=== PATIENT | male | born 1950 | race Caucasian/White ===

== ENCOUNTER 2018-01-20 09:00 | Inpatient (IN) | payer MEDICARE, MEDICAID ==
[2018-01-20 10:17] LABS: CHLORIDE,CL 98 mmol/L (98-107); SODIUM,NA 136 mmol/L (136-145)
--- NOTE | 2018-01-20 10:25 | PCM.HP ---
H&P History of Present Illness - General Date of Service: 01/20/18 Admit Problem/Dx: Admission Diagnosis/Problem Admission Diagnosis/Problem Sepsis Source of Information: Other ([facility] staff) History Limitations: Reports: Other (patient is non-verbal) - History of Present Illness Initial Comments - Free Text/Narative: Mr. Omalley is a 67 yo male with history most notable for cerebral palsy, dysphagia resulting in him being exclusively G-tube fed, and prior aspiration pneumonia who presented to clinic today for evaluation of cough x 2 days. He has been getting into coughing fits that are hard for him to get out of. He will then have shortness of breath after this. He has also been wheezing more than normal. Overnight, he developed a fever up to 101.8. He has been more subdued than his usual self. He has a history of aspiration pneumonia but this has been much better ever since his tube feedings were changed to continuous and he was started on reglan. His last hospitalization for pneumonia was >6 months ago. - Related Data Allergies/Adverse Reactions: Allergies Allergy/AdvReac Type Severity Reaction Status Date / Time NSAIDS (Non-Steroidal AdvReac Intermediate Other Verified 01/20/18 11:26 Anti-Inflamma Home Medications: Home Meds Polyethylene Glycol 3350 [MiraLAX] 17 gram PEGTUBE DAILY 02/06/14 [History] levETIRAcetam [Keppra] 500 mg PEGTUBE BID 02/06/14 [History] Baclofen 20 mg GTUBE QID 05/27/15 [History] Calcium Carbonate [Calcium Carbonate 250 MG/ML Susp] 625 mg GTUBE BID 05/27/15 [ History] Escitalopram [Lexapro] 20 mg GTUBE DAILY 05/27/15 [History] Gabapentin 900 mg GTUBE TID 05/27/15 [History] LORazepam 1 mg SL ASDIRECTED PRN 05/27/15 [History] Multivitamins with Iron/Min [Centrum] 15 ml GTUBE DAILY 06/30/15 [History] Sucralfate 1 gram TOP QID PRN 07/01/15 [History] ARIPiprazole [Abilify] 5 mg GTUBE DAILY 12/29/15 [History] Metoclopramide [Reglan] 10 mg GTUBE Q6H 12/29/15 [History] Albuterol/Ipratropium [DuoNeb 3.0-0.5 MG/3 ML] 3 ml NEB QIDRT neb 02/20/16 [Rx] Omeprazole Magnesium [Prilosec] 20 mg GTUBE BID #60 11/19/16 [Rx] Sodium Chloride 0.9% [Saline Flush] 75 ml GTUBE DAILY@0700,1200,1400 01/20/18 [ History] Sodium Chloride [Little Remedies] 1 dose [place] QID PRN 01/20/18 [History] Past Medical History HEENT History: Reports: Cataract, Other (See Below) Other HEENT History: otitis externa, hypermetropia Cardiovascular History: Reports: None Respiratory History: Reports: Pneumonia, Recurrent Gastrointestinal History: Reports: Bowel Obstruction, Chronic Constipation, Colon Polyp, Fecal Incontinence, GI Bleed, Other (See Below) Other Gastrointestinal History: inguinal hernia, gastroparesis Genitourinary History: Reports: Urinary Incontinence Musculoskeletal History: Reports: Osteoporosis Neurological History: Reports: Brain Injury, Cerebral Palsy, Seizure Psychiatric History: Reports: Depression Endocrine/Metabolic History: Reports: None Hematologic History: Reports: None Immunologic History: Reports: None Oncologic (Cancer) History: Reports: None Dermatologic History: Reports: Other (See Below) Other Dermatologic History: ulcer of right foot - Infectious Disease History Infectious Disease History: Reports: None - Past Surgical History GI Surgical History: Reports: Other (See Below) (gastrostomy) Musculoskeletal Surgical History: Reports: Other (See Below) (amputation of toe) Social & Family History - Family History Cardiac: Reports: CAD, [place] Oncologic: Reports: Pancreatic - Tobacco Use Smoking Status *Q: Never Smoker Second Hand Smoke Exposure: No - Caffeine Use Caffeine Use: Reports: None - Alcohol Use Alcohol Use History: No Days Per Week of Alcohol Use: 0 Alcohol Use in Last Twelve Months: No - Recreational Drug Use Recreational Drug Use: No - Living Situation & Occupation Living situation: Reports: Single, Extended Care Facility Occupation: Disabled H&P Review of Systems - Review of Systems: Review Of Systems: Unable To Obtain (patient is nonverbal - staff offer no other concerns apart from that noted in HPI) Exam - Exam Exam: See Below - Vital Signs Vital Signs: Last Vital Signs Temp 36.8 C 01/20/18 09:48 Pulse 97 01/20/18 09:48 Resp 18 01/20/18 09:48 BP 127/82 01/20/18 09:48 Pulse Ox 88 L 01/20/18 09:48 Weight: 63.049 kg - Exam General: Alert, Cooperative HEENT: Conjunctiva Clear, Mucosa Moist & [place], Posterior Pharynx Clear, Pupils Equal, Pupils Reactive, TMs Clear Neck: Supple, Trachea Midline. No: Lymphadenopathy, Thyromegaly Lungs: Normal Respiratory Effort, Crackles (RLL), Wheezing (diffuse and bilateral) Cardiovascular: Regular Rate, Regular Rhythm, Normal S1, Normal S2. No: Systolic Murmur, Diastolic Murmur GI/Abdominal Exam: Normal Bowel Sounds, Soft, Non-Tender, No Organomegaly, No Distention, No Mass Extremities: Normal Inspection, Non-Tender, No Pedal Edema, Normal Capillary Refill Peripheral Pulses: 2+: Radial (L), Radial (R) Skin: Warm, Dry, Intact - Patient Data Lab Results Last 24 hrs: Laboratory Results - last 24 hr 01/20/18 Range/Units 09:45 WBC 11.2 H (4.0-10.0) x10^3/uL RBC 4.60 (4.5-6.0) x10^6/uL Hgb 14.6 D (14.0-18.0) g/dL Hct 44.1 (40.0-52.0) % MCV 95.9 H D (78.0-93.0) fL MCH 31.7 (26.0-32.0) pg MCHC 33.1 (32.0-36.0) g/dL RDW Coeff of Devendra 13.9 (10.0-15.0) % Plt Count 149 (130-400) x10^3/uL Neut % (Auto) 80.7 H (50.0-80.0) % Lymph % (Auto) 9.9 L (25.0-50.0) % [place] % (Auto) 8.7 (2.0-11.0) % Eos % (Auto) 0.5 (0.0-4.0) % Baso % (Auto) 0.2 (0.2-1.2) % Result Diagrams: 01/20/18 09:45 01/20/18 09:45 Esequiel Results Last 24 hrs: Microbiology 01/20/18 09:49 Anaerobic Blood Culture - Final Blood - Venous - Lab Draw 01/20/18 09:45 Anaerobic Blood Culture - Final Blood - Venous *Q Meaningful Use (ADM) - VTE *Q VTE Anticoagulation Contraindications: Med/TX Not Indicated/Need - Problem List (1) Sepsis SNOMED Code(s): 39511906 ICD Code: A41.9 - SEPSIS, UNSPECIFIED ORGANISM Status: Acute Current Visit: Yes Problem Details: - Meets sepsis criteria with tachycardia and fever. WBC is elevated but not >12,000. - Secondary to aspiration pneumonia. CXR is read as negative but he seems to clearly have a RLL infiltrate on my read. No symptoms to suggest alternative etiology, especially given his history of the same. - Initial lactate high. Will give IV fluids and recheck in 6 hours. - Antibiotics as below. - Recheck other labs in the am. Qualifiers: Sepsis type: sepsis due to unspecified organism Qualified Code(s): A41.9 - Sepsis, unspecified organism (2) Aspiration pneumonia SNOMED Code(s): 908739707 ICD Code: J69.0 - PNEUMONITIS DUE TO INHALATION OF FOOD AND VOMIT Status: Acute Current Visit: Yes Problem Details: - Symptoms are consistent with pneumonia, likely aspiration based on RLL infiltrate on CXR and his history of the same. - Will treat with ceftriaxone + flagyl with plan to transition to augmentin for homegoing. - Meets criteria for admission due to hypoxia. Oxygen to keep saturations around 86%, which is normal for him. - DuoNebs every 4 hours for now, can space back to D as able. Qualifiers: Aspiration pneumonia type: unspecified Laterality: right Lung location: lower lobe of lung Qualified Code(s): J69.0 - Pneumonitis due to inhalation of food and vomit (3) Wheezing SNOMED Code(s): 92404844 ICD Code: R06.2 - WHEEZING Status: Chronic Current Visit: No Problem Details: - DuoNebs q4 hours today. - He has not required steroids in the past and does not carry a diagnosis of asthma; therefore, will see how he responds to the nebs first and then go from there. (4) Cerebral palsy SNOMED Code(s): 569233793 ICD Code: G80.9 - CEREBRAL PALSY, UNSPECIFIED Status: Chronic Current Visit: No Problem Details: - Will work to position him as best possible for his breathing. (5) Constipation SNOMED Code(s): 50603004 ICD Code: K59.00 - CONSTIPATION, UNSPECIFIED Status: Chronic Current Visit: No Problem Details: - Continue miralax. Qualifiers: Constipation type: unspecified constipation type Qualified Code(s): K59.00 - Constipation, unspecified (6) Depression SNOMED Code(s): 39739403 ICD Code: F32.9 - MAJOR DEPRESSIVE DISORDER, SINGLE EPISODE, UNSPECIFIED Status: Chronic Current Visit: No Problem Details: - Currently well controlled. - Continue lexapro. Qualifiers: Depression Type: major depressive disorder Major depression recurrence: recurrent Active/Remission status: in full remission Qualified Code(s): F33.42 - Major depressive disorder, recurrent, in full remission (7) G tube feedings SNOMED Code(s): 252725616, 008189463 ICD Code: Z93.1 - GASTROSTOMY STATUS Status: Chronic Current Visit: No Problem Details: - Hold feeds for now. - Will restart tomorrow depending on how he does overnight. - IV fluids for hydration for now. - Continue carafate PRN. (8) Gastroparesis SNOMED Code(s): 960271330 ICD Code: K31.84 - GASTROPARESIS Status: Chronic Current Visit: No Problem Details: - Continue reglan. (9) Seizure disorder SNOMED Code(s): 288670801 ICD Code: G40.909 - EPILEPSY, UNSP, NOT INTRACTABLE, WITHOUT STATUS EPILEPTICUS Status: Chronic Current Visit: No Problem Details: - Seizure free for 3 years. - Continue gabapentin, keppra, and PRN lorazepam. 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 - Will continue abilify. Problem List Initiated/Reviewed/Updated: Yes Orders Last 24hrs: Active Orders 24 hr Category Date Time Status Admission Status [Patient Status] [ADT] Routine ADT 01/20/18 09:02 Active Notify Provider Vital Signs [RC] ASDIRECTED Care 01/20/18 09:18 Active Oxygen Therapy [RC] PRN Care 01/20/18 09:18 Active Up With Assistance [RC] 08,20 Care 01/20/18 09:18 Active VTE/DVT Education [RC] PER UNIT ROUTINE Care 01/20/18 09:18 Active Vital Signs [RC] Q4H Care 01/20/18 09:18 Active Chest 1V Frontal [CR] Routine Exams 01/20/18 09:18 Ordered BASIC METABOLIC PANEL,BMP [CHEM] Stat Lab 01/20/18 09:45 Received C-REACTIVE PROTEIN [CHEM] Stat Lab 01/20/18 09:45 Received CULTURE BLOOD [BC] Stat Lab 01/20/18 09:45 Results CULTURE BLOOD [BC] Stat Lab 01/20/18 09:49 Results CULTURE MRSA SURVEY [RM] Routine Lab 01/20/18 10:00 Ordered LACTIC ACID [CHEM] Stat Lab 01/20/18 09:45 Received cefTRIAXone [Rocephin] Med 01/20/18 10:00 Active 1 gm IVPUSH Q24H metroNIDAZOLE [Flagyl] Med 01/20/18 10:15 Ordered 500 mg GTUBE Q8H Anticoagulation Contraindications VTE [AST] Per Unit Oth 01/20/18 09:18 Ordered Routine Blood Culture x2 Reflex Set [OM.PC] Stat Oth 01/20/18 09:18 Ordered Resuscitation Status Routine Resus Stat 01/20/18 09:18 Ordered Medication Orders Ceftriaxone Sodium (Rocephin) 1 gm IVPUSH Q24H IBAN Metronidazole (Flagyl) 500 mg GTUBE Q8H IBAN Assessment/Plan Comment:: 67 yo male admitted with sepsis secondary to aspiration pneumonia. Admitted to acute based on hypoxia and need for supplemental oxygen. correction not able to do oxygen at home. Goal saturations would be 86-88% as he has a tendency to run low. Will treat with ceftriaxone and flagyl as well as DuoNebs q4 hours. IV fluids today with repeat lactate this pm. Otherwise, see details under problems above. Anticipate he will be admitted through the weekend with possible discharge on Wednesday. Code status is DNR/DNI - this was reviewed with his guardian on admission. She was also in agreement with admission to the hospital. No indication for VTE prophylaxis as patient has a history of GI bleeds and is at his usual functional status.
[2018-01-20] MEDS: cefTRIAXone 1 GM Vial IVPUSH SCH (11:11)
[2018-01-20] MEDS: metroNIDAZOLE 500 MG Tab GTUBE SCH ×2 (11:11→17:40)
[2018-01-20] MEDS ORDERED: Lactated Ringers 1,000 ML IV SCH ×2 (11:15→21:30)
[2018-01-20] MEDS ORDERED: Sucralfate 1 GM Tab TOP PRN (11:40)
[2018-01-20] MEDS ORDERED: LORazepam 1 MG Tab GTUBE PRN (11:40)
[2018-01-20] MEDS ORDERED: Sodium Chloride 0.9% 10 ML Syringe FLUSH SCH (12:00)
[2018-01-20] MEDS: Sodium Chloride 0.65% Nasal Spray 45 ML Bottle NAS PRN (12:17)
[2018-01-20] MEDS: Albuterol/Ipratropium 3.0-0.5 MG/3 ML Neb Soln NEB SCH ×4 (12:18→22:43)
[2018-01-20] MEDS: Baclofen 10 MG Tab GTUBE SCH ×3 (12:18→20:56)
[2018-01-20] MEDS: Metoclopramide 5 MG Tab GTUBE SCH ×3 (12:18→22:44)
[2018-01-20] MEDS ORDERED: Sodium Chloride 0.9% 10 ML Syringe IV PRN (12:59)
[2018-01-20] MEDS: GABAPENTIN GTUBE SCH ×2 (13:08→20:30)
[2018-01-20] MEDS ORDERED: Lactated Ringers 1,000 ML IV ONE (18:33)
[2018-01-20] MEDS: OMEPRAZOLE MAGNESIUM GTUBE SCH (20:30)
[2018-01-20] MEDS: levETIRAcetam Soln 500 MG/5 ML Cup PEGTUBE SCH (20:56)
[2018-01-20] MEDS: Calcium Carbonate 1,250 MG/5 ML Susp 5 ML UD Cup GTUBE SCH (20:56)
[2018-01-20] MEDS: Acetaminophen 500 MG Tab GTUBE PRN (21:19)
[2018-01-21] MEDS: Albuterol/Ipratropium 3.0-0.5 MG/3 ML Neb Soln NEB SCH ×6 (02:37→22:41)
[2018-01-21] MEDS: metroNIDAZOLE 500 MG Tab GTUBE SCH ×4 (02:37→20:32)
[2018-01-21] MEDS: Metoclopramide 5 MG Tab GTUBE SCH ×4 (05:40→17:07)
[2018-01-21 07:33] LABS: CHLORIDE,CL 101 mmol/L (98-107); SODIUM,NA 138 mmol/L (136-145)
--- NOTE | 2018-01-21 08:45 | PCM.PN ---
- General Info Date of Service: 01/21/18 Subjective Update: Patient had a fever last night. Night was otherwise uneventful. Nursing staff offer no new concerns. Patient is nonverbal. - Review of Systems Systems Review Comment:: Unable to obtain due to patient's nonverbal status. - Patient Data Vitals - Most Recent: Last Vital Signs Temp 36.7 C 01/21/18 06:00 Pulse 79 01/21/18 06:00 Resp 18 01/21/18 06:00 BP 135/59 L 01/21/18 06:00 Pulse Ox 89 L 01/21/18 07:45 Weight - Most Recent: 63.049 kg I&O - Last 24 Hours: Intake & Output 01/20/18 01/21/18 01/21/18 22:59 06:59 14:59 Intake Total 978 382 Balance 978 382 Lab Results Last 24 Hours: Laboratory Results - last 24 hr 01/20/18 01/20/18 01/20/18 Range/Units 09:45 09:45 09:45 WBC 11.2 H (4.0-10.0) x10^3/uL RBC 4.60 (4.5-6.0) x10^6/uL Hgb 14.6 D (14.0-18.0) g/dL Hct 44.1 (40.0-52.0) % MCV 95.9 H D (78.0-93.0) fL MCH 31.7 (26.0-32.0) pg MCHC 33.1 (32.0-36.0) g/dL RDW Coeff of Devendra 13.9 (10.0-15.0) % Plt Count 149 (130-400) x10^3/uL Neut % (Auto) 80.7 H (50.0-80.0) % Lymph % (Auto) 9.9 L (25.0-50.0) % [place] % (Auto) 8.7 (2.0-11.0) % Eos % (Auto) 0.5 (0.0-4.0) % Baso % (Auto) 0.2 (0.2-1.2) % Sodium 136 (136-145) mmol/L Potassium 4.1 (3.5-5.1) mmol/L Chloride 98 (98-107) mmol/L Carbon Dioxide 33 H (21-32) mmol/L Anion Gap 9.1 BUN 18 (7-18) mg/dL Creatinine 0.8 (0.70-1.30) mg/dL Est Cr Clr Drug Dosing 67.19 mL/min Estimated GFR (MDRD) > 60 Glucose 145 H (74-106) mg/dL Lactic Acid 3.1 H* (0.4-2.0) mmol/L Calcium 8.5 (8.5-10.1) mg/dL C-Reactive Protein 10.7 H (<=0.9) mg/dL 01/20/18 01/21/18 01/21/18 Range/Units 15:44 07:05 07:05 WBC 7.3 (4.0-10.0) x10^3/uL RBC 4.41 L (4.5-6.0) x10^6/uL Hgb 13.6 L (14.0-18.0) g/dL Hct 42.6 (40.0-52.0) % MCV 96.6 H (78.0-93.0) fL MCH 30.8 (26.0-32.0) pg MCHC 31.9 L (32.0-36.0) g/dL RDW Coeff of Devendra 13.8 (10.0-15.0) % Plt Count 145 (130-400) x10^3/uL Neut % (Auto) 72.9 (50.0-80.0) % Lymph % (Auto) 13.9 L (25.0-50.0) % [place] % (Auto) 12.3 H (2.0-11.0) % Eos % (Auto) 0.5 (0.0-4.0) % Baso % (Auto) 0.4 (0.2-1.2) % Sodium 138 (136-145) mmol/L Potassium 4.3 (3.5-5.1) mmol/L Chloride 101 (98-107) mmol/L Carbon Dioxide 36 H (21-32) mmol/L Anion Gap 5.3 BUN 9 (7-18) mg/dL Creatinine 0.7 (0.70-1.30) mg/dL Est Cr Clr Drug Dosing 76.79 mL/min Estimated GFR (MDRD) > 60 Glucose 118 H (74-106) mg/dL Lactic Acid 1.7 (0.4-2.0) mmol/L Calcium 8.4 L (8.5-10.1) mg/dL C-Reactive Protein (<=0.9) mg/dL Esequiel Results Last 24 Hours: Microbiology 01/20/18 10:00 MRSA Surveillance Culture - Final Nares, Left NO MRSA ISOLATED 01/20/18 09:49 Anaerobic Blood Culture - Final Blood - Venous - Lab Draw 01/20/18 09:45 Anaerobic Blood Culture - Final Blood - Venous Med Orders - Current: Current Medications Acetaminophen (Tylenol Extra Strength) 500 mg GTUBE Q4H PRN PRN Reason: Fever Last Admin: 01/20/18 21:19 Dose: 500 mg Albuterol/Ipratropium (Duoneb 3.0-0.5 Mg/3 Ml) 3 ml NEB Q4HRRT [facility] Last Admin: 01/21/18 07:44 Dose: 3 ml Baclofen (Lioresal) 20 mg GTUBE QID [facility] Last Admin: 01/20/18 20:56 Dose: 20 mg Calcium Carbonate/Glycine (Calcium Carbonate 250 Mg/Ml Susp) 625 mg GTUBE BID [facility] Last Admin: 01/20/18 20:56 Dose: 625 mg Ceftriaxone Sodium (Rocephin) 1 gm IVPUSH Q24H [facility] Last Admin: 01/20/18 11:11 Dose: 1 gm Citalopram Hydrobromide (Celexa) 40 mg GTUBE DAILY [facility] Levetiracetam (Keppra) 500 mg PEGTUBE BID [facility] Last Admin: 01/20/18 20:56 Dose: 500 mg Lorazepam (Ativan) 1 mg GTUBE DAILY PRN PRN Reason: Seizures Metoclopramide HCl (Reglan) 10 mg GTUBE Q6H [facility] Last Admin: 01/21/18 05:40 Dose: 10 mg Metronidazole (Flagyl) 500 mg GTUBE Q8H [facility] Last Admin: 01/21/18 02:37 Dose: 500 mg Aripiprazole [ Abilify] 5 MgOwn Med 5 mg GTUBE DAILY [facility] Gabapentin [ Gabapentin] 900 Mg/18mlOwn Med 900 mg GTUBE TID [facility] Last Admin: 01/20/18 20:30 Dose: 900 mg Multivitamins With Iron/Min [Centrum] 15 MlOwn Med 15 ml GTUBE DAILY [facility] Omeprazole Magnesium [Zegerid] 20 Mg/10mlOwn Med 20 mg GTUBE BID [facility] Last Admin: 01/20/18 20:30 Dose: 20 mg Polyethylene Glycol (Miralax) 17 gm GTUBE DAILY [facility] Simethicone (Infants' Gas Relief) 134 mg GTUBE QID PRN PRN Reason: Gas Sodium Chloride ([place] Nasal [place]) 0 ml [place] QID PRN PRN Reason: Congestion Last Admin: 01/20/18 12:17 Dose: 1 spray Sodium Chloride (Saline Flush) 10 ml IV ASDIRECTED PRN PRN Reason: Keep Vein Open Sucralfate (Carafate) 1 gm TOP QID PRN PRN Reason: Other Discontinued Medications Lactated Ringer's (Ringers, Lactated) 1,000 mls @ 100 mls/hr IV ASDIRECTED [facility] Last Admin: 01/20/18 11:16 Dose: 125 mls/hr Lactated Ringer's (Ringers, Lactated) 1,000 mls @ 100 mls/hr IV ONETIME ONE Stop: 01/20/18 19:59 Last Admin: 01/20/18 18:36 Dose: Not Given Lactated Ringer's (Ringers, Lactated) 1,000 mls @ 50 mls/hr IV ASDIRECTED [facility] Last Admin: 01/20/18 21:41 Dose: 50 mls/hr - Exam General: Other (Resting comfortably in bed in no acute distress.) HEENT: Mucous Membr. Moist/[place] Neck: Supple, Trachea Midline, No Thyromegaly. No: Lymphadenopathy Lungs: Normal Respiratory Effort, Crackles, Wheezing Cardiovascular: Regular Rate, Regular Rhythm, No Murmurs GI/Abdominal Exam: Normal Bowel Sounds, Soft, Non-Tender, No Organomegaly, No Distention, No Mass Extremities: Non-Tender, No Pedal Edema, Normal Capillary Refill Peripheral Pulses: 2+: Radial (L), Radial (R) Skin: Warm, Dry, Intact - Problem List & Annotations (1) Sepsis SNOMED Code(s): 52150570 Code(s): A41.9 - SEPSIS, UNSPECIFIED ORGANISM Status: Acute Current Visit : Yes Qualifiers: Sepsis type: sepsis due to unspecified organism Qualified Code(s): A41.9 - Sepsis, unspecified organism Annotation/Comment:: - Met sepsis criteria on admission with tachycardia and fever. Febrile overnight but pulse now normal. - WBC elevated on admission but normal today. - Secondary to aspiration pneumonia. CXR is read as negative but he seems to clearly have a RLL infiltrate on my read. No symptoms to suggest alternative etiology, especially given his history of the same. - Initial lactate high; repeat after IV fluids was normal. - Antibiotics as below. - Recheck labs in the am. (2) Aspiration pneumonia SNOMED Code(s): 946171624 Code(s): J69.0 - PNEUMONITIS DUE TO INHALATION OF FOOD AND VOMIT Status: Acute Current Visit: Yes Qualifiers: Aspiration pneumonia type: unspecified Laterality: right Lung location: lower lobe of lung Qualified Code(s): J69.0 - Pneumonitis due to inhalation of food and vomit Annotation/Comment:: - Symptoms are consistent with pneumonia, likely aspiration based on RLL infiltrate on CXR and his history of the same. - He is improving based on labs. Oxygen requirements are stable. - Continue ceftriaxone + flagyl with plan to transition to augmentin for homegoing to complete a 7 day course. - Meets criteria for admission due to hypoxia. Oxygen to keep saturations around 86%, which is normal for him. - DuoNebs every 4 hours for now, can space back to QID as able. (3) Wheezing SNOMED Code(s): 31049965 Code(s): R06.2 - WHEEZING Status: Chronic Current Visit: No Annotation/ Comment:: - DuoNebs q4 hours today. - He has not required steroids in the past and does not carry a diagnosis of asthma; therefore, will see how he responds to the nebs first and then go from there. (4) Acute respiratory failure with hypoxia SNOMED Code(s): 78329040, 426183620 Code(s): J96.01 - ACUTE RESPIRATORY FAILURE WITH HYPOXIA Status: Acute Current Visit: Yes Annotation/Comment:: - Stable on 2 L. - Will wean as able. (5) Cerebral palsy SNOMED Code(s): 675858099 Code(s): G80.9 - CEREBRAL PALSY, UNSPECIFIED Status: Chronic Current Visit: No Annotation/Comment:: - Will work to position him as best possible for his breathing. (6) Constipation SNOMED Code(s): 64578276 Code(s): K59.00 - CONSTIPATION, UNSPECIFIED Status: Chronic Current Visit : No Qualifiers: Constipation type: unspecified constipation type Qualified Code(s): K59.00 - Constipation, unspecified Annotation/Comment:: - Continue miralax. (7) Depression SNOMED Code(s): 79070274 Code(s): F32.9 - MAJOR DEPRESSIVE DISORDER, SINGLE EPISODE, UNSPECIFIED Status: Chronic Current Visit: No Qualifiers: Depression Type: major depressive disorder Major depression recurrence: recurrent Active/Remission status: in full remission Qualified Code(s): F33.42 - Major depressive disorder, recurrent, in full remission Annotation/Comment:: - Currently well controlled. - Continue lexapro. (8) G tube feedings SNOMED Code(s): 592615597, 372123010 Code(s): Z93.1 - GASTROSTOMY STATUS Status: Chronic Current Visit: No Annotation/Comment:: - Has done well overnight. Will d/c IV fluids and restart tube feedings today per home schedule. - Continue carafate PRN. (9) Gastroparesis SNOMED Code(s): 361291205 Code(s): K31.84 - GASTROPARESIS Status: Chronic Current Visit: No Annotation/Comment:: - Continue reglan. (10) Seizure disorder SNOMED Code(s): 305867072 Code(s): G40.909 - EPILEPSY, UNSP, NOT INTRACTABLE, WITHOUT STATUS EPILEPTICUS Status: Chronic Current Visit: No Annotation/Comment:: - Seizure free for 3 years. - Continue gabapentin, keppra, and PRN lorazepam. (11) Moderate intellectual disabilities SNOMED Code(s): 147469387, 710057221 Code(s): F71 - MODERATE INTELLECTUAL DISABILITIES Status: Chronic Current Visit: No Annotation/Comment:: - [facility] staff will review behaviors with nursing to ensure we know how to work with the patient on this. - Will continue abilify. - Problem List Review Problem List Initiated/Reviewed/Updated: Yes - My Orders Last 24 Hours: My Active Orders 01/20/18 09:02 Admission Status [Patient Status] [ADT] Routine 01/20/18 09:18 Notify Provider Vital Signs [RC] 08,20 Oxygen Therapy [RC] 08,20 Up With Assistance [RC] 08,20 Vital Signs [RC] 06,10,14,18,22,02 Chest 1V Frontal [CR] Routine Anticoagulation Contraindications VTE [AST] Per Unit Routine Blood Culture x2 Reflex Set [OM.PC] Stat Resuscitation Status Routine 01/20/18 09:45 CULTURE BLOOD [BC] Stat 01/20/18 09:49 CULTURE BLOOD [BC] Stat 01/20/18 10:00 cefTRIAXone [Rocephin] 1 gm IVPUSH Q24H 01/20/18 10:30 metroNIDAZOLE [Flagyl] 500 mg GTUBE Q8H 01/20/18 11:40 LORazepam [Ativan] 1 mg GTUBE DAILY PRN Sodium Chloride 0.65% [[place] Nasal [place]] 0 ml [place] QID PRN Sucralfate [Carafate] 1 gm TOP QID PRN 01/20/18 11:45 Metoclopramide [Reglan] 10 mg GTUBE Q6H 01/20/18 12:00 Albuterol/Ipratropium [DuoNeb 3.0-0.5 MG/3 ML] 3 ml NEB Q4HRRT Baclofen [Lioresal] 20 mg GTUBE QID Gabapentin [Gabapentin] 900 mg GTUBE TID 01/20/18 12:55 Communication Order [RC] 07,12,14,16,20 01/20/18 12:59 Sodium Chloride 0.9% [Saline Flush] 10 ml IV ASDIRECTED PRN 01/20/18 14:49 Simethicone [Infants' Gas Relief] 134 mg GTUBE QID PRN 01/20/18 20:00 Calcium Carbonate [Calcium Carbonate 250 MG/ML Susp] 625 mg GTUBE BID Omeprazole Magnesium [Prilosec] 20 mg GTUBE BID levETIRAcetam [Keppra] 500 mg PEGTUBE BID 01/20/18 Lunch NPO [Nothing Per Oral Diet] [DIET] 01/21/18 08:00 ARIPiprazole [Abilify] 5 mg GTUBE DAILY Citalopram [Celexa] 40 mg GTUBE DAILY Multivitamins with Iron/Min [Centrum] 15 ml GTUBE DAILY Polyethylene Glycol 3350 [MiraLAX] 17 gm GTUBE DAILY 01/22/18 05:11 BASIC METABOLIC PANEL,BMP [CHEM] Routine C-REACTIVE PROTEIN [CHEM] Routine CBC WITH AUTO DIFF [HEME] Routine - Assessment Assessment:: 67 yo male hospital day #2 admitted with sepsis secondary to aspiration pneumonia. Labs and vital signs improved today. No longer meeting sepsis criteria. Oxygen requirements stable. - Plan Plan:: Admitted to acute due to needs for IV antibiotics, oxygen which cannot be done at his long-term, and anticipation it will take >48 hours before he is prepared for dismissal. Goal saturations would be 86-88% as he has a tendency to run low. Continue ceftriaxone and flagyl as well as DuoNebs q4 hours. D/C IV fluids and restart tube feedings today. Otherwise, see details under problems above. Anticipate he will be admitted through the weekend with possible discharge on Wednesday. Code status is DNR/DNI - this was reviewed with his guardian on admission. She was also in agreement with admission to the hospital. No indication for VTE prophylaxis as patient has a history of GI bleeds and is at his usual functional status.
[2018-01-21] MEDS: levETIRAcetam Soln 500 MG/5 ML Cup PEGTUBE SCH ×2 (09:02→20:31)
[2018-01-21] MEDS: Calcium Carbonate 1,250 MG/5 ML Susp 5 ML UD Cup GTUBE SCH ×2 (09:02→20:30)
[2018-01-21] MEDS: Citalopram 20 MG Tab GTUBE SCH (09:03)
[2018-01-21] MEDS: MULTIVITAMINS WITH IRON GTUBE SCH (09:04)
[2018-01-21] MEDS: Baclofen 10 MG Tab GTUBE SCH ×4 (09:04→20:32)
[2018-01-21] MEDS: [UNRECOGNIZED DRUG - OTHER] GTUBE SCH (09:04)
[2018-01-21] MEDS: Polyethylene Glycol 3350 Powder 17 GM Packet GTUBE SCH (09:05)
[2018-01-21] MEDS: ARIPIPRAZOLE 5 MG GTUBE SCH (09:05)
[2018-01-21] MEDS: OMEPRAZOLE MAGNESIUM GTUBE SCH ×2 (09:10→20:31)
[2018-01-21] MEDS: GABAPENTIN GTUBE SCH ×3 (09:11→20:31)
[2018-01-21] MEDS: cefTRIAXone 1 GM Vial IVPUSH SCH (09:22)
[2018-01-22] MEDS: Metoclopramide 5 MG Tab GTUBE SCH ×5 (00:25→17:26)
[2018-01-22] MEDS: Albuterol/Ipratropium 3.0-0.5 MG/3 ML Neb Soln NEB SCH ×6 (03:59→23:23)
[2018-01-22] MEDS: metroNIDAZOLE 500 MG Tab GTUBE SCH ×3 (03:59→20:33)
[2018-01-22] MEDS: GABAPENTIN GTUBE SCH ×3 (08:24→20:33)
[2018-01-22] MEDS: OMEPRAZOLE MAGNESIUM GTUBE SCH ×2 (08:25→20:31)
[2018-01-22] MEDS: Calcium Carbonate 1,250 MG/5 ML Susp 5 ML UD Cup GTUBE SCH ×2 (08:26→20:31)
[2018-01-22] MEDS: Citalopram 20 MG Tab GTUBE SCH (08:27)
[2018-01-22] MEDS: levETIRAcetam Soln 500 MG/5 ML Cup PEGTUBE SCH ×2 (08:27→20:31)
[2018-01-22] MEDS: Baclofen 10 MG Tab GTUBE SCH ×4 (08:28→20:33)
[2018-01-22] MEDS: MULTIVITAMINS WITH IRON GTUBE SCH (08:28)
[2018-01-22] MEDS: [UNRECOGNIZED DRUG - OTHER] GTUBE SCH (08:28)
[2018-01-22] MEDS: ARIPIPRAZOLE 5 MG GTUBE SCH (08:29)
[2018-01-22] MEDS: Polyethylene Glycol 3350 Powder 17 GM Packet GTUBE SCH (08:30)
[2018-01-22] MEDS: cefTRIAXone 1 GM Vial IVPUSH SCH ×2 (08:31→09:57)
[2018-01-22 09:16] LABS: CHLORIDE,CL 102 mmol/L (98-107); SODIUM,NA 140 mmol/L (136-145)
[2018-01-22] MEDS ORDERED: Bisacodyl 10 MG Supp RECTAL PRN (11:00)
--- NOTE | 2018-01-22 15:20 | PN ---
Progress Note for ARLETH NASCIMENTO Date: 01/22/2018 Room #: VM.203 SUBJECTIVE: The patient felt a little more alert. He was admitted for sepsis on 01/20/2018. He is a little bit more alert. OBJECTIVE: Vital Signs: His temperature is 36.6, blood pressure is 118/68, respiratory rate is 19, and saturations are 92% on 2 L. Lungs: The patient has a deep cough present. Heart: Regular rate and rhythm. Neurologic: The patient is hemiparetic on his left side. He does not talk. He is not able to indicate if he understands what I am saying. LABORATORY DATA: Shows his white blood cell count is 8.0, hemoglobin 12.7, and platelets are 150, with 75 segs, 12 lymphs. Sodium 140, potassium 4.2, creatinine 0.6, glucose is 144, CRP is up to 11.4. His last chest x-ray had been done on 01/20/2018, which showed left pneumonia with fair amount of bowel gas present. IMPRESSION: 1. Pneumonia. 2. Hypoxemia. 3. Depression. 4. Developmental delay 5. Epilepsy PLAN: We will repeat chest x-ray today on the patient. We will see if CPT can be added to help with pulmonary function. His IV rates are just TKO. The patient is on tube feedings. We will check lab work for tomorrow on the patient. GM01/22/2018 10:02:20 MODL: 01/22/2018 11:05:42 /[id number] MTDD
[2018-01-22] MEDS: Sodium Chloride 0.65% Nasal Spray 45 ML Bottle NAS PRN (15:30)
[2018-01-23] MEDS: Albuterol/Ipratropium 3.0-0.5 MG/3 ML Neb Soln NEB SCH ×6 (02:56→22:06)
[2018-01-23] MEDS: metroNIDAZOLE 500 MG Tab GTUBE SCH ×3 (03:03→20:04)
[2018-01-23] MEDS: Metoclopramide 5 MG Tab GTUBE SCH ×5 (06:01→17:04)
[2018-01-23] MEDS: Calcium Carbonate 1,250 MG/5 ML Susp 5 ML UD Cup GTUBE SCH ×2 (08:00→20:03)
[2018-01-23] MEDS: OMEPRAZOLE MAGNESIUM GTUBE SCH ×2 (08:00→20:03)
[2018-01-23] MEDS: GABAPENTIN GTUBE SCH ×3 (08:00→20:03)
[2018-01-23] MEDS: levETIRAcetam Soln 500 MG/5 ML Cup PEGTUBE SCH ×2 (08:01→20:05)
[2018-01-23] MEDS: Baclofen 10 MG Tab GTUBE SCH ×4 (08:01→20:04)
[2018-01-23] MEDS: Citalopram 20 MG Tab GTUBE SCH (08:01)
[2018-01-23] MEDS: MULTIVITAMINS WITH IRON GTUBE SCH (08:02)
[2018-01-23] MEDS: [UNRECOGNIZED DRUG - OTHER] GTUBE SCH (08:02)
[2018-01-23] MEDS: ARIPIPRAZOLE 5 MG GTUBE SCH (08:02)
[2018-01-23] MEDS: cefTRIAXone 1 GM Vial IVPUSH SCH ×2 (08:04→09:00)
[2018-01-23] MEDS: Polyethylene Glycol 3350 Powder 17 GM Packet GTUBE SCH (08:08)
[2018-01-23 08:50] LABS: CHLORIDE,CL 101 mmol/L (98-107); SODIUM,NA 138 mmol/L (136-145)
[2018-01-23] MEDS ORDERED: Albuterol 0.083% 2.5 MG/3 ML Neb Soln NEB PRN (11:14)
--- NOTE | 2018-01-23 12:01 | PN ---
Progress Note for ARLETH NASCIMENTO Date: 01/23/2018 Room #: VM.203 SUBJECTIVE: The patient in general does look a little bit more alert, little bit more stronger. However, he will have times where his sats seem to drop. He just had a difficult time coughing up material. His feeding tubes have been going well. He has not had any episodes of spitting up. OBJECTIVE: Vital Signs: His temperature is 37.2, max yesterday was 37.7, his blood pressure is 107/63, respiratory rate is 20, sats are 90% on 6 L. Skin: His skin is pale, warm, and dry. To note, his hands are contracted and so questionable well perfused ability and accuracy of sats. Heart: Regular rate. Lungs: Have some audible upper respiratory sounds noted. Abdomen: Bowel sounds are present. Soft, nontender. Neurologic: The patient is aphasic, unable to determine if he is able to understand what we are expressing to him. LABORATORY DATA: White blood cell count 6.6, hemoglobin 13.2, platelets 181 with 47 segs, 6 bands, 14 lymphocytes. Sodium is 138, potassium 4.4, creatinine is 0.6, GFR is greater than 60, glucose 122. His liver function tests are normal. Albumin is 2.7 which is slightly diminished. Chest x-ray was obtained which appears about the same from V4, its no worse. IMPRESSION: 1. Pneumonia. 2. Hypoxemia, related to pneumonia and difficulty clearing oral secretions. 3. Learning disabled. 4. Hypoxemia. 5. Depression. PLAN: We will place the patient on some scheduled Robitussin and see if this helps as a mucolytic to break up mucus. We will also offer p.r.n. albuterol nebs. If patient's status would worsen, would consider needing to get ABGs on patient, but for right now, the respiratory rate is normal so feel that would not be as helpful. GM01/23/2018 11:19:56 MODL: 01/23/2018 11:42:03 /[id number]
[2018-01-23] MEDS: guaiFENesin 100 MG/5 ML Soln 10 ML UD Cup GTUBE SCH ×3 (12:23→20:04)
[2018-01-24] MEDS: Metoclopramide 5 MG Tab GTUBE SCH ×2 (00:41→05:17)
[2018-01-24] MEDS: Albuterol/Ipratropium 3.0-0.5 MG/3 ML Neb Soln NEB SCH ×5 (02:43→18:02)
[2018-01-24] MEDS: metroNIDAZOLE 500 MG Tab GTUBE SCH (03:01)
[2018-01-24 07:28] LABS: CHLORIDE,CL 102 mmol/L (98-107); SODIUM,NA 138 mmol/L (136-145)
[2018-01-24] MEDS: ARIPIPRAZOLE 5 MG GTUBE SCH (07:48)
[2018-01-24] MEDS: Calcium Carbonate 1,250 MG/5 ML Susp 5 ML UD Cup GTUBE SCH ×2 (07:48→19:49)
[2018-01-24] MEDS: Citalopram 20 MG Tab GTUBE SCH (07:50)
[2018-01-24] MEDS: GABAPENTIN GTUBE SCH ×3 (07:51→20:48)
[2018-01-24] MEDS: levETIRAcetam Soln 500 MG/5 ML Cup PEGTUBE SCH ×2 (07:53→19:49)
[2018-01-24] MEDS: MULTIVITAMINS WITH IRON GTUBE SCH (07:54)
[2018-01-24] MEDS: Baclofen 10 MG Tab GTUBE SCH ×4 (07:54→19:49)
[2018-01-24] MEDS: [UNRECOGNIZED DRUG - OTHER] GTUBE SCH (07:54)
[2018-01-24] MEDS: OMEPRAZOLE MAGNESIUM GTUBE SCH ×2 (07:56→20:48)
[2018-01-24] MEDS: guaiFENesin 100 MG/5 ML Soln 10 ML UD Cup GTUBE SCH ×4 (07:57→19:49)
[2018-01-24] MEDS ORDERED: Amoxicillin/Clavulanate K 875-125 MG Tab GTUBE SCH (08:30)
[2018-01-24] MEDS: Polyethylene Glycol 3350 Powder 17 GM Packet GTUBE SCH (08:45)
[2018-01-24] MEDS: Amoxicillin/Clavulanate K 400-57 MG/5 ML Susp 100 ML Bottle GTUBE SCH ×2 (09:25→20:47)
--- NOTE | 2018-01-24 11:49 | PCM.PN ---
- General Info Date of Service: 01/24/18 Subjective Update: No overnight events. Patient is improving but is still requiring oxygen. - Review of Systems General: Reports: No Symptoms HEENT: Reports: No Symptoms Pulmonary: Reports: Cough Cardiovascular: Reports: No Symptoms Gastrointestinal: Reports: No Symptoms Genitourinary: Reports: No Symptoms Musculoskeletal: Reports: No Symptoms Skin: Reports: No Symptoms Neurological: Reports: No Symptoms - Patient Data Vitals - Most Recent: Last Vital Signs Temp 37.1 C 01/24/18 09:54 Pulse 82 01/24/18 09:54 Resp 20 01/24/18 09:54 BP 123/66 01/24/18 09:54 Pulse Ox 88 L 01/24/18 11:15 Weight - Most Recent: 63.049 kg I&O - Last 24 Hours: Intake & Output 01/23/18 01/24/18 01/24/18 22:59 06:59 14:59 Intake Total 1300 910 Balance 1300 910 Lab Results Last 24 Hours: Laboratory Results - last 24 hr 01/24/18 01/24/18 Range/Units 06:51 06:51 WBC 6.4 (4.0-10.0) x10^3/uL RBC 4.21 L (4.5-6.0) x10^6/uL Hgb 13.1 L (14.0-18.0) g/dL Hct 41.4 (40.0-52.0) % MCV 98.3 H (78.0-93.0) fL MCH 31.1 (26.0-32.0) pg MCHC 31.6 L (32.0-36.0) g/dL RDW Coeff of Devendra 13.5 (10.0-15.0) % Plt Count 174 (130-400) x10^3/uL Neut % (Auto) 55.7 (50.0-80.0) % Lymph % (Auto) 22.4 L (25.0-50.0) % [place] % (Auto) 12.3 H (2.0-11.0) % Eos % (Auto) 9.3 H (0.0-4.0) % Baso % (Auto) 0.3 (0.2-1.2) % Sodium 138 (136-145) mmol/L Potassium 4.6 (3.5-5.1) mmol/L Chloride 102 (98-107) mmol/L Carbon Dioxide 35 H (21-32) mmol/L Anion Gap 5.6 BUN 13 (7-18) mg/dL Creatinine 0.6 L (0.70-1.30) mg/dL Est Cr Clr Drug Dosing 89.59 mL/min Estimated GFR (MDRD) > 60 Glucose 116 H (74-106) mg/dL Calcium 8.2 L (8.5-10.1) mg/dL Esequiel Results Last 24 Hours: Microbiology 01/20/18 09:49 Aerobic Blood Culture - Preliminary Blood - Venous - Lab Draw NO GROWTH AFTER 4 DAYS Anaerobic Blood Culture - Final 01/20/18 09:45 Aerobic Blood Culture - Preliminary Blood - Venous NO GROWTH AFTER 4 DAYS Anaerobic Blood Culture - Final Med Orders - Current: Current Medications Acetaminophen (Tylenol Extra Strength) 500 mg GTUBE Q4H PRN PRN Reason: Fever Last Admin: 01/20/18 21:19 Dose: 500 mg Albuterol/Ipratropium (Duoneb 3.0-0.5 Mg/3 Ml) 3 ml NEB Q4HRRT [facility] Last Admin: 01/24/18 10:56 Dose: 3 ml Amoxicillin/Clavulanate Potassium (Augmentin 400 Mg/5 Ml Susp) 880 mg GTUBE BID [facility] Last Admin: 01/24/18 09:25 Dose: 11 ml Baclofen (Lioresal) 20 mg GTUBE QID [facility] Last Admin: 01/24/18 07:54 Dose: 20 mg Bisacodyl (Dulcolax) 10 mg RECTAL DAILY PRN PRN Reason: Constipation Calcium Carbonate/Glycine (Calcium Carbonate 250 Mg/Ml Susp) 625 mg GTUBE BID [facility] Last Admin: 01/24/18 07:48 Dose: 625 mg Citalopram Hydrobromide (Celexa) 40 mg GTUBE DAILY [facility] Last Admin: 01/24/18 07:50 Dose: 40 mg Guaifenesin (Robitussin) 200 mg GTUBE QID [facility] Last Admin: 01/24/18 07:57 Dose: 200 mg Levetiracetam (Keppra) 500 mg PEGTUBE BID [facility] Last Admin: 01/24/18 07:53 Dose: 500 mg Lorazepam (Ativan) 1 mg GTUBE DAILY PRN PRN Reason: Seizures Metoclopramide HCl (Reglan) 10 mg GTUBE Q6H [facility] Aripiprazole [ Abilify] 5 MgOwn Med 5 mg GTUBE DAILY [facility] Last Admin: 01/24/18 07:48 Dose: 5 mg Gabapentin [ Gabapentin] 900 Mg/18mlOwn Med 900 mg GTUBE TID [facility] Last Admin: 01/24/18 07:51 Dose: 900 mg Multivitamins With Iron/Min [Centrum] 15 MlOwn Med 15 ml GTUBE DAILY [facility] Last Admin: 01/24/18 07:54 Dose: 15 ml Omeprazole Magnesium [Zegerid] 20 Mg/10mlOwn Med 20 mg GTUBE BID [facility] Last Admin: 01/24/18 07:56 Dose: 20 mg Polyethylene Glycol (Miralax) 17 gm GTUBE DAILY [facility] Last Admin: 01/24/18 08:45 Dose: Not Given Simethicone (Infants' Gas Relief) 134 mg GTUBE QID PRN PRN Reason: Gas Sodium Chloride ([place] Nasal [place]) 0 ml [place] QID PRN PRN Reason: Congestion Last Admin: 01/22/18 15:30 Dose: 2 spray Sodium Chloride (Saline Flush) 10 ml IV ASDIRECTED PRN PRN Reason: Keep Vein Open Last Admin: 01/23/18 20:02 Dose: 10 ml Sucralfate (Carafate) 1 gm TOP QID PRN PRN Reason: Other Discontinued Medications Albuterol (Proventil Neb Soln) 2.5 mg NEB Q2H PRN PRN Reason: Dyspnea Ceftriaxone Sodium (Rocephin) 1 gm IVPUSH Q24H [facility] Last Admin: 01/23/18 09:00 Dose: Not Given Lactated Ringer's (Ringers, Lactated) 1,000 mls @ 100 mls/hr IV ASDIRECTED [facility] Last Admin: 01/20/18 11:16 Dose: 125 mls/hr Lactated Ringer's (Ringers, Lactated) 1,000 mls @ 100 mls/hr IV ONETIME ONE Stop: 01/20/18 19:59 Last Admin: 01/20/18 18:36 Dose: Not Given Lactated Ringer's (Ringers, Lactated) 1,000 mls @ 50 mls/hr IV ASDIRECTED [facility] Last Admin: 01/20/18 21:41 Dose: 50 mls/hr Metoclopramide HCl (Reglan) 10 mg GTUBE Q6H [facility] Last Admin: 01/21/18 05:40 Dose: 10 mg Metoclopramide HCl (Reglan) 10 mg GTUBE Q6H [facility] Last Admin: 01/24/18 05:17 Dose: 10 mg Metronidazole (Flagyl) 500 mg GTUBE Q8H [facility] Last Admin: 01/21/18 11:08 Dose: Not Given Metronidazole (Flagyl) 500 mg GTUBE Q8H [facility] Last Admin: 01/24/18 03:01 Dose: 500 mg - Exam General: Alert, Cooperative, No Acute Distress HEENT: Mucous Membr. Moist/[place] Neck: Supple, Trachea Midline, No Thyromegaly. No: Lymphadenopathy Lungs: Normal Respiratory Effort, Wheezing (throughout) Cardiovascular: Regular Rate, Regular Rhythm, No Murmurs GI/Abdominal Exam: Normal Bowel Sounds, Soft, Non-Tender, No Organomegaly, No Distention, No Mass Extremities: Normal Inspection, Non-Tender, No Pedal Edema, Normal Capillary Refill Peripheral Pulses: 2+: Radial (L), Radial (R) Skin: Warm, Dry, Intact - Problem List & Annotations (1) Sepsis SNOMED Code(s): 90835507 Code(s): A41.9 - SEPSIS, UNSPECIFIED ORGANISM Status: Resolved Current Visit: Yes Qualifiers: Sepsis type: sepsis due to unspecified organism Qualified Code(s): A41.9 - Sepsis, unspecified organism Annotation/Comment:: - Met sepsis criteria on admission with tachycardia and fever. Has now been afebrile for >72 hours with no tachycardia. - WBC also remains normal today. - Secondary to aspiration pneumonia. - Antibiotics as below. (2) Aspiration pneumonia SNOMED Code(s): 315597659 Code(s): J69.0 - PNEUMONITIS DUE TO INHALATION OF FOOD AND VOMIT Status: Acute Current Visit: Yes Qualifiers: Aspiration pneumonia type: unspecified Laterality: right Lung location: lower lobe of lung Qualified Code(s): J69.0 - Pneumonitis due to inhalation of food and vomit Annotation/Comment:: - Symptoms are consistent with pneumonia, likely aspiration based on RLL infiltrate on CXR and his history of the same. - He is improving but slowly. Oxygen rate had been increased over the weekend but then sats were in the upper 90's, which is higher than he needs. Goal saturations are 86-88%. - Will transition to Augmentin today as he has been afebrile and WBC normal. - Will try space his DuoNebs to QID today and see how he does. (3) Wheezing SNOMED Code(s): 73602269 Code(s): R06.2 - WHEEZING Status: Chronic Current Visit: No Annotation/ Comment:: - DuoNebs to QID as above. - He has not required steroids in the past and does not carry a diagnosis of asthma; therefore, will see how he responds to the nebs first and then go from there. (4) Acute respiratory failure with hypoxia SNOMED Code(s): 25365357, 774601823 Code(s): J96.01 - ACUTE RESPIRATORY FAILURE WITH HYPOXIA Status: Acute Current Visit: Yes Annotation/Comment:: - Will wean oxygen as able. - Patient will remain on acute as long as he is requiring oxygen. He does not require transfer to [place] as he is improving and does not require a higher level of care. (5) Cerebral palsy SNOMED Code(s): 598760572 Code(s): G80.9 - CEREBRAL PALSY, UNSPECIFIED Status: Chronic Current Visit: No Annotation/Comment:: - Will work to position him as best possible for his breathing. (6) Constipation SNOMED Code(s): 16088302 Code(s): K59.00 - CONSTIPATION, UNSPECIFIED Status: Chronic Current Visit : No Qualifiers: Constipation type: unspecified constipation type Qualified Code(s): K59.00 - Constipation, unspecified Annotation/Comment:: - Continue miralax. (7) Depression SNOMED Code(s): 81166541 Code(s): F32.9 - MAJOR DEPRESSIVE DISORDER, SINGLE EPISODE, UNSPECIFIED Status: Chronic Current Visit: No Qualifiers: Depression Type: major depressive disorder Major depression recurrence: recurrent Active/Remission status: in full remission Qualified Code(s): F33.42 - Major depressive disorder, recurrent, in full remission Annotation/Comment:: - Currently well controlled. - Continue lexapro. (8) G tube feedings SNOMED Code(s): 268922105, 765792331 Code(s): Z93.1 - GASTROSTOMY STATUS Status: Chronic Current Visit: No Annotation/Comment:: - Tolerating his tube feedings well. No changes today. - Continue carafate PRN. (9) Gastroparesis SNOMED Code(s): 453487291 Code(s): K31.84 - GASTROPARESIS Status: Chronic Current Visit: No Annotation/Comment:: - Continue reglan. (10) Seizure disorder SNOMED Code(s): 697919227 Code(s): G40.909 - EPILEPSY, UNSP, NOT INTRACTABLE, WITHOUT STATUS EPILEPTICUS Status: Chronic Current Visit: No Annotation/Comment:: - Seizure free for 3 years. - Continue gabapentin, keppra, and PRN lorazepam. 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 - Will continue abilify. - Problem List Review Problem List Initiated/Reviewed/Updated: Yes - My Orders Last 24 Hours: My Active Orders 01/24/18 08:45 Amoxicillin/Clavulanate K [Augmentin 400 MG/5 ML Susp] 880 mg GTUBE BID 01/24/18 12:00 Metoclopramide [Reglan] 10 mg GTUBE Q6H - Assessment Assessment:: 67 yo male hospital day #5 admitted with sepsis secondary to aspiration pneumonia. Sepsis resolved; pneumonia is also improving but he is still requiring supplemental oxygen. - Plan Plan:: See details under problems above. Will transition to augmentin today and also back off his neb frequency to QID. He will continue tube feeds as per his home schedule. He is still requiring acute cares given ongoing needs for oxygen. He cannot go to his longterm on oxygen and also cannot go to swing bed here without losing his longterm bed. He does not require transfer to [place] as he is otherwise improving and does not require a higher level of care. Therefore, he will remain on acute here at this time. Will reassess in 2 days if he is still requiring oxygen as we may need to consider transition to the care center instead of going back to his longterm. Code status is DNR/DNI - this was reviewed with his guardian on admission. No indication for VTE prophylaxis as patient has a history of GI bleeds and is at his usual functional status.
[2018-01-24] MEDS: Metoclopramide 10 MG Tab GTUBE SCH ×2 (11:52→18:02)
[2018-01-24] MEDS: Acetaminophen 500 MG Tab GTUBE PRN (15:32)
[2018-01-24] MEDS: Simethicone Drops 40 MG/0.6 ML 30 ML Bottle GTUBE PRN (15:34)
[2018-01-25] MEDS: Metoclopramide 10 MG Tab GTUBE SCH ×4 (00:01→17:22)
[2018-01-25] MEDS: Albuterol/Ipratropium 3.0-0.5 MG/3 ML Neb Soln NEB SCH ×7 (04:04→22:27)
[2018-01-25] MEDS: Baclofen 10 MG Tab GTUBE SCH ×4 (07:52→20:47)
[2018-01-25] MEDS: Citalopram 20 MG Tab GTUBE SCH (07:52)
[2018-01-25] MEDS: guaiFENesin 100 MG/5 ML Soln 10 ML UD Cup GTUBE SCH ×4 (07:52→20:48)
[2018-01-25] MEDS: Calcium Carbonate 1,250 MG/5 ML Susp 5 ML UD Cup GTUBE SCH ×2 (07:52→20:48)
[2018-01-25] MEDS: levETIRAcetam Soln 500 MG/5 ML Cup PEGTUBE SCH ×2 (07:53→22:27)
[2018-01-25] MEDS: OMEPRAZOLE MAGNESIUM GTUBE SCH ×2 (07:53→20:49)
[2018-01-25] MEDS: GABAPENTIN GTUBE SCH ×3 (07:54→20:49)
[2018-01-25] MEDS: Amoxicillin/Clavulanate K 400-57 MG/5 ML Susp 100 ML Bottle GTUBE SCH ×2 (07:54→20:49)
[2018-01-25] MEDS: ARIPIPRAZOLE 5 MG GTUBE SCH (07:55)
[2018-01-25] MEDS: Simethicone Drops 40 MG/0.6 ML 30 ML Bottle GTUBE PRN (07:56)
[2018-01-25] MEDS: MULTIVITAMINS WITH IRON GTUBE SCH (07:56)
[2018-01-25] MEDS: [UNRECOGNIZED DRUG - OTHER] GTUBE SCH (07:56)
[2018-01-25] MEDS: Polyethylene Glycol 3350 Powder 17 GM Packet GTUBE SCH (07:57)
--- NOTE | 2018-01-25 10:28 | PCM.PN ---
- General Info Date of Service: 01/25/18 Subjective Update: Patient's oxygen had to be increased to 4L overnight, felt to be at least in part related to significant nasal congestion which was suctioned by nursing. Doing better this am. No other change overnight. - Review of Systems Systems Review Comment:: Unable to assess as patient is non-verbal. - Patient Data Vitals - Most Recent: Last Vital Signs Temp 36.4 C 01/25/18 10:00 Pulse 68 01/25/18 10:00 Resp 16 01/25/18 10:00 BP 96/59 L 01/25/18 10:00 Pulse Ox 90 L 01/25/18 10:00 Weight - Most Recent: 63.049 kg I&O - Last 24 Hours: Intake & Output 01/24/18 01/25/18 01/25/18 22:59 06:59 14:59 Intake Total 600 800 0 Output Total 0 Balance 600 800 0 Esequiel Results Last 24 Hours: Microbiology 01/20/18 09:49 Aerobic Blood Culture - Final Blood - Venous - Lab Draw NO GROWTH AFTER 5 DAYS Anaerobic Blood Culture - Final 01/20/18 09:45 Aerobic Blood Culture - Final Blood - Venous NO GROWTH AFTER 5 DAYS Anaerobic Blood Culture - Final Med Orders - Current: Current Medications Acetaminophen (Tylenol Extra Strength) 500 mg GTUBE Q4H PRN PRN Reason: Fever Last Admin: 01/24/18 15:32 Dose: 500 mg Albuterol/Ipratropium (Duoneb 3.0-0.5 Mg/3 Ml) 3 ml NEB Q4HRRT [facility] Last Admin: 01/25/18 07:28 Dose: 3 ml Amoxicillin/Clavulanate Potassium (Augmentin 400 Mg/5 Ml Susp) 880 mg GTUBE BID [facility] Last Admin: 01/25/18 07:54 Dose: 880 mg Baclofen (Lioresal) 20 mg GTUBE QID [facility] Last Admin: 01/25/18 07:52 Dose: 20 mg Bisacodyl (Dulcolax) 10 mg RECTAL DAILY PRN PRN Reason: Constipation Calcium Carbonate/Glycine (Calcium Carbonate 250 Mg/Ml Susp) 625 mg GTUBE BID [facility] Last Admin: 01/25/18 07:52 Dose: 625 mg Citalopram Hydrobromide (Celexa) 40 mg GTUBE DAILY [facility] Last Admin: 01/25/18 07:52 Dose: 40 mg Guaifenesin (Robitussin) 200 mg GTUBE QID [facility] Last Admin: 01/25/18 07:52 Dose: 200 mg Levetiracetam (Keppra) 500 mg PEGTUBE BID [facility] Last Admin: 01/25/18 07:53 Dose: 500 mg Lorazepam (Ativan) 1 mg GTUBE DAILY PRN PRN Reason: Seizures Metoclopramide HCl (Reglan) 10 mg GTUBE Q6H [facility] Last Admin: 01/25/18 05:47 Dose: 10 mg Aripiprazole [ Abilify] 5 MgOwn Med 5 mg GTUBE DAILY [facility] Last Admin: 01/25/18 07:55 Dose: 5 mg Gabapentin [ Gabapentin] 900 Mg/18mlOwn Med 900 mg GTUBE TID [facility] Last Admin: 01/25/18 07:54 Dose: 900 mg Multivitamins With Iron/Min [Centrum] 15 MlOwn Med 15 ml GTUBE DAILY [facility] Last Admin: 01/25/18 07:56 Dose: 15 ml Omeprazole Magnesium [Zegerid] 20 Mg/10mlOwn Med 20 mg GTUBE BID [facility] Last Admin: 01/25/18 07:53 Dose: 20 mg Polyethylene Glycol (Miralax) 17 gm GTUBE DAILY [facility] Last Admin: 01/25/18 07:57 Dose: Not Given Simethicone (Infants' Gas Relief) 134 mg GTUBE QID PRN PRN Reason: Gas Last Admin: 01/25/18 07:56 Dose: 134 ml Sodium Chloride ([place] Nasal [place]) 0 ml [place] QID PRN PRN Reason: Congestion Last Admin: 01/22/18 15:30 Dose: 2 spray Sodium Chloride (Saline Flush) 10 ml IV ASDIRECTED PRN PRN Reason: Keep Vein Open Last Admin: 01/23/18 20:02 Dose: 10 ml Sucralfate (Carafate) 1 gm TOP QID PRN PRN Reason: Other Discontinued Medications Albuterol (Proventil Neb Soln) 2.5 mg NEB Q2H PRN PRN Reason: Dyspnea Ceftriaxone Sodium (Rocephin) 1 gm IVPUSH Q24H [facility] Last Admin: 01/23/18 09:00 Dose: Not Given Lactated Ringer's (Ringers, Lactated) 1,000 mls @ 100 mls/hr IV ASDIRECTED [facility] Last Admin: 01/20/18 11:16 Dose: 125 mls/hr Lactated Ringer's (Ringers, Lactated) 1,000 mls @ 100 mls/hr IV ONETIME ONE Stop: 01/20/18 19:59 Last Admin: 01/20/18 18:36 Dose: Not Given Lactated Ringer's (Ringers, Lactated) 1,000 mls @ 50 mls/hr IV ASDIRECTED [facility] Last Admin: 01/20/18 21:41 Dose: 50 mls/hr Metoclopramide HCl (Reglan) 10 mg GTUBE Q6H [facility] Last Admin: 01/21/18 05:40 Dose: 10 mg Metoclopramide HCl (Reglan) 10 mg GTUBE Q6H [facility] Last Admin: 01/24/18 05:17 Dose: 10 mg Metronidazole (Flagyl) 500 mg GTUBE Q8H [facility] Last Admin: 01/21/18 11:08 Dose: Not Given Metronidazole (Flagyl) 500 mg GTUBE Q8H [facility] Last Admin: 01/24/18 03:01 Dose: 500 mg - Exam General: Alert, Cooperative, No Acute Distress HEENT: Mucous Membr. Moist/[place] Neck: Supple, Trachea Midline, No Thyromegaly. No: Lymphadenopathy Lungs: Normal Respiratory Effort, Wheezing (scattered - less than yesterday) Cardiovascular: Regular Rate, Regular Rhythm, No Murmurs GI/Abdominal Exam: Normal Bowel Sounds, Soft, Non-Tender, No Organomegaly, No Distention, No Mass Extremities: Normal Inspection, Non-Tender, No Pedal Edema, Normal Capillary Refill Peripheral Pulses: 2+: Radial (L), Radial (R) Skin: Warm, Dry, Intact - Problem List & Annotations (1) Acute respiratory failure with hypoxia SNOMED Code(s): 97296445, 749416813 Code(s): J96.01 - ACUTE RESPIRATORY FAILURE WITH HYPOXIA Status: Acute Current Visit: Yes Annotation/Comment:: - Patient is still requiring oxygen and this is more and more likely to be a [place] scenario. He has the pneumonia but also has underlying neurologic impairments that put him at risk for difficulty with clearing secretions. - Will continue to wean oxygen as able. - He does not require transfer to [place] as he is otherwise improving and does not require a higher level of care. - If he remains on the oxygen tomorrow, will need to look at disposition again and consider whether he will need to transition to the [facility] given ongoing oxygen requirements. (2) Aspiration pneumonia SNOMED Code(s): 275335121 Code(s): J69.0 - PNEUMONITIS DUE TO INHALATION OF FOOD AND VOMIT Status: Acute Current Visit: Yes Qualifiers: Aspiration pneumonia type: unspecified Laterality: right Lung location: lower lobe of lung Qualified Code(s): J69.0 - Pneumonitis due to inhalation of food and vomit Annotation/Comment:: - He remains afebrile. Labs not checked today as WBC consistently downtrending. Will plan to check again tomorrow. - Continue to require oxygen as above. Goal saturations are 86-88%. - Continue Augmentin with plans to complete a 7 day course. - Continue DuoNebs QID today. (3) Sepsis SNOMED Code(s): 24616962 Code(s): A41.9 - SEPSIS, UNSPECIFIED ORGANISM Status: Resolved Current Visit: Yes Qualifiers: Sepsis type: sepsis due to unspecified organism Qualified Code(s): A41.9 - Sepsis, unspecified organism Annotation/Comment:: - Met sepsis criteria on admission, which has now been resolved for the past >48 hours. (4) Wheezing SNOMED Code(s): 81175683 Code(s): R06.2 - WHEEZING Status: Chronic Current Visit: No Annotation/ Comment:: - DuoNebs QID as above. - He has not required steroids in the past and does not carry a diagnosis of asthma; therefore, will see how he responds to the nebs first and then go from there. (5) Cerebral palsy SNOMED Code(s): 349167067 Code(s): G80.9 - CEREBRAL PALSY, UNSPECIFIED Status: Chronic Current Visit: No Annotation/Comment:: - Will work to position him as best possible for his breathing. (6) Constipation SNOMED Code(s): 37777143 Code(s): K59.00 - CONSTIPATION, UNSPECIFIED Status: Chronic Current Visit : No Qualifiers: Constipation type: unspecified constipation type Qualified Code(s): K59.00 - Constipation, unspecified Annotation/Comment:: - Continue miralax. (7) Depression SNOMED Code(s): 10424971 Code(s): F32.9 - MAJOR DEPRESSIVE DISORDER, SINGLE EPISODE, UNSPECIFIED Status: Chronic Current Visit: No Qualifiers: Depression Type: major depressive disorder Major depression recurrence: recurrent Active/Remission status: in full remission Qualified Code(s): F33.42 - Major depressive disorder, recurrent, in full remission Annotation/Comment:: - Currently well controlled. - Continue lexapro. (8) G tube feedings SNOMED Code(s): 719699908, 421786171 Code(s): Z93.1 - GASTROSTOMY STATUS Status: Chronic Current Visit: No Annotation/Comment:: - Tolerating his tube feedings well. No changes today. - Continue carafate PRN. (9) Gastroparesis SNOMED Code(s): 128780053 Code(s): K31.84 - GASTROPARESIS Status: Chronic Current Visit: No Annotation/Comment:: - Continue reglan. (10) Seizure disorder SNOMED Code(s): 169937285 Code(s): G40.909 - EPILEPSY, UNSP, NOT INTRACTABLE, WITHOUT STATUS EPILEPTICUS Status: Chronic Current Visit: No Annotation/Comment:: - Seizure free for 3 years. - Continue gabapentin, keppra, and PRN lorazepam. 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 - Will continue abilify. - Problem List Review Problem List Initiated/Reviewed/Updated: Yes - My Orders Last 24 Hours: My Active Orders 01/24/18 12:00 Metoclopramide [Reglan] 10 mg GTUBE Q6H - Assessment Assessment:: 67 yo male hospital day #6 admitted with sepsis secondary to aspiration pneumonia. Sepsis resolved; pneumonia is also improving but he is still requiring supplemental oxygen. - Plan Plan:: See details under problems above. Continue augmentin and QID DuoNebs. He will continue tube feeds as per his home schedule. He is still requiring acute cares given ongoing needs for oxygen. He cannot go to his [facility] on oxygen and also cannot go to swing bed here without losing his [facility] bed. He does not require transfer to [place] as he is otherwise improving and does not require a higher level of care. Therefore, he will remain on acute here at this time. Will reassess tomorrow if he is still requiring oxygen as we may need to consider transition to the care center instead of going back to his [facility]. Code status is DNR/DNI - this was reviewed with his guardian on admission. No indication for VTE prophylaxis as patient has a history of GI bleeds and is at his usual functional status.
[2018-01-26] MEDS: Metoclopramide 10 MG Tab GTUBE SCH ×3 (01:22→11:46)
[2018-01-26] MEDS: Albuterol/Ipratropium 3.0-0.5 MG/3 ML Neb Soln NEB SCH ×3 (03:01→11:19)
[2018-01-26 06:56] LABS: CHLORIDE,CL 102 mmol/L (98-107); SODIUM,NA 138 mmol/L (136-145)
--- NOTE | 2018-01-26 08:05 | PCM.DCSUM1 ---
Discharge Summary - Hospital Course Brief History: Mr. Omalley is a 67 yo male who was admitted with aspiration vs. community acquired pneumonia after presenting to clinic for evaluation of wheezing and fever. In clinic, he was found to have oxygen saturations in the 70 's so he was started on oxygen and then admitted to the hospital for further evaluation and management. - Discharge Data Discharge Date: 01/26/18 Discharge Disposition: Home, Self-Care 01 Condition: Good - Discharge Diagnosis/Problem(s) (1) Sepsis SNOMED Code(s): 90461767 ICD Code: A41.9 - SEPSIS, UNSPECIFIED ORGANISM Status: Resolved Current Visit: Yes Problem Details: He met sepsis criteria on admission with tachycardia and fever. He did have a leukocytosis but never greater than 12, 000. He was no longer meeting sepsis criteria as of hospital day #1 and has remained afebrile with stable vital signs and a normal WBC since then. Qualifiers: Sepsis type: sepsis due to unspecified organism Qualified Code(s): A41.9 - Sepsis, unspecified organism (2) Acute respiratory failure with hypoxia SNOMED Code(s): 47486974, 154826601 ICD Code: J96.01 - ACUTE RESPIRATORY FAILURE WITH HYPOXIA Status: Acute Current Visit: Yes Problem Details: Patient had still been requiring oxygen up until yesterday but they were able to wean him as of noon yesterday. He has been off oxygen since then with fluctuating oxygen saturations but has never consistently remained under 86%. (3) Aspiration pneumonia SNOMED Code(s): 352757909 ICD Code: J69.0 - PNEUMONITIS DUE TO INHALATION OF FOOD AND VOMIT Status: Acute Current Visit: Yes Problem Details: He was diagnosed with pneumonia clinically on admission. Follow-up chest x-ray over the weekend showed evidence of a LLL infiltrate but I also felt he had a RLL infiltrate on his initial x- ray. He was febrile within the first 24 hours after admission and then not since then. WBC remains normal today and CRP still downtrending. He was initially treated with ceftriaxone and flagyl and then transition to augmentin without any issues. Today is his 7th day of treatment so he will not require any further antibiotics upon homegoing. His nebs were continued, initially at q4h then at QID. Qualifiers: Aspiration pneumonia type: unspecified Laterality: right Lung location: lower lobe of lung Qualified Code(s): J69.0 - Pneumonitis due to inhalation of food and vomit (4) Wheezing SNOMED Code(s): 15278944 ICD Code: R06.2 - WHEEZING Status: Chronic Current Visit: No Problem Details: His neb frequency was increased to q4 hours on admission but weaned back to QID 2 days ago without any issue. He has not required steroids in the past and does not carry a diagnosis of asthma; therefore, he was not given any prednisone dosing. (5) Cerebral palsy SNOMED Code(s): 833740679 ICD Code: G80.9 - CEREBRAL PALSY, UNSPECIFIED Status: Chronic Current Visit: No Problem Details: He was positioned as best possible for his breathing. (6) Constipation SNOMED Code(s): 50729913 ICD Code: K59.00 - CONSTIPATION, UNSPECIFIED Status: Chronic Current Visit: No Problem Details: Home medications continued. Qualifiers: Constipation type: unspecified constipation type Qualified Code(s): K59.00 - Constipation, unspecified (7) Depression SNOMED Code(s): 76112469 ICD Code: F32.9 - MAJOR DEPRESSIVE DISORDER, SINGLE EPISODE, UNSPECIFIED Status: Chronic Current Visit: No Problem Details: Home medications continued. Qualifiers: Depression Type: major depressive disorder Major depression recurrence: recurrent Active/Remission status: in full remission Qualified Code(s): F33.42 - Major depressive disorder, recurrent, in full remission (8) G tube feedings SNOMED Code(s): 328294572, 372818501 ICD Code: Z93.1 - GASTROSTOMY STATUS Status: Chronic Current Visit: No Problem Details: His tube feeds were held overnight of his first hospital day. They were then restarted and he has tolerated this without any issues. Home medications continued. (9) Gastroparesis SNOMED Code(s): 580690672 ICD Code: K31.84 - GASTROPARESIS Status: Chronic Current Visit: No Problem Details: Home medications continued. (10) Seizure disorder SNOMED Code(s): 109987602 ICD Code: G40.909 - EPILEPSY, UNSP, NOT INTRACTABLE, WITHOUT STATUS EPILEPTICUS Status: Chronic Current Visit: No Problem Details: Seizure free for 3 years. Home medications continued. 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 Home medications continued. - Patient Summary/Data Operative Procedure(s) Performed: none Complications: none Consults: none Labs Pending at D/C: none Recommended Follow-up Testing/Procedures: none Planned Operative Procedure(s) after DC: none Hospital Course: See details under problems above. His labs and vital signs improved quite quickly. His symptoms were slower to improve but he has steadily improved every day this week. He also continued to require oxygen up until yesterday when he turned the corner and was able to be weaned. He is on his home neb regimen and has completed his antibiotic dosing. He will be dismissed back to his fpc today. - Patient Instructions Diet: Usual Diet as Tolerated Activity: As Tolerated - Discharge Plan Prescriptions/Med Rec: guaiFENesin [Robitussin] 200 mg GTUBE QID #30 cup Home Medications: Home Meds Polyethylene Glycol 3350 [MiraLAX] 17 gram PEGTUBE DAILY 02/06/14 [History] levETIRAcetam [Keppra] 500 mg PEGTUBE BID 02/06/14 [History] Baclofen 20 mg GTUBE QID 05/27/15 [History] Calcium Carbonate [Calcium Carbonate 250 MG/ML Susp] 625 mg GTUBE BID 05/27/15 [ History] Escitalopram [Lexapro] 20 mg GTUBE DAILY 05/27/15 [History] Gabapentin 900 mg GTUBE TID 05/27/15 [History] LORazepam 1 mg SL ASDIRECTED PRN 05/27/15 [History] Multivitamins with Iron/Min [Centrum] 15 ml GTUBE DAILY 06/30/15 [History] Sucralfate 1 gram TOP QID PRN 07/01/15 [History] ARIPiprazole [Abilify] 5 mg GTUBE DAILY 12/29/15 [History] Metoclopramide [Reglan] 10 mg GTUBE Q6H 12/29/15 [History] Albuterol/Ipratropium [DuoNeb 3.0-0.5 MG/3 ML] 3 ml NEB QIDRT neb 02/20/16 [Rx] Omeprazole Magnesium [Prilosec] 20 mg GTUBE BID #60 11/19/16 [Rx] Simethicone [Infants' Gas Relief] 2 ml GTUBE QID PRN 01/20/18 [History] Water 75 ml GTUBE ASDIRECTED 01/20/18 [History] guaiFENesin [Robitussin] 200 mg GTUBE QID #30 cup 01/26/18 [Rx] Referrals: Vita Sinclair MD [Physician] - 02/03/18 1:20 pm (You have a follow up appt. with Dr. Mich Sinclair on February 03, 2018 at 1:20----[facility]) - Discharge Summary/Plan Comment DC Time >30 min.: No - General Info Date of Service: 01/26/18 Subjective Update: Weaned off oxygen yesterday at noon and has done well since. Nursing staff feel he is much more comfortable over the past 24 hours as well. No fever. No other overnight events. - Review of Systems Systems Review Comment: Patient is nonverbal. Nursing staff offers no other concerns. - Patient Data Vitals - Most Recent: Last Vital Signs Temp 37.1 C 01/26/18 05:33 Pulse 62 01/26/18 05:33 Resp 18 01/26/18 05:33 BP 135/72 01/26/18 05:33 Pulse Ox 82 L 01/26/18 07:04 Weight - Most Recent: 63.049 kg I&O - Last 24 hours: Intake & Output 01/25/18 01/26/18 01/26/18 22:59 06:59 14:59 Intake Total 600 850 Balance 600 850 Lab Results - Last 24 hrs: Laboratory Results - last 24 hr 01/26/18 01/26/18 Range/Units 06:17 06:17 WBC 7.1 (4.0-10.0) x10^3/uL RBC 4.25 L (4.5-6.0) x10^6/uL Hgb 13.5 L (14.0-18.0) g/dL Hct 41.7 (40.0-52.0) % MCV 98.1 H (78.0-93.0) fL MCH 31.8 (26.0-32.0) pg MCHC 32.4 (32.0-36.0) g/dL RDW Coeff of Devendra 13.4 (10.0-15.0) % Plt Count 206 (130-400) x10^3/uL Neut % (Auto) 54.5 (50.0-80.0) % Lymph % (Auto) 23.8 L (25.0-50.0) % [place] % (Auto) 10.6 (2.0-11.0) % Eos % (Auto) 10.5 H (0.0-4.0) % Baso % (Auto) 0.6 (0.2-1.2) % Sodium 138 (136-145) mmol/L Potassium 4.9 (3.5-5.1) mmol/L Chloride 102 (98-107) mmol/L Carbon Dioxide 35 H (21-32) mmol/L Anion Gap 5.9 BUN 13 (7-18) mg/dL Creatinine 0.7 (0.70-1.30) mg/dL Est Cr Clr Drug Dosing 76.79 mL/min Estimated GFR (MDRD) > 60 Glucose 108 H (74-106) mg/dL Calcium 8.5 (8.5-10.1) mg/dL C-Reactive Protein 2.2 H (<=0.9) mg/dL POLO Results - Last 24 hrs: Microbiology 01/20/18 09:49 Aerobic Blood Culture - Final Blood - Venous - Lab Draw NO GROWTH AFTER 5 DAYS Anaerobic Blood Culture - Final 01/20/18 09:45 Aerobic Blood Culture - Final Blood - Venous NO GROWTH AFTER 5 DAYS Anaerobic Blood Culture - Final Med Orders - Current: Current Medications Acetaminophen (Tylenol Extra Strength) 500 mg GTUBE Q4H PRN PRN Reason: Fever Last Admin: 01/24/18 15:32 Dose: 500 mg Albuterol/Ipratropium (Duoneb 3.0-0.5 Mg/3 Ml) 3 ml NEB Q4HRRT [facility] Last Admin: 01/26/18 07:02 Dose: 3 ml Amoxicillin/Clavulanate Potassium (Augmentin 400 Mg/5 Ml Susp) 880 mg GTUBE BID [facility] Last Admin: 01/25/18 20:49 Dose: 880 mg Baclofen (Lioresal) 20 mg GTUBE QID [facility] Last Admin: 01/25/18 20:47 Dose: 20 mg Bisacodyl (Dulcolax) 10 mg RECTAL DAILY PRN PRN Reason: Constipation Calcium Carbonate/Glycine (Calcium Carbonate 250 Mg/Ml Susp) 625 mg GTUBE BID [facility] Last Admin: 01/25/18 20:48 Dose: 625 mg Citalopram Hydrobromide (Celexa) 40 mg GTUBE DAILY [facility] Last Admin: 01/25/18 07:52 Dose: 40 mg Guaifenesin (Robitussin) 200 mg GTUBE QID [facility] Last Admin: 01/25/18 20:48 Dose: 200 mg Levetiracetam (Keppra) 500 mg PEGTUBE BID [facility] Last Admin: 01/25/18 22:27 Dose: 500 mg Lorazepam (Ativan) 1 mg GTUBE DAILY PRN PRN Reason: Seizures Metoclopramide HCl (Reglan) 10 mg GTUBE Q6H [facility] Last Admin: 01/26/18 05:53 Dose: 10 mg Aripiprazole [ Abilify] 5 MgOwn Med 5 mg GTUBE DAILY [facility] Last Admin: 01/25/18 07:55 Dose: 5 mg Gabapentin [ Gabapentin] 900 Mg/18mlOwn Med 900 mg GTUBE TID [facility] Last Admin: 01/25/18 20:49 Dose: 900 mg Multivitamins With Iron/Min [Centrum] 15 MlOwn Med 15 ml GTUBE DAILY [facility] Last Admin: 01/25/18 07:56 Dose: 15 ml Omeprazole Magnesium [Zegerid] 20 Mg/10mlOwn Med 20 mg GTUBE BID [facility] Last Admin: 01/25/18 20:49 Dose: 20 mg Polyethylene Glycol (Miralax) 17 gm GTUBE DAILY [facility] Last Admin: 01/25/18 07:57 Dose: Not Given Simethicone (Infants' Gas Relief) 134 mg GTUBE QID PRN PRN Reason: Gas Last Admin: 01/25/18 07:56 Dose: 134 ml Sodium Chloride ([place] Nasal [place]) 0 ml [place] QID PRN PRN Reason: Congestion Last Admin: 01/22/18 15:30 Dose: 2 spray Sodium Chloride (Saline Flush) 10 ml IV ASDIRECTED PRN PRN Reason: Keep Vein Open Last Admin: 01/23/18 20:02 Dose: 10 ml Sucralfate (Carafate) 1 gm TOP QID PRN PRN Reason: Other Discontinued Medications Albuterol (Proventil Neb Soln) 2.5 mg NEB Q2H PRN PRN Reason: Dyspnea Ceftriaxone Sodium (Rocephin) 1 gm IVPUSH Q24H [facility] Last Admin: 01/23/18 09:00 Dose: Not Given Lactated Ringer's (Ringers, Lactated) 1,000 mls @ 100 mls/hr IV ASDIRECTED [facility] Last Admin: 01/20/18 11:16 Dose: 125 mls/hr Lactated Ringer's (Ringers, Lactated) 1,000 mls @ 100 mls/hr IV ONETIME ONE Stop: 01/20/18 19:59 Last Admin: 01/20/18 18:36 Dose: Not Given Lactated Ringer's (Ringers, Lactated) 1,000 mls @ 50 mls/hr IV ASDIRECTED [facility] Last Admin: 01/20/18 21:41 Dose: 50 mls/hr Metoclopramide HCl (Reglan) 10 mg GTUBE Q6H [facility] Last Admin: 01/21/18 05:40 Dose: 10 mg Metoclopramide HCl (Reglan) 10 mg GTUBE Q6H [facility] Last Admin: 01/24/18 05:17 Dose: 10 mg Metronidazole (Flagyl) 500 mg GTUBE Q8H [facility] Last Admin: 01/21/18 11:08 Dose: Not Given Metronidazole (Flagyl) 500 mg GTUBE Q8H [facility] Last Admin: 01/24/18 03:01 Dose: 500 mg - Exam General: Reports: Alert, Cooperative, No Acute Distress HEENT: Reports: Mucous Membr. Moist/[place] Neck: Reports: Supple, Trachea Midline, No Thyromegaly. Denies: Lymphadenopathy Lungs: Reports: Normal Respiratory Effort, Other (transmitted upper airway sounds; scattered wheezes bilaterally; rare rhonchi LLL) Cardiovascular: Reports: Regular Rate, Regular Rhythm, No Murmurs GI/Abdominal Exam: Normal Bowel Sounds, Soft, Non-Tender, No Organomegaly, No Distention, No Mass Extremities: Non-Tender, No Pedal Edema, Normal Capillary Refill Skin: Reports: Warm, Dry, Intact *Q Meaningful Use (DIS) - VTE *Q VTE Anticoagulation Contraindications: Med/TX Not Indicated/Need
[2018-01-26] MEDS: ARIPIPRAZOLE 5 MG GTUBE SCH (08:54)
[2018-01-26] MEDS: Amoxicillin/Clavulanate K 400-57 MG/5 ML Susp 100 ML Bottle GTUBE SCH (08:55)
[2018-01-26] MEDS: Calcium Carbonate 1,250 MG/5 ML Susp 5 ML UD Cup GTUBE SCH (08:57)
[2018-01-26] MEDS: Citalopram 20 MG Tab GTUBE SCH (08:58)
[2018-01-26] MEDS: GABAPENTIN GTUBE SCH ×2 (08:59→11:43)
[2018-01-26] MEDS: levETIRAcetam Soln 500 MG/5 ML Cup PEGTUBE SCH (09:02)
[2018-01-26] MEDS: Baclofen 10 MG Tab GTUBE SCH ×2 (09:03→11:46)
[2018-01-26] MEDS: Polyethylene Glycol 3350 Powder 17 GM Packet GTUBE SCH (09:03)
[2018-01-26] MEDS: MULTIVITAMINS WITH IRON GTUBE SCH (09:04)
[2018-01-26] MEDS: [UNRECOGNIZED DRUG - OTHER] GTUBE SCH (09:04)
[2018-01-26] MEDS: OMEPRAZOLE MAGNESIUM GTUBE SCH (09:05)
[2018-01-26] MEDS: guaiFENesin 100 MG/5 ML Soln 10 ML UD Cup GTUBE SCH ×2 (09:06→11:46)
[2018-01-26 09:33] VITALS: BP 108/56
== END 2018-01-26 14:45 | disposition home or self-care (01) | DRG 871 ==
LOC: VM.MS 09:02
PROVIDERS: ADMIT Family Medicine; ATTEND Family Medicine
DX: A41.9 Sepsis, unspecified organism (principal); J96.01 Acute respiratory failure with hypoxia; J69.0 Pneumonitis due to inhalation of food and vomit; R06.2 Wheezing; G80.9 Cerebral palsy, unspecified; K31.84 Gastroparesis; G40.909 Epilepsy, unspecified, not intractable, without status epilepticus; F71 Moderate intellectual disabilities; F32.9 Major depressive disorder, single episode, unspecified; H52.00 Hypermetropia, unspecified eye; K59.09 Other constipation; R15.9 Full incontinence of feces; M81.0 Age-related osteoporosis without current pathological fracture; R13.10 Dysphagia, unspecified; Z89.429 Acquired absence of other toe(s), unspecified side; Z87.01 Personal history of pneumonia (recurrent); Z93.1 Gastrostomy status; Z86.010 Personal history of colon polyps; Z79.899 Other long term (current) drug therapy; Z88.8 Allergy status to other drugs, medicaments and biological substances; Z66 Do not resuscitate
CPT/HCPCS: 36415; 71045; 80048; 80053; 83605; 85025; 86140; 87040; 94640; 94760; A9270-GY; J0696; J7050; J7120

== ENCOUNTER 2020-04-25 08:00 | Emergency (ER) | payer MEDICARE, MEDICAID ==
[2020-04-25] MEDS ORDERED: Sodium Chloride 0.9% 10 ML Syringe FLUSH PRN (08:13)
--- NOTE | 2020-04-25 08:21 | EDM.PDOC ---
ED HPI GENERAL MEDICAL PROBLEM - General Chief Complaint: Respiratory Problem Time Seen by Provider: 04/25/20 08:12 Source of Information: Reports: EMS, Other ([facility] Director) - History of Present Illness INITIAL COMMENTS - FREE TEXT/NARRATIVE: Anil is a 69 y/o male who is brought to the ER by EMS from the skilled nursing where he lives for shortness of breath. He was reportedly fine up until 3 pm yesterday when staff reported that he was more sleepy. He was not responding as well as normal, but this is not unusual for him to do from time to time. Through the night he developed a fever and shortness of breath. Fever at the skilled nursing with over 101F. Staff also reports that he has not voided in almost 24 hours. He was been known to aspirate in the past and very well could have done so again. EMS reported that the patient was 68% on room air and required 15 liter of oxygen to keep his sats at 92%. - Related Data Allergies Allergy/AdvReac Type Severity Reaction Status Date / Time NSAIDS (Non-Steroidal AdvReac Intermediate Other Verified 04/25/20 08:48 Anti-Inflamma Home Meds: Home Meds levETIRAcetam [Keppra] 500 mg PEGTUBE BID 02/06/14 [History] polyethylene glycoL 3350 [MiraLAX] 17 gram PEGTUBE DAILY 02/06/14 [History] Baclofen 20 mg GTUBE QID 05/27/15 [History] Calcium Carbonate [Calcium Carbonate 250 MG/ML Susp] 625 mg GTUBE BID 05/27/15 [History] Escitalopram [Lexapro] 20 mg GTUBE DAILY 05/27/15 [History] Gabapentin 900 mg GTUBE TID 05/27/15 [History] LORazepam 1 mg SL ASDIRECTED PRN 05/27/15 [History] Multivitamins with Iron/Min [Centrum] 15 ml GTUBE DAILY 06/30/15 [History] Sucralfate 1 gram TOP QID PRN 07/01/15 [History] ARIPiprazole [Abilify] 5 mg GTUBE DAILY 12/29/15 [History] Metoclopramide [Reglan] 10 mg GTUBE Q6H 12/29/15 [History] Albuterol/Ipratropium [DuoNeb 3.0-0.5 MG/3 ML] 3 ml NEB QIDRT neb 02/20/16 [Rx] Omeprazole Magnesium [Prilosec] 20 mg GTUBE BID #60 11/19/16 [Rx] Simethicone [Infants' Gas Relief] 2 ml GTUBE QID PRN 01/20/18 [History] Water 75 ml GTUBE ASDIRECTED 01/20/18 [History] guaiFENesin [Robitussin] 200 mg GTUBE QID #30 cup 01/26/18 [Rx] Past Medical History HEENT History: Reports: Cataract, Other (See Below) Other HEENT History: otitis externa, hypermetropia Cardiovascular History: Reports: None Respiratory History: Reports: Pneumonia, Recurrent (Aspiration), SOB Gastrointestinal History: Reports: Bowel Obstruction, Chronic Constipation, Colon Polyp, Fecal Incontinence, GI Bleed, Other (See Below) Other Gastrointestinal History: inguinal hernia, gastroparesis Genitourinary History: Reports: Urinary Incontinence Musculoskeletal History: Reports: Osteoporosis Neurological History: Reports: Brain Injury, Cerebral Palsy, Seizure Psychiatric History: Reports: Depression Endocrine/Metabolic History: Reports: None Hematologic History: Reports: None Immunologic History: Reports: None Oncologic (Cancer) History: Reports: None Dermatologic History: Reports: Other (See Below) Other Dermatologic History: ulcer of right foot - Infectious Disease History Infectious Disease History: Reports: None - Past Surgical History GI Surgical History: Reports: Other (See Below) Musculoskeletal Surgical History: Reports: Other (See Below) Social & Family History - Family History Family Medical History: Noncontributory Cardiac: Reports: CAD, [place] Oncologic: Reports: Pancreatic - Caffeine Use Caffeine Use: Reports: None - Living Situation & Occupation Living situation: Reports: Single, Extended Care Facility Occupation: Disabled Review of Systems - Review of Systems Review Of Systems: Unable To Obtain (due to patient status) Reason Not Obtained: ROS obtained from skilled nursing director Constitutional: Reports: Fever Respiratory: Reports: Shortness of Breath, Cough, Sputum (thick yellow) ED EXAM, GENERAL - Physical Exam Exam: See Below Exam Limited By: Respiratory Distress General Appearance: Other (Elderly male, obviosuly developmentally delayed and not responding to questions. Oxygen on per mask and patient is coughing.) Eye Exam: Bilateral Eye: PERRL Ears: Normal External Exam, Normal Canal, Normal TMs Ear Exam: Bilateral Ear: Auricle Normal Nose: Normal Inspection, Normal Mucosa Throat/Mouth: Normal Oropharynx Head: Atraumatic, Normocephalic Neck: Normal Inspection, Supple, Non-Tender Respiratory/Chest: Crackles, Rales, Rhonchi, Other (Coughing and gagging, note thick yellow sputum) Cardiovascular: Regular Rate, Rhythm GI/Abdominal: Normal Bowel Sounds, Soft, Non-Tender (Male) Exam: Normal Inspection Back Exam: Normal Inspection Extremities: Other (hands and feet contractured) Neurological: Inattentive, Slow to Respond, Other Psychiatric: Normal Affect Skin Exam: Normal Color, Increased Warmth (Slightly tacky) Lymphatic: No Adenopathy EKG INTERPRETATION EKG Date: 04/25/20 Time: 08:35 Rhythm: NSR Rate (Beats/Min): 91 [place]: Normal P-Wave: Present QRS: Normal ST-T: Normal QT: Normal EKG Interpretation Comments: SR with RBBB Course - Vital Signs Text/Narrative:: 811 The patient was seen by the C D STILL OPERATOR. Labs, EKG, & CXR ordered. He required 15 liters of oxygen per mask, but stats were at 92% and RR=20, suspect aspiration pneumonia. 0900 Sats dropping to 86-87%, Duoneb ordered. Little improvement and ABGs and Bipap ordered. Zosyn 3.375gm ordered. 904 Some labs returning. CXR appears with low lung volumes and possible infiltrates bilaterally (See final report). Bentley Rubio contacted. Dr Urbano accepted the patient for transport. Lasix 40mg IVP and SoluMedrol 60mg IVP ordered per hospitalist. Also added Vancomycin 1gm IVPB. 929 [facility] called for transport to [place]. Bipap started. Confirmed patient is Code 2 status and no CPR or intubation. 0945 Jorgensen now in and urine output noted. 0955 Awaiting ground crew. Bipap continues, 100% sats and Rate=24 now. Last Recorded V/S: Last Vital Signs Temp 37.1 C 04/25/20 08:10 Pulse 93 04/25/20 08:10 Resp 18 04/25/20 08:10 BP 99/71 04/25/20 08:10 Pulse Ox 97 04/25/20 08:10 - Orders/Labs/Meds Orders: Active Orders 24 hr Category Date Time Status BIPAP Adult [RT BiPAP/CPAP] [RC] ASDIRECTED Care 04/25/20 09:21 Ordered EKG Documentation Completion [] STAT Care 04/25/20 08:27 Active Insert Jorgensen Catheter [Insert Urinary Catheter] [OM.PC] Care 04/25/20 08:15 Ordered Q24H RT Aerosol Therapy [RC] ASDIRECTED Care 04/25/20 08:58 Ordered Urinary Catheter Assessment [] ASDIRECTED Care 04/25/20 08:15 Active CULTURE BLOOD [BC] Stat Lab 04/25/20 08:42 Received CULTURE BLOOD [BC] Stat Lab 04/25/20 08:54 Results UA W/POLO RFLX IF INDICATED [URIN] Stat Lab 04/25/20 08:13 Ordered Sodium Chloride 0.9% @ 100 MLS/HR(1000ml) Med 04/25/20 09:15 Ordered Sodium Chloride 0.9% [Normal Saline] 1,000 ml IV ASDIRECTED Sodium Chloride 0.9% [Saline Flush] Med 04/25/20 08:13 Active 10 ml FLUSH ASDIRECTED PRN Vancomycin 1 gm Med 04/25/20 09:21 Ordered Sodium Chloride 0.9% [Normal Saline (AdvBag)] 250 ml IV STAT Blood Culture x2 Reflex Set [OM.PC] Stat Oth 04/25/20 08:30 Ordered Saline Lock Insert [OM.PC] Stat Oth 04/25/20 08:13 Ordered Medication Orders Sodium Chloride (Normal Saline) 1,000 mls @ 100 mls/hr IV ASDIRECTED IBAN Vancomycin HCl 1 gm/ Sodium (Chloride) 250 mls @ 250 mls/hr IV STAT ONE Stop: 04/25/20 10:20 Sodium Chloride (Saline Flush) 10 ml FLUSH ASDIRECTED PRN PRN Reason: Keep Vein Open Labs: Laboratory Tests 04/25/20 04/25/20 04/25/20 Range/Units 08:10 08:42 08:42 WBC 19.7 H (4.0-10.0) x10^3/uL RBC 4.61 (4.5-6.0) x10^6/uL Hgb 14.4 (14.0-18.0) g/dL Hct 43.5 (40.0-52.0) % MCV 94.4 H D (78.0-93.0) fL MCH 31.2 (26.0-32.0) pg MCHC 33.1 (32.0-36.0) g/dL RDW Coeff of Devendra 13.7 (10.0-15.0) % Plt Count 176 (130-400) x10^3/uL Add Manual Diff Yes Neutrophils % (Manual) 51 (50-80) % Band Neutrophils % 24 H (0-6) % Lymphocytes % (Manual) 2 L (25-50) % Reactive Lymphs % 3 H (0) % Monocytes % (Manual) 10 (2-11) % Metamyelocytes % 10 H (0) % Vacuolated Monocytes 1+ slight H Toxic Granulation 2+ moderate H Platelet Estimate Adequate Macrocytosis 1+ slight H POC ABG pH (7.35-7.45) POC ABG pCO2 (35-45) mmHG POC ABG pO2 (80-105) mmHG POC ABG HCO3 (22-26) mmol/L POC ABG Total CO2 (23-27) mmol/L POC ABG O2 Sat (95-98) % POC ABG Base Excess (-2-3) mmol/L POC FiO2 Sodium 134 L (136-145) mmol/L Potassium 4.8 (3.5-5.1) mmol/L Chloride 96 L (98-107) mmol/L Carbon Dioxide 34 H (21-32) mmol/L Anion Gap 8.8 L (10-20) mmol/L BUN 40 H D (7-18) mg/dL Creatinine 1.9 H D (0.70-1.30) mg/dL Est Cr Clr Drug Dosing TNP Estimated GFR (MDRD) 35 Glucose 147 H (74-106) mg/dL Lactic Acid (0.4-2.0) mmol/L Calcium 9.0 (8.5-10.1) mg/dL Corrected Calcium 9.80 (8.5-10.1) mg/dL Total Bilirubin 0.7 (0.2-1.0) mg/dL AST 38 H (15-37) U/L ALT 55 (16-63) U/L Alkaline Phosphatase 82 (46-116) U/L Troponin I (<=0.056) ng/mL NT-Pro-B Natriuret Pep 2869 H (<=125) pg/mL Total Protein 7.1 (6.4-8.2) g/dL Albumin 3.0 L (3.4-5.0) g/dL Globulin 4.1 Albumin/Globulin Ratio 0.73 POC Result Comm COVID-19 (JUAN) Negative (NEGATIVE) 04/25/20 04/25/20 04/25/20 Range/Units 08:42 08:42 09:29 WBC (4.0-10.0) x10^3/uL RBC (4.5-6.0) x10^6/uL Hgb (14.0-18.0) g/dL Hct (40.0-52.0) % MCV (78.0-93.0) fL MCH (26.0-32.0) pg MCHC (32.0-36.0) g/dL RDW Coeff of Devendra (10.0-15.0) % Plt Count (130-400) x10^3/uL Add Manual Diff Neutrophils % (Manual) (50-80) % Band Neutrophils % (0-6) % Lymphocytes % (Manual) (25-50) % Reactive Lymphs % (0) % Monocytes % (Manual) (2-11) % Metamyelocytes % (0) % Vacuolated Monocytes Toxic Granulation Platelet Estimate Macrocytosis POC ABG pH 7.362 (7.35-7.45) POC ABG pCO2 61 H* (35-45) mmHG POC ABG pO2 56 L* (80-105) mmHG POC ABG HCO3 34 H (22-26) mmol/L POC ABG Total CO2 36 H (23-27) mmol/L POC ABG O2 Sat 86 L (95-98) % POC ABG Base Excess 9 H (-2-3) mmol/L POC FiO2 0.80 Sodium (136-145) mmol/L Potassium (3.5-5.1) mmol/L Chloride (98-107) mmol/L Carbon Dioxide (21-32) mmol/L Anion Gap (10-20) mmol/L BUN (7-18) mg/dL Creatinine (0.70-1.30) mg/dL Est Cr Clr Drug Dosing Estimated GFR (MDRD) Glucose (74-106) mg/dL Lactic Acid 2.6 H* (0.4-2.0) mmol/L Calcium (8.5-10.1) mg/dL Corrected Calcium (8.5-10.1) mg/dL Total Bilirubin (0.2-1.0) mg/dL AST (15-37) U/L ALT (16-63) U/L Alkaline Phosphatase (46-116) U/L Troponin I < 0.017 (<=0.056) ng/mL NT-Pro-B Natriuret Pep (<=125) pg/mL Total Protein (6.4-8.2) g/dL Albumin (3.4-5.0) g/dL Globulin Albumin/Globulin Ratio POC Result Comm Called critical res COVID-19 (JUAN) (NEGATIVE) Meds: Medications Generic Name Dose Route Start Last Admin Trade Name Freq PRN Reason Stop Dose Admin Sodium Chloride 1,000 mls @ 100 mls/hr 04/25/20 09:15 Normal Saline IV ASDIRECTED IBAN Vancomycin HCl 1 gm/ Sodium 250 mls @ 250 mls/hr 04/25/20 09:21 Chloride IV 04/25/20 10:20 STAT ONE Sodium Chloride 10 ml 04/25/20 08:13 Saline Flush FLUSH ASDIRECTED PRN Keep Vein Open Discontinued Medications Generic Name Dose Route Start Last Admin Trade Name Freq PRN Reason Stop Dose Admin Albuterol/Ipratropium 3 ml 04/25/20 08:58 Duoneb 3.0-0.5 Mg/3 Ml NEB 04/25/20 08:59 ONETIME ONE Furosemide 40 mg 04/25/20 09:21 Lasix IV 04/25/20 09:22 ONETIME ONE Piperacillin Sod/Tazobactam 100 mls @ 200 mls/hr 04/25/20 09:02 Sod 3.375 gm/ Sodium Chloride IV 04/25/20 09:31 STAT ONE Methylprednisolone Sodium Succinate 60 mg 04/25/20 09:28 Solu-Medrol IVPUSH 04/25/20 09:29 ONETIME ONE - Radiology Interpretation Free Text/Narrative:: XR Chest Portable= low lung volume noted, radiologist recommends CT WO for further evaluation Departure - Departure Time of Disposition: 09:10 Disposition: DC/Tfer to Acute Hospital 02 Condition: Poor Clinical Impression: Respiratory distress Aspiration pneumonia Qualifiers: Aspiration pneumonia type: unspecified Laterality: right Lung location: lower lobe of lung Qualified Code(s): J69.0 - Pneumonitis due to inhalation of food and vomit - Discharge Information *PRESCRIPTION DRUG MONITORING PROGRAM REVIEWED*: Not Applicable *COPY OF PRESCRIPTION DRUG MONITORING REPORT IN PATIENT SANDY: Not Applicable Referrals: Vita Sinclair MD [Primary Care Provider] - Forms: ED Department Discharge, Interfacility Transfer ANGELLA Additional Instructions: -Transfer to [facility] to Dr Urbano via [facility] Sepsis Event Note (ED) - Focused Exam Vital Signs: Vital Signs Temp Pulse Resp BP Pulse Ox 04/25/20 08:10 37.1 C 93 18 99/71 97 - My Orders Last 24 Hours: My Active Orders 04/25/20 08:13 UA W/POLO RFLX IF INDICATED [URIN] Stat Sodium Chloride 0.9% [Saline Flush] 10 ml FLUSH ASDIRECTED PRN Saline Lock Insert [OM.PC] Stat 04/25/20 08:15 Insert Jorgensen Catheter [Insert Urinary Catheter] [OM.PC] Q24H Urinary Catheter Assessment [RC] ASDIRECTED 04/25/20 08:27 EKG Documentation Completion [RC] STAT 04/25/20 08:30 Blood Culture x2 Reflex Set [OM.PC] Stat 04/25/20 08:42 CULTURE BLOOD [BC] Stat 04/25/20 08:54 CULTURE BLOOD [BC] Stat 04/25/20 08:58 RT Aerosol Therapy [RC] ASDIRECTED 04/25/20 09:15 Sodium Chloride 0.9% @ 100 MLS/HR(1000ml) Sodium Chloride 0.9% [Normal Saline] 1,000 ml IV ASDIRECTED 04/25/20 09:21 BIPAP Adult [RT BiPAP/CPAP] [RC] ASDIRECTED Vancomycin 1 gm Sodium Chloride 0.9% [Normal Saline (AdvBag)] 250 ml IV STAT - Assessment/Plan Last 24 Hours: My Active Orders 04/25/20 08:13 UA W/POLO RFLX IF INDICATED [URIN] Stat Sodium Chloride 0.9% [Saline Flush] 10 ml FLUSH ASDIRECTED PRN Saline Lock Insert [OM.PC] Stat 04/25/20 08:15 Insert Jorgensen Catheter [Insert Urinary Catheter] [OM.PC] Q24H Urinary Catheter Assessment [RC] ASDIRECTED 04/25/20 08:27 EKG Documentation Completion [RC] STAT 04/25/20 08:30 Blood Culture x2 Reflex Set [OM.PC] Stat 04/25/20 08:42 CULTURE BLOOD [BC] Stat 04/25/20 08:54 CULTURE BLOOD [BC] Stat 04/25/20 08:58 RT Aerosol Therapy [RC] ASDIRECTED 04/25/20 09:15 Sodium Chloride 0.9% @ 100 MLS/HR(1000ml) Sodium Chloride 0.9% [Normal Saline] 1,000 ml IV ASDIRECTED 04/25/20 09:21 BIPAP Adult [RT BiPAP/CPAP] [RC] ASDIRECTED Vancomycin 1 gm Sodium Chloride 0.9% [Normal Saline (AdvBag)] 250 ml IV STAT
[2020-04-25] MEDS ORDERED: Albuterol/Ipratropium 3.0-0.5 MG/3 ML Neb Soln NEB ONE (08:58)
[2020-04-25] MEDS ORDERED: Piperacillin/Tazobactam 3.375 GM in Sodium Chloride 0.9% 100 ML IV ONE (09:02)
[2020-04-25] MEDS ORDERED: Sodium Chloride 0.9% 1,000 ML IV SCH (09:15)
--- NOTE | 2020-04-25 09:20 | CR ---
[id number] RAD/RAD Chest PA or AP 1V EXAM: RAD Chest PA or AP 1V INDICATION: SHORT OF BREATH,FEVER. COMPARISON: January 2018. DISCUSSION: Low lung volumes are again seen, similar to the prior examination. This is due at least in part to an asymmetric elevated left hemidiaphragm. Underlying diaphragmatic hernia is possible. Findings result in bibasilar vascular crowding/atelectasis left greater than right. These findings are similar to examination in 2018. If there is concern for underlying pneumonia, noncontrast chest CT is recommended. IMPRESSION: As above. Emanuel Quintero MD 04/25/20 0919 Thank you for allowing us to participate in the care of your patient.
[2020-04-25] MEDS ORDERED: Furosemide 40 MG/4 ML VIAL IV ONE (09:21)
[2020-04-25 09:25] LABS: CHLORIDE,CL 96 mmol/L (98-107); SODIUM,NA 134 mmol/L (136-145)
[2020-04-25 09:28] LABS: ANION GAP 8.8 mmol/L (10-20)
[2020-04-25] MEDS ORDERED: methylPREDNISolone Sodium Succinate 40 MG/1 ML SDV IVPUSH ONE (09:28)
[2020-04-25] MEDS ORDERED: Vancomycin 1 GM SDV ONE (11:04)
[2020-04-25 11:26] VITALS: BP 103/76; PULSE 92
== END 2020-04-25 10:16 | disposition short-term general hospital (02) ==
LOC: VM.ED 08:00
DX: J69.0 Pneumonitis due to inhalation of food and vomit (principal); G80.9 Cerebral palsy, unspecified; F32.9 Major depressive disorder, single episode, unspecified; Z20.828 Contact with and (suspected) exposure to other viral communicable diseases; Z88.8 Allergy status to other drugs, medicaments and biological substances; Z79.899 Other long term (current) drug therapy
CPT/HCPCS: 36415; 36600; 51702; 71045; 80053; 81001; 82803; 83605; 83880; 84484; 85025; 87040; 93005; 94660; 96361; 96365; 96368; 96375; 99285-25; 99291; J1940; J2543; J2920; J3370; J7030; J7050; J7620-GY; U0002

== ENCOUNTER 2020-05-07 10:52 | Inpatient (IN) | payer MEDICARE, MEDICAID, OTHER ==
--- NOTE | 2020-05-07 13:18 | PCM.HP.2 ---
H&P History of Present Illness - General Date of Service: 05/07/20 Source of Information: Old Records History Limitations: Reports: Other (patient is nonverbal at baseline - information obtained from chart review) - History of Present Illness Initial Comments - Free Text/Narative: Mr. Omalley is a 69 yo male with PMH of recurrent aspiration pneumonia, moderate intellectual disability, depression, spastic quadriparesis, seizure disorder, constipation, osteoporosis, and reliance on G-tube feedings who is admitted for swing bed while awaiting final disposition decisions. The patient is nonverbal; therefore, all history is obtained from chart review. He was hospitalized at [facility] 04/25-05/06 for acute hypoxic and hypercapnic respiratory failure as well as sepsis secondary to aspiration pneumonia. This was further complicated by development of ARDS. He was treated with broad spectrum IV antibiotics and IV steroids; he was also started on BiPap. ID was consulted. He improved nicely and his antibiotics were narrowed based on sputum culture results and susceptibilities. He was weaned from BiPap during the day to supplemental oxygen but he continued to require BiPap overnight. He completed his antibiotic course during his hospitalization. Because of his ongoing oxygen requirements, he is not able to return to his senior living. Therefore, discussions were had about discontinuing the oxygen to discharge him back to his senior living on comfort cares vs transitioning to the local SNF. Plan is for the latter but there will not be a bed available until later this week or even next week. Therefore, he is admitted to swing bed for ongoing strengthening prior to transition to the care center. His hospitalization in [place] was otherwise uncomplicated. - Related Data Allergies/Adverse Reactions: Allergies Allergy/AdvReac Type Severity Reaction Status Date / Time NSAIDS (Non-Steroidal AdvReac Intermediate Other Verified 04/25/20 08:48 Anti-Inflamma Home Medications: Home Meds levETIRAcetam [Keppra] 5 ml GTUBE BID 02/06/14 [History] polyethylene glycoL 3350 [MiraLAX] 17 gram GTUBE DAILY 02/06/14 [History] Baclofen 20 mg GTUBE QID 05/27/15 [History] Calcium Carbonate [Calcium Carbonate 250 MG/ML Susp] 2.5 ml GTUBE BID 05/27/15 [History] Escitalopram [Lexapro] 20 mg GTUBE DAILY 05/27/15 [History] Multivitamins with Iron/Min [Centrum] 15 ml GTUBE DAILY 06/30/15 [History] Sucralfate 1 gram TOP QID PRN 07/01/15 [History] ARIPiprazole [Abilify] 5 mg GTUBE DAILY 12/29/15 [History] Metoclopramide [Reglan] 5 mg GTUBE Q6H 12/29/15 [History] Albuterol/Ipratropium [DuoNeb 3.0-0.5 MG/3 ML] 3 ml NEB QIDRT neb 02/20/16 [Rx] Simethicone [Infants' Gas Relief] 2 ml GTUBE QID PRN 01/20/18 [History] Water 75 ml GTUBE ASDIRECTED 01/20/18 [History] Gabapentin [Neurontin] 300 mg GTUBE TID 05/07/20 [History] Omeprazole/Sodium Bicarbonate [Zegerid OTC 20-1,100 MG] 1 cap GTUBE BID 05/07/20 [History] Past Medical History HEENT History: Reports: Cataract, Other (See Below) Other HEENT History: otitis externa, hypermetropia Cardiovascular History: Reports: None Respiratory History: Reports: Pneumonia, Recurrent (Aspiration), SOB Gastrointestinal History: Reports: Bowel Obstruction, Chronic Constipation, Colon Polyp, Fecal Incontinence, GI Bleed, Other (See Below) Other Gastrointestinal History: inguinal hernia, gastroparesis Genitourinary History: Reports: Urinary Incontinence Musculoskeletal History: Reports: Osteoporosis Neurological History: Reports: Cerebral Palsy, Seizure Psychiatric History: Reports: Depression Endocrine/Metabolic History: Reports: Osteoporosis Hematologic History: Reports: None Immunologic History: Reports: None Oncologic (Cancer) History: Reports: None Dermatologic History: Reports: Other (See Below) Other Dermatologic History: ulcer of right foot - Infectious Disease History Infectious Disease History: Reports: None - Past Surgical History GI Surgical History: Reports: Other (See Below) (gastrostomy tube placement) Musculoskeletal Surgical History: Reports: Other (See Below) (right 5th toe amputation) Social & Family History - Family History Cardiac: Reports: CAD, [place] Oncologic: Reports: Pancreatic - Tobacco Use Smoking Status *Q: Never Smoker - Caffeine Use Caffeine Use: Reports: None - Alcohol Use Alcohol Use History: No Alcohol Use in Last Twelve Months: No - Recreational Drug Use Recreational Drug Use: No - Living Situation & Occupation Living situation: Reports: Single, Extended Care Facility Occupation: Disabled H&P Review of Systems - Review of Systems: Review Of Systems: Unable To Obtain Reason Not Obtained: due to underlying cognitive impairment and nonverbal status Exam - Exam Exam: See Below - Exam General: Alert HEENT: Conjunctiva Clear, Mucosa Moist & [place], Pupils Equal, Pupils Reactive Neck: Supple, Trachea Midline. No: Lymphadenopathy, Thyromegaly Lungs: Normal Respiratory Effort, Wheezing Cardiovascular: Regular Rate, Regular Rhythm, Normal S1, Normal S2 GI/Abdominal Exam: Normal Bowel Sounds, Soft, Non-Tender, No Organomegaly, No Distention, No Mass Extremities: Non-Tender, No Pedal Edema, Normal Capillary Refill Peripheral Pulses: 2+: Radial (L), Radial (R) Skin: Warm, Dry, Intact Sepsis Event Note - Focused Exam Date Exam was Performed: 05/07/20 Time Exam was Performed: 16:38 - Problem List (1) Generalized weakness SNOMED Code(s): 30653597 ICD Code: R53.1 - WEAKNESS Status: Acute Current Visit: No (2) Dependence on supplemental oxygen SNOMED Code(s): 480400814604 ICD Code: Z99.81 - DEPENDENCE ON SUPPLEMENTAL OXYGEN Status: Acute Current Visit: No (3) Cerebral palsy SNOMED Code(s): 299099066 ICD Code: G80.9 - CEREBRAL PALSY, UNSPECIFIED Status: Chronic Current Visit: No (4) Moderate intellectual disabilities SNOMED Code(s): 76621341 ICD Code: F71 - MODERATE INTELLECTUAL DISABILITIES Status: Chronic Current Visit: No (5) Nonverbal SNOMED Code(s): 222805674 ICD Code: R47.01 - APHASIA Status: Chronic Current Visit: No Problem Details: - At baseline. (6) Recurrent aspiration pneumonia SNOMED Code(s): 778857379 ICD Code: J69.0 - PNEUMONITIS DUE TO INHALATION OF FOOD AND VOMIT Status: Chronic Current Visit: No (7) G tube feedings SNOMED Code(s): 235555501, 945903645, 166920301 ICD Code: Z93.1 - GASTROSTOMY STATUS Status: Chronic Current Visit: No (8) Constipation SNOMED Code(s): 34209618 ICD Code: K59.00 - CONSTIPATION, UNSPECIFIED Status: Chronic Current Visit: No Qualifiers: Constipation type: unspecified constipation type Qualified Code(s): K59.00 - Constipation, unspecified (9) Depression SNOMED Code(s): 30946130 ICD Code: F32.9 - MAJOR DEPRESSIVE DISORDER, SINGLE EPISODE, UNSPECIFIED Status: Chronic Current Visit: No Qualifiers: Depression Type: major depressive disorder Major depression recurrence: recurrent Active/Remission status: in full remission Qualified Code(s): F33.42 - Major depressive disorder, recurrent, in full remission (10) Seizure disorder SNOMED Code(s): 435728836 ICD Code: G40.909 - EPILEPSY, UNSP, NOT INTRACTABLE, WITHOUT STATUS EPILEPTICUS Status: Chronic Current Visit: No Problem List Initiated/Reviewed/Updated: Yes Assessment/Plan Comment:: 69 yo male admitted to swing bed for further strengthening/cares while awaiting availability of a care center bed. #1 Generalized Weakness #2 Dependence on Supplemental Oxygen #3 Cerebral Palsy #4 Moderate intellectual disability #5 Nonverbal - Patient requires assistance with all ADL's and is no longer able to return to his senior living due to need for supplemental oxygen. - Plan is for transition to the care center later this week or next week. - In the meantime, will continue with PT and OT while on swing bed. #6 Recurrent aspiration pneumonia - He completed his most recent antibiotic course while hospitalized in [place]. - Will monitor closely for any recurrence of symptoms. - Otherwise, continue supplemental daytime oxygen and BiPap at night. Will wean daytime oxygen as able. - Plan is for pulmonology and sleep medicine follow-up as an outpatient. - Continue scheduled DuoNebs. #7 G-tube feedings - Orders from [place] had been for bolus feedings; however, patient has traditionally done much better with continuous feeds than with bolus feeds. Therefore, will resume tube feedings per home schedule. #8 Constipation #9 Depression #10 Seizure disorder - Continue home medications. Patient is admitted to swing bed - anticipate dismissal later this week or early next week. No indication for VTE prophylaxis as he is at his usual functional baseline. Code status is DNR/DNI - confirmed with guardian on admission.
[2020-05-07] MEDS ORDERED: Simethicone Drops 40 MG/0.6 ML 30 ML Bottle GTUBE PRN (16:28)
[2020-05-07] MEDS ORDERED: WATER GTUBE SCH (16:30)
[2020-05-07] MEDS ORDERED: [UNRECOGNIZED DRUG - OTHER] GTUBE SCH (16:30)
[2020-05-07] MEDS: Metoclopramide 5 MG Tab GTUBE SCH ×2 (17:29→22:57)
[2020-05-07] MEDS ORDERED: levETIRAcetam Soln 500 MG/5 ML Cup GTUBE SCH (20:00)
[2020-05-07] MEDS ORDERED: Sucralfate 1 GM Tab TOP PRN (20:00)
[2020-05-07] MEDS: Baclofen 10 MG Tab GTUBE SCH (20:54)
[2020-05-07] MEDS: Albuterol/Ipratropium 3.0-0.5 MG/3 ML Neb Soln NEB SCH (20:54)
[2020-05-07] MEDS: Gabapentin 300 MG Cap GTUBE SCH (20:55)
[2020-05-07] MEDS: Calcium Carbonate 1,250 MG/5 ML Susp 5 ML UD Cup GTUBE SCH (20:56)
[2020-05-07] MEDS: OMEPRAZOLE GTUBE SCH (21:00)
[2020-05-07] MEDS: SODIUM BICARBONATE GTUBE SCH (21:00)
[2020-05-08] MEDS ORDERED: levETIRAcetam Soln 500 MG/5 ML Cup GTUBE ONE (01:00)
[2020-05-08] MEDS: Metoclopramide 5 MG Tab GTUBE SCH ×2 (05:00→11:02)
[2020-05-08] MEDS: Albuterol/Ipratropium 3.0-0.5 MG/3 ML Neb Soln NEB SCH ×3 (07:11→14:44)
[2020-05-08] MEDS ORDERED: ARIPiprazole 5 MG Tab GTUBE SCH (08:00)
[2020-05-08] MEDS ORDERED: Multivit-Minerals/Ferrous Gluc 9 MG/15 ML 15 ml Cup GTUBE SCH (08:00)
[2020-05-08] MEDS ORDERED: levETIRAcetam Soln 500 MG/5 ML Cup GTUBE SCH (08:00)
[2020-05-08] MEDS: Gabapentin 300 MG Cap GTUBE SCH ×2 (08:06→11:02)
[2020-05-08] MEDS: Baclofen 10 MG Tab GTUBE SCH (08:07)
[2020-05-08] MEDS: Polyethylene Glycol 3350 Powder 17 GM Packet GTUBE SCH (08:07)
[2020-05-08] MEDS: Calcium Carbonate 1,250 MG/5 ML Susp 5 ML UD Cup GTUBE SCH ×2 (08:07→19:57)
[2020-05-08] MEDS: ESCITALOPRAM 20 MG GTUBE SCH (08:08)
[2020-05-08] MEDS: SODIUM BICARBONATE GTUBE SCH ×2 (08:20→20:00)
[2020-05-08] MEDS: OMEPRAZOLE GTUBE SCH ×2 (08:20→20:00)
[2020-05-08] MEDS: BACLOFEN 20 MG GTUBE SCH ×3 (11:24→20:02)
[2020-05-08] MEDS: METOCLOPRAMIDE 10 MG GTUBE SCH ×2 (13:41→19:58)
[2020-05-08] MEDS: Albuterol/Ipratropium 3.0-0.5 MG/3 ML Neb Soln (OWN SUPPLY) NEB SCH (19:58)
[2020-05-08] MEDS: LEVETIRACETAM 500 MG/5 ML GTUBE SCH (19:59)
[2020-05-08] MEDS: GABAPENTIN 300 MG GTUBE SCH (20:04)
[2020-05-09] MEDS: METOCLOPRAMIDE 10 MG GTUBE SCH ×4 (02:01→19:41)
[2020-05-09] MEDS: Albuterol/Ipratropium 3.0-0.5 MG/3 ML Neb Soln (OWN SUPPLY) NEB SCH ×4 (06:12→19:37)
[2020-05-09] MEDS: GABAPENTIN 300 MG GTUBE SCH ×3 (07:40→19:38)
[2020-05-09] MEDS: ARIPIPRAZOLE 5 MG GTUBE SCH (07:41)
[2020-05-09] MEDS: Calcium Carbonate 1,250 MG/5 ML Susp 5 ML UD Cup GTUBE SCH ×2 (07:41→19:41)
[2020-05-09] MEDS: ESCITALOPRAM 20 MG GTUBE SCH (07:41)
[2020-05-09] MEDS: BACLOFEN 20 MG GTUBE SCH ×4 (07:41→19:40)
[2020-05-09] MEDS: Multivit-Minerals/Ferrous Gluc 9 MG/15 ML 15 ml Cup GTUBE SCH (07:41)
[2020-05-09] MEDS: LEVETIRACETAM 500 MG/5 ML GTUBE SCH ×2 (07:41→19:39)
[2020-05-09] MEDS: OMEPRAZOLE GTUBE SCH ×2 (07:43→19:41)
[2020-05-09] MEDS: SODIUM BICARBONATE GTUBE SCH ×2 (07:43→19:41)
[2020-05-09] MEDS: Polyethylene Glycol 3350 Powder 17 GM Packet GTUBE SCH (07:44)
[2020-05-10] MEDS: METOCLOPRAMIDE 10 MG GTUBE SCH ×4 (02:30→19:49)
[2020-05-10] MEDS: Albuterol/Ipratropium 3.0-0.5 MG/3 ML Neb Soln (OWN SUPPLY) NEB SCH ×4 (06:08→19:44)
[2020-05-10] MEDS: ESCITALOPRAM 20 MG GTUBE SCH (07:41)
[2020-05-10] MEDS: ARIPIPRAZOLE 5 MG GTUBE SCH (07:41)
[2020-05-10] MEDS: LEVETIRACETAM 500 MG/5 ML GTUBE SCH ×2 (07:41→19:42)
[2020-05-10] MEDS: BACLOFEN 20 MG GTUBE SCH ×4 (07:41→19:46)
[2020-05-10] MEDS: Polyethylene Glycol 3350 Powder 17 GM Packet GTUBE SCH (07:42)
[2020-05-10] MEDS: GABAPENTIN 300 MG GTUBE SCH ×3 (07:42→19:44)
[2020-05-10] MEDS: Calcium Carbonate 1,250 MG/5 ML Susp 5 ML UD Cup GTUBE SCH ×2 (07:42→19:42)
[2020-05-10] MEDS: Multivit-Minerals/Ferrous Gluc 9 MG/15 ML 15 ml Cup GTUBE SCH (07:53)
[2020-05-10] MEDS: SODIUM BICARBONATE GTUBE SCH ×3 (07:58→19:47)
[2020-05-10] MEDS: OMEPRAZOLE GTUBE SCH ×3 (07:58→19:47)
[2020-05-11] MEDS: METOCLOPRAMIDE 10 MG GTUBE SCH ×4 (03:01→21:08)
[2020-05-11] MEDS: Albuterol/Ipratropium 3.0-0.5 MG/3 ML Neb Soln (OWN SUPPLY) NEB SCH ×4 (07:26→21:10)
[2020-05-11] MEDS: Calcium Carbonate 1,250 MG/5 ML Susp 5 ML UD Cup GTUBE SCH ×2 (07:36→21:34)
[2020-05-11] MEDS: Polyethylene Glycol 3350 Powder 17 GM Packet GTUBE SCH (07:37)
[2020-05-11] MEDS: LEVETIRACETAM 500 MG/5 ML GTUBE SCH ×2 (07:37→21:13)
[2020-05-11] MEDS: GABAPENTIN 300 MG GTUBE SCH ×3 (07:37→21:06)
[2020-05-11] MEDS: Multivit-Minerals/Ferrous Gluc 9 MG/15 ML 15 ml Cup GTUBE SCH (07:37)
[2020-05-11] MEDS: BACLOFEN 20 MG GTUBE SCH ×4 (07:37→21:14)
[2020-05-11] MEDS: ARIPIPRAZOLE 5 MG GTUBE SCH (07:38)
[2020-05-11] MEDS: ESCITALOPRAM 20 MG GTUBE SCH (07:38)
[2020-05-11] MEDS: OMEPRAZOLE GTUBE SCH ×2 (07:39→21:34)
[2020-05-11] MEDS: SODIUM BICARBONATE GTUBE SCH ×2 (07:39→21:34)
[2020-05-12] MEDS: METOCLOPRAMIDE 10 MG GTUBE SCH ×4 (02:01→19:50)
[2020-05-12] MEDS: Albuterol/Ipratropium 3.0-0.5 MG/3 ML Neb Soln (OWN SUPPLY) NEB SCH ×4 (07:09→19:51)
[2020-05-12] MEDS: ARIPIPRAZOLE 5 MG GTUBE SCH (09:14)
[2020-05-12] MEDS: ESCITALOPRAM 20 MG GTUBE SCH (09:14)
[2020-05-12] MEDS: BACLOFEN 20 MG GTUBE SCH ×4 (09:14→19:50)
[2020-05-12] MEDS: OMEPRAZOLE GTUBE SCH ×2 (09:15→19:48)
[2020-05-12] MEDS: Polyethylene Glycol 3350 Powder 17 GM Packet GTUBE SCH (09:15)
[2020-05-12] MEDS: SODIUM BICARBONATE GTUBE SCH ×2 (09:15→19:48)
[2020-05-12] MEDS: LEVETIRACETAM 500 MG/5 ML GTUBE SCH ×2 (09:15→19:48)
[2020-05-12] MEDS: GABAPENTIN 300 MG GTUBE SCH ×3 (09:15→19:51)
[2020-05-12] MEDS: Calcium Carbonate 1,250 MG/5 ML Susp 5 ML UD Cup GTUBE SCH ×2 (09:16→19:52)
[2020-05-12] MEDS: Multivit-Minerals/Ferrous Gluc 9 MG/15 ML 15 ml Cup GTUBE SCH (09:16)
[2020-05-13] MEDS: METOCLOPRAMIDE 10 MG GTUBE SCH ×4 (01:41→20:41)
[2020-05-13] MEDS: Albuterol/Ipratropium 3.0-0.5 MG/3 ML Neb Soln (OWN SUPPLY) NEB SCH ×4 (06:39→20:41)
[2020-05-13] MEDS: Calcium Carbonate 1,250 MG/5 ML Susp 5 ML UD Cup GTUBE SCH ×2 (09:05→20:42)
[2020-05-13] MEDS: Multivit-Minerals/Ferrous Gluc 9 MG/15 ML 15 ml Cup GTUBE SCH (09:06)
[2020-05-13] MEDS: OMEPRAZOLE GTUBE SCH ×2 (09:06→20:40)
[2020-05-13] MEDS: SODIUM BICARBONATE GTUBE SCH ×2 (09:06→20:40)
[2020-05-13] MEDS: Polyethylene Glycol 3350 Powder 17 GM Packet GTUBE SCH (09:06)
[2020-05-13] MEDS: LEVETIRACETAM 500 MG/5 ML GTUBE SCH ×2 (09:06→20:42)
[2020-05-13] MEDS: GABAPENTIN 300 MG GTUBE SCH ×3 (09:07→20:40)
[2020-05-13] MEDS: BACLOFEN 20 MG GTUBE SCH ×4 (09:08→20:40)
[2020-05-13] MEDS: ESCITALOPRAM 20 MG GTUBE SCH (09:08)
[2020-05-13] MEDS: ARIPIPRAZOLE 5 MG GTUBE SCH (09:08)
[2020-05-13] MEDS ORDERED: Sodium Chloride 0.9% 10 ML Syringe FLUSH PRN (09:14)
[2020-05-13] MEDS ORDERED: cefTRIAXone 1 GM Vial IVPUSH ONE (09:14)
[2020-05-13] MEDS ORDERED: Acetaminophen Susp 160 MG/5 ML 120 ML Bottle GTUBE ONE (09:54)
[2020-05-13] MEDS ORDERED: Acetaminophen Susp 160 MG/5 ML 120 ML Bottle JTUBE ONE (09:54)
[2020-05-13 10:01] LABS: ANION GAP 10.1 mmol/L (10-20); CHLORIDE,CL 99 mmol/L (98-107); SODIUM,NA 137 mmol/L (136-145)
--- NOTE | 2020-05-13 10:34 | CR ---
[id number] RAD/RAD Chest PA or AP 1V EXAM: RAD Chest PA or AP 1V INDICATION: HYPOXIA. COMPARISON: April 25, 2020. DISCUSSION: Low lung volumes. Elevation of the left hemidiaphragm. Near complete opacification of the left hemithorax, increased. Vascular crowding. IMPRESSION: Increasing opacification of the left hemithorax. If continued concern, CT of the chest with contrast is recommended. Storm Reyes DO 05/13/20 1033 Thank you for allowing us to participate in the care of your patient.
--- NOTE | 2020-05-13 16:22 | PN ---
Progress Note for ARLETH NASCIMENTO Date: 05/13/2020 Room #: VM.201 SUBJECTIVE: This is a 69-year-old on swing bed recovering after a prolonged hospital stay, 04/25 through 05/07, for pneumonia and respiratory failure with ARDS and sepsis secondary to a strep pneumo. He completed all antibiotics while in [place], but due to requiring oxygen and BiPAP at night, was unable to go back to [facility]. The patient never was intubated, but was on BiPAP and AIRVO. The patient had not been having fevers, but this morning spiked a 101.7 temperature and was less responsive than usual. This happened right around 8 a.m. He had previously finished his tube feeds at 6 am and then was due to start another tube feed soon. They had not noticed any aspiration or vomit. The patient has a history of recurrent aspiration pneumonias. He was given a dose of IV Rocephin and lab work was immediately requested. White count was 12.9. Otherwise, his kidney function was normal and his lactic was normal and his chest x-ray showed a near whiteout of the left lung. OBJECTIVE: Vital Signs: His temperature 101.7, pulse 93, blood pressure 109/66, respiratory rate 18, and O2 of 94 on 5.5 L through the BiPAP. General: Around the time when I saw the patient, he was quite comfortable on the BiPAP. He was communicating with me only through just eye movements, but he could acknowledge that I was there, but could not answer any questions. He has underlying cerebral palsy, so his arms are in contractures. Heart: Regular rate and rhythm. S1, S2 without murmur. Lungs: Sounds do show more crackles and rhonchi over the right, but still lungs sounds were appreciated on the left with some rhonchi as well in the lower lung. Extremities: Cool, especially over the left leg, but no mottling, no edema. Mental Status: He is disoriented. Abdomen: Positive bowel sounds. Soft, nondistended, nontender. ASSESSMENT: 1. Acute on chronic hypoxic respiratory failure, likely due to recurrent aspiration pneumonia. 2. Sepsis secondary to an aspiration pneumonia with left lung infiltrate. 3. Underlying cerebral palsy and history of seizures. PLAN: The patient received the IV Rocephin and then I updated Sharonda Bedolla, , about the patient's case, informed her that more aggressive treatments would require CT scans and IV vancomycin and Zosyn. She preferred to discuss with the [facility] staff at this time, which I did hear from nursing that the [facility] was not wanting him to be transferred back to [place]. Options would include staying here for comfort measures and this can be further discussed with his primary care provider, Dr. Sinclair, who will be available later today. Sharonda will call us back. At this point, we did not pursue any other aggressive treatments for the patient. I also do not think we need to do any venting of his G-tube as it did not appear that he was having any vomiting, and we will have the nursing check for G-tube for residuals. MKA: 05/13/2020 15:44:45 MODL: 05/13/2020 16:16:36 /[id number] MTDD
--- NOTE | 2020-05-13 16:43 | PCM.SN.2 ---
- Free Text/Narrative Note: Spoke with patient's guardian again this afternoon. Planning for conference call in the am to decide final plans as far as comfort cares vs more aggressive cares. Would like IV fluids overnight. Already got ceftriaxone this morning, which should cover for organisms from previous respiratory culture and only needs to be dosed once/day. Will reassess in the am.
[2020-05-13] MEDS ORDERED: Sodium Chloride 0.9% 1,000 ML IV SCH (16:45)
[2020-05-14] MEDS: METOCLOPRAMIDE 10 MG GTUBE SCH ×4 (01:30→19:41)
[2020-05-14 07:26] LABS: CHLORIDE,CL 99 mmol/L (98-107); SODIUM,NA 136 mmol/L (136-145)
[2020-05-14] MEDS: Albuterol/Ipratropium 3.0-0.5 MG/3 ML Neb Soln (OWN SUPPLY) NEB SCH ×4 (07:42→19:43)
--- NOTE | 2020-05-14 08:32 | PCM.PN ---
- General Info Date of Service: 05/14/20 Subjective Update: Patient with no acute events overnight. Still has not voided; bladder scan of 300 this am. Seems more interactive per nursing. Patient is not able to provide any history due to underlying non-verbal status. - Review of Systems Systems Review Comment:: Unable to obtain as patient is nonverbal - Patient Data Vitals - Most Recent: Last Vital Signs Temp 37.7 C 05/14/20 06:00 Pulse 89 05/14/20 06:00 Resp 20 05/14/20 06:00 BP 107/59 L 05/14/20 06:00 Pulse Ox 96 05/14/20 07:43 Weight - Most Recent: 55.792 kg I&O - Last 24 Hours: Intake & Output 05/13/20 05/14/20 05/14/20 22:59 06:59 14:59 Intake Total 400 1050 Balance 400 1050 Lab Results Last 24 Hours: Laboratory Results - last 24 hr 05/13/20 05/13/20 05/13/20 Range/Units 09:35 09:35 09:35 WBC 12.9 H (4.0-10.0) x10^3/uL RBC 4.85 (4.5-6.0) x10^6/uL Hgb 14.9 (14.0-18.0) g/dL Hct 45.3 (40.0-52.0) % MCV 93.4 H (78.0-93.0) fL MCH 30.7 (26.0-32.0) pg MCHC 32.9 (32.0-36.0) g/dL RDW Coeff of Devendra 13.3 (10.0-15.0) % Plt Count 407 H D (130-400) x10^3/uL Neut % (Auto) 83.9 H (50.0-80.0) % Lymph % (Auto) 8.5 L (25.0-50.0) % [place] % (Auto) 7.2 (2.0-11.0) % Eos % (Auto) 0.2 (0.0-4.0) % Baso % (Auto) 0.2 (0.2-1.2) % Sodium 137 (136-145) mmol/L Potassium 4.1 (3.5-5.1) mmol/L Chloride 99 (98-107) mmol/L Carbon Dioxide 32 (21-32) mmol/L Anion Gap 10.1 (10-20) mmol/L BUN 20 H (7-18) mg/dL Creatinine 0.6 L D (0.70-1.30) mg/dL Est Cr Clr Drug Dosing 92.99 mL/min Estimated GFR (MDRD) > 60 Glucose 162 H (74-106) mg/dL Lactic Acid 1.8 (0.4-2.0) mmol/L Calcium 8.2 L (8.5-10.1) mg/dL 05/14/20 05/14/20 Range/Units 06:57 06:57 WBC 10.4 H (4.0-10.0) x10^3/uL RBC 3.89 L (4.5-6.0) x10^6/uL Hgb 11.9 L D (14.0-18.0) g/dL Hct 36.8 L (40.0-52.0) % MCV 94.6 H (78.0-93.0) fL MCH 30.6 (26.0-32.0) pg MCHC 32.3 (32.0-36.0) g/dL RDW Coeff of Devendra 13.1 (10.0-15.0) % Plt Count 346 (130-400) x10^3/uL Neut % (Auto) 77.4 (50.0-80.0) % Lymph % (Auto) 11.2 L (25.0-50.0) % [place] % (Auto) 10.7 (2.0-11.0) % Eos % (Auto) 0.5 (0.0-4.0) % Baso % (Auto) 0.2 (0.2-1.2) % Sodium 136 (136-145) mmol/L Potassium 4.0 (3.5-5.1) mmol/L Chloride 99 (98-107) mmol/L Carbon Dioxide 37 H (21-32) mmol/L Anion Gap 4.0 L (10-20) mmol/L BUN 22 H (7-18) mg/dL Creatinine 0.5 L (0.70-1.30) mg/dL Est Cr Clr Drug Dosing 111.58 mL/min Estimated GFR (MDRD) > 60 Glucose 131 H (74-106) mg/dL Lactic Acid (0.4-2.0) mmol/L Calcium 7.6 L (8.5-10.1) mg/dL Med Orders - Current: Current Medications Albuterol/Ipratropium (Duoneb 3.0-0.5 Mg/3 Ml) 3 ml NEB QIDRT [facility] Last Admin: 05/14/20 07:42 Dose: 3 ml Documented by: Aripiprazole (Abilify) 5 mg GTUBE DAILY [facility] Last Admin: 05/13/20 09:08 Dose: 5 mg Documented by: Calcium Carbonate/Glycine (Calcium Carbonate 250 Mg/Ml Susp) 1,250 mg GTUBE BID [facility] Last Admin: 05/13/20 20:42 Dose: 1,250 mg Documented by: Gabapentin (Neurontin) 0 mg GTUBE TID [facility] Last Admin: 05/13/20 20:40 Dose: 300 mg Documented by: Levetiracetam (Keppra) 500 mg GTUBE BID [facility] Last Admin: 05/13/20 20:42 Dose: 500 mg Documented by: Metoclopramide HCl (Reglan) 10 mg GTUBE Q6H [facility] Last Admin: 05/14/20 01:30 Dose: 10 mg Documented by: Miscellaneous Medication (Centrum Multivit-Mineral Liq) 9 mg GTUBE DAILY [facility] Last Admin: 05/13/20 09:06 Dose: 9 mg Documented by: Own Med ( Escitalopram [ Lexapro] 20 Mg) 20 mg GTUBE DAILY [facility] Last Admin: 05/13/20 09:08 Dose: 20 mg Documented by: Own Med (Omeprazole/Sodium Bicarbonate [ Zegerid Otc 20-1,100 Mg] Susp 0 cap GTUBE BID [facility] Last Admin: 05/13/20 20:40 Dose: 1 cap Documented by: Non-Formulary Medication (Water [Water]) 75 ml GTUBE ASDIRECTED [facility] Baclofen 20 Mg Tab ( (Own Supply)) 0 each GTUBE QID [facility] Last Admin: 05/13/20 20:40 Dose: 1 each Documented by: Polyethylene Glycol (Miralax) 17 gm GTUBE DAILY [facility] Last Admin: 05/13/20 09:06 Dose: 17 gm Documented by: Simethicone (Infants' Gas Relief) 133.5 mg GTUBE QID PRN PRN Reason: Gas Sodium Chloride (Saline Flush) 10 ml FLUSH ASDIRECTED PRN PRN Reason: Keep Vein Open Sucralfate (Carafate) 1 gm TOP QID PRN PRN Reason: Other Last Admin: 05/08/20 05:48 Dose: 1 gm Documented by: Discontinued Medications Acetaminophen (Tylenol Solution 160 Mg/5 Ml) 500 mg JTUBE ONETIME ONE Stop: 05/13/20 09:55 Last Admin: 05/13/20 10:16 Dose: Not Given Documented by: Acetaminophen (Tylenol Solution 160 Mg/5 Ml) 500 mg GTUBE ONETIME ONE Stop: 05/13/20 09:55 Last Admin: 05/13/20 10:25 Dose: 15.6 ml Documented by: Albuterol/Ipratropium (Duoneb 3.0-0.5 Mg/3 Ml) 3 ml NEB QIDRT [facility] Last Admin: 05/08/20 14:44 Dose: 3 ml Documented by: Aripiprazole (Abilify) 5 mg GTUBE DAILY [facility] Last Admin: 05/08/20 08:06 Dose: 5 mg Documented by: Baclofen (Lioresal) 20 mg GTUBE QID [facility] Last Admin: 05/08/20 08:07 Dose: 20 mg Documented by: Ceftriaxone Sodium (Rocephin) 1 gm IVPUSH STAT ONE Stop: 05/13/20 09:15 Last Admin: 05/13/20 09:44 Dose: 1 gm Documented by: Gabapentin (Neurontin) 300 mg GTUBE TID [facility] Last Admin: 05/08/20 11:02 Dose: 300 mg Documented by: Sodium Chloride (Normal Saline) 1,000 mls @ 50 mls/hr IV ASDIRECTED [facility] Last Admin: 05/13/20 17:31 Dose: 50 mls/hr Documented by: Levetiracetam (Keppra) 5 mg GTUBE BID [facility] Last Admin: 05/07/20 20:55 Dose: 5 mg Documented by: Levetiracetam (Keppra) 500 mg GTUBE BID [facility] Last Admin: 05/08/20 08:07 Dose: 500 mg Documented by: Levetiracetam (Keppra) 495 mg GTUBE ONETIME ONE Stop: 05/08/20 01:01 Last Admin: 05/08/20 01:18 Dose: 495 mg Documented by: Metoclopramide HCl (Reglan) 5 mg GTUBE Q6H [facility] Last Admin: 05/08/20 11:02 Dose: 5 mg Documented by: Miscellaneous Medication (Centrum Multivit-Mineral Liq) 15 mg GTUBE DAILY [facility] Last Admin: 05/08/20 08:06 Dose: 9 mg Documented by: - Exam General: Alert, No Acute Distress HEENT: Mucous Membr. Moist/[place] Neck Lungs: Normal Respiratory Effort, Wheezing Cardiovascular: Regular Rate, Regular Rhythm, No Murmurs GI/Abdominal Exam: Normal Bowel Sounds, Soft, Non-Tender, No Organomegaly, No Distention, No Mass (Male) Exam: Hernia (large hernia extending into the scrotum) Extremities: Non-Tender, No Pedal Edema Peripheral Pulses: 2+: Radial (L), Radial (R) Skin: Warm, Dry, Intact Sepsis Event Note - Evaluation Sepsis Screening Result: Sepsis Risk - Focused Exam Vital Signs: Vital Signs Temp Temp Pulse Resp BP Pulse Ox Pulse Ox 05/14/20 07:43 96 05/14/20 06:00 37.7 C 89 20 107/59 L 93 L 05/14/20 02:00 37.7 C 78 18 91/54 L 94 L 05/13/20 21:37 36.3 C 80 18 92/51 L 95 Date Exam was Performed: 05/14/20 Time Exam was Performed: 08:26 - Problem List & Annotations (1) Recurrent aspiration pneumonia SNOMED Code(s): 414562092 Code(s): J69.0 - PNEUMONITIS DUE TO INHALATION OF FOOD AND VOMIT Status: Acute Current Visit: No (2) Generalized weakness SNOMED Code(s): 41036261 Code(s): R53.1 - WEAKNESS Status: Acute Current Visit: No (3) Dependence on supplemental oxygen SNOMED Code(s): 942999994170 Code(s): Z99.81 - DEPENDENCE ON SUPPLEMENTAL OXYGEN Status: Acute Current Visit: No (4) Cerebral palsy SNOMED Code(s): 113076041 Code(s): G80.9 - CEREBRAL PALSY, UNSPECIFIED Status: Chronic Current Visit: No (5) Moderate intellectual disabilities SNOMED Code(s): 02894797 Code(s): F71 - MODERATE INTELLECTUAL DISABILITIES Status: Chronic Current Visit: No (6) Nonverbal SNOMED Code(s): 304863561 Code(s): R47.01 - APHASIA Status: Chronic Current Visit: No Annotation/Comment:: - At baseline. (7) G tube feedings SNOMED Code(s): 095962948, 571339505, 924927445 Code(s): Z93.1 - GASTROSTOMY STATUS Status: Chronic Current Visit: No (8) Constipation SNOMED Code(s): 73508998 Code(s): K59.00 - CONSTIPATION, UNSPECIFIED Status: Chronic Current Visit: No Qualifiers: Constipation type: unspecified constipation type Qualified Code(s): K59.00 - Constipation, unspecified (9) Depression SNOMED Code(s): 27700917 Code(s): F32.9 - MAJOR DEPRESSIVE DISORDER, SINGLE EPISODE, UNSPECIFIED Status: Chronic Current Visit: No Qualifiers: Depression Type: major depressive disorder Major depression recurrence: recurrent Active/Remission status: in full remission Qualified Code(s): F33.42 - Major depressive disorder, recurrent, in full remission (10) Seizure disorder SNOMED Code(s): 648195859 Code(s): G40.909 - EPILEPSY, UNSP, NOT INTRACTABLE, WITHOUT STATUS EPILEPTICUS Status: Chronic Current Visit: No - Problem List Review Problem List Initiated/Reviewed/Updated: Yes - My Orders Last 24 Hours: My Active Orders 05/13/20 15:55 Bladder Scan [RC] .PRN 05/13/20 15:56 Urinary Catheter Assessment [RC] ASDIRECTED 05/13/20 17:01 Communication Order [RC] 05/14/20 08:30 cefTRIAXone [Rocephin] 1 gm IVPUSH DAILY - Assessment Assessment:: Patient with improvement in respiratory status and labs as of this morning. - Plan Plan:: 69 yo male admitted to swing bed for further strengthening/cares while awaiting availability of a care center bed. #1 Recurrent aspiration pneumonia #2 Dependence on Supplemental oxygen - Patient has improved in comparison from yesterday with only 1 dose of IV antibiotics. - Therefore, will continue ceftriaxone daily x 3 days. - Continue supplemental daytime oxygen and BiPap at night. Will wean daytime oxygen as able but it is increasingly unlikely this will be successful. - Plan is for pulmonology and sleep medicine follow-up as an outpatient. - Continue scheduled DuoNebs. - He will finish the current bag of normal saline and then will not receive further IV fluids. #3 Generalized Weakness #4 Cerebral Palsy #5 Moderate intellectual disability #6 Nonverbal - Patient requires assistance with all ADL's and is no longer able to return to his [place] [facility] due to need for supplemental oxygen. - Guardian will be discussing with OD staff this am regarding decision to d/c back to [facility] on comfort cares or to finish another course of antibiotics and then discharge to the care center. #7 G-tube feedings - Continue tube feedings per his normal schedule. #8 Constipation #9 Depression #10 Seizure disorder - Continue home medications. Patient is admitted to swing bed - guardian planning conference call with [facility] staff this morning to determine disposition. Discussed with her this morning that although he is improved today, this is likely to be a recurrent issue based on his CXR appearance so it is still appropriate to have discussions regarding comfort cares vs usual cares. No indication for VTE prophylaxis as he is at his usual functional baseline. Code status is DNR/DNI - confirmed with guardian on admission.
[2020-05-14] MEDS: ARIPIPRAZOLE 5 MG GTUBE SCH (10:48)
[2020-05-14] MEDS: ESCITALOPRAM 20 MG GTUBE SCH (10:48)
[2020-05-14] MEDS: Multivit-Minerals/Ferrous Gluc 9 MG/15 ML 15 ml Cup GTUBE SCH (10:48)
[2020-05-14] MEDS: Calcium Carbonate 1,250 MG/5 ML Susp 5 ML UD Cup GTUBE SCH ×2 (10:48→19:41)
[2020-05-14] MEDS: Polyethylene Glycol 3350 Powder 17 GM Packet GTUBE SCH (10:48)
[2020-05-14] MEDS: GABAPENTIN 300 MG GTUBE SCH ×3 (10:49→19:43)
[2020-05-14] MEDS: BACLOFEN 20 MG GTUBE SCH ×4 (10:49→19:42)
[2020-05-14] MEDS: SODIUM BICARBONATE GTUBE SCH ×2 (10:49→19:44)
[2020-05-14] MEDS: LEVETIRACETAM 500 MG/5 ML GTUBE SCH ×2 (10:49→19:41)
[2020-05-14] MEDS: OMEPRAZOLE GTUBE SCH ×2 (10:49→19:44)
[2020-05-14] MEDS: cefTRIAXone 1 GM Vial IVPUSH SCH (10:50)
--- NOTE | 2020-05-14 14:51 | PCM.SN.2 ---
- Free Text/Narrative Note: Spoke with guardian again late morning. He is not able to return to the halfway even if he goes on comfort cares with no oxygen. She prefers for him to stay at [facility] until he passes away. Various options discussed with his guardian after which the following is how she would like to proceed. Plan is to do 1 more dose of ceftriaxone tomorrow and then hold on further antibiotics. If he gets any more fevers or changes in respiratory status, then we will not pursue further antibiotics and will instead take a comfort care approach with discontinuing all cares aside from those for comfort. This would include discontinuing his tube feedings and oxygen as well. She will be updated as indicated.
[2020-05-15] MEDS: METOCLOPRAMIDE 10 MG GTUBE SCH ×4 (01:56→20:04)
[2020-05-15] MEDS: Albuterol/Ipratropium 3.0-0.5 MG/3 ML Neb Soln (OWN SUPPLY) NEB SCH ×4 (07:22→20:04)
[2020-05-15] MEDS: Polyethylene Glycol 3350 Powder 17 GM Packet GTUBE SCH (07:46)
[2020-05-15] MEDS: SODIUM BICARBONATE GTUBE SCH ×2 (07:46→20:06)
[2020-05-15] MEDS: OMEPRAZOLE GTUBE SCH ×2 (07:46→20:06)
[2020-05-15] MEDS: LEVETIRACETAM 500 MG/5 ML GTUBE SCH ×2 (07:48→20:05)
[2020-05-15] MEDS: ESCITALOPRAM 20 MG GTUBE SCH (07:49)
[2020-05-15] MEDS: ARIPIPRAZOLE 5 MG GTUBE SCH (07:50)
[2020-05-15] MEDS: GABAPENTIN 300 MG GTUBE SCH ×3 (07:51→20:04)
[2020-05-15] MEDS: BACLOFEN 20 MG GTUBE SCH ×4 (07:51→20:05)
[2020-05-15] MEDS: cefTRIAXone 1 GM Vial IVPUSH SCH (07:52)
[2020-05-15] MEDS: Calcium Carbonate 1,250 MG/5 ML Susp 5 ML UD Cup GTUBE SCH ×2 (09:39→20:04)
[2020-05-15] MEDS: Multivit-Minerals/Ferrous Gluc 9 MG/15 ML 15 ml Cup GTUBE SCH (09:39)
[2020-05-16] MEDS: METOCLOPRAMIDE 10 MG GTUBE SCH ×4 (01:29→21:26)
[2020-05-16] MEDS: Albuterol/Ipratropium 3.0-0.5 MG/3 ML Neb Soln (OWN SUPPLY) NEB SCH ×4 (06:20→21:23)
[2020-05-16] MEDS: Multivit-Minerals/Ferrous Gluc 9 MG/15 ML 15 ml Cup GTUBE SCH (11:10)
[2020-05-16] MEDS: LEVETIRACETAM 500 MG/5 ML GTUBE SCH ×2 (11:11→21:22)
[2020-05-16] MEDS: Calcium Carbonate 1,250 MG/5 ML Susp 5 ML UD Cup GTUBE SCH ×2 (11:11→21:23)
[2020-05-16] MEDS: BACLOFEN 20 MG GTUBE SCH ×4 (11:15→21:26)
[2020-05-16] MEDS: ESCITALOPRAM 20 MG GTUBE SCH (11:15)
[2020-05-16] MEDS: GABAPENTIN 300 MG GTUBE SCH ×3 (11:16→21:25)
[2020-05-16] MEDS: Polyethylene Glycol 3350 Powder 17 GM Packet GTUBE SCH (11:17)
[2020-05-16] MEDS: OMEPRAZOLE GTUBE SCH ×3 (11:20→21:21)
[2020-05-16] MEDS: SODIUM BICARBONATE GTUBE SCH ×3 (11:20→21:21)
[2020-05-16] MEDS: ARIPIPRAZOLE 5 MG GTUBE SCH (14:08)
[2020-05-17] MEDS: METOCLOPRAMIDE 10 MG GTUBE SCH ×5 (02:41→19:22)
[2020-05-17] MEDS: Albuterol/Ipratropium 3.0-0.5 MG/3 ML Neb Soln (OWN SUPPLY) NEB SCH ×4 (06:38→20:51)
[2020-05-17] MEDS: GABAPENTIN 300 MG GTUBE SCH ×3 (08:29→19:23)
[2020-05-17] MEDS: SODIUM BICARBONATE GTUBE SCH ×2 (08:30→20:50)
[2020-05-17] MEDS: OMEPRAZOLE GTUBE SCH ×2 (08:30→20:50)
[2020-05-17] MEDS: Multivit-Minerals/Ferrous Gluc 9 MG/15 ML 15 ml Cup GTUBE SCH (08:30)
[2020-05-17] MEDS: LEVETIRACETAM 500 MG/5 ML GTUBE SCH ×2 (08:31→19:21)
[2020-05-17] MEDS: Polyethylene Glycol 3350 Powder 17 GM Packet GTUBE SCH (08:32)
[2020-05-17] MEDS: Calcium Carbonate 1,250 MG/5 ML Susp 5 ML UD Cup GTUBE SCH ×2 (08:33→20:53)
[2020-05-17] MEDS: ESCITALOPRAM 20 MG GTUBE SCH (08:34)
[2020-05-17] MEDS: ARIPIPRAZOLE 5 MG GTUBE SCH (08:34)
[2020-05-17] MEDS: BACLOFEN 20 MG GTUBE SCH ×4 (08:35→19:22)
[2020-05-18] MEDS: METOCLOPRAMIDE 10 MG GTUBE SCH ×4 (02:37→20:10)
[2020-05-18] MEDS: Albuterol/Ipratropium 3.0-0.5 MG/3 ML Neb Soln (OWN SUPPLY) NEB SCH ×4 (06:39→20:11)
[2020-05-18] MEDS: GABAPENTIN 300 MG GTUBE SCH ×3 (07:48→20:08)
[2020-05-18] MEDS: SODIUM BICARBONATE GTUBE SCH ×2 (07:49→20:08)
[2020-05-18] MEDS: OMEPRAZOLE GTUBE SCH ×2 (07:49→20:08)
[2020-05-18] MEDS: LEVETIRACETAM 500 MG/5 ML GTUBE SCH ×2 (07:49→20:08)
[2020-05-18] MEDS: Calcium Carbonate 1,250 MG/5 ML Susp 5 ML UD Cup GTUBE SCH ×2 (07:52→20:07)
[2020-05-18] MEDS: Polyethylene Glycol 3350 Powder 17 GM Packet GTUBE SCH (07:53)
[2020-05-18] MEDS: BACLOFEN 20 MG GTUBE SCH ×4 (07:54→20:10)
[2020-05-18] MEDS: FERROUS GLUC GTUBE SCH (07:56)
[2020-05-18] MEDS: MULTIVIT MINERALS GTUBE SCH (07:56)
[2020-05-18] MEDS: ARIPIPRAZOLE 5 MG GTUBE SCH (07:56)
[2020-05-18] MEDS: ESCITALOPRAM 20 MG GTUBE SCH (07:57)
[2020-05-18] MEDS ORDERED: Albuterol/Ipratropium 3.0-0.5 MG/3 ML Neb Soln NEB PRN (11:18)
[2020-05-18] MEDS ORDERED: Ondansetron 4 MG Tab.DIS PO PRN (11:19)
[2020-05-19] MEDS: METOCLOPRAMIDE 10 MG GTUBE SCH ×4 (01:01→20:21)
[2020-05-19] MEDS: Albuterol/Ipratropium 3.0-0.5 MG/3 ML Neb Soln (OWN SUPPLY) NEB SCH ×4 (06:17→20:23)
[2020-05-19] MEDS: OMEPRAZOLE GTUBE SCH ×2 (08:23→20:19)
[2020-05-19] MEDS: SODIUM BICARBONATE GTUBE SCH ×2 (08:23→20:19)
[2020-05-19] MEDS: LEVETIRACETAM 500 MG/5 ML GTUBE SCH ×2 (08:24→20:20)
[2020-05-19] MEDS: BACLOFEN 20 MG GTUBE SCH ×4 (08:25→20:21)
[2020-05-19] MEDS: GABAPENTIN 300 MG GTUBE SCH ×3 (08:26→20:22)
[2020-05-19] MEDS: ESCITALOPRAM 20 MG GTUBE SCH (08:27)
[2020-05-19] MEDS: ARIPIPRAZOLE 5 MG GTUBE SCH (08:27)
[2020-05-19] MEDS: Polyethylene Glycol 3350 Powder 17 GM Packet GTUBE SCH (08:28)
[2020-05-19] MEDS: FERROUS GLUC GTUBE SCH (08:28)
[2020-05-19] MEDS: MULTIVIT MINERALS GTUBE SCH (08:28)
[2020-05-19] MEDS: Calcium Carbonate 1,250 MG/5 ML Susp 5 ML UD Cup GTUBE SCH ×2 (08:29→20:20)
[2020-05-20] MEDS: METOCLOPRAMIDE 10 MG GTUBE SCH ×4 (01:21→19:38)
[2020-05-20] MEDS: Albuterol/Ipratropium 3.0-0.5 MG/3 ML Neb Soln (OWN SUPPLY) NEB SCH ×4 (06:19→19:41)
[2020-05-20] MEDS: Calcium Carbonate 1,250 MG/5 ML Susp 5 ML UD Cup GTUBE SCH ×2 (08:48→19:40)
[2020-05-20] MEDS: FERROUS GLUC GTUBE SCH (08:48)
[2020-05-20] MEDS: MULTIVIT MINERALS GTUBE SCH (08:48)
[2020-05-20] MEDS: Polyethylene Glycol 3350 Powder 17 GM Packet GTUBE SCH (08:48)
[2020-05-20] MEDS: LEVETIRACETAM 500 MG/5 ML GTUBE SCH ×2 (08:52→19:40)
[2020-05-20] MEDS: BACLOFEN 20 MG GTUBE SCH ×4 (08:53→19:39)
[2020-05-20] MEDS: GABAPENTIN 300 MG GTUBE SCH ×3 (08:53→19:39)
[2020-05-20] MEDS: ESCITALOPRAM 20 MG GTUBE SCH (09:01)
[2020-05-20] MEDS: ARIPIPRAZOLE 5 MG GTUBE SCH (09:02)
[2020-05-20] MEDS: SODIUM BICARBONATE GTUBE SCH ×2 (09:03→19:37)
[2020-05-20] MEDS: OMEPRAZOLE GTUBE SCH ×2 (09:03→19:37)
[2020-05-21] MEDS: METOCLOPRAMIDE 10 MG GTUBE SCH ×4 (02:04→20:08)
[2020-05-21] MEDS: Albuterol/Ipratropium 3.0-0.5 MG/3 ML Neb Soln (OWN SUPPLY) NEB SCH ×4 (06:03→20:07)
[2020-05-21] MEDS: Calcium Carbonate 1,250 MG/5 ML Susp 5 ML UD Cup GTUBE SCH ×2 (08:55→20:08)
[2020-05-21] MEDS: Polyethylene Glycol 3350 Powder 17 GM Packet GTUBE SCH (08:57)
[2020-05-21] MEDS: GABAPENTIN 300 MG GTUBE SCH ×3 (08:57→20:06)
[2020-05-21] MEDS: BACLOFEN 20 MG GTUBE SCH ×4 (08:57→20:07)
[2020-05-21] MEDS: ARIPIPRAZOLE 5 MG GTUBE SCH (08:58)
[2020-05-21] MEDS: ESCITALOPRAM 20 MG GTUBE SCH (08:58)
[2020-05-21] MEDS: FERROUS GLUC GTUBE SCH (08:59)
[2020-05-21] MEDS: MULTIVIT MINERALS GTUBE SCH (08:59)
[2020-05-21] MEDS: LEVETIRACETAM 500 MG/5 ML GTUBE SCH ×2 (08:59→20:06)
[2020-05-21] MEDS: SODIUM BICARBONATE GTUBE SCH ×2 (09:04→20:06)
[2020-05-21] MEDS: OMEPRAZOLE GTUBE SCH ×2 (09:04→20:06)
[2020-05-22] MEDS: METOCLOPRAMIDE 10 MG GTUBE SCH ×4 (01:50→20:06)
[2020-05-22] MEDS: Albuterol/Ipratropium 3.0-0.5 MG/3 ML Neb Soln (OWN SUPPLY) NEB SCH ×4 (06:11→20:05)
[2020-05-22] MEDS: OMEPRAZOLE GTUBE SCH ×2 (08:27→20:04)
[2020-05-22] MEDS: SODIUM BICARBONATE GTUBE SCH ×2 (08:27→20:04)
[2020-05-22] MEDS: GABAPENTIN 300 MG GTUBE SCH ×3 (08:28→20:07)
[2020-05-22] MEDS: MULTIVIT MINERALS GTUBE SCH (08:28)
[2020-05-22] MEDS: FERROUS GLUC GTUBE SCH (08:28)
[2020-05-22] MEDS: LEVETIRACETAM 500 MG/5 ML GTUBE SCH ×2 (08:28→20:04)
[2020-05-22] MEDS: Calcium Carbonate 1,250 MG/5 ML Susp 5 ML UD Cup GTUBE SCH ×2 (08:29→20:04)
[2020-05-22] MEDS: BACLOFEN 20 MG GTUBE SCH ×4 (08:29→20:06)
[2020-05-22] MEDS: ESCITALOPRAM 20 MG GTUBE SCH (08:30)
[2020-05-22] MEDS: ARIPIPRAZOLE 5 MG GTUBE SCH (08:30)
[2020-05-22] MEDS: Polyethylene Glycol 3350 Powder 17 GM Packet GTUBE SCH (08:30)
--- NOTE | 2020-05-22 17:04 | PCM.PN ---
- General Info Date of Service: 05/22/20 Subjective Update: 69 yo male seen today for swing bed follow-up. Patient is non-verbal and does not answer questions. Nursing staff pleased with the fact that he is acting more like his usual self. He is more alert and wanting to play with his toys. He is more interactive with staff as well. - Review of Systems Systems Review Comment:: Unable to assess as patient is nonverbal - Patient Data Vitals - Most Recent: Last Vital Signs Temp 36.4 C 05/22/20 05:39 Pulse 85 05/22/20 05:39 Resp 17 05/22/20 05:39 BP 111/73 05/22/20 05:39 Pulse Ox 93 L 05/22/20 05:39 Weight - Most Recent: 55.792 kg I&O - Last 24 Hours: Intake & Output 05/22/20 05/22/20 05/22/20 06:59 14:59 22:59 Intake Total 600 Output Total 550 200 Balance -550 400 Med Orders - Current: Current Medications Albuterol/Ipratropium (Duoneb 3.0-0.5 Mg/3 Ml) 3 ml NEB QIDRT [facility] Last Admin: 05/22/20 15:01 Dose: 3 ml Documented by: Albuterol/Ipratropium (Duoneb 3.0-0.5 Mg/3 Ml) 3 ml NEB Q4HRRT PRN PRN Reason: Cough Aripiprazole (Abilify) 5 mg GTUBE DAILY [facility] Last Admin: 05/22/20 08:30 Dose: 5 mg Documented by: Calcium Carbonate/Glycine (Calcium Carbonate 250 Mg/Ml Susp) 1,250 mg GTUBE BID [facility] Last Admin: 05/22/20 08:29 Dose: 1,250 mg Documented by: Gabapentin (Neurontin) 0 mg GTUBE TID [facility] Last Admin: 05/22/20 11:58 Dose: 300 mg Documented by: Glycopyrrolate (Robinul) 1 mg PO DAILY PRN PRN Reason: Other Levetiracetam (Keppra) 500 mg GTUBE BID [facility] Last Admin: 05/22/20 08:28 Dose: 500 mg Documented by: Metoclopramide HCl (Reglan) 10 mg GTUBE Q6H [facility] Last Admin: 05/22/20 15:02 Dose: 10 mg Documented by: Miscellaneous Medication (Centrum Multivit-Mineral Liq) 9 mg GTUBE DAILY [facility] Last Admin: 05/22/20 08:28 Dose: 9 mg Documented by: Omeprazole/Sodium Bicarbonate [Zegerid Otc 20-1,100 Mg] Susp (Own Med) 0 cap GTUBE BID [facility] Last Admin: 05/22/20 08:27 Dose: 1 cap Documented by: Non-Formulary Medication (Water [Water]) 75 ml GTUBE ASDIRECTED [facility] Escitalopram [ Lexapro] 20 Mg (Own Supply) 0 mg GTUBE DAILY [facility] Last Admin: 05/22/20 08:30 Dose: 20 mg Documented by: Baclofen 20 Mg Tab ( (Own Supply)) 0 each GTUBE QID [facility] Last Admin: 05/22/20 11:57 Dose: 1 each Documented by: Ondansetron HCl (Zofran Odt) 4 mg PO Q4H PRN PRN Reason: Nausea/Vomiting Polyethylene Glycol (Miralax) 17 gm GTUBE DAILY [facility] Last Admin: 05/22/20 08:30 Dose: 17 gm Documented by: Simethicone (Infants' Gas Relief) 133.5 mg GTUBE QID PRN PRN Reason: Gas Sodium Chloride (Saline Flush) 10 ml FLUSH ASDIRECTED PRN PRN Reason: Keep Vein Open Last Admin: 05/15/20 08:10 Dose: 10 ml Documented by: Sucralfate (Carafate) 1 gm TOP QID PRN PRN Reason: Other Last Admin: 05/08/20 05:48 Dose: 1 gm Documented by: Discontinued Medications Acetaminophen (Tylenol Solution 160 Mg/5 Ml) 500 mg JTUBE ONETIME ONE Stop: 05/13/20 09:55 Last Admin: 05/13/20 10:16 Dose: Not Given Documented by: Acetaminophen (Tylenol Solution 160 Mg/5 Ml) 500 mg GTUBE ONETIME ONE Stop: 05/13/20 09:55 Last Admin: 05/13/20 10:25 Dose: 15.6 ml Documented by: Albuterol/Ipratropium (Duoneb 3.0-0.5 Mg/3 Ml) 3 ml NEB QIDRT [facility] Last Admin: 05/08/20 14:44 Dose: 3 ml Documented by: Aripiprazole (Abilify) 5 mg GTUBE DAILY [facility] Last Admin: 05/08/20 08:06 Dose: 5 mg Documented by: Baclofen (Lioresal) 20 mg GTUBE QID [facility] Last Admin: 05/08/20 08:07 Dose: 20 mg Documented by: Ceftriaxone Sodium (Rocephin) 1 gm IVPUSH STAT ONE Stop: 05/13/20 09:15 Last Admin: 05/13/20 09:44 Dose: 1 gm Documented by: Ceftriaxone Sodium (Rocephin) 1 gm IVPUSH DAILY [facility] Last Admin: 05/15/20 07:52 Dose: 1 gm Documented by: Gabapentin (Neurontin) 300 mg GTUBE TID [facility] Last Admin: 05/08/20 11:02 Dose: 300 mg Documented by: Sodium Chloride (Normal Saline) 1,000 mls @ 50 mls/hr IV ASDIRECTED [facility] Last Admin: 05/13/20 17:31 Dose: 50 mls/hr Documented by: Levetiracetam (Keppra) 5 mg GTUBE BID [facility] Last Admin: 05/07/20 20:55 Dose: 5 mg Documented by: Levetiracetam (Keppra) 500 mg GTUBE BID [facility] Last Admin: 05/08/20 08:07 Dose: 500 mg Documented by: Levetiracetam (Keppra) 495 mg GTUBE ONETIME ONE Stop: 05/08/20 01:01 Last Admin: 05/08/20 01:18 Dose: 495 mg Documented by: Metoclopramide HCl (Reglan) 5 mg GTUBE Q6H [facility] Last Admin: 05/08/20 11:02 Dose: 5 mg Documented by: Metoclopramide HCl (Reglan) 10 mg GTUBE Q6H [facility] Last Admin: 05/17/20 13:36 Dose: 10 mg Documented by: Miscellaneous Medication (Centrum Multivit-Mineral Liq) 15 mg GTUBE DAILY [facility] Last Admin: 05/08/20 08:06 Dose: 9 mg Documented by: Miscellaneous Medication (Centrum Multivit-Mineral Liq) 9 mg GTUBE DAILY [facility] Last Admin: 05/17/20 08:30 Dose: 9 mg Documented by: Own Med ( Escitalopram [ Lexapro] 20 Mg) 20 mg GTUBE DAILY [facility] Last Admin: 05/16/20 11:15 Dose: 20 mg Documented by: Baclofen 20 Mg Tab ( (Own Supply)) 0 each GTUBE QID [facility] Last Admin: 05/17/20 13:35 Dose: 1 each Documented by: - Exam General: Alert, Cooperative, No Acute Distress HEENT: Mucous Membr. Moist/[place] Neck: Supple, Trachea Midline, No Thyromegaly. No: Lymphadenopathy Lungs: Clear to Auscultation, Normal Respiratory Effort Cardiovascular: Regular Rate, Regular Rhythm, No Murmurs GI/Abdominal Exam: Normal Bowel Sounds, Soft, Non-Tender, No Organomegaly, No Distention, No Mass Extremities: Normal Inspection, Non-Tender, No Pedal Edema Peripheral Pulses: 2+: Radial (L), Radial (R) Skin: Warm, Dry, Intact Sepsis Event Note - Evaluation Sepsis Screening Result: No Definite Risk - Focused Exam Vital Signs: Vital Signs Temp Pulse Resp BP Pulse Ox 05/22/20 05:39 36.4 C 85 17 111/73 93 L Date Exam was Performed: 05/22/20 Time Exam was Performed: 16:58 - Problem List & Annotations (1) Recurrent aspiration pneumonia SNOMED Code(s): 305605704 Code(s): J69.0 - PNEUMONITIS DUE TO INHALATION OF FOOD AND VOMIT Status: Acute Current Visit: No (2) Generalized weakness SNOMED Code(s): 25955070 Code(s): R53.1 - WEAKNESS Status: Acute Current Visit: No (3) Dependence on supplemental oxygen SNOMED Code(s): 679710752404 Code(s): Z99.81 - DEPENDENCE ON SUPPLEMENTAL OXYGEN Status: Acute Current Visit: No (4) Cerebral palsy SNOMED Code(s): 888681565 Code(s): G80.9 - CEREBRAL PALSY, UNSPECIFIED Status: Chronic Current Visit: No (5) Moderate intellectual disabilities SNOMED Code(s): 45317433 Code(s): F71 - MODERATE INTELLECTUAL DISABILITIES Status: Chronic Current Visit: No (6) Nonverbal SNOMED Code(s): 331265992 Code(s): R47.01 - APHASIA Status: Chronic Current Visit: No Annotation/Comment:: - At baseline. (7) G tube feedings SNOMED Code(s): 406148516, 198257298, 319366826 Code(s): Z93.1 - GASTROSTOMY STATUS Status: Chronic Current Visit: No (8) Constipation SNOMED Code(s): 75519879 Code(s): K59.00 - CONSTIPATION, UNSPECIFIED Status: Chronic Current Visit: No Qualifiers: Constipation type: unspecified constipation type Qualified Code(s): K59.00 - Constipation, unspecified (9) Depression SNOMED Code(s): 67077029 Code(s): F32.9 - MAJOR DEPRESSIVE DISORDER, SINGLE EPISODE, UNSPECIFIED Status: Chronic Current Visit: No Qualifiers: Depression Type: major depressive disorder Major depression recurrence: recurrent Active/Remission status: in full remission Qualified Code(s): F33.42 - Major depressive disorder, recurrent, in full remission (10) Seizure disorder SNOMED Code(s): 970536748 Code(s): G40.909 - EPILEPSY, UNSP, NOT INTRACTABLE, WITHOUT STATUS EPILEPTICUS Status: Chronic Current Visit: No - Problem List Review Problem List Initiated/Reviewed/Updated: Yes - Assessment Assessment:: 69 yo male on swing bed following hospitalization in [place] and inability to return to halfway due to being on oxygen. Doing much better than last week and back to his usual self. - Plan Plan:: 69 yo male admitted to swing bed for further strengthening/cares while awaiting availability of a care center bed. #1 Recurrent aspiration pneumonia #2 Dependence on Supplemental oxygen - Patient is doing well this week. - No indication for any further antibiotics at this time. - Plan is not to do further interventions if his respiratory status changes or if he gets a fever but this would need to be confirmed with his guardian should this occur. - Continue supplemental daytime oxygen and BiPap at night. Will wean daytime oxygen as able but it is increasingly unlikely this will be successful. - Sleep medicine follow-up is scheduled. - Continue scheduled DuoNebs. - Catheter remains in place from last week despite orders to d/c this. Will remove today and monitor for any urinary retention. #3 Generalized Weakness #4 Cerebral Palsy #5 Moderate intellectual disability #6 Nonverbal - Patient requires assistance with all ADL's and is no longer able to return to his halfway due to need for supplemental oxygen. - Guardian prefers he remain at [facility] until he passes away if at all possible. #7 G-tube feedings - Continue tube feedings per his normal schedule. #8 Constipation #9 Depression #10 Seizure disorder - Continue home medications. Patient is admitted to swing bed - anticipate this will be retirement. No indication for VTE prophylaxis as he is at his usual functional baseline. Code status is DNR/DNI - confirmed with guardian on admission.
[2020-05-23] MEDS: METOCLOPRAMIDE 10 MG GTUBE SCH ×4 (02:08→20:21)
[2020-05-23] MEDS: Albuterol/Ipratropium 3.0-0.5 MG/3 ML Neb Soln (OWN SUPPLY) NEB SCH ×4 (06:03→20:15)
[2020-05-23] MEDS: SODIUM BICARBONATE GTUBE SCH ×2 (08:40→20:21)
[2020-05-23] MEDS: Polyethylene Glycol 3350 Powder 17 GM Packet GTUBE SCH (08:40)
[2020-05-23] MEDS: OMEPRAZOLE GTUBE SCH ×2 (08:40→20:21)
[2020-05-23] MEDS: Calcium Carbonate 1,250 MG/5 ML Susp 5 ML UD Cup GTUBE SCH ×2 (08:40→20:16)
[2020-05-23] MEDS: BACLOFEN 20 MG GTUBE SCH ×4 (08:41→20:19)
[2020-05-23] MEDS: ARIPIPRAZOLE 5 MG GTUBE SCH (08:41)
[2020-05-23] MEDS: ESCITALOPRAM 20 MG GTUBE SCH (08:41)
[2020-05-23] MEDS: LEVETIRACETAM 500 MG/5 ML GTUBE SCH ×2 (08:42→20:16)
[2020-05-23] MEDS: GABAPENTIN 300 MG GTUBE SCH ×3 (08:42→20:17)
[2020-05-23] MEDS: MULTIVIT MINERALS GTUBE SCH (08:42)
[2020-05-23] MEDS: FERROUS GLUC GTUBE SCH (08:42)
[2020-05-24] MEDS: METOCLOPRAMIDE 10 MG GTUBE SCH ×4 (02:44→20:38)
[2020-05-24] MEDS: Albuterol/Ipratropium 3.0-0.5 MG/3 ML Neb Soln (OWN SUPPLY) NEB SCH ×4 (06:05→20:37)
[2020-05-24] MEDS: GABAPENTIN 300 MG GTUBE SCH ×3 (08:24→20:39)
[2020-05-24] MEDS: BACLOFEN 20 MG GTUBE SCH ×4 (08:24→20:35)
[2020-05-24] MEDS: ARIPIPRAZOLE 5 MG GTUBE SCH (08:25)
[2020-05-24] MEDS: ESCITALOPRAM 20 MG GTUBE SCH (08:26)
[2020-05-24] MEDS: SODIUM BICARBONATE GTUBE SCH ×2 (08:27→20:33)
[2020-05-24] MEDS: OMEPRAZOLE GTUBE SCH ×2 (08:27→20:33)
[2020-05-24] MEDS: Calcium Carbonate 1,250 MG/5 ML Susp 5 ML UD Cup GTUBE SCH ×2 (08:28→20:32)
[2020-05-24] MEDS: FERROUS GLUC GTUBE SCH (08:29)
[2020-05-24] MEDS: MULTIVIT MINERALS GTUBE SCH (08:29)
[2020-05-24] MEDS: LEVETIRACETAM 500 MG/5 ML GTUBE SCH ×2 (08:31→20:36)
[2020-05-24] MEDS: Polyethylene Glycol 3350 Powder 17 GM Packet GTUBE SCH (08:32)
[2020-05-25] MEDS: METOCLOPRAMIDE 10 MG GTUBE SCH ×4 (02:39→20:53)
[2020-05-25] MEDS: Albuterol/Ipratropium 3.0-0.5 MG/3 ML Neb Soln (OWN SUPPLY) NEB SCH ×4 (06:06→20:50)
[2020-05-25] MEDS: OMEPRAZOLE GTUBE SCH ×2 (08:56→20:50)
[2020-05-25] MEDS: SODIUM BICARBONATE GTUBE SCH ×2 (08:56→20:50)
[2020-05-25] MEDS: Polyethylene Glycol 3350 Powder 17 GM Packet GTUBE SCH (08:56)
[2020-05-25] MEDS: FERROUS GLUC GTUBE SCH (08:57)
[2020-05-25] MEDS: LEVETIRACETAM 500 MG/5 ML GTUBE SCH ×2 (08:57→20:55)
[2020-05-25] MEDS: MULTIVIT MINERALS GTUBE SCH (08:57)
[2020-05-25] MEDS: Calcium Carbonate 1,250 MG/5 ML Susp 5 ML UD Cup GTUBE SCH ×2 (08:58→20:50)
[2020-05-25] MEDS: GABAPENTIN 300 MG GTUBE SCH ×3 (08:58→20:53)
[2020-05-25] MEDS: BACLOFEN 20 MG GTUBE SCH ×4 (08:59→20:52)
[2020-05-25] MEDS: ESCITALOPRAM 20 MG GTUBE SCH (08:59)
[2020-05-25] MEDS: ARIPIPRAZOLE 5 MG GTUBE SCH (09:00)
[2020-05-26] MEDS: METOCLOPRAMIDE 10 MG GTUBE SCH ×4 (02:42→20:26)
[2020-05-26] MEDS: Albuterol/Ipratropium 3.0-0.5 MG/3 ML Neb Soln (OWN SUPPLY) NEB SCH ×4 (06:14→20:26)
[2020-05-26] MEDS: BACLOFEN 20 MG GTUBE SCH ×4 (09:00→20:26)
[2020-05-26] MEDS: GABAPENTIN 300 MG GTUBE SCH ×3 (09:00→20:27)
[2020-05-26] MEDS: ESCITALOPRAM 20 MG GTUBE SCH (09:01)
[2020-05-26] MEDS: ARIPIPRAZOLE 5 MG GTUBE SCH (09:01)
[2020-05-26] MEDS: Calcium Carbonate 1,250 MG/5 ML Susp 5 ML UD Cup GTUBE SCH ×2 (09:01→20:26)
[2020-05-26] MEDS: OMEPRAZOLE GTUBE SCH ×2 (09:02→20:31)
[2020-05-26] MEDS: SODIUM BICARBONATE GTUBE SCH ×2 (09:02→20:31)
[2020-05-26] MEDS: LEVETIRACETAM 500 MG/5 ML GTUBE SCH ×2 (09:04→20:28)
[2020-05-26] MEDS: MULTIVIT MINERALS GTUBE SCH (09:06)
[2020-05-26] MEDS: FERROUS GLUC GTUBE SCH (09:06)
[2020-05-26] MEDS: Polyethylene Glycol 3350 Powder 17 GM Packet GTUBE SCH (09:07)
[2020-05-27] MEDS: METOCLOPRAMIDE 10 MG GTUBE SCH ×4 (02:30→20:53)
[2020-05-27] MEDS: Albuterol/Ipratropium 3.0-0.5 MG/3 ML Neb Soln (OWN SUPPLY) NEB SCH ×4 (06:48→20:53)
[2020-05-27] MEDS: BACLOFEN 20 MG GTUBE SCH ×4 (08:13→20:54)
[2020-05-27] MEDS: Calcium Carbonate 1,250 MG/5 ML Susp 5 ML UD Cup GTUBE SCH ×2 (08:14→20:51)
[2020-05-27] MEDS: MULTIVIT MINERALS GTUBE SCH (08:14)
[2020-05-27] MEDS: LEVETIRACETAM 500 MG/5 ML GTUBE SCH ×2 (08:14→20:51)
[2020-05-27] MEDS: FERROUS GLUC GTUBE SCH (08:14)
[2020-05-27] MEDS: ARIPIPRAZOLE 5 MG GTUBE SCH (08:15)
[2020-05-27] MEDS: ESCITALOPRAM 20 MG GTUBE SCH (08:15)
[2020-05-27] MEDS: Polyethylene Glycol 3350 Powder 17 GM Packet GTUBE SCH (08:16)
[2020-05-27] MEDS: GABAPENTIN 300 MG GTUBE SCH ×3 (08:16→20:52)
[2020-05-27] MEDS: OMEPRAZOLE GTUBE SCH ×2 (08:16→20:51)
[2020-05-27] MEDS: SODIUM BICARBONATE GTUBE SCH ×2 (08:16→20:51)
[2020-05-28] MEDS: METOCLOPRAMIDE 10 MG GTUBE SCH ×4 (01:13→20:02)
[2020-05-28] MEDS: Albuterol/Ipratropium 3.0-0.5 MG/3 ML Neb Soln (OWN SUPPLY) NEB SCH ×4 (07:23→20:01)
[2020-05-28] MEDS: GABAPENTIN 300 MG GTUBE SCH ×3 (07:40→19:59)
[2020-05-28] MEDS: ESCITALOPRAM 20 MG GTUBE SCH (07:40)
[2020-05-28] MEDS: ARIPIPRAZOLE 5 MG GTUBE SCH (07:40)
[2020-05-28] MEDS: BACLOFEN 20 MG GTUBE SCH ×4 (07:40→20:01)
[2020-05-28] MEDS: Calcium Carbonate 1,250 MG/5 ML Susp 5 ML UD Cup GTUBE SCH ×2 (07:41→19:59)
[2020-05-28] MEDS: Polyethylene Glycol 3350 Powder 17 GM Packet GTUBE SCH (07:41)
[2020-05-28] MEDS: FERROUS GLUC GTUBE SCH (07:41)
[2020-05-28] MEDS: MULTIVIT MINERALS GTUBE SCH (07:41)
[2020-05-28] MEDS: LEVETIRACETAM 500 MG/5 ML GTUBE SCH ×2 (07:41→19:59)
[2020-05-28] MEDS: OMEPRAZOLE GTUBE SCH ×2 (07:47→19:58)
[2020-05-28] MEDS: SODIUM BICARBONATE GTUBE SCH ×2 (07:47→19:58)
[2020-05-29] MEDS: METOCLOPRAMIDE 10 MG GTUBE SCH ×4 (02:58→20:50)
[2020-05-29] MEDS: Albuterol/Ipratropium 3.0-0.5 MG/3 ML Neb Soln (OWN SUPPLY) NEB SCH ×4 (07:01→20:51)
[2020-05-29] MEDS: Calcium Carbonate 1,250 MG/5 ML Susp 5 ML UD Cup GTUBE SCH ×2 (08:07→20:51)
[2020-05-29] MEDS: ARIPIPRAZOLE 5 MG GTUBE SCH (08:07)
[2020-05-29] MEDS: SODIUM BICARBONATE GTUBE SCH ×2 (08:07→20:50)
[2020-05-29] MEDS: OMEPRAZOLE GTUBE SCH ×2 (08:07→20:50)
[2020-05-29] MEDS: GABAPENTIN 300 MG GTUBE SCH ×3 (08:07→20:49)
[2020-05-29] MEDS: FERROUS GLUC GTUBE SCH (08:08)
[2020-05-29] MEDS: ESCITALOPRAM 20 MG GTUBE SCH (08:08)
[2020-05-29] MEDS: Glycopyrrolate 1 MG Tab PO PRN (08:08)
[2020-05-29] MEDS: LEVETIRACETAM 500 MG/5 ML GTUBE SCH ×2 (08:08→20:54)
[2020-05-29] MEDS: MULTIVIT MINERALS GTUBE SCH (08:08)
[2020-05-29] MEDS: BACLOFEN 20 MG GTUBE SCH ×4 (08:08→20:50)
[2020-05-29] MEDS: Polyethylene Glycol 3350 Powder 17 GM Packet GTUBE SCH (08:09)
[2020-05-30] MEDS: METOCLOPRAMIDE 10 MG GTUBE SCH ×4 (02:05→19:31)
[2020-05-30] MEDS: Albuterol/Ipratropium 3.0-0.5 MG/3 ML Neb Soln (OWN SUPPLY) NEB SCH ×4 (07:06→19:33)
[2020-05-30] MEDS: ARIPIPRAZOLE 5 MG GTUBE SCH (09:08)
[2020-05-30] MEDS: ESCITALOPRAM 20 MG GTUBE SCH (09:08)
[2020-05-30] MEDS: Polyethylene Glycol 3350 Powder 17 GM Packet GTUBE SCH (09:09)
[2020-05-30] MEDS: Calcium Carbonate 1,250 MG/5 ML Susp 5 ML UD Cup GTUBE SCH ×2 (09:09→19:33)
[2020-05-30] MEDS: GABAPENTIN 300 MG GTUBE SCH ×3 (09:09→19:30)
[2020-05-30] MEDS: BACLOFEN 20 MG GTUBE SCH ×4 (09:09→19:32)
[2020-05-30] MEDS: MULTIVIT MINERALS GTUBE SCH (09:10)
[2020-05-30] MEDS: LEVETIRACETAM 500 MG/5 ML GTUBE SCH ×2 (09:10→19:32)
[2020-05-30] MEDS: FERROUS GLUC GTUBE SCH (09:10)
[2020-05-30] MEDS: OMEPRAZOLE GTUBE SCH ×2 (09:12→19:30)
[2020-05-30] MEDS: SODIUM BICARBONATE GTUBE SCH ×2 (09:12→19:30)
[2020-05-31] MEDS: METOCLOPRAMIDE 10 MG GTUBE SCH ×4 (02:10→20:20)
[2020-05-31] MEDS: Albuterol/Ipratropium 3.0-0.5 MG/3 ML Neb Soln (OWN SUPPLY) NEB SCH ×4 (06:27→20:22)
[2020-05-31] MEDS: GABAPENTIN 300 MG GTUBE SCH ×3 (08:45→20:19)
[2020-05-31] MEDS: BACLOFEN 20 MG GTUBE SCH ×4 (08:46→20:21)
[2020-05-31] MEDS: ARIPIPRAZOLE 5 MG GTUBE SCH (08:46)
[2020-05-31] MEDS: ESCITALOPRAM 20 MG GTUBE SCH (08:47)
[2020-05-31] MEDS: MULTIVIT MINERALS GTUBE SCH (08:48)
[2020-05-31] MEDS: LEVETIRACETAM 500 MG/5 ML GTUBE SCH ×2 (08:48→20:22)
[2020-05-31] MEDS: FERROUS GLUC GTUBE SCH (08:48)
[2020-05-31] MEDS: SODIUM BICARBONATE GTUBE SCH ×2 (08:52→20:21)
[2020-05-31] MEDS: Polyethylene Glycol 3350 Powder 17 GM Packet GTUBE SCH (08:52)
[2020-05-31] MEDS: Calcium Carbonate 1,250 MG/5 ML Susp 5 ML UD Cup GTUBE SCH ×2 (08:52→20:20)
[2020-05-31] MEDS: OMEPRAZOLE GTUBE SCH ×2 (08:52→20:21)
[2020-06-01] MEDS: METOCLOPRAMIDE 10 MG GTUBE SCH ×4 (02:30→20:12)
[2020-06-01] MEDS: Albuterol/Ipratropium 3.0-0.5 MG/3 ML Neb Soln (OWN SUPPLY) NEB SCH ×4 (06:07→20:13)
[2020-06-01] MEDS: ESCITALOPRAM 20 MG GTUBE SCH (08:37)
[2020-06-01] MEDS: GABAPENTIN 300 MG GTUBE SCH ×3 (08:37→20:13)
[2020-06-01] MEDS: BACLOFEN 20 MG GTUBE SCH ×4 (08:37→20:12)
[2020-06-01] MEDS: ARIPIPRAZOLE 5 MG GTUBE SCH (08:38)
[2020-06-01] MEDS: FERROUS GLUC GTUBE SCH (08:39)
[2020-06-01] MEDS: MULTIVIT MINERALS GTUBE SCH (08:39)
[2020-06-01] MEDS: LEVETIRACETAM 500 MG/5 ML GTUBE SCH ×2 (08:39→20:11)
[2020-06-01] MEDS: Polyethylene Glycol 3350 Powder 17 GM Packet GTUBE SCH (08:44)
[2020-06-01] MEDS: Calcium Carbonate 1,250 MG/5 ML Susp 5 ML UD Cup GTUBE SCH ×2 (08:44→20:11)
[2020-06-01] MEDS: OMEPRAZOLE GTUBE SCH ×2 (08:45→20:11)
[2020-06-01] MEDS: SODIUM BICARBONATE GTUBE SCH ×2 (08:45→20:11)
[2020-06-02] MEDS: METOCLOPRAMIDE 10 MG GTUBE SCH ×4 (02:06→19:42)
[2020-06-02] MEDS: Albuterol/Ipratropium 3.0-0.5 MG/3 ML Neb Soln (OWN SUPPLY) NEB SCH ×4 (06:06→19:38)
[2020-06-02] MEDS: Polyethylene Glycol 3350 Powder 17 GM Packet GTUBE SCH (08:31)
[2020-06-02] MEDS: OMEPRAZOLE GTUBE SCH ×2 (08:31→19:40)
[2020-06-02] MEDS: SODIUM BICARBONATE GTUBE SCH ×2 (08:31→19:40)
[2020-06-02] MEDS: Calcium Carbonate 1,250 MG/5 ML Susp 5 ML UD Cup GTUBE SCH ×2 (08:31→19:42)
[2020-06-02] MEDS: FERROUS GLUC GTUBE SCH (08:38)
[2020-06-02] MEDS: GABAPENTIN 300 MG GTUBE SCH ×3 (08:38→19:39)
[2020-06-02] MEDS: MULTIVIT MINERALS GTUBE SCH (08:38)
[2020-06-02] MEDS: BACLOFEN 20 MG GTUBE SCH ×4 (08:38→19:42)
[2020-06-02] MEDS: LEVETIRACETAM 500 MG/5 ML GTUBE SCH ×2 (08:38→19:40)
[2020-06-02] MEDS: ESCITALOPRAM 20 MG GTUBE SCH (08:39)
[2020-06-02] MEDS: ARIPIPRAZOLE 5 MG GTUBE SCH (08:39)
[2020-06-03] MEDS: METOCLOPRAMIDE 10 MG GTUBE SCH ×4 (01:30→20:11)
[2020-06-03] MEDS: Albuterol/Ipratropium 3.0-0.5 MG/3 ML Neb Soln (OWN SUPPLY) NEB SCH ×4 (07:07→20:11)
[2020-06-03] MEDS: SODIUM BICARBONATE GTUBE SCH ×2 (08:54→20:10)
[2020-06-03] MEDS: OMEPRAZOLE GTUBE SCH ×2 (08:54→20:10)
[2020-06-03] MEDS: Polyethylene Glycol 3350 Powder 17 GM Packet GTUBE SCH (08:54)
[2020-06-03] MEDS: Calcium Carbonate 1,250 MG/5 ML Susp 5 ML UD Cup GTUBE SCH ×2 (08:54→20:10)
[2020-06-03] MEDS: ESCITALOPRAM 20 MG GTUBE SCH (08:55)
[2020-06-03] MEDS: ARIPIPRAZOLE 5 MG GTUBE SCH (08:55)
[2020-06-03] MEDS: GABAPENTIN 300 MG GTUBE SCH ×3 (08:56→20:11)
[2020-06-03] MEDS: MULTIVIT MINERALS GTUBE SCH (08:56)
[2020-06-03] MEDS: BACLOFEN 20 MG GTUBE SCH ×4 (08:56→20:10)
[2020-06-03] MEDS: FERROUS GLUC GTUBE SCH (08:56)
[2020-06-03] MEDS: LEVETIRACETAM 500 MG/5 ML GTUBE SCH ×2 (08:57→20:12)
[2020-06-04] MEDS: METOCLOPRAMIDE 10 MG GTUBE SCH ×4 (02:26→20:49)
[2020-06-04] MEDS: Albuterol/Ipratropium 3.0-0.5 MG/3 ML Neb Soln (OWN SUPPLY) NEB SCH ×4 (07:12→20:46)
[2020-06-04] MEDS: Polyethylene Glycol 3350 Powder 17 GM Packet GTUBE SCH (08:51)
[2020-06-04] MEDS: OMEPRAZOLE GTUBE SCH ×2 (08:51→20:48)
[2020-06-04] MEDS: GABAPENTIN 300 MG GTUBE SCH ×3 (08:51→20:46)
[2020-06-04] MEDS: LEVETIRACETAM 500 MG/5 ML GTUBE SCH ×2 (08:51→20:48)
[2020-06-04] MEDS: FERROUS GLUC GTUBE SCH (08:51)
[2020-06-04] MEDS: SODIUM BICARBONATE GTUBE SCH ×2 (08:51→20:48)
[2020-06-04] MEDS: Calcium Carbonate 1,250 MG/5 ML Susp 5 ML UD Cup GTUBE SCH ×2 (08:51→20:49)
[2020-06-04] MEDS: MULTIVIT MINERALS GTUBE SCH (08:51)
[2020-06-04] MEDS: BACLOFEN 20 MG GTUBE SCH ×4 (08:52→20:49)
[2020-06-04] MEDS: ESCITALOPRAM 20 MG GTUBE SCH (08:52)
[2020-06-04] MEDS: ARIPIPRAZOLE 5 MG GTUBE SCH (08:52)
[2020-06-05] MEDS: METOCLOPRAMIDE 10 MG GTUBE SCH ×4 (01:21→20:50)
[2020-06-05] MEDS: Albuterol/Ipratropium 3.0-0.5 MG/3 ML Neb Soln (OWN SUPPLY) NEB SCH ×4 (06:30→20:55)
[2020-06-05] MEDS: Calcium Carbonate 1,250 MG/5 ML Susp 5 ML UD Cup GTUBE SCH ×2 (09:05→20:52)
[2020-06-05] MEDS: OMEPRAZOLE GTUBE SCH ×2 (09:05→20:53)
[2020-06-05] MEDS: SODIUM BICARBONATE GTUBE SCH ×2 (09:05→20:53)
[2020-06-05] MEDS: Polyethylene Glycol 3350 Powder 17 GM Packet GTUBE SCH (09:06)
[2020-06-05] MEDS: ESCITALOPRAM 20 MG GTUBE SCH (09:07)
[2020-06-05] MEDS: FERROUS GLUC GTUBE SCH (09:07)
[2020-06-05] MEDS: LEVETIRACETAM 500 MG/5 ML GTUBE SCH ×2 (09:07→20:54)
[2020-06-05] MEDS: GABAPENTIN 300 MG GTUBE SCH ×3 (09:07→21:02)
[2020-06-05] MEDS: MULTIVIT MINERALS GTUBE SCH (09:07)
[2020-06-05] MEDS: ARIPIPRAZOLE 5 MG GTUBE SCH (09:07)
[2020-06-05] MEDS: BACLOFEN 20 MG GTUBE SCH ×4 (09:08→20:49)
[2020-06-06] MEDS: METOCLOPRAMIDE 10 MG GTUBE SCH ×4 (02:26→21:33)
[2020-06-06] MEDS: Albuterol/Ipratropium 3.0-0.5 MG/3 ML Neb Soln (OWN SUPPLY) NEB SCH ×4 (06:31→21:39)
[2020-06-06] MEDS: OMEPRAZOLE GTUBE SCH ×2 (11:02→21:41)
[2020-06-06] MEDS: SODIUM BICARBONATE GTUBE SCH ×2 (11:02→21:41)
[2020-06-06] MEDS: ARIPIPRAZOLE 5 MG GTUBE SCH (11:04)
[2020-06-06] MEDS: ESCITALOPRAM 20 MG GTUBE SCH (11:04)
[2020-06-06] MEDS: FERROUS GLUC GTUBE SCH (11:05)
[2020-06-06] MEDS: MULTIVIT MINERALS GTUBE SCH (11:05)
[2020-06-06] MEDS: Calcium Carbonate 1,250 MG/5 ML Susp 5 ML UD Cup GTUBE SCH ×2 (11:05→21:42)
[2020-06-06] MEDS: BACLOFEN 20 MG GTUBE SCH ×4 (11:05→21:34)
[2020-06-06] MEDS: LEVETIRACETAM 500 MG/5 ML GTUBE SCH ×2 (11:05→21:35)
[2020-06-06] MEDS: Polyethylene Glycol 3350 Powder 17 GM Packet GTUBE SCH (11:07)
[2020-06-06] MEDS: GABAPENTIN 300 MG GTUBE SCH ×3 (11:07→21:32)
[2020-06-07] MEDS: METOCLOPRAMIDE 10 MG GTUBE SCH ×4 (01:48→20:35)
[2020-06-07] MEDS: Albuterol/Ipratropium 3.0-0.5 MG/3 ML Neb Soln (OWN SUPPLY) NEB SCH ×4 (07:09→20:36)
[2020-06-07] MEDS: GABAPENTIN 300 MG GTUBE SCH ×3 (08:22→20:36)
[2020-06-07] MEDS: Polyethylene Glycol 3350 Powder 17 GM Packet GTUBE SCH (08:22)
[2020-06-07] MEDS: BACLOFEN 20 MG GTUBE SCH ×4 (08:23→20:35)
[2020-06-07] MEDS: FERROUS GLUC GTUBE SCH (08:23)
[2020-06-07] MEDS: MULTIVIT MINERALS GTUBE SCH (08:23)
[2020-06-07] MEDS: LEVETIRACETAM 500 MG/5 ML GTUBE SCH ×2 (08:23→20:34)
[2020-06-07] MEDS: ESCITALOPRAM 20 MG GTUBE SCH (08:23)
[2020-06-07] MEDS: ARIPIPRAZOLE 5 MG GTUBE SCH (08:23)
[2020-06-07] MEDS: OMEPRAZOLE GTUBE SCH ×2 (08:25→20:35)
[2020-06-07] MEDS: SODIUM BICARBONATE GTUBE SCH ×2 (08:25→20:35)
[2020-06-07] MEDS: Calcium Carbonate 1,250 MG/5 ML Susp 5 ML UD Cup GTUBE SCH ×3 (09:55→20:34)
[2020-06-08] MEDS: METOCLOPRAMIDE 10 MG GTUBE SCH ×4 (02:13→20:29)
[2020-06-08] MEDS: Albuterol/Ipratropium 3.0-0.5 MG/3 ML Neb Soln (OWN SUPPLY) NEB SCH ×4 (07:06→20:27)
[2020-06-08] MEDS: BACLOFEN 20 MG GTUBE SCH ×4 (07:51→20:29)
[2020-06-08] MEDS: ESCITALOPRAM 20 MG GTUBE SCH (07:51)
[2020-06-08] MEDS: GABAPENTIN 300 MG GTUBE SCH ×3 (07:51→20:29)
[2020-06-08] MEDS: FERROUS GLUC GTUBE SCH (07:51)
[2020-06-08] MEDS: Calcium Carbonate 1,250 MG/5 ML Susp 5 ML UD Cup GTUBE SCH ×2 (07:51→20:29)
[2020-06-08] MEDS: OMEPRAZOLE GTUBE SCH ×2 (07:51→20:29)
[2020-06-08] MEDS: Polyethylene Glycol 3350 Powder 17 GM Packet GTUBE SCH (07:51)
[2020-06-08] MEDS: MULTIVIT MINERALS GTUBE SCH (07:51)
[2020-06-08] MEDS: ARIPIPRAZOLE 5 MG GTUBE SCH (07:51)
[2020-06-08] MEDS: SODIUM BICARBONATE GTUBE SCH ×2 (07:51→20:29)
[2020-06-08] MEDS: LEVETIRACETAM 500 MG/5 ML GTUBE SCH ×2 (07:51→20:30)
[2020-06-08] MEDS: Glycopyrrolate 1 MG Tab PO PRN (15:48)
[2020-06-09] MEDS: METOCLOPRAMIDE 10 MG GTUBE SCH ×4 (02:08→19:47)
[2020-06-09] MEDS: Albuterol/Ipratropium 3.0-0.5 MG/3 ML Neb Soln (OWN SUPPLY) NEB SCH ×4 (07:09→19:48)
[2020-06-09] MEDS: LEVETIRACETAM 500 MG/5 ML GTUBE SCH ×2 (07:52→19:48)
[2020-06-09] MEDS: GABAPENTIN 300 MG GTUBE SCH ×3 (07:52→19:47)
[2020-06-09] MEDS: BACLOFEN 20 MG GTUBE SCH ×4 (07:52→19:47)
[2020-06-09] MEDS: ESCITALOPRAM 20 MG GTUBE SCH (07:52)
[2020-06-09] MEDS: ARIPIPRAZOLE 5 MG GTUBE SCH (07:52)
[2020-06-09] MEDS: Calcium Carbonate 1,250 MG/5 ML Susp 5 ML UD Cup GTUBE SCH ×2 (07:53→19:47)
[2020-06-09] MEDS: MULTIVIT MINERALS GTUBE SCH (07:53)
[2020-06-09] MEDS: SODIUM BICARBONATE GTUBE SCH ×2 (07:53→19:48)
[2020-06-09] MEDS: OMEPRAZOLE GTUBE SCH ×2 (07:53→19:48)
[2020-06-09] MEDS: FERROUS GLUC GTUBE SCH (07:53)
[2020-06-09] MEDS: Glycopyrrolate 1 MG Tab PO PRN (07:58)
[2020-06-09] MEDS: Polyethylene Glycol 3350 Powder 17 GM Packet GTUBE SCH (09:30)
[2020-06-10] MEDS: METOCLOPRAMIDE 10 MG GTUBE SCH ×2 (02:18→07:33)
[2020-06-10 05:04] VITALS: BP 103/46; PULSE 66
[2020-06-10] MEDS: Albuterol/Ipratropium 3.0-0.5 MG/3 ML Neb Soln (OWN SUPPLY) NEB SCH (06:03)
[2020-06-10] MEDS: LEVETIRACETAM 500 MG/5 ML GTUBE SCH (07:33)
[2020-06-10] MEDS: Calcium Carbonate 1,250 MG/5 ML Susp 5 ML UD Cup GTUBE SCH (07:33)
[2020-06-10] MEDS: BACLOFEN 20 MG GTUBE SCH (07:33)
[2020-06-10] MEDS: OMEPRAZOLE GTUBE SCH (07:33)
[2020-06-10] MEDS: GABAPENTIN 300 MG GTUBE SCH (07:33)
[2020-06-10] MEDS: ARIPIPRAZOLE 5 MG GTUBE SCH (07:33)
[2020-06-10] MEDS: ESCITALOPRAM 20 MG GTUBE SCH (07:33)
[2020-06-10] MEDS: SODIUM BICARBONATE GTUBE SCH (07:33)
[2020-06-10] MEDS: Polyethylene Glycol 3350 Powder 17 GM Packet GTUBE SCH (07:34)
[2020-06-10] MEDS ORDERED: Multivit-Minerals/Ferrous Gluc 9 MG/15 ML 15 ml Cup GTUBE SCH (08:00)
--- NOTE | 2020-06-10 08:31 | PCM.DCSUM1 ---
Discharge Summary - Hospital Course Brief History: Mr. 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. - Discharge Data Discharge Date: 06/10/20 Discharge Disposition: DC/Tfer to SNF 03 Condition: Good - Referral to Home Health Primary Care Physician: Vita Sinclair MD - Discharge Diagnosis/Problem(s) (1) Recurrent aspiration pneumonia SNOMED Code(s): 549476456 ICD Code: J69.0 - PNEUMONITIS DUE TO INHALATION OF FOOD AND VOMIT Status: Acute Current Visit: No (2) Generalized weakness SNOMED Code(s): 85700986 ICD Code: R53.1 - WEAKNESS Status: Acute Current Visit: No (3) Dependence on supplemental oxygen SNOMED Code(s): 591946409097 ICD Code: Z99.81 - DEPENDENCE ON SUPPLEMENTAL OXYGEN Status: Acute Current Visit: No (4) Cerebral palsy SNOMED Code(s): 004931596 ICD Code: G80.9 - CEREBRAL PALSY, UNSPECIFIED Status: Chronic Current Visit: No (5) Moderate intellectual disabilities SNOMED Code(s): 42290613 ICD Code: F71 - MODERATE INTELLECTUAL DISABILITIES Status: Chronic Current Visit: No (6) Nonverbal SNOMED Code(s): 332111630 ICD Code: R47.01 - APHASIA Status: Chronic Current Visit: No Problem Details: - At baseline. (7) G tube feedings SNOMED Code(s): 840034654, 974904538, 351915841 ICD Code: Z93.1 - GASTROSTOMY STATUS Status: Chronic Current Visit: No (8) Constipation SNOMED Code(s): 80577859 ICD Code: K59.00 - CONSTIPATION, UNSPECIFIED Status: Chronic Current Visit: No Qualifiers: Constipation type: unspecified constipation type Qualified Code(s): K59.00 - Constipation, unspecified (9) Depression SNOMED Code(s): 54668255 ICD Code: F32.9 - MAJOR DEPRESSIVE DISORDER, SINGLE EPISODE, UNSPECIFIED [facility]: Chronic Current Visit: No Qualifiers: Depression Type: major depressive disorder Major depression recurrence: recurrent Active/Remission status: in full remission Qualified Code(s): F33.42 - Major depressive disorder, recurrent, in full remission (10) Seizure disorder SNOMED Code(s): 649837579 ICD Code: G40.909 - EPILEPSY, UNSP, NOT INTRACTABLE, WITHOUT STATUS EPILEPTIC US Status: Chronic Current Visit: No - Patient Summary/Data Operative Procedure(s) Performed: none Complications: none Consults: none Labs Pending at D/C: none Recommended Follow-up Testing/Procedures: none Planned Operative Procedure(s) after DC: none Hospital Course: The patient had been started on oxygen via nasal cannula during the day and B iPap at night; as a result, he was unable to return to his assisted after hospital discharge. He was admitted to swing bed for determination of whether he would wean off the oxygen and be able to return to the assisted. He did have 1 episode of a recurrence of pneumonia that was treated with ceftriaxone x3 days. Along with this, he did have a change in his behavior. Since then, he has returned to his usual functional status/behavior. He has had no further episodes of fever or other evidence of pneumonia. He has remained stable for the past 3 weeks but has continued on oxygen to maintain saturations. As a result, conversations were had this week about his lobsterman disposition. Guardian was on board with transfer [facility], which is where he will be discharged today. His G-tube did fall out early in the week and had to be replaced without incident. His swing bed stay has otherwise been uncomplicated. - Patient Instructions Diet: NPO Diet, Other: tube feedings Activity: As Tolerated Showering/Bathing: May Shower - Discharge Plan *PRESCRIPTION DRUG MONITORING PROGRAM REVIEWED*: Not Applicable *COPY OF PRESCRIPTION DRUG MONITORING REPORT IN PATIENT SANDY: Not Applicable Home Medications: Home Meds levETIRAcetam [Keppra] 5 ml GTUBE BID 02/06/14 [History] polyethylene glycoL 3350 [MiraLAX] 17 gram GTUBE DAILY 02/06/14 [History] Baclofen 20 mg GTUBE QID 05/27/15 [History] Calcium Carbonate [Calcium Carbonate 250 MG/ML Susp] 2.5 ml GTUBE BID 05/27/15 [History] Escitalopram [Lexapro] 20 mg GTUBE DAILY 05/27/15 [History] Multivitamins with Iron/Min [Centrum] 15 ml GTUBE DAILY 06/30/15 [History] Sucralfate 1 gram TOP QID PRN 07/01/15 [History] ARIPiprazole [Abilify] 5 mg GTUBE DAILY 12/29/15 [History] Metoclopramide [Reglan] 5 mg GTUBE Q6H 12/29/15 [History] Albuterol/Ipratropium [DuoNeb 3.0-0.5 MG/3 ML] 3 ml NEB QIDRT neb 02/20/16 [Rx] Simethicone [Infants' Gas Relief] 2 ml GTUBE QID PRN 01/20/18 [History] Water 75 ml GTUBE ASDIRECTED 01/20/18 [History] Gabapentin [Neurontin] 300 mg GTUBE TID 05/07/20 [History] Omeprazole/Sodium Bicarbonate [Zegerid OTC 20-1,100 MG] 1 cap GTUBE BID 05/07/20 [History] Glycopyrrolate [Robinul] 1 mg PO DAILY PRN tablet 06/10/20 [Rx] Oxygen Flow Rate (L/min): 3 - Discharge Summary/Plan Comment DC Time >30 min.: No - General Info Date of Service: 06/10/20 Subjective Update: Patient seen today for swing bed d/c to [facility]. Doing well. No nursing concerns. - Review of Systems Systems Review Comment: unable to assess due to patient being non-verbal secondary to underlying cognitive impairment - Patient Data Vitals - Most Recent: Last Vital Signs Temp 35.8 C L 06/10/20 05:03 Pulse 66 06/10/20 05:03 Resp 16 06/10/20 05:03 BP 103/46 L 06/10/20 05:03 Pulse Ox 97 06/10/20 05:03 Weight - Most Recent: 55.52 kg Lab Results - Last 24 hrs: Laboratory Results - last 24 hr 06/10/20 Range/Units 06:50 COVID-19 (JUAN) Negative (NEGATIVE) Med Orders - Current: Current Medications Albuterol/Ipratropium (Duoneb 3.0-0.5 Mg/3 Ml) 3 ml NEB QIDRT [facility] Last Admin: 06/10/20 06:03 Dose: 3 ml Documented by: Albuterol/Ipratropium (Duoneb 3.0-0.5 Mg/3 Ml) 3 ml NEB Q4HRRT PRN PRN Reason: Cough Aripiprazole (Abilify) 5 mg GTUBE DAILY [facility] Last Admin: 06/10/20 07:33 Dose: 5 mg Documented by: Calcium Carbonate/Glycine (Calcium Carbonate 250 Mg/Ml Susp) 1,250 mg GTUBE BID [facility] Last Admin: 06/10/20 07:33 Dose: 1,250 mg Documented by: Gabapentin (Neurontin) 0 mg GTUBE TID [facility] Last Admin: 06/10/20 07:33 Dose: 300 mg Documented by: Glycopyrrolate (Robinul) 1 mg PO DAILY PRN PRN Reason: Other Last Admin: 06/09/20 07:58 Dose: 1 mg Documented by: Levetiracetam (Keppra) 500 mg GTUBE BID [facility] Last Admin: 06/10/20 07:33 Dose: 500 mg Documented by: Metoclopramide HCl (Reglan) 10 mg GTUBE Q6H [facility] Last Admin: 06/10/20 07:33 Dose: 10 mg Documented by: Miscellaneous Medication (Centrum Multivit-Mineral Liq) 9 mg GTUBE DAILY [facility] Last Admin: 06/10/20 07:33 Dose: 9 mg Documented by: Omeprazole/Sodium Bicarbonate [Zegerid Otc 20-1,100 Mg] Susp (Own Med) 0 cap GTUBE BID [facility] Last Admin: 06/10/20 07:33 Dose: 14 cap Documented by: Non-Formulary Medication (Water [Water]) 75 ml GTUBE ASDIRECTED [facility] Escitalopram [ Lexapro] 20 Mg (Own Supply) 0 mg GTUBE DAILY [facility] Last Admin: 06/10/20 07:33 Dose: 20 mg Documented by: Baclofen 20 Mg Tab ( (Own Supply)) 0 each GTUBE QID [facility] Last Admin: 06/10/20 07:33 Dose: 1 each Documented by: Ondansetron HCl (Zofran Odt) 4 mg PO Q4H PRN PRN Reason: Nausea/Vomiting Polyethylene Glycol (Miralax) 17 gm GTUBE DAILY [facility] Last Admin: 06/10/20 07:34 Dose: Not Given Documented by: Simethicone (Infants' Gas Relief) 133.5 mg GTUBE QID PRN PRN Reason: Gas Sodium Chloride (Saline Flush) 10 ml FLUSH ASDIRECTED PRN PRN Reason: Keep Vein Open Last Admin: 05/15/20 08:10 Dose: 10 ml Documented by: Sucralfate (Carafate) 1 gm TOP QID PRN PRN Reason: Other Last Admin: 05/08/20 05:48 Dose: 1 gm Documented by: Discontinued Medications Acetaminophen (Tylenol Solution 160 Mg/5 Ml) 500 mg JTUBE ONETIME ONE Stop: 05/13/20 09:55 Last Admin: 05/13/20 10:16 Dose: Not Given Documented by: Acetaminophen (Tylenol Solution 160 Mg/5 Ml) 500 mg GTUBE ONETIME ONE Stop: 05/13/20 09:55 Last Admin: 05/13/20 10:25 Dose: 15.6 ml Documented by: Albuterol/Ipratropium (Duoneb 3.0-0.5 Mg/3 Ml) 3 ml NEB QIDRT [facility] Last Admin: 05/08/20 14:44 Dose: 3 ml Documented by: Aripiprazole (Abilify) 5 mg GTUBE DAILY [facility] Last Admin: 05/08/20 08:06 Dose: 5 mg Documented by: Baclofen (Lioresal) 20 mg GTUBE QID [facility] Last Admin: 05/08/20 08:07 Dose: 20 mg Documented by: Ceftriaxone Sodium (Rocephin) 1 gm IVPUSH STAT ONE Stop: 05/13/20 09:15 Last Admin: 05/13/20 09:44 Dose: 1 gm Documented by: Ceftriaxone Sodium (Rocephin) 1 gm IVPUSH DAILY [facility] Last Admin: 05/15/20 07:52 Dose: 1 gm Documented by: Gabapentin (Neurontin) 300 mg GTUBE TID [facility] Last Admin: 05/08/20 11:02 Dose: 300 mg Documented by: Sodium Chloride (Normal Saline) 1,000 mls @ 50 mls/hr IV ASDIRECTED [facility] Last Admin: 05/13/20 17:31 Dose: 50 mls/hr Documented by: Levetiracetam (Keppra) 5 mg GTUBE BID [facility] Last Admin: 05/07/20 20:55 Dose: 5 mg Documented by: Levetiracetam (Keppra) 500 mg GTUBE BID [facility] Last Admin: 05/08/20 08:07 Dose: 500 mg Documented by: Levetiracetam (Keppra) 495 mg GTUBE ONETIME ONE Stop: 05/08/20 01:01 Last Admin: 05/08/20 01:18 Dose: 495 mg Documented by: Metoclopramide HCl (Reglan) 5 mg GTUBE Q6H [facility] Last Admin: 05/08/20 11:02 Dose: 5 mg Documented by: Metoclopramide HCl (Reglan) 10 mg GTUBE Q6H [facility] Last Admin: 05/17/20 13:36 Dose: 10 mg Documented by: Miscellaneous Medication (Centrum Multivit-Mineral Liq) 15 mg GTUBE DAILY [facility] Last Admin: 05/08/20 08:06 Dose: 9 mg Documented by: Miscellaneous Medication (Centrum Multivit-Mineral Liq) 9 mg GTUBE DAILY [facility] Last Admin: 05/17/20 08:30 Dose: 9 mg Documented by: Miscellaneous Medication (Centrum Multivit-Mineral Liq) 9 mg GTUBE DAILY [facility] Last Admin: 06/09/20 07:53 Dose: 9 mg Documented by: Own Med ( Escitalopram [ Lexapro] 20 Mg) 20 mg GTUBE DAILY [facility] Last Admin: 05/16/20 11:15 Dose: 20 mg Documented by: Baclofen 20 Mg Tab ( (Own Supply)) 0 each GTUBE QID [facility] Last Admin: 05/17/20 13:35 Dose: 1 each Documented by: - Exam General: Reports: Alert, Cooperative, No Acute Distress HEENT: Reports: Mucous Membr. Moist/[place] Neck: Reports: Supple, Trachea Midline. Denies: Lymphadenopathy, Thyromegaly Lungs: Reports: Clear to Auscultation, Normal Respiratory Effort Cardiovascular: Reports: Regular Rate, Regular Rhythm, No Murmurs GI/Abdominal Exam: Normal Bowel Sounds, Soft, Non-Tender, No Organomegaly, No Distention, No Mass Extremities: Non-Tender, No Pedal Edema, Normal Capillary Refill Skin: Reports: Warm, Dry, Intact *Q Meaningful Use (DIS) - VTE *Q VTE Anticoagulation Contraindications: Med/TX Not Indicated/Need
== END 2020-06-10 09:30 | DRG 177 ==
LOC: UNDOADMIN 13:45 → VM.MS 13:45
PROVIDERS: ADMIT Family Medicine; ATTEND Family Medicine
DX: J69.0 Pneumonitis due to inhalation of food and vomit (principal); J96.21 Acute and chronic respiratory failure with hypoxia; R47.01 Aphasia; R53.1 Weakness; G80.9 Cerebral palsy, unspecified; F71 Moderate intellectual disabilities; K59.00 Constipation, unspecified; Z66 Do not resuscitate; Z20.828 Contact with and (suspected) exposure to other viral communicable diseases; F33.42 Major depressive disorder, recurrent, in full remission; G40.909 Epilepsy, unspecified, not intractable, without status epilepticus; J18.9 Pneumonia, unspecified organism; M81.0 Age-related osteoporosis without current pathological fracture; F32.9 Major depressive disorder, single episode, unspecified; Z99.81 Dependence on supplemental oxygen; Z93.1 Gastrostomy status; Z79.890 Hormone replacement therapy; Z79.899 Other long term (current) drug therapy
CPT/HCPCS: 36415; 51701; 51702; 71045; 80048; 83605; 85025; 94640; 94660; 94760; A9270-GY; J0696; J7030; J7620-GY; U0002

== ENCOUNTER 2020-07-26 07:24 | Inpatient (IN) | payer MEDICARE, MEDICAID ==
[2020-07-26] MEDS ORDERED: Albuterol/Ipratropium 3.0-0.5 MG/3 ML Neb Soln NEB ONE (07:33)
[2020-07-26] MEDS ORDERED: Lactated Ringers 1,000 ML IV ONE (07:35)
[2020-07-26] MEDS ORDERED: Piperacillin/Tazobactam 3.375 GM in Sodium Chloride 0.9% 100 ML IV ONE (08:17)
--- NOTE | 2020-07-26 08:51 | CR ---
[id number] RAD/RAD Chest PA or AP 1V EXAM: RAD Chest PA or AP 1V INDICATION: HYPOXIA, COUGH, POSSIBLE ASPIRATION. COMPARISON: May 13, 2020. DISCUSSION: Asymmetrically elevated left hemidiaphragm, similar to the prior examination. Cardiomegaly and central vascular congestion. Linear subpleural parenchymal opacities on the left, nonspecific. Differential diagnosis includes interstitial pneumonitis (including aspiration), fluid retention, or possibly pneumonia. Noncontrast chest CT is recommended for further evaluation. IMPRESSION: As above. Emanuel Quintero MD 07/26/20 0851 Thank you for allowing us to participate in the care of your patient.
[2020-07-26 08:53] LABS: ANION GAP 10.2 mmol/L (10-20); CHLORIDE,CL 98 mmol/L (98-107); SODIUM,NA 138 mmol/L (136-145)
[2020-07-26] MEDS ORDERED: Albuterol 0.083% 2.5 MG/3 ML Neb Soln NEB ONE (08:55)
[2020-07-26] MEDS ORDERED: methylPREDNISolone Sodium Succinate 125 MG/2 ML SDV IVPUSH ONE (09:19)
--- NOTE | 2020-07-26 09:50 | EDM.PDOC ---
ED HPI GENERAL MEDICAL PROBLEM - General Chief Complaint: General Stated Complaint: SOB Time Seen by Provider: 07/26/20 07:30 Source of Information: Reports: EMS, RN, RN Notes Reviewed History Limitations: Reports: Altered Mental Status - History of Present Illness INITIAL COMMENTS - FREE TEXT/NARRATIVE: This patient is a 69-year-old male who [facility] for concerns of hypoxia and possible aspiration. This patient has a history of aspiration pneumonia recurrent multiple times with ARDS. He also has a history of intellectual disability depression spastic quadriparesis seizure disorder. He is on BiPAP at night. He is a under the [facility] out . He does have a G-tube in place that he is dependent upon. He has had recurrent multiple aspiration pneumonias. Today they noticed that he had increased work of breathing his oxygen saturation on 2 L was 77%. He was 87% on 4 L. He has not been exposed to anyone with COVID that the penitentiary is aware of. He has not had any fevers. No vomiting no diarrhea. His mental status is at baseline according to the penitentiary. - Related Data Allergies Allergy/AdvReac Type Severity Reaction Status Date / Time NSAIDS (Non-Steroidal AdvReac Intermediate Other Verified 07/26/20 07:16 Anti-Inflamma Home Meds: Home Meds levETIRAcetam [Keppra] 5 ml GTUBE BID 02/06/14 [History] polyethylene glycoL 3350 [MiraLAX] 17 gram GTUBE DAILY 02/06/14 [History] Baclofen 20 mg GTUBE QID 05/27/15 [History] Calcium Carbonate [Calcium Carbonate 250 MG/ML Susp] 2.5 ml GTUBE BID 05/27/15 [History] Escitalopram [Lexapro] 20 mg GTUBE DAILY 05/27/15 [History] Multivitamins with Iron/Min [Centrum] 15 ml GTUBE DAILY 06/30/15 [History] Sucralfate 1 gram TOP QID PRN 07/01/15 [History] ARIPiprazole [Abilify] 5 mg GTUBE DAILY 12/29/15 [History] Metoclopramide [Reglan] 5 mg GTUBE Q6H 12/29/15 [History] Albuterol/Ipratropium [DuoNeb 3.0-0.5 MG/3 ML] 3 ml NEB QIDRT neb 02/20/16 [Rx] Simethicone [Infants' Gas Relief] 2 ml GTUBE QID PRN 01/20/18 [History] Water 75 ml GTUBE ASDIRECTED 01/20/18 [History] Gabapentin [Neurontin] 300 mg GTUBE TID 05/07/20 [History] Omeprazole/Sodium Bicarbonate [Zegerid OTC 20-1,100 MG] 1 cap GTUBE BID 05/07/20 [History] Bisacodyl [Gentle Laxative] 10 mg RC DAILY PRN 07/26/20 [History] Glycopyrrolate [Robinul] 1 mg PO DAILY PRN 07/26/20 [History] Past Medical History HEENT History: Reports: Cataract, Other (See Below) Other HEENT History: otitis externa, hypermetropia Cardiovascular History: Reports: None Respiratory History: Reports: Pneumonia, Recurrent (Aspiration), SOB Gastrointestinal History: Reports: Bowel Obstruction, Chronic Constipation, Colon Polyp, Fecal Incontinence, GI Bleed, Other (See Below) Other Gastrointestinal History: inguinal hernia, gastroparesis Genitourinary History: Reports: Urinary Incontinence Musculoskeletal History: Reports: Osteoporosis Other Musculoskeletal History: Cerebral Palsy deformation Neurological History: Reports: Cerebral Palsy, Seizure Psychiatric History: Reports: Depression Endocrine/Metabolic History: Reports: Osteoporosis Hematologic History: Reports: None Immunologic History: Reports: None Oncologic (Cancer) History: Reports: None Dermatologic History: Reports: Other (See Below) Other Dermatologic History: ulcer of right foot - Infectious Disease History Infectious Disease History: Reports: None - Past Surgical History GI Surgical History: Reports: Other (See Below) (gastrostomy tube placement) Musculoskeletal Surgical History: Reports: Other (See Below) (right 5th toe am putation) Social & Family History - Family History Family Medical History: Noncontributory Cardiac: Reports: CAD, MA Oncologic: Reports: Pancreatic - Caffeine Use Caffeine Use: Reports: None - Living Situation & Occupation Living situation: Reports: Single, Extended Care Facility Occupation: Disabled ED ROS GENERAL - Review of Systems Review Of Systems: Unable To Obtain Reason Not Obtained: intellectual disability. ED EXAM, GENERAL - Physical Exam Exam: See Below Exam Limited By: Altered Mental Status General Appearance: Alert, Moderate Distress Eye Exam: Bilateral Eye: EOMI Nose: Normal Inspection, Normal Mucosa Throat/Mouth: Normal Inspection, Normal Lips Head: Atraumatic, Normocephalic Neck: Normal Inspection Respiratory/Chest: Respiratory Distress (mild), Decreased Breath Sounds, Rhonchi (bilaterally more left than right. ), Wheezing (bilaterally more left than right. Inspiratory and expiratory. ), Accessory Muscle Use (congested thick productive yellow sputum. ) Cardiovascular: Normal Peripheral Pulses, Regular Rate, Rhythm GI/Abdominal: Normal Bowel Sounds, Soft, No Distention (Male) Exam: Deferred Rectal (Males) Exam: Deferred Back Exam: Normal Inspection Extremities: Normal Inspection (other than his chronic contractions of all extremities. ), No Pedal Edema Neurological: Alert Psychiatric: Flat Affect Skin Exam: Warm, Dry, Intact, Normal Color Course - Vital Signs Last Recorded V/S: Last Vital Signs Temp 97.7 F 07/26/20 07:25 Pulse 107 H 07/26/20 07:25 Resp 44 H 07/26/20 07:25 BP 93/57 L 07/26/20 07:25 Pulse Ox 98 07/26/20 07:25 - Orders/Labs/Meds Orders: Active Orders 24 hr Category Date Time Status Admission Status [Patient Status] [ADT] Routine ADT 07/26/20 11:36 Active BIPAP [RT BiPAP/CPAP] [RC] Care 07/26/20 09:19 Active CULTURE BLOOD [BC] Stat Lab 07/26/20 08:12 Results CULTURE BLOOD [BC] Stat Lab 07/26/20 08:20 Results Sodium Chloride 0.9% [Saline Flush] Med 07/26/20 07:33 Active 10 ml FLUSH ASDIRECTED PRN Blood Culture x2 Reflex Set [OM.PC] Stat Oth 07/26/20 07:34 Ordered Peripheral IV Insertion Adult [OM.PC] Stat Oth 07/26/20 07:34 Ordered Medication Orders Albuterol/Ipratropium (Duoneb 3.0-0.5 Mg/3 Ml) 3 ml NEB Q4H IBAN Last Admin: 07/26/20 13:27 Dose: 3 ml Documented by: LAURE Aripiprazole (Abilify) 5 mg GTUBE DAILY IBAN Baclofen (Lioresal) 20 mg GTUBE QID IBAN Last Admin: 07/26/20 13:35 Dose: 20 mg Documented by: CHARLENE Calcium Carbonate/Glycine (Calcium Carbonate 250 Mg/Ml Susp) 625 mg GTUBE BID IBAN Citalopram Hydrobromide (Celexa) 40 mg GTUBE DAILY IBAN Gabapentin (Neurontin) 300 mg GTUBE TID [facility] Last Admin: 07/26/20 13:35 Dose: 300 mg Documented by: CHARLENE Glycopyrrolate (Robinul) 1 mg GTUBE DAILY PRN PRN Reason: Nausea/Vomiting R/T GERD Potassium Chloride/Dextrose/Sod Cl (D5 1/2 Ns W/ 20 Meq/L Kcl) 1,000 mls @ 100 mls/hr IV ASDIRECTED [facility] Last Admin: 07/26/20 13:46 Dose: 100 mls/hr Documented by: CHARLENE Piperacillin Sod/Tazobactam (Sod 3.375 gm/ Sodium Chloride) 100 mls @ 25 mls/hr IV Q8H IBAN Levetiracetam (Keppra) 500 mg GTUBE BID IBAN Metoclopramide HCl (Reglan) 5 mg GTUBE Q6H [facility] Last Admin: 07/26/20 13:35 Dose: 5 mg Documented by: CHARLENE Miscellaneous Medication (Centrum Multivit-Mineral Liq) 9 mg GTUBE DAILY [facility] Omeprazole (Omeprazole) 20 mg GTUBE BID@0700,1700 [facility] Polyethylene Glycol (Miralax) 17 gm GTUBE DAILY [facility] Simethicone (Infants' Gas Relief) 134 mg GTUBE QID PRN PRN Reason: Gas Sodium Chloride (Saline Flush) 10 ml FLUSH ASDIRECTED PRN PRN Reason: Keep Vein Open Sucralfate (Carafate) 1 gm TOP QID PRN PRN Reason: STOMA IRRITATION Labs: Laboratory Tests 07/26/20 07/26/20 07/26/20 Range/Units 07:38 08:04 08:12 WBC 8.5 (4.0-10.0) x10^3/uL RBC 4.43 L (4.5-6.0) x10^6/uL Hgb 12.8 L (14.0-18.0) g/dL Hct 40.6 (40.0-52.0) % MCV 91.6 D (78.0-93.0) fL MCH 28.9 (26.0-32.0) pg MCHC 31.5 L (32.0-36.0) g/dL RDW Coeff of Devendra 15.6 H (10.0-15.0) % Plt Count 228 D (130-400) x10^3/uL Neut % (Auto) 84.5 H (50.0-80.0) % Lymph % (Auto) 8.8 L (25.0-50.0) % [place] % (Auto) 4.5 (2.0-11.0) % Eos % (Auto) 2.0 (0.0-4.0) % Baso % (Auto) 0.2 (0.2-1.2) % POC VBG pH (7.32-7.43) pH POC VBG pCO2 (41-51) mmHg POC VBG pO2 mmHg POC VBG HCO3 (22-29) mmol/L POC Venous O2 Sat % VBG Base Excess (-(2)-3) mmol/L POC FiO2 Sodium (136-145) mmol/L Potassium (3.5-5.1) mmol/L Chloride (98-107) mmol/L Carbon Dioxide (21-32) mmol/L POC Venous Total CO2 (23-30) mmol/L Anion Gap (10-20) mmol/L BUN (7-18) mg/dL Creatinine (0.70-1.30) mg/dL Est Cr Clr Drug Dosing Estimated GFR (MDRD) Glucose (74-106) mg/dL Lactic Acid (0.4-2.0) mmol/L Calcium (8.5-10.1) mg/dL Corrected Calcium (8.5-10.1) mg/dL Total Bilirubin (0.2-1.0) mg/dL AST (15-37) U/L ALT (16-63) U/L Alkaline Phosphatase (46-116) U/L Troponin I (<=0.056) ng/mL C-Reactive Protein (<=0.9) mg/dL Total Protein (6.4-8.2) g/dL Albumin (3.4-5.0) g/dL Globulin Albumin/Globulin Ratio Urine Color Yellow (YELLOW) Urine Appearance Clear (CLEAR) Urine pH 7.0 (5.0-8.0) Ur Specific [place] 1.015 Urine Protein Negative (NEGATIVE) mg/dL Urine Glucose (UA) Negative (NEGATIVE) mg/dL Urine Ketones Negative (NEGATIVE) mg/dL Urine Occult Blood Negative (NEGATIVE) Urine Nitrite Negative (NEGATIVE) Urine Bilirubin Negative (NEGATIVE) Urine Urobilinogen 1.0 (0.2) EU/dL Ur Leukocyte Esterase Negative (NEGATIVE) SARS CoV-2 RNA Rapid JUAN Negative (NEGATIVE) 07/26/20 07/26/20 07/26/20 Range/Units 08:12 08:12 08:12 WBC (4.0-10.0) x10^3/uL RBC (4.5-6.0) x10^6/uL Hgb (14.0-18.0) g/dL Hct (40.0-52.0) % MCV (78.0-93.0) fL MCH (26.0-32.0) pg MCHC (32.0-36.0) g/dL RDW Coeff of Devendra (10.0-15.0) % Plt Count (130-400) x10^3/uL Neut % (Auto) (50.0-80.0) % Lymph % (Auto) (25.0-50.0) % [place] % (Auto) (2.0-11.0) % Eos % (Auto) (0.0-4.0) % Baso % (Auto) (0.2-1.2) % POC VBG pH 7.33 (7.32-7.43) pH POC VBG pCO2 66 H* (41-51) mmHg POC VBG pO2 38 mmHg POC VBG HCO3 35 H (22-29) mmol/L POC Venous O2 Sat 66 % VBG Base Excess 9 H (-(2)-3) mmol/L POC FiO2 90 Sodium 138 (136-145) mmol/L Potassium 4.2 (3.5-5.1) mmol/L Chloride 98 (98-107) mmol/L Carbon Dioxide 34 H (21-32) mmol/L POC Venous Total CO2 34 H (23-30) mmol/L Anion Gap 10.2 (10-20) mmol/L BUN 18 (7-18) mg/dL Creatinine 0.5 L (0.70-1.30) mg/dL Est Cr Clr Drug Dosing TNP Estimated GFR (MDRD) > 60 Glucose 118 H (74-106) mg/dL Lactic Acid 1.7 (0.4-2.0) mmol/L Calcium 9.1 D (8.5-10.1) mg/dL Corrected Calcium 9.74 (8.5-10.1) mg/dL Total Bilirubin 0.4 (0.2-1.0) mg/dL AST 28 (15-37) U/L ALT 34 (16-63) U/L Alkaline Phosphatase 112 (46-116) U/L Troponin I < 0.017 (<=0.056) ng/mL C-Reactive Protein 1.3 H (<=0.9) mg/dL Total Protein 8.0 (6.4-8.2) g/dL Albumin 3.2 L (3.4-5.0) g/dL Globulin 4.8 Albumin/Globulin Ratio 0.67 Urine Color (YELLOW) Urine Appearance (CLEAR) Urine pH (5.0-8.0) Ur Specific [place] Urine Protein (NEGATIVE) mg/dL Urine Glucose (UA) (NEGATIVE) mg/dL Urine Ketones (NEGATIVE) mg/dL Urine Occult Blood (NEGATIVE) Urine Nitrite (NEGATIVE) Urine Bilirubin (NEGATIVE) Urine Urobilinogen (0.2) EU/dL Ur Leukocyte Esterase (NEGATIVE) SARS CoV-2 RNA Rapid JUAN (NEGATIVE) Meds: Medications Generic Name Dose Route Start Last Admin Trade Name Freq PRN Reason Stop Dose Admin Albuterol/Ipratropium 3 ml 07/26/20 13:00 07/26/20 13:27 Duoneb 3.0-0.5 Mg/3 Ml NEB 3 ml Q4H IBAN Administration Aripiprazole 5 mg 07/27/20 08:00 Abilify GTUBE DAILY IBAN Baclofen 20 mg 07/26/20 12:00 07/26/20 13:35 Lioresal GTUBE 20 mg QID IBAN Administration Calcium Carbonate/Glycine 625 mg 07/26/20 20:00 Calcium Carbonate 250 Mg/Ml Susp GTUBE BID IBAN Citalopram Hydrobromide 40 mg 07/27/20 08:00 Celexa GTUBE DAILY IBAN Gabapentin 300 mg 07/26/20 12:00 07/26/20 13:35 Neurontin GTUBE 300 mg TID IBAN Administration Glycopyrrolate 1 mg 07/26/20 11:52 Robinul GTUBE DAILY PRN Nausea/Vomiting R/T GERD Potassium Chloride/Dextrose/Sod Cl 1,000 mls @ 100 mls/hr 07/26/20 12:00 07/26/20 13:46 D5 1/2 Ns W/ 20 Meq/L Kcl IV 100 mls/hr ASDIRECTED IBAN Administration Piperacillin Sod/Tazobactam 100 mls @ 25 mls/hr 07/26/20 16:00 Sod 3.375 gm/ Sodium Chloride IV Q8H IBAN Levetiracetam 500 mg 07/26/20 20:00 Keppra GTUBE BID IBAN Metoclopramide HCl 5 mg 07/26/20 12:00 07/26/20 13:35 Reglan GTUBE 5 mg Q6H IBAN Administration Miscellaneous Medication 9 mg 07/27/20 08:00 Centrum Multivit-Mineral Liq GTUBE DAILY IBAN Omeprazole 20 mg 07/26/20 17:00 Omeprazole GTUBE BID@0700,1700 [facility] Polyethylene Glycol 17 gm 07/27/20 08:00 Miralax GTUBE DAILY [facility] Simethicone 134 mg 07/26/20 11:52 Infants' Gas Relief GTUBE QID PRN Gas Sodium Chloride 10 ml 07/26/20 07:33 Saline Flush FLUSH ASDIRECTED PRN Keep Vein Open Sucralfate 1 gm 07/26/20 11:52 Carafate TOP QID PRN STOMA IRRITATION Discontinued Medications Generic Name Dose Route Start Last Admin Trade Name Freq PRN Reason Stop Dose Admin Albuterol 2.5 mg 07/26/20 08:55 07/26/20 08:55 Proventil Neb Soln NEB 07/26/20 08:56 2.5 mg ONETIME ONE Administration Albuterol/Ipratropium 3 ml 07/26/20 07:33 07/26/20 07:38 Duoneb 3.0-0.5 Mg/3 Ml NEB 07/26/20 07:34 3 ml ONETIME ONE Administration Enoxaparin Sodium 40 mg 07/27/20 08:00 Lovenox SUBCUT DAILY [facility] Heparin Sodium (Porcine) 5,000 units 07/26/20 20:00 Heparin Sodium SUBCUT BID [facility] Lactated Ringer's 1,000 mls @ 999 mls/hr 07/26/20 07:35 07/26/20 07:44 Ringers, Lactated IV 07/26/20 08:35 999 mls/hr ONETIME ONE Administration Piperacillin Sod/Tazobactam 100 mls @ 200 mls/hr 07/26/20 08:17 07/26/20 08:17 Sod 3.375 gm/ Sodium Chloride IV 07/26/20 08:46 200 mls/hr STAT ONE Administration Lactated Ringer's 1,000 mls @ 125 mls/hr 07/26/20 10:00 07/26/20 09:49 Ringers, Lactated IV 125 mls/hr ASDIRECTED IBAN Administration Methylprednisolone Sodium Succinate 125 mg 07/26/20 09:19 07/26/20 10:05 Solu-Medrol IVPUSH 07/26/20 09:20 125 mg ONETIME ONE Administration - Radiology Interpretation Free Text/Narrative:: Chest x-ray per radiology shows asymmetrically elevated left hemidiaphragm similar to the prior examination. Cardiomegaly and central vascular congestion. Linear subpleural parenchymal opacities on the left nonspecific differential diagnosis include interstitial pneumonitis including aspiration fluid retention or possibly pneumonia. Noncontrast CT is recommended for further evaluation. - Re-Assessments/Exams Free Text/Narrative Re-Assessment/Exam: 07/26/20 Patient initially had some mild to moderate respiratory distress with some tachypnea in the 40s. He was requiring about 10 to 12 L of oxygen via breather. Venous blood gases do show some chronic respiratory liter with a normal pH. He was given multiple nebulizers with some improvement of his cough and congestion but he still was quite tachypneic. I placed the patient on BiPAP Pap of 14 and EPAP of 6 we are able to titrate his FiO2 down to 40% and he tolerated the BiPAP very well and his distress and tachypnea resolved. Blood cultures x2 pending. Very concerning for aspiration pneumonia and some other chronic findings. Zosyn 3.375 g IV piggyback. I spoke with the patient's guardian at the [facility] guardianship in [facility]. Previously I was informed by the patient's primary care provider Dr. Sinclair that there were concerns of possibly comfort care for recurrence of his multiple aspirations. I spoke with the guardianship and relayed the patient's current condition with her and she feels that he is doing quite well that at this time we will continue with antibiotic therapy and oxygen in the inpatient setting continue the patient had a DNR/DNI. With Dr. Sinclair once again and she actually came and saw the patient in the emergency department who is doing quite well on the BiPAP. We were able to remove the BiPAP after about 2 hours and he was on nasal cannula about 5 L without any respiratory distress tachypnea and his sats were about 91%. I discussed the findings with Dr. Sinclair as well as the patient. We will admit him here under inpatient status Departure - Departure Time of Disposition: 11:25 Disposition: Admitted As Inpatient 67 Clinical Impression: Recurrent aspiration pneumonia - Discharge Information Sepsis Event Note (ED) - Focused Exam Vital Signs: Vital Signs Temp Pulse Resp BP Pulse Ox 07/26/20 07:25 97.7 F 107 H 44 H 93/57 L 98 - My Orders Last 24 Hours: My Active Orders 07/26/20 07:33 Sodium Chloride 0.9% [Saline Flush] 10 ml FLUSH ASDIRECTED PRN 07/26/20 07:34 Blood Culture x2 Reflex Set [OM.PC] Stat Peripheral IV Insertion Adult [OM.PC] Stat 07/26/20 08:12 CULTURE BLOOD [BC] Stat 07/26/20 08:20 CULTURE BLOOD [BC] Stat 07/26/20 09:19 BIPAP [RT BiPAP/CPAP] [RC] 07/26/20 11:36 Admission Status [Patient Status] [ADT] Routine - Assessment/Plan Last 24 Hours: My Active Orders 07/26/20 07:33 Sodium Chloride 0.9% [Saline Flush] 10 ml FLUSH ASDIRECTED PRN 07/26/20 07:34 Blood Culture x2 Reflex Set [OM.PC] Stat Peripheral IV Insertion Adult [OM.PC] Stat 07/26/20 08:12 CULTURE BLOOD [BC] Stat 07/26/20 08:20 CULTURE BLOOD [BC] Stat 07/26/20 09:19 BIPAP [RT BiPAP/CPAP] [RC] 07/26/20 11:36 Admission Status [Patient Status] [ADT] Routine
[2020-07-26] MEDS ORDERED: Lactated Ringers 1,000 ML IV SCH (10:00)
[2020-07-26] MEDS ORDERED: Glycopyrrolate 1 MG Tab GTUBE PRN (11:52)
[2020-07-26] MEDS ORDERED: Sucralfate 1 GM Tab TOP PRN (11:52)
[2020-07-26] MEDS ORDERED: Simethicone Drops 40 MG/0.6 ML 30 ML Bottle GTUBE PRN (11:52)
[2020-07-26] MEDS ORDERED: D5 1/2 NS w/ 20 mEq/L KCl 1,000 ML IV SCH (12:00)
--- NOTE | 2020-07-26 12:06 | PCM.HP.2 ---
H&P History of Present Illness - General Date of Service: 07/26/20 Admit Problem/Dx: Admission Diagnosis/Problem Admission Diagnosis/Problem Aspiration pneumonia Source of Information: Patient History Limitations: Reports: Other (patient is nonverbal) - History of Present Illness Initial Comments - Free Text/Narative: Mr. Omalley is a 69 yo male on chronic tube feedings with PMH of recurrent aspiration pneumonia, gastroparesis, spastic quadriparesis, moderate intellectual disability, depression, seizure disorder, constipation, and osteoporosis who presented to the ER after being found to be hypoxic at the [facility] this morning. His oxygen saturations were in the 70% range despite him being on his usual oxygen supplementation. The patient is nonverbal and is not able to answer questions. Therefore, history is obtained from the ER provider and [facility] notes. Patient was noted to be short of breath, tachypneic, and less responsive during am med pass. O2 saturations were then noted to be in the 70% range. He was given a DuoNeb and his respiratory status d id improve; however, his guardian did want him evaluated in the ER. Therefore, he was transferred to [facility] ER for evaluation. Upon arrival, he was started on 12L via nasal cannula to maintain saturations. He was then started on BiPap for increased work of breathing. This improved his respiratory status significantly. He has since been weaned from the BiPap without any issues. However, given the status this morning as well as patient's history of severe aspiration pneumonia, patient will be admitted for IV antibiotics. - Related Data Allergies/Adverse Reactions: Allergies Allergy/AdvReac Type Severity Reaction Status Date / Time NSAIDS (Non-Steroidal AdvReac Intermediate Other Verified 07/26/20 07:16 Anti-Inflamma Home Medications: Home Meds levETIRAcetam [Keppra] 5 ml GTUBE BID 02/06/14 [History] polyethylene glycoL 3350 [MiraLAX] 17 gram GTUBE DAILY 02/06/14 [History] Baclofen 20 mg GTUBE QID 05/27/15 [History] Calcium Carbonate [Calcium Carbonate 250 MG/ML Susp] 2.5 ml GTUBE BID 05/27/15 [History] Escitalopram [Lexapro] 20 mg GTUBE DAILY 05/27/15 [History] Multivitamins with Iron/Min [Centrum] 15 ml GTUBE DAILY 06/30/15 [History] Sucralfate 1 gram TOP QID PRN 07/01/15 [History] ARIPiprazole [Abilify] 5 mg GTUBE DAILY 12/29/15 [History] Metoclopramide [Reglan] 5 mg GTUBE Q6H 12/29/15 [History] Albuterol/Ipratropium [DuoNeb 3.0-0.5 MG/3 ML] 3 ml NEB QIDRT neb 02/20/16 [Rx] Simethicone [Infants' Gas Relief] 2 ml GTUBE QID PRN 01/20/18 [History] Water 75 ml GTUBE ASDIRECTED 01/20/18 [History] Gabapentin [Neurontin] 300 mg GTUBE TID 05/07/20 [History] Omeprazole/Sodium Bicarbonate [Zegerid OTC 20-1,100 MG] 1 cap GTUBE BID 05/07/20 [History] Bisacodyl [Gentle Laxative] 10 mg RC DAILY PRN 07/26/20 [History] Glycopyrrolate [Robinul] 1 mg PO DAILY PRN 07/26/20 [History] Past Medical History HEENT History: Reports: Cataract, Other (See Below) Other HEENT History: otitis externa, hypermetropia Cardiovascular History: Reports: None Respiratory History: Reports: Pneumonia, Recurrent (Aspiration), SOB Gastrointestinal History: Reports: Bowel Obstruction, Chronic Constipation, Colon Polyp, Fecal Incontinence, GI Bleed, Other (See Below) Other Gastrointestinal History: inguinal hernia, gastroparesis Genitourinary History: Reports: Urinary Incontinence Musculoskeletal History: Reports: Osteoporosis Other Musculoskeletal History: Cerebral Palsy deformation Neurological History: Reports: Cerebral Palsy, Seizure Psychiatric History: Reports: Depression Endocrine/Metabolic History: Reports: Osteoporosis Hematologic History: Reports: None Immunologic History: Reports: None Oncologic (Cancer) History: Reports: None Dermatologic History: Reports: Other (See Below) Other Dermatologic History: ulcer of right foot - Infectious Disease History Infectious Disease History: Reports: None - Past Surgical History GI Surgical History: Reports: Other (See Below) (gastrostomy tube placement) Musculoskeletal Surgical History: Reports: Other (See Below) (right 5th toe amputation) Social & Family History - Family History Cardiac: Reports: CAD, [place] Oncologic: Reports: Pancreatic - Tobacco Use Smoking Status *Q: Never Smoker - Caffeine Use Caffeine Use: Reports: None - Alcohol Use Alcohol Use History: No Alcohol Use in Last Twelve Months: No - Recreational Drug Use Recreational Drug Use: No Drug Use in Last 12 Months: No - Living Situation & Occupation Living situation: Reports: Single, Extended Care Facility Occupation: Disabled H&P Review of Systems - Review of Systems: Review Of Systems: Unable To Obtain Reason Not Obtained: patient is nonverbal and unable to answer questions Exam - Exam Exam: See Below - Vital Signs Vital Signs: Last Vital Signs Temp 36.5 C 07/26/20 07:25 Pulse 107 H 07/26/20 07:25 Resp 44 H 07/26/20 07:25 BP 93/57 L 07/26/20 07:25 Pulse Ox 98 07/26/20 07:25 Weight: 63.503 kg - Exam General: Alert, Cooperative, Mild Distress HEENT: Conjunctiva Clear, Hearing Intact, Mucosa Moist & [place], Pupils Equal, Pupils Reactive Neck: Supple, Trachea Midline. No: Lymphadenopathy, Thyromegaly Lungs: Normal Respiratory Effort, Crackles (throughout both lung leigh), Wheezing (throughout both lung leigh) Cardiovascular: Regular Rate, Regular Rhythm, Normal S1, Normal S2 GI/Abdominal Exam: Normal Bowel Sounds, Soft, Non-Tender, No Organomegaly, No Distention, No Mass Extremities: Normal Inspection, Non-Tender, No Pedal Edema Peripheral Pulses: 2+: Radial (L), Radial (R) Skin: Warm, Dry, Intact Neuro Extensive - Mental Status: Alert, Normal Mood/Affect - Patient Data Lab Results Last 24 hrs: Laboratory Results - last 24 hr 07/26/20 07/26/20 07/26/20 Range/Units 07:38 08:04 08:12 WBC 8.5 (4.0-10.0) x10^3/uL RBC 4.43 L (4.5-6.0) x10^6/uL Hgb 12.8 L (14.0-18.0) g/dL Hct 40.6 (40.0-52.0) % MCV 91.6 D (78.0-93.0) fL MCH 28.9 (26.0-32.0) pg MCHC 31.5 L (32.0-36.0) g/dL RDW Coeff of Devendra 15.6 H (10.0-15.0) % Plt Count 228 D (130-400) x10^3/uL Neut % (Auto) 84.5 H (50.0-80.0) % Lymph % (Auto) 8.8 L (25.0-50.0) % Amador % (Auto) 4.5 (2.0-11.0) % Eos % (Auto) 2.0 (0.0-4.0) % Baso % (Auto) 0.2 (0.2-1.2) % POC VBG pH (7.32-7.43) pH POC VBG pCO2 (41-51) mmHg POC VBG pO2 mmHg POC VBG HCO3 (22-29) mmol/L POC Venous O2 Sat % VBG Base Excess (-(2)-3) mmol/L POC FiO2 Sodium (136-145) mmol/L Potassium (3.5-5.1) mmol/L Chloride (98-107) mmol/L Carbon Dioxide (21-32) mmol/L POC Venous Total CO2 (23-30) mmol/L Anion Gap (10-20) mmol/L BUN (7-18) mg/dL Creatinine (0.70-1.30) mg/dL Est Cr Clr Drug Dosing Estimated GFR (MDRD) Glucose (74-106) mg/dL Lactic Acid (0.4-2.0) mmol/L Calcium (8.5-10.1) mg/dL Corrected Calcium (8.5-10.1) mg/dL Total Bilirubin (0.2-1.0) mg/dL AST (15-37) U/L ALT (16-63) U/L Alkaline Phosphatase (46-116) U/L Troponin I (<=0.056) ng/mL C-Reactive Protein (<=0.9) mg/dL Total Protein (6.4-8.2) g/dL Albumin (3.4-5.0) g/dL Globulin Albumin/Globulin Ratio Urine Color Yellow (YELLOW) Urine Appearance Clear (CLEAR) Urine pH 7.0 (5.0-8.0) Ur Specific Tow 1.015 Urine Protein Negative (NEGATIVE) mg/dL Urine Glucose (UA) Negative (NEGATIVE) mg/dL Urine Ketones Negative (NEGATIVE) mg/dL Urine Occult Blood Negative (NEGATIVE) Urine Nitrite Negative (NEGATIVE) Urine Bilirubin Negative (NEGATIVE) Urine Urobilinogen 1.0 (0.2) EU/dL Ur Leukocyte Esterase Negative (NEGATIVE) SARS CoV-2 RNA Rapid JUAN Negative (NEGATIVE) 07/26/20 07/26/20 07/26/20 Range/Units 08:12 08:12 08:12 WBC (4.0-10.0) x10^3/uL RBC (4.5-6.0) x10^6/uL Hgb (14.0-18.0) g/dL Hct (40.0-52.0) % MCV (78.0-93.0) fL MCH (26.0-32.0) pg MCHC (32.0-36.0) g/dL RDW Coeff of Devendra (10.0-15.0) % Plt Count (130-400) x10^3/uL Neut % (Auto) (50.0-80.0) % Lymph % (Auto) (25.0-50.0) % Amador % (Auto) (2.0-11.0) % Eos % (Auto) (0.0-4.0) % Baso % (Auto) (0.2-1.2) % POC VBG pH 7.33 (7.32-7.43) pH POC VBG pCO2 66 H* (41-51) mmHg POC VBG pO2 38 mmHg POC VBG HCO3 35 H (22-29) mmol/L POC Venous O2 Sat 66 % VBG Base Excess 9 H (-(2)-3) mmol/L POC FiO2 90 Sodium 138 (136-145) mmol/L Potassium 4.2 (3.5-5.1) mmol/L Chloride 98 (98-107) mmol/L Carbon Dioxide 34 H (21-32) mmol/L POC Venous Total CO2 34 H (23-30) mmol/L Anion Gap 10.2 (10-20) mmol/L BUN 18 (7-18) mg/dL Creatinine 0.5 L (0.70-1.30) mg/dL Est Cr Clr Drug Dosing TNP Estimated GFR (MDRD) > 60 Glucose 118 H (74-106) mg/dL Lactic Acid 1.7 (0.4-2.0) mmol/L Calcium 9.1 D (8.5-10.1) mg/dL Corrected Calcium 9.74 (8.5-10.1) mg/dL Total Bilirubin 0.4 (0.2-1.0) mg/dL AST 28 (15-37) U/L ALT 34 (16-63) U/L Alkaline Phosphatase 112 (46-116) U/L Troponin I < 0.017 (<=0.056) ng/mL C-Reactive Protein 1.3 H (<=0.9) mg/dL Total Protein 8.0 (6.4-8.2) g/dL Albumin 3.2 L (3.4-5.0) g/dL Globulin 4.8 Albumin/Globulin Ratio 0.67 Urine Color (YELLOW) Urine Appearance (CLEAR) Urine pH (5.0-8.0) Ur Specific Tow Urine Protein (NEGATIVE) mg/dL Urine Glucose (UA) (NEGATIVE) mg/dL Urine Ketones (NEGATIVE) mg/dL Urine Occult Blood (NEGATIVE) Urine Nitrite (NEGATIVE) Urine Bilirubin (NEGATIVE) Urine Urobilinogen (0.2) EU/dL Ur Leukocyte Esterase (NEGATIVE) SARS CoV-2 RNA Rapid JUAN (NEGATIVE) Result Diagrams: 07/26/20 08:12 07/26/20 08:12 Esequiel Results Last 24 hrs: Microbiology 07/26/20 08:12 Anaerobic Blood Culture - Final Blood - Venous 07/26/20 08:20 Anaerobic Blood Culture - Final Blood - Venous - Lab Draw Sepsis Event Note - Evaluation Sepsis Screening Result: Possible Sepsis Risk - Focused Exam Vital Signs: Vital Signs Temp Pulse Resp BP Pulse Ox 07/26/20 07:25 36.5 C 107 H 44 H 93/57 L 98 - Problem List (1) Aspiration pneumonia SNOMED Code(s): 012860536 ICD Code: J69.0 - PNEUMONITIS DUE TO INHALATION OF FOOD AND VOMIT Status: Acute Current Visit: No Qualifiers: Aspiration pneumonia type: unspecified Laterality: right Lung location: lower lobe of lung Qualified Code(s): J69.0 - Pneumonitis due to inhalation of food and vomit (2) Wheezing SNOMED Code(s): 69156033 ICD Code: R06.2 - WHEEZING Status: Chronic Current Visit: No (3) Acute respiratory failure with hypoxia SNOMED Code(s): 31560985, 949375011 ICD Code: J96.01 - ACUTE RESPIRATORY FAILURE WITH HYPOXIA Status: Acute Current Visit: No (4) Dependence on supplemental oxygen SNOMED Code(s): 859656209209 ICD Code: Z99.81 - DEPENDENCE ON SUPPLEMENTAL OXYGEN Status: Chronic Current Visit: No (5) Moderate intellectual disabilities SNOMED Code(s): 75559350 ICD Code: F71 - MODERATE INTELLECTUAL DISABILITIES Status: Chronic Current Visit: No (6) Nonverbal SNOMED Code(s): 731314070 ICD Code: R47.01 - APHASIA Status: Chronic Current Visit: No (7) G tube feedings SNOMED Code(s): 761498809, 343182988, 224349514 ICD Code: Z93.1 - GASTROSTOMY STATUS Status: Chronic Current Visit: No (8) Gastroparesis SNOMED Code(s): 911899238 ICD Code: K31.84 - GASTROPARESIS Status: Chronic Current Visit: No Problem Details: Home medications continued. (9) Constipation SNOMED Code(s): 35411638 ICD Code: K59.00 - CONSTIPATION, UNSPECIFIED Status: Chronic Current Visit: No Qualifiers: Constipation type: unspecified constipation type Qualified Code(s): K59.00 - Constipation, unspecified (10) Seizure disorder SNOMED Code(s): 913678821 ICD Code: G40.909 - EPILEPSY, UNSP, NOT INTRACTABLE, WITHOUT STATUS EPILEPTICUS Status: Chronic Current Visit: No (11) Depression SNOMED Code(s): 09281885 ICD Code: F32.9 - MAJOR DEPRESSIVE DISORDER, SINGLE EPISODE, UNSPECIFIED Status: Chronic Current Visit: No Qualifiers: Depression Type: major depressive disorder Major depression recurrence: recurrent Active/Remission status: in full remission Qualified Code(s): F33.42 - Major depressive disorder, recurrent, in full remission Problem List Initiated/Reviewed/Updated: Yes Orders Last 24hrs: Active Orders 24 hr Category Date Time Status Admission Status [Patient Status] [ADT] Routine ADT 07/26/20 11:36 Active BIPAP [RT BiPAP/CPAP] [RC] ASDIRECTED Care 07/26/20 09:19 Active EKG Documentation Completion [RC] STAT Care 07/26/20 07:34 Active Notify Provider Vital Signs [RC] ASDIRECTED Care 07/26/20 11:45 Ordered Oxygen Therapy [RC] PRN Care 07/26/20 11:44 Ordered RT Aerosol Therapy [RC] ASDIRECTED Care 07/26/20 07:33 Active RT Aerosol Therapy [RC] ASDIRECTED Care 07/26/20 10:57 Active RT Aerosol Therapy [RC] ASDIRECTED Care 07/26/20 11:57 Ordered Up With Assistance [RC] ASDIRECTED Care 07/26/20 11:43 Ordered VTE/DVT Education [RC] PER UNIT ROUTINE Care 07/26/20 11:44 Ordered Vital Signs [RC] Q4H Care 07/26/20 11:44 Ordered Nothing per Oral Now Diet [DIET] Diet 07/26/20 Dinner Ordered CULTURE BLOOD [BC] Stat Lab 07/26/20 08:12 Results CULTURE BLOOD [BC] Stat Lab 07/26/20 08:20 Results ARIPiprazole [Abilify] Med 07/27/20 08:00 Ordered 5 mg GTUBE DAILY Albuterol/Ipratropium [DuoNeb 3.0-0.5 MG/3 ML] Med 07/26/20 12:00 Ordered 3 ml NEB Q4H Baclofen [Baclofen] Med 07/26/20 12:00 Ordered 20 mg GTUBE QID Calcium Carbonate [Calcium Carbonate 250 MG/ML Susp] Med 07/26/20 20:00 Ordered 2.5 ml GTUBE BID D5 1/2 NS w/ 20 mEq/L KCl 1,000 ml Med 07/26/20 12:00 Ordered IV ASDIRECTED Escitalopram [Lexapro] Med 07/27/20 08:00 Ordered 20 mg GTUBE DAILY Gabapentin [Neurontin] Med 07/26/20 12:00 Ordered 300 mg GTUBE TID Glycopyrrolate [Robinul] Med 07/26/20 11:52 Ordered 1 mg PO DAILY PRN Heparin Sodium Med 07/26/20 20:00 Ordered 5,000 units SUBCUT BID Metoclopramide Med 07/26/20 12:00 Ordered 5 mg GTUBE Q6H Multivitamins with Iron/Min [Centrum] Med 07/27/20 08:00 Ordered 15 ml GTUBE DAILY Omeprazole/Sodium Bicarbonate [Zegerid OTC 20-1,100 MG] Med 07/26/20 20:00 Ordered 1 cap GTUBE BID Simethicone [Infants' Gas Relief] Med 07/26/20 11:52 Ordered 133.32 mg GTUBE QID PRN Sodium Chloride 0.9% [Saline Flush] Med 07/26/20 07:33 Active 10 ml FLUSH ASDIRECTED PRN Sucralfate [Carafate] Med 07/26/20 11:52 Ordered 1 gm TOP QID PRN levETIRAcetam [Keppra] Med 07/26/20 20:00 Ordered 5 ml GTUBE BID polyethylene glycoL 3350 [MiraLAX] Med 07/27/20 08:00 Ordered 17 gram GTUBE DAILY Blood Culture x2 Reflex Set [OM.PC] Stat Oth 07/26/20 07:34 Ordered Peripheral IV Insertion Adult [OM.PC] Stat Oth 07/26/20 07:34 Ordered Resuscitation Status Routine Resus Stat 07/26/20 11:43 Ordered Medication Orders Albuterol/Ipratropium (Duoneb 3.0-0.5 Mg/3 Ml) 3 ml NEB Q4H IBAN Aripiprazole (Abilify) 5 mg GTUBE DAILY IBAN Calcium Carbonate/Glycine (Calcium Carbonate 250 Mg/Ml Susp) mg GTUBE BID IBAN Gabapentin (Neurontin) 300 mg GTUBE TID IBAN Glycopyrrolate (Robinul) 1 mg PO DAILY PRN PRN Reason: Nausea/Vomiting Heparin Sodium (Porcine) (Heparin Sodium) 5,000 units SUBCUT BID IBAN Potassium Chloride/Dextrose/Sod Cl (D5 1/2 Ns W/ 20 Meq/L Kcl) 1,000 mls @ 100 mls/hr IV ASDIRECTED IBAN Non-Formulary Medication (Omeprazole/Sodium Bicarbonate [Zegerid Otc 20-1,100 Mg]) 1 cap GTUBE BID IBAN Non-Formulary Medication (Metoclopramide) 5 mg GTUBE Q6H IBAN Non-Formulary Medication (Multivitamins With Iron/Min [Centrum]) 15 ml GTUBE DAILY IBAN Non-Formulary Medication (Polyethylene Glycol 3350 [Miralax]) 17 gram GTUBE DAILY IBAN Non-Formulary Medication (Levetiracetam [Keppra]) 5 ml GTUBE BID IBAN Non-Formulary Medication (Escitalopram [Lexapro]) 20 mg GTUBE DAILY IBAN Non-Formulary Medication (Baclofen [Baclofen]) 20 mg GTUBE QID IBAN Simethicone (Infants' Gas Relief) 133.32 mg GTUBE QID PRN PRN Reason: Gas Sodium Chloride (Saline Flush) 10 ml FLUSH ASDIRECTED PRN PRN Reason: Keep Vein Open Sucralfate (Carafate) 1 gm TOP QID PRN PRN Reason: Other Assessment/Plan Comment:: 69 yo male admitted with presumed aspiration pneumonia after presenting to the ER for evaluation of shortness of breath and hypoxia. #1 Aspiration Pneumonia #2 Wheezing #3 Acute on chronic hypoxic respiratory failure #4 Dependence on supplemental oxygen - History and exam most consistent with aspiration pneumonia vs pneumonitis. Given history of severe infections in the past, would be proactive with antibiotics rather than treating as chemical pneumonitis. - Differentials considered include COVID (negative test in ER), influenza (unlikely based on absence of fever and the fact that he is without any mental status changes), lobar pneumonia (not seen on CXR), and heart-related issues (no history of the same and not consistent with presentation). - Patient does not meet sepsis criteria. Will recheck lab in the am. - Will continue zosyn as started in the ER. - Will also continue DuoNebs every 4 hours scheduled. Will wean as able. - Oxygen per high flow nasal cannula during the day (patient is doing well on this still upon follow-up exam at 3:30 this afternoon). Will wean as able. - BiPap at night as per usual settings. #5 Moderate Intellectual Disabilities #6 Nonverbal #7 G-tube feedings - Patient is actually more alert than he usually is when he presents for aspiration pneumonia. - Will hold his tube feedings today/tonight with tentative plans to start tomorrow. - Will instead do maintenance IV fluids. #8 Gastroparesis #9 Constipation #10 Seizure Disorder #11 Depression - Continue current home medications. Patient is admitted to acute due to need for IV antibiotics and increased O2 requirements from baseline in the setting of an aspiration pneumonia - antic ipate he will need at least 48 hours spanning at least 2 midnights prior to being stable for d/c back to the care center. Really he will likely remain admitted through the weekend as they are not able to take him back to the SNF over the weekend. Code status is DNR/DNI - confirmed with guardian by ER provider today and same as prior admissions; therefore, I did not also contact her directly. No indication for pharmacologic VTE prophylaxis given patient is at his usual functional baseline.
[2020-07-26] MEDS ORDERED: Albuterol/Ipratropium 3.0-0.5 MG/3 ML Neb Soln NEB SCH (13:00)
[2020-07-26] MEDS: Metoclopramide 5 MG Tab GTUBE SCH ×3 (13:35→23:17)
[2020-07-26] MEDS: Gabapentin 300 MG Cap GTUBE SCH ×2 (13:35→19:08)
[2020-07-26] MEDS: Baclofen 10 MG Tab GTUBE SCH ×3 (13:35→19:08)
[2020-07-26] MEDS ORDERED: WATER GTUBE SCH (16:15)
[2020-07-26] MEDS: Piperacillin/Tazobactam 3.375 GM in Sodium Chloride 0.9% 100 ML IV SCH ×2 (16:25→23:18)
[2020-07-26] MEDS: OMEPRAZOLE 20 MG/10 ML GTUBE SCH (17:18)
[2020-07-26] MEDS: Albuterol/Ipratropium 3.0-0.5 MG/3 ML Neb Soln NEB SCH ×2 (18:56→23:16)
[2020-07-26] MEDS: levETIRAcetam Soln 500 MG/5 ML Cup GTUBE SCH (19:08)
[2020-07-26] MEDS: Calcium Carbonate 1,250 MG/5 ML Susp 5 ML UD Cup GTUBE SCH (19:08)
[2020-07-26] MEDS ORDERED: Heparin Sodium 5,000 Units/ML Vial SUBCUT SCH (20:00)
[2020-07-27] MEDS: Albuterol/Ipratropium 3.0-0.5 MG/3 ML Neb Soln NEB SCH ×6 (03:00→23:29)
[2020-07-27] MEDS: OMEPRAZOLE 20 MG/10 ML GTUBE SCH ×2 (06:08→17:59)
[2020-07-27] MEDS: Metoclopramide 5 MG Tab GTUBE SCH ×4 (06:08→23:29)
[2020-07-27] MEDS ORDERED: Enoxaparin 40 MG/0.4 ML Syringe SUBCUT SCH (08:00)
[2020-07-27 08:29] LABS: CHLORIDE,CL 102 mmol/L (98-107); SODIUM,NA 140 mmol/L (136-145)
[2020-07-27 08:34] LABS: ANION GAP 8.8 mmol/L (10-20)
[2020-07-27] MEDS: Polyethylene Glycol 3350 Powder 17 GM Packet GTUBE SCH (09:00)
[2020-07-27] MEDS: Citalopram 20 MG Tab GTUBE SCH (09:00)
[2020-07-27] MEDS: levETIRAcetam Soln 500 MG/5 ML Cup GTUBE SCH ×2 (09:00→19:36)
[2020-07-27] MEDS: Baclofen 10 MG Tab GTUBE SCH ×4 (09:00→19:37)
[2020-07-27] MEDS: ARIPiprazole 5 MG Tab GTUBE SCH (09:00)
[2020-07-27] MEDS: Gabapentin 300 MG Cap GTUBE SCH ×3 (09:00→19:37)
[2020-07-27] MEDS: Calcium Carbonate 1,250 MG/5 ML Susp 5 ML UD Cup GTUBE SCH ×2 (09:01→19:36)
[2020-07-27] MEDS: Piperacillin/Tazobactam 3.375 GM in Sodium Chloride 0.9% 100 ML IV SCH ×3 (09:02→23:29)
[2020-07-27] MEDS: Multivit-Minerals/Ferrous Gluc 9 MG/15 ML 15 ml Cup GTUBE SCH (09:10)
--- NOTE | 2020-07-27 09:56 | PCM.PN ---
- General Info Date of Service: 07/27/20 Subjective Update: 69 yo male hospital day #2 admitted for aspiration pneumonia. Patient without acute events overnight. Has not had any breathing issues and has been able to remain on hi flow nasal cannula during the day and his usual BiPap at night. He has been behaving as per usual. - Review of Systems Systems Review Comment:: unable to obtain as patient is nonverbal - Patient Data Vitals - Most Recent: Last Vital Signs Temp 36.6 C 07/27/20 05:27 Pulse 62 07/27/20 05:27 Resp 16 07/27/20 05:27 BP 115/63 07/27/20 05:27 Pulse Ox 96 07/27/20 07:09 Weight - Most Recent: 53.524 kg I&O - Last 24 Hours: Intake & Output 07/26/20 07/27/20 07/27/20 22:59 06:59 14:59 Intake Total 100 500 Balance 100 500 Lab Results Last 24 Hours: Laboratory Results - last 24 hr 07/27/20 07/27/20 Range/Units 07:52 07:52 WBC 7.6 (4.0-10.0) x10^3/uL RBC 3.75 L (4.5-6.0) x10^6/uL Hgb 10.7 L D (14.0-18.0) g/dL Hct 34.3 L (40.0-52.0) % MCV 91.5 (78.0-93.0) fL MCH 28.5 (26.0-32.0) pg MCHC 31.2 L (32.0-36.0) g/dL RDW Coeff of Devendra 15.1 H (10.0-15.0) % Plt Count 163 (130-400) x10^3/uL Neut % (Auto) 75.8 (50.0-80.0) % Lymph % (Auto) 17.9 L (25.0-50.0) % [place] % (Auto) 6.1 (2.0-11.0) % Eos % (Auto) 0.1 (0.0-4.0) % Baso % (Auto) 0.1 L (0.2-1.2) % Sodium 140 (136-145) mmol/L Potassium 3.8 (3.5-5.1) mmol/L Chloride 102 (98-107) mmol/L Carbon Dioxide 33 H (21-32) mmol/L Anion Gap 8.8 L (10-20) mmol/L BUN 13 (7-18) mg/dL Creatinine 0.6 L (0.70-1.30) mg/dL Est Cr Clr Drug Dosing TNP Estimated GFR (MDRD) > 60 Glucose 144 H (74-106) mg/dL Calcium 8.8 (8.5-10.1) mg/dL C-Reactive Protein 10.5 H (<=0.9) mg/dL Esequiel Results Last 24 Hours: Microbiology 07/26/20 13:25 MRSA Surveillance Culture - Final Nares, Left NO MRSA ISOLATED 07/26/20 08:20 Aerobic Blood Culture - Preliminary Blood - Venous - Lab Draw NO GROWTH AFTER 1 DAY Anaerobic Blood Culture - Final 07/26/20 08:12 Aerobic Blood Culture - Preliminary Blood - Venous NO GROWTH AFTER 1 DAY Anaerobic Blood Culture - Final Med Orders - Current: Current Medications Albuterol/Ipratropium (Duoneb 3.0-0.5 Mg/3 Ml) 3 ml NEB Q4H [facility] Last Admin: 07/27/20 07:08 Dose: 3 ml Documented by: Aripiprazole (Abilify) 5 mg GTUBE DAILY [facility] Last Admin: 07/27/20 09:00 Dose: 5 mg Documented by: Baclofen (Lioresal) 20 mg GTUBE QID [facility] Last Admin: 07/27/20 09:00 Dose: 20 mg Documented by: Calcium Carbonate/Glycine (Calcium Carbonate 250 Mg/Ml Susp) 625 mg GTUBE BID [facility] Last Admin: 07/27/20 09:01 Dose: 625 mg Documented by: Citalopram Hydrobromide (Celexa) 40 mg GTUBE DAILY [facility] Last Admin: 07/27/20 09:00 Dose: 40 mg Documented by: Gabapentin (Neurontin) 300 mg GTUBE TID [facility] Last Admin: 07/27/20 09:00 Dose: 300 mg Documented by: Glycopyrrolate (Robinul) 1 mg GTUBE DAILY PRN PRN Reason: Nausea/Vomiting R/T GERD Piperacillin Sod/Tazobactam (Sod 3.375 gm/ Sodium Chloride) 100 mls @ 25 mls/hr IV Q8H [facility] Last Admin: 07/27/20 09:02 Dose: 25 mls/hr Documented by: Levetiracetam (Keppra) 500 mg GTUBE BID [facility] Last Admin: 07/27/20 09:00 Dose: 500 mg Documented by: Metoclopramide HCl (Reglan) 5 mg GTUBE Q6H [facility] Last Admin: 07/27/20 06:08 Dose: 5 mg Documented by: Miscellaneous Medication (Centrum Multivit-Mineral Liq) 9 mg GTUBE DAILY [facility] Last Admin: 07/27/20 09:10 Dose: 9 mg Documented by: Water 75 ml GTUBE ASDIRECTED [facility] Omeprazole (Omeprazole) 20 mg GTUBE BID@0700,1700 [facility] Last Admin: 07/27/20 06:08 Dose: 20 mg Documented by: Polyethylene Glycol (Miralax) 17 gm GTUBE DAILY [facility] Last Admin: 07/27/20 09:00 Dose: 17 gm Documented by: Simethicone (Infants' Gas Relief) 134 mg GTUBE QID PRN PRN Reason: Gas Sodium Chloride (Saline Flush) 10 ml FLUSH ASDIRECTED PRN PRN Reason: Keep Vein Open Sucralfate (Carafate) 1 gm TOP QID PRN PRN Reason: STOMA IRRITATION Discontinued Medications Albuterol (Proventil Neb Soln) 2.5 mg NEB ONETIME ONE Stop: 07/26/20 08:56 Last Admin: 07/26/20 08:55 Dose: 2.5 mg Documented by: Albuterol/Ipratropium (Duoneb 3.0-0.5 Mg/3 Ml) 3 ml NEB ONETIME ONE Stop: 07/26/20 07:34 Last Admin: 07/26/20 07:38 Dose: 3 ml Documented by: Albuterol/Ipratropium (Duoneb 3.0-0.5 Mg/3 Ml) 3 ml NEB Q4H [facility] Last Admin: 07/26/20 13:27 Dose: 3 ml Documented by: Enoxaparin Sodium (Lovenox) 40 mg SUBCUT DAILY [facility] Heparin Sodium (Porcine) (Heparin Sodium) 5,000 units SUBCUT BID [facility] Lactated Ringer's (Ringers, Lactated) 1,000 mls @ 999 mls/hr IV ONETIME ONE Stop: 07/26/20 08:35 Last Admin: 07/26/20 07:44 Dose: 999 mls/hr Documented by: Piperacillin Sod/Tazobactam (Sod 3.375 gm/ Sodium Chloride) 100 mls @ 200 mls/hr IV STAT ONE Stop: 07/26/20 08:46 Last Admin: 07/26/20 08:17 Dose: 200 mls/hr Documented by: Lactated Ringer's (Ringers, Lactated) 1,000 mls @ 125 mls/hr IV ASDIRECTED [facility] Last Admin: 07/26/20 09:49 Dose: 125 mls/hr Documented by: Potassium Chloride/Dextrose/Sod Cl (D5 1/2 Ns W/ 20 Meq/L Kcl) 1,000 mls @ 100 mls/hr IV ASDIRECTED [facility] Last Admin: 07/26/20 13:46 Dose: 100 mls/hr Documented by: Methylprednisolone Sodium Succinate (Solu-Medrol) 125 mg IVPUSH ONETIME ONE Stop: 07/26/20 09:20 Last Admin: 07/26/20 10:05 Dose: 125 mg Documented by: - Exam General: Alert, No Acute Distress HEENT: Mucous Membr. Moist/[place] Neck: Supple, Trachea Midline, No Thyromegaly. No: Lymphadenopathy Lungs: Clear to Auscultation, Normal Respiratory Effort Cardiovascular: Regular Rate, Regular Rhythm, No Murmurs GI/Abdominal Exam: Normal Bowel Sounds, Soft, Non-Tender, No Organomegaly, No Distention, No Mass Extremities: Normal Inspection, Non-Tender, Normal Capillary Refill Peripheral Pulses: 2+: Radial (L), Radial (R) Skin: Warm, Dry, Intact Neurological: No New Focal Deficit Sepsis Event Note - Evaluation Sepsis Screening Result: No Definite Risk - Focused Exam Vital Signs: Vital Signs Temp Pulse Resp BP Pulse Ox Pulse Ox Pulse Ox 07/27/20 07:09 96 07/27/20 05:27 36.6 C 62 16 115/63 95 07/27/20 05:26 95 07/27/20 02:39 36.9 C 52 L 16 98/60 94 L 07/27/20 00:48 99 07/26/20 22:04 36.9 C 60 16 106/58 L 97 - Problem List & Annotations (1) Aspiration pneumonia SNOMED Code(s): 657556045 Code(s): J69.0 - PNEUMONITIS DUE TO INHALATION OF FOOD AND VOMIT Status: Acute Current Visit: No Qualifiers: Aspiration pneumonia type: unspecified Laterality: right Lung location: lower lobe of lung Qualified Code(s): J69.0 - Pneumonitis due to inhalation of food and vomit (2) Wheezing SNOMED Code(s): 06190676 Code(s): R06.2 - WHEEZING Status: Chronic Current Visit: No (3) Acute respiratory failure with hypoxia SNOMED Code(s): 90997157, 182670656 Code(s): J96.01 - ACUTE RESPIRATORY FAILURE WITH HYPOXIA Status: Acute Current Visit: No (4) Dependence on supplemental oxygen SNOMED Code(s): 840995045368 Code(s): Z99.81 - DEPENDENCE ON SUPPLEMENTAL OXYGEN Status: Chronic Current Visit: No (5) Moderate intellectual disabilities SNOMED Code(s): 31559326 Code(s): F71 - MODERATE INTELLECTUAL DISABILITIES Status: Chronic Current Visit: No (6) Nonverbal SNOMED Code(s): 490925440 Code(s): R47.01 - APHASIA Status: Chronic Current Visit: No (7) G tube feedings SNOMED Code(s): 431106992, 001551552, 716489571 Code(s): Z93.1 - GASTROSTOMY STATUS Status: Chronic Current Visit: No (8) Gastroparesis SNOMED Code(s): 275411229 Code(s): K31.84 - GASTROPARESIS Status: Chronic Current Visit: No Annotation/Comment:: Home medications continued. (9) Constipation SNOMED Code(s): 94692883 Code(s): K59.00 - CONSTIPATION, UNSPECIFIED Status: Chronic Current Visit: No Qualifiers: Constipation type: unspecified constipation type Qualified Code(s): K59.00 - Constipation, unspecified (10) Seizure disorder SNOMED Code(s): 975879238 Code(s): G40.909 - EPILEPSY, UNSP, NOT INTRACTABLE, WITHOUT STATUS EPILEPTICUS Status: Chronic Current Visit: No (11) Depression SNOMED Code(s): 42030720 Code(s): F32.9 - MAJOR DEPRESSIVE DISORDER, SINGLE EPISODE, UNSPECIFIED Status: Chronic Current Visit: No Qualifiers: Depression Type: major depressive disorder Major depression recurrence: recurrent Active/Remission status: in full remission Qualified Code(s): F33.42 - Major depressive disorder, recurrent, in full remission - Problem List Review Problem List Initiated/Reviewed/Updated: Yes - My Orders Last 24 Hours: My Active Orders 07/26/20 11:43 Up With Assistance [RC] Resuscitation Status Routine 07/26/20 11:44 Oxygen Therapy [RC] VTE/DVT Education [RC] .PRN Vital Signs [RC] 02,06,,,,07/26/20 11:45 Notify Provider Vital Signs [RC] 02,06,10,,,07/26/20 11:52 Glycopyrrolate [Robinul] 1 mg GTUBE DAILY PRN Simethicone [Infants' Gas Relief] 134 mg GTUBE QID PRN Sucralfate [Carafate] 1 gm TOP QID PRN 07/26/20 11:57 RT Aerosol Therapy [RC] ,,,,,07/26/20 12:00 Baclofen [Lioresal] 20 mg GTUBE QID Gabapentin [Neurontin] 300 mg GTUBE TID Metoclopramide [Reglan] 5 mg GTUBE Q6H 07/26/20 16:00 Piperacillin/Tazobactam [Zosyn] 3.375 gm Sodium Chloride 0.9% [Normal Saline] 100 ml IV Q8H 07/26/20 16:07 VTE Pharmacological Contraindications [AST] Click To Edit 07/26/20 16:15 Water [Water] 75 ml GTUBE ASDIRECTED 07/26/20 17:00 Omeprazole 20 mg GTUBE BID@0700,1700 07/26/20 Dinner Nothing per Oral Now Diet [DIET] 07/26/20 19:00 Albuterol/Ipratropium [DuoNeb 3.0-0.5 MG/3 ML] 3 ml NEB Q4H 07/26/20 20:00 Calcium Carbonate [Calcium Carbonate 250 MG/ML Susp] 625 mg GTUBE BID levETIRAcetam [Keppra] 500 mg GTUBE BID 07/27/20 07:41 Aspiration Precautions [RC] ASDIRECTED Tube Feeding [Enteral Feedings] [RC] Click to Edit 07/27/20 08:00 ARIPiprazole [Abilify] 5 mg GTUBE DAILY Citalopram [Celexa] 40 mg GTUBE DAILY Multivit-Minerals/Ferrous Gluc [Centrum Multivit-Mineral Liq] 9 mg GTUBE DAILY polyethylene glycoL 3350 [MiraLAX] 17 gm GTUBE DAILY 07/27/20 09:10 Communication Order [RC] DAILY - Assessment Assessment:: 69 yo male admitted for aspiration pneumonia. Doing well today. - Plan Plan:: #1 Aspiration Pneumonia #2 Wheezing #3 Acute on chronic hypoxic respiratory failure #4 Dependence on supplemental oxygen - Patient is doing much better today. Breathing is back to baseline. - WBC still normal. CRP up today, which is not unexpected. - Patient does not meet sepsis criteria. - Continue zosyn today. Will plan to transition to augmentin tomorrow. - Will also continue DuoNebs every 4 hours scheduled. Will plan to wean to QID tomorrow. - Oxygen per high flow nasal cannula during the day (patient is doing well on this still upon follow-up exam at 3:30 this afternoon). Will wean as able. - BiPap at night as per usual settings. #5 Moderate Intellectual Disabilities #6 Nonverbal #7 G-tube feedings - Patient is actually more alert than he usually is when he presents for aspiration pneumonia. - Will resume tube feedings today. - D/C maintenance IV fluids. #8 Gastroparesis #9 Constipation #10 Seizure Disorder #11 Depression - Continue current home medications. Patient will remain on acute today - anticipate he will remain admitted until Wednesday as he will not be able to return to the care center prior to that. Code status is DNR/DNI. No indication for pharmacologic VTE prophylaxis given patient is at his usual functional baseline.
[2020-07-28] MEDS: Albuterol/Ipratropium 3.0-0.5 MG/3 ML Neb Soln NEB SCH ×5 (03:26→19:38)
[2020-07-28] MEDS: Metoclopramide 5 MG Tab GTUBE SCH ×3 (06:07→17:37)
[2020-07-28] MEDS: OMEPRAZOLE 20 MG/10 ML GTUBE SCH ×2 (06:07→17:37)
[2020-07-28] MEDS: ARIPiprazole 5 MG Tab GTUBE SCH (08:43)
[2020-07-28] MEDS: Citalopram 20 MG Tab GTUBE SCH (08:43)
[2020-07-28] MEDS: Gabapentin 300 MG Cap GTUBE SCH ×3 (08:43→19:38)
[2020-07-28] MEDS: Multivit-Minerals/Ferrous Gluc 9 MG/15 ML 15 ml Cup GTUBE SCH (08:44)
[2020-07-28] MEDS: Calcium Carbonate 1,250 MG/5 ML Susp 5 ML UD Cup GTUBE SCH ×2 (08:44→19:39)
[2020-07-28] MEDS: Baclofen 10 MG Tab GTUBE SCH ×4 (08:44→19:38)
[2020-07-28] MEDS: levETIRAcetam Soln 500 MG/5 ML Cup GTUBE SCH ×2 (08:45→19:39)
[2020-07-28] MEDS: Piperacillin/Tazobactam 3.375 GM in Sodium Chloride 0.9% 100 ML IV SCH (08:45)
[2020-07-28] MEDS: Polyethylene Glycol 3350 Powder 17 GM Packet GTUBE SCH (08:45)
--- NOTE | 2020-07-28 09:06 | PCM.PN ---
- General Info Date of Service: 07/28/20 Subjective Update: 69 yo male hospital day #3 admitted for aspiration pneumonia. Patient without acute events overnight. Has not had any breathing issues and has been able to remain on hi flow nasal cannula during the day and his usual BiPap at night. He has been behaving as per usual. Patient tolerated resuming tube feeds yesterday without any issues. - Review of Systems Systems Review Comment:: unable to assess as patient is nonverbal - Patient Data Vitals - Most Recent: Last Vital Signs Temp 36.3 C 07/28/20 06:00 Pulse 57 L 07/28/20 06:00 Resp 19 07/28/20 06:00 BP 111/61 07/28/20 06:00 Pulse Ox 93 L 07/28/20 08:00 Weight - Most Recent: 53.524 kg I&O - Last 24 Hours: Intake & Output 07/27/20 07/28/20 07/28/20 22:59 06:59 14:59 Intake Total 1820 150 Balance 1820 150 Esequiel Results Last 24 Hours: Microbiology 07/26/20 08:20 Aerobic Blood Culture - Preliminary Blood - Venous - Lab Draw NO GROWTH AFTER 2 DAYS Anaerobic Blood Culture - Final 07/26/20 08:12 Aerobic Blood Culture - Preliminary Blood - Venous NO GROWTH AFTER 2 DAYS Anaerobic Blood Culture - Final 07/26/20 13:25 MRSA Surveillance Culture - Final Nares, Left NO MRSA ISOLATED Med Orders - Current: Current Medications Albuterol/Ipratropium (Duoneb 3.0-0.5 Mg/3 Ml) 3 ml NEB Q4H [facility] Last Admin: 07/28/20 07:56 Dose: 3 ml Documented by: Aripiprazole (Abilify) 5 mg GTUBE DAILY [facility] Last Admin: 07/28/20 08:43 Dose: 5 mg Documented by: Baclofen (Lioresal) 20 mg GTUBE QID [facility] Last Admin: 07/28/20 08:44 Dose: 20 mg Documented by: Calcium Carbonate/Glycine (Calcium Carbonate 250 Mg/Ml Susp) 625 mg GTUBE BID [facility] Last Admin: 07/28/20 08:44 Dose: 625 mg Documented by: Citalopram Hydrobromide (Celexa) 40 mg GTUBE DAILY [facility] Last Admin: 07/28/20 08:43 Dose: 40 mg Documented by: Gabapentin (Neurontin) 300 mg GTUBE TID [facility] Last Admin: 07/28/20 08:43 Dose: 300 mg Documented by: Glycopyrrolate (Robinul) 1 mg GTUBE DAILY PRN PRN Reason: Nausea/Vomiting R/T GERD Piperacillin Sod/Tazobactam (Sod 3.375 gm/ Sodium Chloride) 100 mls @ 25 mls/hr IV Q8H [facility] Last Admin: 07/28/20 08:45 Dose: 25 mls/hr Documented by: Levetiracetam (Keppra) 500 mg GTUBE BID [facility] Last Admin: 07/28/20 08:45 Dose: 500 mg Documented by: Metoclopramide HCl (Reglan) 5 mg GTUBE Q6H [facility] Last Admin: 07/28/20 06:07 Dose: 5 mg Documented by: Miscellaneous Medication (Centrum Multivit-Mineral Liq) 9 mg GTUBE DAILY [facility] Last Admin: 07/28/20 08:44 Dose: 9 mg Documented by: Water 75 ml GTUBE ASDIRECTED [facility] Omeprazole (Omeprazole) 20 mg GTUBE BID@0700,1700 [facility] Last Admin: 07/28/20 06:07 Dose: 20 mg Documented by: Polyethylene Glycol (Miralax) 17 gm GTUBE DAILY [facility] Last Admin: 07/28/20 08:45 Dose: 17 gm Documented by: Simethicone (Infants' Gas Relief) 134 mg GTUBE QID PRN PRN Reason: Gas Sodium Chloride (Saline Flush) 10 ml FLUSH ASDIRECTED PRN PRN Reason: Keep Vein Open Sucralfate (Carafate) 1 gm TOP QID PRN PRN Reason: STOMA IRRITATION Discontinued Medications Albuterol (Proventil Neb Soln) 2.5 mg NEB ONETIME ONE Stop: 07/26/20 08:56 Last Admin: 07/26/20 08:55 Dose: 2.5 mg Documented by: Albuterol/Ipratropium (Duoneb 3.0-0.5 Mg/3 Ml) 3 ml NEB ONETIME ONE Stop: 07/26/20 07:34 Last Admin: 07/26/20 07:38 Dose: 3 ml Documented by: Albuterol/Ipratropium (Duoneb 3.0-0.5 Mg/3 Ml) 3 ml NEB Q4H [facility] Last Admin: 07/26/20 13:27 Dose: 3 ml Documented by: Enoxaparin Sodium (Lovenox) 40 mg SUBCUT DAILY [facility] Heparin Sodium (Porcine) (Heparin Sodium) 5,000 units SUBCUT BID [facility] Lactated Ringer's (Ringers, Lactated) 1,000 mls @ 999 mls/hr IV ONETIME ONE Stop: 07/26/20 08:35 Last Admin: 07/26/20 07:44 Dose: 999 mls/hr Documented by: Piperacillin Sod/Tazobactam (Sod 3.375 gm/ Sodium Chloride) 100 mls @ 200 mls/hr IV STAT ONE Stop: 07/26/20 08:46 Last Admin: 07/26/20 08:17 Dose: 200 mls/hr Documented by: Lactated Ringer's (Ringers, Lactated) 1,000 mls @ 125 mls/hr IV ASDIRECTED [facility] Last Admin: 07/26/20 09:49 Dose: 125 mls/hr Documented by: Potassium Chloride/Dextrose/Sod Cl (D5 1/2 Ns W/ 20 Meq/L Kcl) 1,000 mls @ 100 mls/hr IV ASDIRECTED [facility] Last Admin: 07/26/20 13:46 Dose: 100 mls/hr Documented by: Methylprednisolone Sodium Succinate (Solu-Medrol) 125 mg IVPUSH ONETIME ONE Stop: 07/26/20 09:20 Last Admin: 07/26/20 10:05 Dose: 125 mg Documented by: - Exam General: Alert, Cooperative, No Acute Distress HEENT: Mucous Membr. Moist/[place] Neck: Supple, Trachea Midline, No Thyromegaly. No: Lymphadenopathy Lungs: Clear to Auscultation, Normal Respiratory Effort Cardiovascular: Regular Rate, Regular Rhythm, No Murmurs GI/Abdominal Exam: Normal Bowel Sounds, Soft, Non-Tender, No Organomegaly, No Distention, No Mass Extremities: Non-Tender, No Pedal Edema, Normal Capillary Refill Peripheral Pulses: 2+: Radial (L), Radial (R) Skin: Warm, Dry, Intact Neurological: No New Focal Deficit Sepsis Event Note - Evaluation Sepsis Screening Result: No Definite Risk - Focused Exam Vital Signs: Vital Signs Temp Temp Pulse Resp BP Pulse Ox Pulse Ox 07/28/20 08:00 93 L 10/11/20 06:00 36.3 C 57 L 19 111/61 96 07/28/20 02:00 36.4 C 56 L 17 118/60 91 L 07/27/20 22:00 36.2 C 71 17 117/61 98 - Problem List & Annotations (1) Aspiration pneumonia SNOMED Code(s): 651395269 Code(s): J69.0 - PNEUMONITIS DUE TO INHALATION OF FOOD AND VOMIT Status: Acute Current Visit: No Qualifiers: Aspiration pneumonia type: unspecified Laterality: right Lung location: lower lobe of lung Qualified Code(s): J69.0 - Pneumonitis due to inhalation of food and vomit (2) Wheezing SNOMED Code(s): 75703851 Code(s): R06.2 - WHEEZING Status: Chronic Current Visit: No (3) Acute respiratory failure with hypoxia SNOMED Code(s): 37683272, 912428929 Code(s): J96.01 - ACUTE RESPIRATORY FAILURE WITH HYPOXIA Status: Acute Current Visit: No (4) Dependence on supplemental oxygen SNOMED Code(s): 944214888650 Code(s): Z99.81 - DEPENDENCE ON SUPPLEMENTAL OXYGEN Status: Chronic Current Visit: No (5) Moderate intellectual disabilities SNOMED Code(s): 95540957 Code(s): F71 - MODERATE INTELLECTUAL DISABILITIES Status: Chronic Current Visit: No (6) Nonverbal SNOMED Code(s): 696485839 Code(s): R47.01 - APHASIA Status: Chronic Current Visit: No (7) G tube feedings SNOMED Code(s): 170903686, 748440616, 130391549 Code(s): Z93.1 - GASTROSTOMY STATUS Status: Chronic Current Visit: No (8) Gastroparesis SNOMED Code(s): 850530769 Code(s): K31.84 - GASTROPARESIS Status: Chronic Current Visit: No Annotation/Comment:: Home medications continued. (9) Constipation SNOMED Code(s): 49126061 Code(s): K59.00 - CONSTIPATION, UNSPECIFIED Status: Chronic Current Visit: No Qualifiers: Constipation type: unspecified constipation type Qualified Code(s): K59.00 - Constipation, unspecified (10) Seizure disorder SNOMED Code(s): 853548606 Code(s): G40.909 - EPILEPSY, UNSP, NOT INTRACTABLE, WITHOUT STATUS EPILEPTICUS Status: Chronic Current Visit: No (11) Depression SNOMED Code(s): 88293712 Code(s): F32.9 - MAJOR DEPRESSIVE DISORDER, SINGLE EPISODE, UNSPECIFIED Status: Chronic Current Visit: No Qualifiers: Depression Type: major depressive disorder Major depression recurrence: recurrent Active/Remission status: in full remission Qualified Code(s): F33.42 - Major depressive disorder, recurrent, in full remission - Problem List Review Problem List Initiated/Reviewed/Updated: Yes - My Orders Last 24 Hours: My Active Orders 07/27/20 09:10 Communication Order [RC] DAILY - Assessment Assessment:: 69 yo male admitted for aspiration pneumonia. Back to baseline from a symptom/behavior standpoint, oxygen requirements still above baseline but are improving. - Plan Plan:: #1 Aspiration Pneumonia #2 Wheezing #3 Acute on chronic hypoxic respiratory failure #4 Dependence on supplemental oxygen - Patient continues to improve nicely. Breathing is back to baseline. Will continue to wean oxygen as able. - Patient has never met sepsis criteria. - Will to transition to augmentin today. - Will change DuoNebs to QID. - Oxygen per high flow nasal cannula during the day. Will wean as able. - BiPap at night as per usual settings. #5 Moderate Intellectual Disabilities #6 Nonverbal #7 G-tube feedings - Patient is actually more alert than he usually is when he presents for aspiration pneumonia. - Continue tube feedings. #8 Gastroparesis #9 Constipation #10 Seizure Disorder #11 Depression - Continue current home medications. Patient will remain on acute today - anticipate he will discharged back to the care center tomorrow. Code status is DNR/DNI. No indication for pharmacologic VTE prophylaxis given patient is at his usual functional baseline.
[2020-07-28] MEDS: Amoxicillin/Clavulanate K 875-125 MG Tab GTUBE SCH (19:38)
[2020-07-28] MEDS: Sodium Chloride 0.9% 10 ML Syringe FLUSH PRN (20:01)
[2020-07-29] MEDS: Metoclopramide 5 MG Tab GTUBE SCH ×2 (00:09→06:04)
[2020-07-29] MEDS: OMEPRAZOLE 20 MG/10 ML GTUBE SCH (06:04)
[2020-07-29] MEDS: Albuterol/Ipratropium 3.0-0.5 MG/3 ML Neb Soln NEB SCH ×2 (06:04→11:01)
[2020-07-29] MEDS: Calcium Carbonate 1,250 MG/5 ML Susp 5 ML UD Cup GTUBE SCH (09:00)
[2020-07-29] MEDS: Multivit-Minerals/Ferrous Gluc 9 MG/15 ML 15 ml Cup GTUBE SCH (09:00)
[2020-07-29] MEDS: Polyethylene Glycol 3350 Powder 17 GM Packet GTUBE SCH (09:00)
[2020-07-29] MEDS: levETIRAcetam Soln 500 MG/5 ML Cup GTUBE SCH (09:01)
[2020-07-29] MEDS: Baclofen 10 MG Tab GTUBE SCH (09:01)
[2020-07-29] MEDS: Citalopram 20 MG Tab GTUBE SCH (09:01)
[2020-07-29] MEDS: Gabapentin 300 MG Cap GTUBE SCH (09:02)
[2020-07-29] MEDS: ARIPiprazole 5 MG Tab GTUBE SCH (09:02)
[2020-07-29] MEDS: Amoxicillin/Clavulanate K 875-125 MG Tab GTUBE SCH (09:02)
[2020-07-29] MEDS: Sodium Chloride 0.9% 10 ML Syringe FLUSH PRN (09:06)
--- NOTE | 2020-07-29 09:49 | PCM.DCSUM1 ---
Discharge Summary - Hospital Course Brief History: Mr. Omalley is a 69 yo male who was admitted for aspiration pneumonia after presenting to the ER for evaluation of hypoxia and respiratory distress. - Discharge Data Discharge Date: 07/29/20 Discharge Disposition: DC/Tfer to SNF 03 Condition: Good - Referral to Home Health Primary Care Physician: Vita Sinclair MD - Discharge Diagnosis/Problem(s) (1) Aspiration pneumonia SNOMED Code(s): 078875275 ICD Code: J69.0 - PNEUMONITIS DUE TO INHALATION OF FOOD AND VOMIT Status: Acute Current Visit: No Qualifiers: Aspiration pneumonia type: unspecified Laterality: right Lung location: lower lobe of lung Qualified Code(s): J69.0 - Pneumonitis due to inhalation of food and vomit (2) Wheezing SNOMED Code(s): 36765648 ICD Code: R06.2 - WHEEZING Status: Chronic Current Visit: No (3) Acute respiratory failure with hypoxia SNOMED Code(s): 88104584, 661041519 ICD Code: J96.01 - ACUTE RESPIRATORY FAILURE WITH HYPOXIA Status: Acute Current Visit: No (4) Dependence on supplemental oxygen SNOMED Code(s): 537786981386 ICD Code: Z99.81 - DEPENDENCE ON SUPPLEMENTAL OXYGEN Status: Chronic Current Visit: No (5) Moderate intellectual disabilities SNOMED Code(s): 45464924 ICD Code: F71 - MODERATE INTELLECTUAL DISABILITIES Status: Chronic Current Visit: No (6) Nonverbal SNOMED Code(s): 483347833 ICD Code: R47.01 - APHASIA Status: Chronic Current Visit: No (7) G tube feedings SNOMED Code(s): 757244759, 259075728, 110348426 ICD Code: Z93.1 - GASTROSTOMY STATUS Status: Chronic Current Visit: No (8) Gastroparesis SNOMED Code(s): 135287907 ICD Code: K31.84 - GASTROPARESIS Status: Chronic Current Visit: No Problem Details: Home medications continued. (9) Constipation SNOMED Code(s): 76840878 ICD Code: K59.00 - CONSTIPATION, UNSPECIFIED Status: Chronic Current Visit: No Qualifiers: Constipation type: unspecified constipation type Qualified Code(s): K59.00 - Constipation, unspecified (10) Seizure disorder SNOMED Code(s): 958273996 ICD Code: G40.909 - EPILEPSY, UNSP, NOT INTRACTABLE, WITHOUT STATUS EPILEPTICUS Status: Chronic Current Visit: No (11) Depression SNOMED Code(s): 00817972 ICD Code: F32.9 - MAJOR DEPRESSIVE DISORDER, SINGLE EPISODE, UNSPECIFIED Status: Chronic Current Visit: No Qualifiers: Depression Type: major depressive disorder Major depression recurrence: recurrent Active/Remission status: in full remission Qualified Code(s): F33.42 - Major depressive disorder, recurrent, in full remission - Patient Summary/Data Operative Procedure(s) Performed: none Complications: none Consults: none Labs Pending at D/C: none Recommended Follow-up Testing/Procedures: none Planned Operative Procedure(s) after DC: none Hospital Course: The patient was evaluated in the ER and diagnosed with aspiration pneumonia. He did require BiPap in the ER for a short period of time but then was weaned to high flow nasal cannula. He was started on IV antibiotics, which were continued through yesterday. His tube feedings were held the first day of admission and then resumed on hospital day #2. He was transitioned to oral antibiotics yesterday without any issues. Will plan to treat for a total of a 5 day course given mild nature of symptoms overall. He was treated with more frequent nebulizer treatments up until yesterday when he was weaned back to his usual QID. His mentation remained at baseline throughout his hospitalization. His hospital stay was otherwise uncomplicated. - Patient Instructions Diet: NPO Diet, Other: tube feeding diet Activity: As Tolerated Notify Provider of: Fever, Increased Pain - Discharge Plan *PRESCRIPTION DRUG MONITORING PROGRAM REVIEWED*: No *COPY OF PRESCRIPTION DRUG MONITORING REPORT IN PATIENT SANDY: No Prescriptions/Med Rec: Amoxicillin/Clavulanate K [Augmentin 875-125 MG] 1 tab GTUBE BID #3 tablet Home Medications: Home Meds levETIRAcetam [Keppra] 5 ml GTUBE BID 02/06/14 [History] polyethylene glycoL 3350 [MiraLAX] 17 gram GTUBE DAILY 02/06/14 [History] Baclofen 20 mg GTUBE QID 05/27/15 [History] Calcium Carbonate [Calcium Carbonate 250 MG/ML Susp] 2.5 ml GTUBE BID 05/27/15 [History] Escitalopram [Lexapro] 20 mg GTUBE DAILY 05/27/15 [History] Multivitamins with Iron/Min [Centrum] 15 ml GTUBE DAILY 06/30/15 [History] Sucralfate 1 gram TOP QID PRN 07/01/15 [History] ARIPiprazole [Abilify] 5 mg GTUBE DAILY 12/29/15 [History] Metoclopramide [Reglan] 5 mg GTUBE Q6H 12/29/15 [History] Albuterol/Ipratropium [DuoNeb 3.0-0.5 MG/3 ML] 3 ml NEB QIDRT neb 02/20/16 [Rx] Simethicone [Infants' Gas Relief] 2 ml GTUBE QID PRN 01/20/18 [History] Water 75 ml GTUBE ASDIRECTED 01/20/18 [History] Gabapentin [Neurontin] 300 mg GTUBE TID 05/07/20 [History] Omeprazole/Sodium Bicarbonate [Zegerid OTC 20-1,100 MG] 1 cap GTUBE BID 05/07/20 [History] Bisacodyl [Gentle Laxative] 10 mg RC DAILY PRN 07/26/20 [History] Glycopyrrolate [Robinul] 1 mg PO DAILY PRN 07/26/20 [History] Amoxicillin/Clavulanate K [Augmentin 875-125 MG] 1 tab GTUBE BID #3 tablet 07/29/20 [Rx] Patient Handouts: Aspiration Pneumonia Forms: ED Department Discharge Referrals: Vita Sinclair MD [Primary Care Provider] - - Discharge Summary/Plan Comment DC Time >30 min.: No - General Info Date of Service: 07/29/20 Subjective Update: Patient with no overnight events. Has been weaned to regular nasal cannula and is saturating well on 3L. Nursing without concerns this morning. - Review of Systems Systems Review Comment: unable to assess as patient is non-verbal - Patient Data Vitals - Most Recent: Last Vital Signs Temp 36.4 C 07/29/20 05:35 Pulse 66 07/29/20 05:35 Resp 18 07/29/20 05:35 BP 122/78 07/29/20 05:35 Pulse Ox 95 07/29/20 08:00 Weight - Most Recent: 53.524 kg I&O - Last 24 hours: Intake & Output 07/28/20 07/29/20 07/29/20 22:59 06:59 14:59 Intake Total 1730 320 Balance 1730 320 Lab Results - Last 24 hrs: Laboratory Results - last 24 hr 07/29/20 Range/Units 08:50 SARS CoV-2 RNA Rapid JUAN Negative (NEGATIVE) POLO Results - Last 24 hrs: Microbiology 07/26/20 08:20 Aerobic Blood Culture - Preliminary Blood - Venous - Lab Draw NO GROWTH AFTER 3 DAYS Anaerobic Blood Culture - Final 07/26/20 08:12 Aerobic Blood Culture - Preliminary Blood - Venous NO GROWTH AFTER 3 DAYS Anaerobic Blood Culture - Final Med Orders - Current: Current Medications Albuterol/Ipratropium (Duoneb 3.0-0.5 Mg/3 Ml) 3 ml NEB QIDRT [facility] Last Admin: 07/29/20 06:04 Dose: 3 ml Documented by: Amoxicillin/Clavulanate Potassium (Augmentin 875 Mg/125 Mg) 1 tab GTUBE BID [facility] Last Admin: 07/29/20 09:02 Dose: 1 tab Documented by: Aripiprazole (Abilify) 5 mg GTUBE DAILY [facility] Last Admin: 07/29/20 09:02 Dose: 5 mg Documented by: Baclofen (Lioresal) 20 mg GTUBE QID [facility] Last Admin: 07/29/20 09:01 Dose: 20 mg Documented by: Calcium Carbonate/Glycine (Calcium Carbonate 250 Mg/Ml Susp) 625 mg GTUBE BID [facility] Last Admin: 07/29/20 09:00 Dose: 625 mg Documented by: Citalopram Hydrobromide (Celexa) 40 mg GTUBE DAILY [facility] Last Admin: 07/29/20 09:01 Dose: 40 mg Documented by: Gabapentin (Neurontin) 300 mg GTUBE TID [facility] Last Admin: 07/29/20 09:02 Dose: 300 mg Documented by: Glycopyrrolate (Robinul) 1 mg GTUBE DAILY PRN PRN Reason: Nausea/Vomiting R/T GERD Levetiracetam (Keppra) 500 mg GTUBE BID [facility] Last Admin: 07/29/20 09:01 Dose: 500 mg Documented by: Metoclopramide HCl (Reglan) 5 mg GTUBE Q6H [facility] Last Admin: 07/29/20 06:04 Dose: 5 mg Documented by: Miscellaneous Medication (Centrum Multivit-Mineral Liq) 9 mg GTUBE DAILY [facility] Last Admin: 07/29/20 09:00 Dose: 9 mg Documented by: Water 75 ml GTUBE ASDIRECTED [facility] Omeprazole (Omeprazole) 20 mg GTUBE BID@0700,1700 [facility] Last Admin: 07/29/20 06:04 Dose: 20 mg Documented by: Polyethylene Glycol (Miralax) 17 gm GTUBE DAILY [facility] Last Admin: 07/29/20 09:00 Dose: 17 gm Documented by: Simethicone (Infants' Gas Relief) 134 mg GTUBE QID PRN PRN Reason: Gas Sodium Chloride (Saline Flush) 10 ml FLUSH ASDIRECTED PRN PRN Reason: Keep Vein Open Last Admin: 07/29/20 09:06 Dose: 10 ml Documented by: Sucralfate (Carafate) 1 gm TOP QID PRN PRN Reason: STOMA IRRITATION Discontinued Medications Albuterol (Proventil Neb Soln) 2.5 mg NEB ONETIME ONE Stop: 07/26/20 08:56 Last Admin: 07/26/20 08:55 Dose: 2.5 mg Documented by: Albuterol/Ipratropium (Duoneb 3.0-0.5 Mg/3 Ml) 3 ml NEB ONETIME ONE Stop: 07/26/20 07:34 Last Admin: 07/26/20 07:38 Dose: 3 ml Documented by: Albuterol/Ipratropium (Duoneb 3.0-0.5 Mg/3 Ml) 3 ml NEB Q4H [facility] Last Admin: 07/26/20 13:27 Dose: 3 ml Documented by: Albuterol/Ipratropium (Duoneb 3.0-0.5 Mg/3 Ml) 3 ml NEB Q4H [facility] Last Admin: 07/28/20 07:56 Dose: 3 ml Documented by: Enoxaparin Sodium (Lovenox) 40 mg SUBCUT DAILY [facility] Heparin Sodium (Porcine) (Heparin Sodium) 5,000 units SUBCUT BID [facility] Lactated Ringer's (Ringers, Lactated) 1,000 mls @ 999 mls/hr IV ONETIME ONE Stop: 07/26/20 08:35 Last Admin: 07/26/20 07:44 Dose: 999 mls/hr Documented by: Piperacillin Sod/Tazobactam (Sod 3.375 gm/ Sodium Chloride) 100 mls @ 200 mls/hr IV STAT ONE Stop: 07/26/20 08:46 Last Admin: 07/26/20 08:17 Dose: 200 mls/hr Documented by: Lactated Ringer's (Ringers, Lactated) 1,000 mls @ 125 mls/hr IV ASDIRECTED [facility] Last Admin: 07/26/20 09:49 Dose: 125 mls/hr Documented by: Potassium Chloride/Dextrose/Sod Cl (D5 1/2 Ns W/ 20 Meq/L Kcl) 1,000 mls @ 100 mls/hr IV ASDIRECTED [facility] Last Admin: 07/26/20 13:46 Dose: 100 mls/hr Documented by: Piperacillin Sod/Tazobactam (Sod 3.375 gm/ Sodium Chloride) 100 mls @ 25 mls/hr IV Q8H [facility] Last Admin: 07/28/20 08:45 Dose: 25 mls/hr Documented by: Methylprednisolone Sodium Succinate (Solu-Medrol) 125 mg IVPUSH ONETIME ONE Stop: 07/26/20 09:20 Last Admin: 07/26/20 10:05 Dose: 125 mg Documented by: - Exam General: Reports: Alert, Cooperative, No Acute Distress HEENT: Reports: Mucous Membr. Moist/[place] Neck: Reports: Supple, Trachea Midline, No Thyromegaly. Denies: Lymphadenopathy Lungs: Reports: Clear to Auscultation, Normal Respiratory Effort Cardiovascular: Reports: Regular Rate, Regular Rhythm, No Murmurs GI/Abdominal Exam: Normal Bowel Sounds, Soft, Non-Tender, No Organomegaly, No Distention, No Mass Extremities: Non-Tender, No Pedal Edema, Normal Capillary Refill Skin: Reports: Warm, Dry, Intact Neurological: Reports: No New Focal Deficit *Q Meaningful Use (DIS) - VTE *Q VTE Pharmacological Contraindications *Q: Risk of Bleeding
[2020-07-29 10:03] VITALS: BP 90/46; PULSE 70
== END 2020-07-29 11:25 | DRG 177 ==
LOC: VM.ED 07:24 → VM.MS 11:39
PROVIDERS: ADMIT Family Medicine; ATTEND Family Medicine
PROC: 5A0945A Assistance with Respiratory Ventilation, 24-96 Consecutive Hours, High Flow/Velocity Cannula (ICD-10-PCS; principal; 2020-07-26)
DX: J69.0 Pneumonitis due to inhalation of food and vomit (principal); Z66 Do not resuscitate; G82.50 Quadriplegia, unspecified; J96.21 Acute and chronic respiratory failure with hypoxia; R47.01 Aphasia; Z87.19 Personal history of other diseases of the digestive system; F71 Moderate intellectual disabilities; K31.84 Gastroparesis; K59.00 Constipation, unspecified; G40.909 Epilepsy, unspecified, not intractable, without status epilepticus; F33.42 Major depressive disorder, recurrent, in full remission; M81.0 Age-related osteoporosis without current pathological fracture; H52.00 Hypermetropia, unspecified eye; H60.90 Unspecified otitis externa, unspecified ear; Z88.8 Allergy status to other drugs, medicaments and biological substances; K59.09 Other constipation; R15.9 Full incontinence of feces; R32 Unspecified urinary incontinence; G80.9 Cerebral palsy, unspecified; F32.9 Major depressive disorder, single episode, unspecified; Z99.81 Dependence on supplemental oxygen; Z93.1 Gastrostomy status; Z79.899 Other long term (current) drug therapy; Z88.6 Allergy status to analgesic agent; Z86.010 Personal history of colon polyps; Z20.828 Contact with and (suspected) exposure to other viral communicable diseases
CPT/HCPCS: 36415; 71045; 80053; 81003; 82803; 83605; 84484; 85025; 86140; 87040 ×2; 93005; 94640 ×4; 94660; 94760; 96361; 96365; 96375; 99285; J2543; J2930; J7050; J7120 ×2; U0002; 80048; A9270-GY; J3480; J7613-GY; J7620-GY

== ENCOUNTER 2021-01-23 20:03 | Emergency (ER) | payer MEDICARE, MEDICAID ==
[2021-01-23 20:26] VITALS: BP 130/84; PULSE 65
--- NOTE | 2021-01-23 20:29 | EDM.PDOC ---
ED HPI GENERAL MEDICAL PROBLEM - General Chief Complaint: Lower Extremity Injury/Pain Time Seen by Provider: 01/23/21 20:13 Source of Information: Reports: Shelter Records - History of Present Illness INITIAL COMMENTS - FREE TEXT/NARRATIVE: Anil is a 70 y/o male half-way resident who lives at [facility]. He was sent to the ER by nursing staff there after it was reported that his right lower extremity was cooler to touch. No specific report of an injury was documented, but patient is non-verbal and he is a complete transfer with a lift due to his cerebral palsy status. - Related Data Allergies Allergy/AdvReac Type Severity Reaction Status Date / Time ibuprofen Allergy Other Verified 01/23/21 20:28 NSAIDS (Non-Steroidal AdvReac Intermediate Other Verified 01/23/21 20:28 Anti-Inflamma Home Meds: Home Meds levETIRAcetam [Keppra] 5 ml GTUBE BID 02/06/14 [History] Baclofen 20 mg GTUBE QID 05/27/15 [History] Calcium Carbonate [Calcium Carbonate 250 MG/ML Susp] 2.5 ml GTUBE BID 05/27/15 [History] Escitalopram [Lexapro] 20 mg GTUBE DAILY 05/27/15 [History] Multivitamins with Iron/Min [Centrum] 15 ml GTUBE DAILY 06/30/15 [History] Sucralfate 1 gram TOP QID PRN 07/01/15 [History] ARIPiprazole [Abilify] 5 mg GTUBE DAILY 12/29/15 [History] Metoclopramide [Reglan] 5 mg GTUBE Q6H 12/29/15 [History] Albuterol/Ipratropium [DuoNeb 3.0-0.5 MG/3 ML] 3 ml NEB QIDRT neb 02/20/16 [Rx] Simethicone [Infants' Gas Relief] 2 ml GTUBE QID PRN 01/20/18 [History] Water 75 ml GTUBE ASDIRECTED 01/20/18 [History] Gabapentin [Neurontin] 300 mg GTUBE TID 05/07/20 [History] Omeprazole/Sodium Bicarbonate [Zegerid OTC 20-1,100 MG] 1 cap GTUBE BID 05/07/20 [History] Bisacodyl [Gentle Laxative] 10 mg RC DAILY PRN 07/26/20 [History] Glycopyrrolate [Robinul] 1 mg PO DAILY PRN 07/26/20 [History] Acetaminophen [Tylenol Arthritis Pain] 650 mg PO Q4HR PRN 01/23/21 [History] L.acidoph,Paracasei, B.lactis [Probiotic] 1 each PO BID 01/23/21 [History] Loperamide HCl [Imodium A-D] 20 mg PO ASDIRECTED PRN 01/23/21 [History] Magnesium Hydroxide [Milk of Magnesia] 30 ml PO DAILY 01/23/21 [History] polyethylene glycoL 3350 [Miralax] 17 gm PO DAILY PRN 01/23/21 [History] Past Medical History HEENT History: Reports: Cataract, Other (See Below) Other HEENT History: otitis externa, hypermetropia Cardiovascular History: Reports: None Respiratory History: Reports: Pneumonia, Recurrent, SOB Gastrointestinal History: Reports: Bowel Obstruction, Chronic Constipation, Colon Polyp, Fecal Incontinence, GI Bleed, Other (See Below) Other Gastrointestinal History: inguinal hernia, gastroparesis Genitourinary History: Reports: Urinary Incontinence Musculoskeletal History: Reports: Osteoporosis Other Musculoskeletal History: Cerebral Palsy deformation Neurological History: Reports: Cerebral Palsy, Seizure Other Neuro History: Moderate intellectual disabilities Psychiatric History: Reports: Depression Endocrine/Metabolic History: Reports: Osteoporosis Hematologic History: Reports: None Immunologic History: Reports: None Oncologic (Cancer) History: Reports: None Dermatologic History: Reports: Other (See Below) Other Dermatologic History: ulcer of right foot - Infectious Disease History Infectious Disease History: Reports: None - Past Surgical History GI Surgical History: Reports: Other (See Below) Other GI Surgeries/Procedures: Gtube Musculoskeletal Surgical History: Reports: Other (See Below) Other Musculoskeletal Surgeries/Procedures:: amputation of right fifth toe; numerous tendon repair transfers Social & Family History - Family History Family Medical History: No Pertinent Family History Cardiac: Reports: CAD, PA Oncologic: Reports: Pancreatic - Caffeine Use Caffeine Use: Reports: None - Living Situation & Occupation Living situation: Reports: Single, Extended Care Facility Occupation: Disabled Review of Systems - Review of Systems Review Of Systems: Unable To Obtain Reason Not Obtained: Patient unable to answer due to condition ED EXAM, GENERAL - Physical Exam Exam: See Below Exam Limited By: Other (Patient has cerrebal palsy and is nonverbal) General Appearance: Alert, Other (elderly male, he is lying in the ER cart. He is not verbal, but does smile and make eye contact with [employer]PERVISOR when she enters the room.) Eye Exam: Bilateral Eye: PERRL Ears: Hearing Grossly Normal Nose: Normal Inspection Throat/Mouth: Normal Inspection, Normal Lips Head: Atraumatic, Normocephalic Neck: Normal Inspection Respiratory/Chest: No Respiratory Distress, Lungs Clear Cardiovascular: Normal Peripheral Pulses, Regular Rate, Rhythm GI/Abdominal: Normal Bowel Sounds, Soft (Male) Exam: Deferred Rectal (Males) Exam: Deferred Extremities: Other (right lower extremity/foot is slightly reddened and cooler to touch than the left; note + pedal pulses with doppler and are equal to pulses on the left; note bruising over the anterior aspect of the right foot, that is slightly yellowish in appearance) Neurological: Alert, Other (At baseline) Skin Exam: Warm, Dry, Intact, Normal Color Course - Vital Signs Text/Narrative:: 2013 The patient was seen by the [employer]PER[employer]. Pulses noted in both feet with Doppler. Xray ordered. Last Recorded V/S: Last Vital Signs Temp 36.3 C 01/23/21 20:13 Pulse 65 01/23/21 20:13 Resp 18 01/23/21 20:13 BP 130/84 01/23/21 20:13 Pulse Ox 92 L 01/23/21 20:13 - Orders/Labs/Meds Orders: Active Orders 24 hr Category Date Time Status Ankle 2V Rt [CR] Stat Exams 01/23/21 20:24 Ordered Foot 2V Rt [CR] Stat Exams 01/23/21 20:24 Ordered - Radiology Interpretation Free Text/Narrative:: XR Right Foot 2V-no acute fx noted (see final report) XR Right Ankle 2V-no acute fx noted (see final report) Departure - Departure Time of Disposition: 21:00 Disposition: DC/[facility]fer to [facility] Condition: Good Clinical Impression: [facility] resident Lower extremity injury Qualifiers: Encounter type: initial encounter Laterality: right Qualified Code(s): S89.91XA - Unspecified injury of right lower leg, initial encounter - Discharge Information *PRESCRIPTION DRUG MONITORING PROGRAM REVIEWED*: Not Applicable *COPY OF PRESCRIPTION DRUG MONITORING REPORT IN PATIENT SANDY: Not Applicable Instructions: Crush Injury of the Foot Forms: ED Department Discharge Additional Instructions: -Use prn acetaminophen as needed for pain -Monitor right lower extremity for further injuries -Have patient seen by PCP in 1 week for recheck, sooner if other concerns -Return to ER as needed Sepsis Event Note (ED) - Evaluation Sepsis Screening Result: No Definite Risk - Focused Exam Vital Signs: Vital Signs Temp Pulse Resp BP Pulse Ox 01/23/21 20:13 36.3 C 65 18 130/84 92 L - My Orders Last 24 Hours: My Active Orders 01/23/21 20:24 Ankle 2V Rt [CR] Stat Foot 2V Rt [CR] Stat - Assessment/Plan Last 24 Hours: My Active Orders 01/23/21 20:24 Ankle 2V Rt [CR] Stat Foot 2V Rt [CR] Stat
--- NOTE | 2021-01-24 08:51 | CR ---
[id number] RAD/RAD Foot Right 2V; [id number] RAD/RAD Ankle Right 2V EXAM: RAD Ankle Right 2V, RAD Foot Right 2V INDICATION: RT LOWER EXT COOL TO TOUCH COMPARISON: None. DISCUSSION: Significant hindfoot valgus and pes planus deformity. 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 Osteopenia. No acute fracture or dislocation is identified. Previous amputation of the fifth phalanges. IMPRESSION: 1. No acute findings. Clinton Faustin MD 01/24/21 0850 Thank you for allowing us to participate in the care of your patient.
== END 2021-01-23 22:00 ==
LOC: VM.ED 20:03
DX: S90.31XA Contusion of right foot, initial encounter (principal); G80.9 Cerebral palsy, unspecified; Z88.6 Allergy status to analgesic agent; Z88.8 Allergy status to other drugs, medicaments and biological substances; Z79.899 Other long term (current) drug therapy; X58.XXXA Exposure to other specified factors, initial encounter
CPT/HCPCS: 73600-RT; 73620-RT; 99283; 99284-25

== ENCOUNTER 2021-03-15 16:30 | Emergency (ER) | payer MEDICARE, MEDICAID ==
--- NOTE | 2021-03-15 16:49 | EDM.PDOC ---
ED HPI GENERAL MEDICAL PROBLEM - General Stated Complaint: ED VISIT Time Seen by Provider: 03/15/21 16:44 Source of Information: Reports: Assisted Records - History of Present Illness INITIAL COMMENTS - FREE TEXT/NARRATIVE: Anil is a 70 y/o [facility] resident who arrives via ambulance to e his gtube replaced. L[facility]STOCK SLAUGHTERER from [facility] had called and reported that the tube had been pulled out and resident being sent here to have it replaced. - Related Data Allergies Allergy/AdvReac Type Severity Reaction Status Date / Time ibuprofen Allergy Other Verified 03/15/21 16:48 NSAIDS (Non-Steroidal AdvReac Intermediate Other Verified 03/15/21 16:48 Anti-Inflamma Home Meds: Home Meds levETIRAcetam [Keppra] 5 ml GTUBE BID 02/06/14 [History] Baclofen 20 mg GTUBE QID 05/27/15 [History] Calcium Carbonate [Calcium Carbonate 250 MG/ML Susp] 2.5 ml GTUBE BID 05/27/15 [History] Escitalopram [Lexapro] 20 mg GTUBE DAILY 05/27/15 [History] Multivitamins with Iron/Min [Centrum] 15 ml GTUBE DAILY 06/30/15 [History] Sucralfate 1 gram TOP QID PRN 07/01/15 [History] ARIPiprazole [Abilify] 5 mg GTUBE DAILY 12/29/15 [History] Metoclopramide [Reglan] 5 mg GTUBE Q6H 12/29/15 [History] Albuterol/Ipratropium [DuoNeb 3.0-0.5 MG/3 ML] 3 ml NEB QIDRT neb 02/20/16 [Rx] Simethicone [Infants' Gas Relief] 2 ml GTUBE QID PRN 01/20/18 [History] Water 30 ml GTUBE ASDIRECTED 01/20/18 [History] Gabapentin [Neurontin] 300 mg GTUBE TID 05/07/20 [History] Omeprazole/Sodium Bicarbonate [Zegerid OTC 20-1,100 MG] 1 cap GTUBE BID 05/07/20 [History] Bisacodyl [Gentle Laxative] 10 mg RC ASDIRECTED PRN 07/26/20 [History] Glycopyrrolate [Robinul] 1 mg PO DAILY PRN 07/26/20 [History] Acetaminophen [Tylenol Arthritis Pain] 650 mg PO Q4HR PRN 01/23/21 [History] L.acidoph,Paracasei, B.lactis [Probiotic] 1 each PO BID 01/23/21 [History] Loperamide HCl [Imodium A-D] 20 mg PO ASDIRECTED PRN 01/23/21 [History] Magnesium Hydroxide [Milk of Magnesia] 30 ml PO DAILY 01/23/21 [History] polyethylene glycoL 3350 [Miralax] 17 gm PO DAILY PRN 01/23/21 [History] Past Medical History HEENT History: Reports: Cataract, Other (See Below) Other HEENT History: otitis externa, hypermetropia Cardiovascular History: Reports: None Respiratory History: Reports: Pneumonia, Recurrent, SOB Gastrointestinal History: Reports: Bowel Obstruction, Chronic Constipation, Colon Polyp, Fecal Incontinence, GI Bleed, Other (See Below) Other Gastrointestinal History: inguinal hernia, gastroparesis Genitourinary History: Reports: Urinary Incontinence Musculoskeletal History: Reports: Osteoporosis Other Musculoskeletal History: Cerebral Palsy deformation Neurological History: Reports: Cerebral Palsy, Seizure Other Neuro History: Moderate intellectual disabilities Psychiatric History: Reports: Depression Endocrine/Metabolic History: Reports: Osteoporosis Hematologic History: Reports: None Immunologic History: Reports: None Oncologic (Cancer) History: Reports: None Dermatologic History: Reports: Other (See Below) Other Dermatologic History: ulcer of right foot - Infectious Disease History Infectious Disease History: Reports: None - Past Surgical History GI Surgical History: Reports: Other (See Below) Other GI Surgeries/Procedures: Gtube Musculoskeletal Surgical History: Reports: Other (See Below) Other Musculoskeletal Surgeries/Procedures:: amputation of right fifth toe; numerous tendon repair transfers Social & Family History - Family History Family Medical History: No Pertinent Family History Cardiac: Reports: CAD, [place] Oncologic: Reports: Pancreatic - Caffeine Use Caffeine Use: Reports: None - Living Situation & Occupation Living situation: Reports: Single, Extended Care Facility Occupation: Disabled Review of Systems - Review of Systems Review Of Systems: Unable To Obtain Reason Not Obtained: Patient unable to answer, ROS from [facility] records ED EXAM, GENERAL - Physical Exam Exam: See Below General Appearance: Alert, Other (Frail elderly male) Ears: Hearing Grossly Normal Head: Atraumatic Respiratory/Chest: No Respiratory Distress GI/Abdominal: Other (note well healed machine adjuster leader stoma in left upper quad of abdomen) Extremities: Other (contractured) Neurological: Alert, Other (at baseline for patient) Skin Exam: Warm, Dry, Normal Color Course - Vital Signs Text/Narrative:: [id number] The patient was seen by the BORE MILL OPERATOR. The Gtube device was cleansed with saline and flushed. The tube was replaced into the stoma and 10ml of saline placed in balloon. 1V Abd xray obtained with oral contrast to confirm placement in stomach. Xray was taken to confirm placement. The patient was then sent back to the [facility] in stable condition. Last Recorded V/S: Last Vital Signs Temp 36.3 C 03/15/21 16:30 Pulse 58 L 03/15/21 16:30 Resp 16 03/15/21 16:30 BP 141/82 H 03/15/21 16:30 Pulse Ox 97 03/15/21 16:30 - Orders/Labs/Meds Orders: Active Orders 24 hr Category Date Time Status Abdomen 1V Flat [CR] Stat Exams 03/15/21 16:44 Ordered - Radiology Interpretation Free Text/Narrative:: 1V Abd=appears that contrast is in stomach with gtube placed (will have radiology review) Departure - Departure Time of Disposition: 17:04 Disposition: DC/Tfer to [facility] Condition: Good Clinical Impression: Attention to G-tube, long-term resident - Discharge Information *PRESCRIPTION DRUG MONITORING PROGRAM REVIEWED*: Not Applicable *COPY OF PRESCRIPTION DRUG MONITORING REPORT IN PATIENT SANDY: Not Applicable Instructions: Gastrostomy Tube Replacement, Care After Additional Instructions: -Resume all [facility] orders -Follow up with PCP as needed Sepsis Event Note (ED) - Focused Exam Vital Signs: Vital Signs Temp Pulse Resp BP Pulse Ox 03/15/21 16:30 36.3 C 58 L 16 141/82 H 97 - My Orders Last 24 Hours: My Active Orders 03/15/21 16:44 Abdomen 1V Flat [CR] Stat - Assessment/Plan Last 24 Hours: My Active Orders 03/15/21 16:44 Abdomen 1V Flat [CR] Stat Assessment:: 1)Attention to GTube 2)Assisted Resident Plan: -Return back to [facility] -Resume all [facility] orders
[2021-03-15 16:54] VITALS: BP 141/82; PULSE 58
--- NOTE | 2021-03-15 18:01 | CR ---
[id number] RAD/RAD Abdomen Flat Plate 1V Exam: RAD Abdomen Flat Plate 1V Clinical Data: GASTROSTOMY TUBE PLACEMENT COMPARISON: NO PREVIOUS SIMILAR EXAM IS AVAILABLE FINDINGS: The gastrostomy tube appears to be in good position Consider injecting 30 cc of water-soluble contrast such as Omnipaque and obtaining a follow-up KUB if needed There is a moderate ileus IMPRESSION: GASTROSTOMY TUBE APPEARING TO BE IN GOOD POSITION Froylan Albert MD 03/15/21 1800 Thank you for allowing us to participate in the care of your patient.
== END 2021-03-15 17:32 ==
LOC: VM.ED 16:30
DX: Z43.1 Encounter for attention to gastrostomy (principal); Z88.8 Allergy status to other drugs, medicaments and biological substances; Y92.129 Unspecified place in nursing home as the place of occurrence of the external cause
CPT/HCPCS: 43752; 74018; 99283; 99284-25

== ENCOUNTER 2022-05-20 08:34 | Emergency (ER) | payer MEDICARE, MEDICAID ==
[2022-05-20 08:45] VITALS: BP 121/72; PULSE 64
== END 2022-05-20 09:36 | disposition short-term general hospital (02) ==
LOC: VM.ED 08:34
DX: K94.23 Gastrostomy malfunction (principal); Z88.8 Allergy status to other drugs, medicaments and biological substances; Z79.899 Other long term (current) drug therapy
CPT/HCPCS: 99283; 99284

== ENCOUNTER 2022-08-15 10:06 | Emergency (ER) | payer MEDICARE, MEDICAID ==
[2022-08-15 15:32] VITALS: BP 90/60; PULSE 60
== END 2022-08-15 10:45 | disposition home or self-care (01) ==
LOC: VM.ED 10:06
DX: K94.23 Gastrostomy malfunction (principal); Z88.8 Allergy status to other drugs, medicaments and biological substances
CPT/HCPCS: 32551; 99283

== ENCOUNTER 2023-02-21 23:35 | Emergency (ER) | payer MEDICARE, MEDICAID ==
[2023-02-22] MEDS: Iopamidol 612 MG/ML 50 ML SDV IVPUSH ONE (00:12)
[2023-02-22 00:42] VITALS: BP 127/67; PULSE 75
== END 2023-02-22 00:32 ==
LOC: VM.ED 23:35
DX: T85.528A Displacement of other gastrointestinal prosthetic devices, implants and grafts, initial encounter (principal); Z88.6 Allergy status to analgesic agent; Z79.899 Other long term (current) drug therapy
CPT/HCPCS: 74018; 99284; Q9967

== ENCOUNTER 2023-10-02 11:10 | Inpatient (IN) | payer MEDICARE, MEDICAID ==
[2023-10-02 10:41] LABS: BASOPHILS PERCENT AUTO 0.2 % (0.2-1.2); EOSINOPHILS ABSOLUTE AUTO 0.1 x10^3/uL (0.0-0.5); EOSINOPHILS PERCENT AUTO 0.7 % (0.0-4.0); HEMATOCRIT 40.8 % (40.0-52.0); HEMOGLOBIN 13.7 g/dL (14.0-18.0); IMMATURE GRAN ABSOLUTE AUTO 0.02 x10^3/uL (0.00-0.07); LYMPHOCYTES ABSOLUTE AUTO 0.7 x10^3/uL (1.0-4.8); MEAN CORPUSCULAR HEMOGLOBIN 31.6 pg (26.0-32.0); MEAN CORPUSCULAR HGB CONC 33.6 g/dL (32.0-36.0); MONOCYTES ABSOLUTE AUTO 0.7 x10^3/uL (0.0-0.8); NEUTROPHILS ABSOLUTE AUTO 15.8 x10^3/uL (1.8-7.7); RED BLOOD CELL COUNT 4.34 x10^6/uL (4.5-6.0); WHITE BLOOD CELL COUNT,WBC 17.4 x10^3/uL (4.0-10.0)
[2023-10-02 10:46] LABS: HCO3 VENOUS,POC 30 mmol/L (22-29); O2 SATURATION VENOUS,POC 99 %; PCO2 VENOUS,POC 40 mmHg (41-51); PH VENOUS,POC 7.48 pH (7.32-7.43); PO2 VENOUS,POC 111 mmHg
[2023-10-02 10:53] LABS: PLATELET COUNT,PLT 188 x10^3/uL (130-400)
[2023-10-02 10:56] LABS: INR 0.9 (0.9-1.1); PROTHROMBIN TIME 9.6 SEC (9.5-12.2); PTT,PARTIAL THROMBOPLSTIN TIME 26.2 SEC (23.6-33.6)
[2023-10-02 10:59] LABS: A/G RATIO 0.76; ALANINE AMINOTRANSFERASE,ALT 74 U/L (16-63); ALBUMIN 3.2 g/dL (3.4-5.0); ALKALINE PHOSPHATASE 145 U/L (46-116); ANION GAP 12.1 mmol/L (5-15); ASPARTATE AMNIOTRANSFERASE,AST 39 U/L (15-37); BILIRUBIN TOTAL 1.2 mg/dL (0.2-1.0); BLOOD UREA NITROGEN,BUN 18 mg/dL (7-18); C-REACTIVE PROTEIN 1.18 mg/dL (<=0.50); CALCIUM 9.3 mg/dL (8.5-10.1); CARBON DIOXIDE,CO2 32 mmol/L (21-32); CHLORIDE,CL 96 mmol/L (98-107); CREATININE 0.5 mg/dL (0.70-1.30); ESTIMATED GFR 109 mL/min (>=60); GLUCOSE RANDOM 110 mg/dL (70-99); MAGNESIUM 2.1 mg/dL (1.8-2.4); POTASSIUM,K 4.1 mmol/L (3.5-5.1); PROTEIN TOTAL,TP 7.4 g/dL (6.4-8.2); SODIUM,NA 136 mmol/L (136-145)
[~2023-10-02 11:10] MED LIST: Piperacillin/Tazobactam 4.5 GM in Sodium Chloride 0.9% 100 ML IV ONE; Sodium Chloride 0.9% 10 ML Syringe FLUSH PRN
[2023-10-02 11:23] LABS: CORONAVIRUS COVID-19 NAA NEGATIVE (NEGATIVE); INFLUENZA A NAA NEGATIVE (NEGATIVE); INFLUENZA B NAA NEGATIVE (NEGATIVE); RESPIRATORY SYNCYTIAL VIR NAA NEGATIVE (NEGATIVE)
[2023-10-02] MEDS ORDERED: Piperacillin/Tazobactam 4.5 GM in Sodium Chloride 0.9% 100 ML IV SCH (11:30)
[2023-10-02] MEDS ORDERED: Simethicone Drops 40 MG/0.6 ML 30 ML Bottle GTUBE PRN (12:10)
[2023-10-02] MEDS ORDERED: Menthol/Zinc Oxide Ointment 3.5 GM Tube TOP PRN (12:10)
[2023-10-02] MEDS ORDERED: guaiFENesin 100 MG/5 ML Soln 10 ML UD Cup GTUBE PRN (12:10)
[2023-10-02] MEDS: Albuterol/Ipratropium 3.0-0.5 MG/3 ML Neb Soln NEB SCH ×3 (14:34→22:05)
[2023-10-02] MEDS: Gabapentin 300 MG Cap GTUBE SCH ×2 (14:35→22:12)
[2023-10-02] MEDS: Metoclopramide 5 MG Tab GTUBE SCH ×2 (14:35→18:17)
[2023-10-02] MEDS: Baclofen 10 MG Tab GTUBE SCH ×3 (14:35→22:12)
[2023-10-02] MEDS: Acetaminophen Soln 160 MG/5 ML UD Cup GTUBE SCH ×2 (14:40→22:10)
[2023-10-02] MEDS: Piperacillin/Tazobactam 3.375 GM in Sodium Chloride 0.9% 100 ML IV SCH (18:06)
[2023-10-02] MEDS ORDERED: Albuterol/Ipratropium 3.0-0.5 MG/3 ML Neb Soln NEB SCH (21:00)
[2023-10-02] MEDS: levETIRAcetam Soln 500 MG/5 ML Cup GTUBE SCH (22:12)
[2023-10-02] MEDS: Omeprazole 20 MG Cap.CR GTUBE SCH (22:12)
[2023-10-02] MEDS: Menthol/Zinc Oxide Ointment 3.5 GM Tube TOP SCH (22:13)
[2023-10-02] MEDS: Budesonide 0.5 MG/2 ML Neb Susp NEB SCH (22:16)
[2023-10-03] MEDS: Metoclopramide 5 MG Tab GTUBE SCH ×5 (01:10→23:45)
[2023-10-03] MEDS: Piperacillin/Tazobactam 3.375 GM in Sodium Chloride 0.9% 100 ML IV SCH ×3 (01:38→17:24)
[2023-10-03] MEDS: Albuterol/Ipratropium 3.0-0.5 MG/3 ML Neb Soln NEB SCH ×6 (02:54→23:43)
[2023-10-03] MEDS: Budesonide 0.5 MG/2 ML Neb Susp NEB SCH ×2 (06:40→20:33)
[2023-10-03] MEDS: Multivit-Minerals/Ferrous Gluc 9 MG/15 ML 15 ml Cup GTUBE SCH (08:16)
[2023-10-03] MEDS: Gabapentin 300 MG Cap GTUBE SCH ×3 (08:17→20:29)
[2023-10-03] MEDS: Omeprazole 20 MG Cap.CR GTUBE SCH ×2 (08:17→20:29)
[2023-10-03] MEDS: Baclofen 10 MG Tab GTUBE SCH ×4 (08:17→20:29)
[2023-10-03] MEDS: Citalopram 20 MG Tab GTUBE SCH (08:17)
[2023-10-03] MEDS: levETIRAcetam Soln 500 MG/5 ML Cup GTUBE SCH ×2 (08:17→20:29)
[2023-10-03] MEDS: ARIPiprazole 5 MG Tab GTUBE SCH (08:17)
[2023-10-03] MEDS: Acetaminophen Soln 160 MG/5 ML UD Cup GTUBE SCH ×2 (08:18→12:46)
[2023-10-03] MEDS: Menthol/Zinc Oxide Ointment 3.5 GM Tube TOP SCH ×2 (08:20→20:30)
[2023-10-03 08:30] LABS: BASOPHILS PERCENT AUTO 0.3 % (0.2-1.2); EOSINOPHILS ABSOLUTE AUTO 0.2 x10^3/uL (0.0-0.5); EOSINOPHILS PERCENT AUTO 1.6 % (0.0-4.0); HEMATOCRIT 37.2 % (40.0-52.0); HEMOGLOBIN 12.4 g/dL (14.0-18.0); IMMATURE GRAN ABSOLUTE AUTO 0.01 x10^3/uL (0.00-0.07); LYMPHOCYTES ABSOLUTE AUTO 1.9 x10^3/uL (1.0-4.8); LYMPHOCYTES PERCENT AUTO 18.7 % (25.0-50.0); MEAN CORPUSCULAR HEMOGLOBIN 31.9 pg (26.0-32.0); MEAN CORPUSCULAR HGB CONC 33.3 g/dL (32.0-36.0); MEAN CORPUSCULAR VOLUME 95.6 fL (78.0-93.0); MONOCYTES ABSOLUTE AUTO 0.6 x10^3/uL (0.0-0.8); MONOCYTES PERCENT AUTO 5.8 % (2.0-11.0); NEUTROPHILS ABSOLUTE AUTO 7.4 x10^3/uL (1.8-7.7); NEUTROPHILS PERCENT AUTO 73.5 % (50.0-80.0); PLATELET COUNT,PLT 169 x10^3/uL (130-400); RED BLOOD CELL COUNT 3.89 x10^6/uL (4.5-6.0); WHITE BLOOD CELL COUNT,WBC 10.1 x10^3/uL (4.0-10.0)
[2023-10-03 08:51] LABS: ALANINE AMINOTRANSFERASE,ALT 59 U/L (16-63); ALBUMIN 2.8 g/dL (3.4-5.0); ALKALINE PHOSPHATASE 126 U/L (46-116); ASPARTATE AMNIOTRANSFERASE,AST 27 U/L (15-37); BILIRUBIN TOTAL 1.3 mg/dL (0.2-1.0); BLOOD UREA NITROGEN,BUN 17 mg/dL (7-18); CALCIUM 8.9 mg/dL (8.5-10.1); CARBON DIOXIDE,CO2 33 mmol/L (21-32); CHLORIDE,CL 96 mmol/L (98-107); CREATININE 0.6 mg/dL (0.70-1.30); GLUCOSE RANDOM 134 mg/dL (70-99); POTASSIUM,K 3.7 mmol/L (3.5-5.1); PROTEIN TOTAL,TP 6.8 g/dL (6.4-8.2); SODIUM,NA 135 mmol/L (136-145)
[2023-10-03 08:52] LABS: ANION GAP 9.7 mmol/L (5-15); ESTIMATED GFR 103 mL/min (>=60)
[2023-10-03] MEDS: ACETAMINOPHEN 650 MG/20.3 ML GTUBE SCH (20:34)
[2023-10-04] MEDS: Piperacillin/Tazobactam 3.375 GM in Sodium Chloride 0.9% 100 ML IV SCH ×3 (02:32→17:28)
[2023-10-04] MEDS: Albuterol/Ipratropium 3.0-0.5 MG/3 ML Neb Soln NEB SCH ×6 (02:32→22:25)
[2023-10-04] MEDS: Metoclopramide 5 MG Tab GTUBE SCH ×4 (05:50→23:35)
[2023-10-04] MEDS: Budesonide 0.5 MG/2 ML Neb Susp NEB SCH ×2 (06:10→20:24)
[2023-10-04 07:14] LABS: BASOPHILS PERCENT AUTO 0.4 % (0.2-1.2); EOSINOPHILS ABSOLUTE AUTO 0.3 x10^3/uL (0.0-0.5); EOSINOPHILS PERCENT AUTO 3.8 % (0.0-4.0); HEMATOCRIT 35.2 % (40.0-52.0); IMMATURE GRAN ABSOLUTE AUTO 0.01 x10^3/uL (0.00-0.07); LYMPHOCYTES ABSOLUTE AUTO 2.1 x10^3/uL (1.0-4.8); LYMPHOCYTES PERCENT AUTO 28.7 % (25.0-50.0); MEAN CORPUSCULAR HEMOGLOBIN 32.9 pg (26.0-32.0); MEAN CORPUSCULAR HGB CONC 34.1 g/dL (32.0-36.0); MEAN CORPUSCULAR VOLUME 96.4 fL (78.0-93.0); MONOCYTES ABSOLUTE AUTO 0.6 x10^3/uL (0.0-0.8); MONOCYTES PERCENT AUTO 7.5 % (2.0-11.0); NEUTROPHILS ABSOLUTE AUTO 4.4 x10^3/uL (1.8-7.7); NEUTROPHILS PERCENT AUTO 59.5 % (50.0-80.0); PLATELET COUNT,PLT 163 x10^3/uL (130-400); RED BLOOD CELL COUNT 3.65 x10^6/uL (4.5-6.0); WHITE BLOOD CELL COUNT,WBC 7.4 x10^3/uL (4.0-10.0)
[2023-10-04 07:30] LABS: A/G RATIO 0.65; ALANINE AMINOTRANSFERASE,ALT 50 U/L (16-63); ALBUMIN 2.6 g/dL (3.4-5.0); ALKALINE PHOSPHATASE 112 U/L (46-116); ASPARTATE AMNIOTRANSFERASE,AST 27 U/L (15-37); BILIRUBIN TOTAL 0.9 mg/dL (0.2-1.0); BLOOD UREA NITROGEN,BUN 11 mg/dL (7-18); CALCIUM 8.9 mg/dL (8.5-10.1); CARBON DIOXIDE,CO2 33 mmol/L (21-32); CHLORIDE,CL 101 mmol/L (98-107); CREATININE 0.5 mg/dL (0.70-1.30); GLUCOSE RANDOM 146 mg/dL (70-99); POTASSIUM,K 3.9 mmol/L (3.5-5.1); PROTEIN TOTAL,TP 6.6 g/dL (6.4-8.2); SODIUM,NA 140 mmol/L (136-145)
[2023-10-04 07:31] LABS: ANION GAP 9.9 mmol/L (5-15); ESTIMATED GFR 109 mL/min (>=60)
[2023-10-04] MEDS: ARIPiprazole 5 MG Tab GTUBE SCH (08:02)
[2023-10-04] MEDS: Menthol/Zinc Oxide Ointment 3.5 GM Tube TOP SCH ×2 (08:02→20:30)
[2023-10-04] MEDS: Baclofen 10 MG Tab GTUBE SCH ×4 (08:02→20:27)
[2023-10-04] MEDS: Omeprazole 20 MG Cap.CR GTUBE SCH ×2 (08:02→20:28)
[2023-10-04] MEDS: levETIRAcetam Soln 500 MG/5 ML Cup GTUBE SCH ×2 (08:03→20:27)
[2023-10-04] MEDS: Citalopram 20 MG Tab GTUBE SCH (08:03)
[2023-10-04] MEDS: Gabapentin 300 MG Cap GTUBE SCH ×3 (08:03→20:28)
[2023-10-04] MEDS: Multivit-Minerals/Ferrous Gluc 9 MG/15 ML 15 ml Cup GTUBE SCH (08:03)
[2023-10-04] MEDS: ACETAMINOPHEN 650 MG/20.3 ML GTUBE SCH ×2 (08:04→12:19)
[2023-10-04] MEDS ORDERED: Enoxaparin 30 MG/0.3 ML Syringe SUBCUT SCH (13:30)
[2023-10-04] MEDS: Acetaminophen Susp 160 MG/5 ML 120 ML Bottle GTUBE SCH (20:29)
[2023-10-05] MEDS: Piperacillin/Tazobactam 3.375 GM in Sodium Chloride 0.9% 100 ML IV SCH (02:16)
[2023-10-05] MEDS: Albuterol/Ipratropium 3.0-0.5 MG/3 ML Neb Soln NEB SCH ×2 (02:28→06:31)
[2023-10-05] MEDS: Budesonide 0.5 MG/2 ML Neb Susp NEB SCH (06:31)
[2023-10-05] MEDS: Metoclopramide 5 MG Tab GTUBE SCH (06:57)
[2023-10-05] MEDS: Multivit-Minerals/Ferrous Gluc 9 MG/15 ML 15 ml Cup GTUBE SCH (08:28)
[2023-10-05] MEDS: Omeprazole 20 MG Cap.CR GTUBE SCH (08:29)
[2023-10-05] MEDS: Gabapentin 300 MG Cap GTUBE SCH (08:29)
[2023-10-05] MEDS: Baclofen 10 MG Tab GTUBE SCH (08:29)
[2023-10-05] MEDS: levETIRAcetam Soln 500 MG/5 ML Cup GTUBE SCH (08:29)
[2023-10-05] MEDS: Menthol/Zinc Oxide Ointment 3.5 GM Tube TOP SCH (08:29)
[2023-10-05] MEDS: Citalopram 20 MG Tab GTUBE SCH (08:29)
[2023-10-05] MEDS: ARIPiprazole 5 MG Tab GTUBE SCH (08:29)
[2023-10-05] MEDS: Acetaminophen Susp 160 MG/5 ML 120 ML Bottle GTUBE SCH (08:31)
[2023-10-05] MEDS ORDERED: Amoxicillin/Clavulanate K 600-42.9 MG/5 ML Susp 125 ML Bottle PO SCH (09:15)
[2023-10-05] MEDS ORDERED: Simethicone Drops 40 MG/0.6 ML 30 ML Bottle GTUBE SCH (09:30)
[2023-10-05 10:50] VITALS: BP 103/55; PULSE 79
== END 2023-10-05 10:50 | DRG 177 ==
LOC: VM.ED 11:10 → VM.MS 11:23 → UNDOADMIN 11:23
PROVIDERS: ADMIT Nurse Practitioner Family; ATTEND Internal Medicine
DX: J69.0 Pneumonitis due to inhalation of food and vomit (principal); Z88.6 Allergy status to analgesic agent; Z79.899 Other long term (current) drug therapy; Z20.822 Contact with and (suspected) exposure to COVID-19; G80.0 Spastic quadriplegic cerebral palsy; J96.01 Acute respiratory failure with hypoxia; G40.909 Epilepsy, unspecified, not intractable, without status epilepticus; K31.84 Gastroparesis; F79 Unspecified intellectual disabilities; D64.9 Anemia, unspecified; K59.09 Other constipation; F32.9 Major depressive disorder, single episode, unspecified; M81.0 Age-related osteoporosis without current pathological fracture; Z93.1 Gastrostomy status; Z89.429 Acquired absence of other toe(s), unspecified side; Z88.8 Allergy status to other drugs, medicaments and biological substances; Z86.010 Personal history of colon polyps
CPT/HCPCS: 0241U; 36415; 71045; 80053; 82803; 83605; 83735; 84145; 85025; 85610; 85730; 86140; 87040; 87070; 94640; 94760; 99285; A9270-GY; J1650; J2543; J3490; J7620-GY

== ENCOUNTER 2023-12-12 02:19 | Emergency (ER) | payer MEDICARE, MEDICAID ==
[2023-12-12] MEDS ORDERED: Sodium Chloride 0.9% 10 ML Syringe FLUSH PRN (02:29)
[2023-12-12 02:59] LABS: BASOPHILS PERCENT AUTO 0.6 % (0.2-1.2); EOSINOPHILS ABSOLUTE AUTO 0.3 x10^3/uL (0.0-0.5); EOSINOPHILS PERCENT AUTO 6.7 % (0.0-4.0); HEMATOCRIT 37.2 % (40.0-52.0); HEMOGLOBIN 12.8 g/dL (14.0-18.0); IMMATURE GRAN ABSOLUTE AUTO 0.01 x10^3/uL (0.00-0.07); LYMPHOCYTES ABSOLUTE AUTO 1.3 x10^3/uL (1.0-4.8); LYMPHOCYTES PERCENT AUTO 28.1 % (25.0-50.0); MEAN CORPUSCULAR HGB CONC 34.4 g/dL (32.0-36.0); MONOCYTES ABSOLUTE AUTO 0.5 x10^3/uL (0.0-0.8); MONOCYTES PERCENT AUTO 9.6 % (2.0-11.0); NEUTROPHILS ABSOLUTE AUTO 2.6 x10^3/uL (1.8-7.7); NEUTROPHILS PERCENT AUTO 54.8 % (50.0-80.0); PLATELET COUNT,PLT 179 x10^3/uL (130-400); WHITE BLOOD CELL COUNT,WBC 4.8 x10^3/uL (4.0-10.0)
[2023-12-12 03:23] LABS: A/G RATIO 0.89; ALANINE AMINOTRANSFERASE,ALT 37 U/L (16-63); ALBUMIN 3.3 g/dL (3.4-5.0); ALKALINE PHOSPHATASE 117 U/L (46-116); ASPARTATE AMNIOTRANSFERASE,AST 23 U/L (15-37); BILIRUBIN TOTAL 0.4 mg/dL (0.2-1.0); BLOOD UREA NITROGEN,BUN 16 mg/dL (7-18); CALCIUM 8.8 mg/dL (8.5-10.1); CARBON DIOXIDE,CO2 32 mmol/L (21-32); CHLORIDE,CL 97 mmol/L (98-107); CREATININE 0.5 mg/dL (0.70-1.30); GLUCOSE RANDOM 88 mg/dL (70-99); POTASSIUM,K 4.2 mmol/L (3.5-5.1); SODIUM,NA 135 mmol/L (136-145)
[2023-12-12 03:26] LABS: ANION GAP 10.2 mmol/L (5-15); ESTIMATED GFR 108 mL/min (>=60)
[2023-12-12] MEDS: Iopamidol 612 MG/ML 100 ML Bottle IVPUSH ONE (04:11)
[2023-12-12 07:11] VITALS: BP 140/82; PULSE 63
== END 2023-12-12 07:10 | disposition short-term general hospital (02) ==
LOC: VM.ED 02:19
DX: K40.90 Unilateral inguinal hernia, without obstruction or gangrene, not specified as recurrent (principal); K56.601 Complete intestinal obstruction, unspecified as to cause; Z79.899 Other long term (current) drug therapy; Z88.8 Allergy status to other drugs, medicaments and biological substances
CPT/HCPCS: 36415; 74177; 80053; 83605; 85025; 99285; Q9967; 99284

== ENCOUNTER 2024-02-10 11:29 | Emergency (ER) | payer MEDICARE, MEDICAID ==
[2024-02-10 12:23] LABS: BASOPHILS PERCENT AUTO 0.1 % (0.2-1.2); HEMATOCRIT 37.4 % (40.0-52.0); HEMOGLOBIN 12.8 g/dL (14.0-18.0); IMMATURE GRAN ABSOLUTE AUTO 0.02 x10^3/uL (0.00-0.07); LYMPHOCYTES ABSOLUTE AUTO 1.3 x10^3/uL (1.0-4.8); LYMPHOCYTES PERCENT AUTO 8.2 % (25.0-50.0); MEAN CORPUSCULAR HEMOGLOBIN 32.2 pg (26.0-32.0); MEAN CORPUSCULAR HGB CONC 34.2 g/dL (32.0-36.0); MEAN CORPUSCULAR VOLUME 94.2 fL (78.0-93.0); MONOCYTES ABSOLUTE AUTO 1.2 x10^3/uL (0.0-0.8); MONOCYTES PERCENT AUTO 7.6 % (2.0-11.0); NEUTROPHILS ABSOLUTE AUTO 13.3 x10^3/uL (1.8-7.7); PLATELET COUNT,PLT 175 x10^3/uL (130-400); RED BLOOD CELL COUNT 3.97 x10^6/uL (4.5-6.0); WHITE BLOOD CELL COUNT,WBC 15.8 x10^3/uL (4.0-10.0)
[2024-02-10 12:46] LABS: ALANINE AMINOTRANSFERASE,ALT 32 U/L (16-63); ALKALINE PHOSPHATASE 145 U/L (46-116); ANION GAP 13.6 mmol/L (5-15); ASPARTATE AMNIOTRANSFERASE,AST 26 U/L (15-37); BILIRUBIN TOTAL 0.6 mg/dL (0.2-1.0); BLOOD UREA NITROGEN,BUN 16 mg/dL (7-18); C-REACTIVE PROTEIN 16.16 mg/dL (<=0.50); CALCIUM 8.9 mg/dL (8.5-10.1); CARBON DIOXIDE,CO2 30 mmol/L (21-32); CHLORIDE,CL 95 mmol/L (98-107); CREATININE 0.6 mg/dL (0.70-1.30); ESTIMATED GFR 103 mL/min (>=60); GLUCOSE RANDOM 132 mg/dL (70-99); POTASSIUM,K 3.6 mmol/L (3.5-5.1); PROTEIN TOTAL,TP 7.3 g/dL (6.4-8.2); SODIUM,NA 135 mmol/L (136-145)
[2024-02-10 13:03] VITALS: BP 82/46; PULSE 72
[2024-02-10] MEDS: cefTRIAXone 1 GM Vial IVPUSH ONE (13:18)
== END 2024-02-10 13:40 | disposition home or self-care (01) ==
LOC: VM.ED 11:29
DX: J98.8 Other specified respiratory disorders (principal); D72.829 Elevated white blood cell count, unspecified; I48.91 Unspecified atrial fibrillation; Z88.6 Allergy status to analgesic agent; Z79.899 Other long term (current) drug therapy; Z79.51 Long term (current) use of inhaled steroids
CPT/HCPCS: 36415; 71045; 80053; 83605; 84145; 85025; 86140; 87040; 96374; 99285; J0696

== ENCOUNTER 2024-02-29 10:22 | Inpatient (IN) | payer MEDICARE, MEDICAID ==
[2024-02-29] MEDS ORDERED: Sodium Chloride 0.9% 500 ML IV SCH (10:30)
[2024-02-29 11:02] LABS: BASOPHILS PERCENT AUTO 0.2 % (0.2-1.2); HEMATOCRIT 35.3 % (40.0-52.0); IMMATURE GRAN ABSOLUTE AUTO 0.02 x10^3/uL (0.00-0.07); LYMPHOCYTES ABSOLUTE AUTO 1.7 x10^3/uL (1.0-4.8); LYMPHOCYTES PERCENT AUTO 13.3 % (25.0-50.0); MEAN CORPUSCULAR HEMOGLOBIN 32.1 pg (26.0-32.0); MEAN CORPUSCULAR VOLUME 94.4 fL (78.0-93.0); MONOCYTES ABSOLUTE AUTO 1.5 x10^3/uL (0.0-0.8); MONOCYTES PERCENT AUTO 11.9 % (2.0-11.0); NEUTROPHILS ABSOLUTE AUTO 9.5 x10^3/uL (1.8-7.7); NEUTROPHILS PERCENT AUTO 74.4 % (50.0-80.0); PLATELET COUNT,PLT 172 x10^3/uL (130-400); RED BLOOD CELL COUNT 3.74 x10^6/uL (4.5-6.0)
[2024-02-29 11:16] LABS: CARBON DIOXIDE,CO2 32 mmol/L (21-32); CHLORIDE,CL 100 mmol/L (98-107); GLUCOSE RANDOM 109 mg/dL (70-99); SODIUM,NA 139 mmol/L (136-145)
[2024-02-29 11:17] LABS: BLOOD UREA NITROGEN,BUN 22 mg/dL (7-18); CALCIUM 8.3 mg/dL (8.5-10.1); CREATININE 0.6 mg/dL (0.70-1.30); WHITE BLOOD CELL COUNT,WBC 12.7 x10^3/uL (4.0-10.0)
[2024-02-29 11:18] LABS: ESTIMATED GFR 103 mL/min (>=60)
[2024-02-29] MEDS: Piperacillin/Tazobactam 4.5 GM in Sodium Chloride 0.9% 100 ML IV ONE (11:19)
[2024-02-29] MEDS: Piperacillin/Tazobactam 4.5 GM in Sodium Chloride 0.9% 100 ML IV SCH ×2 (11:23→16:45)
[2024-02-29 11:48] LABS: CORONAVIRUS COVID-19 NAA NEGATIVE (NEGATIVE); INFLUENZA A NAA NEGATIVE (NEGATIVE); INFLUENZA B NAA NEGATIVE (NEGATIVE); RESPIRATORY SYNCYTIAL VIR NAA NEGATIVE (NEGATIVE)
[2024-02-29] MEDS: Acetaminophen 500 MG Tab PO ONE (11:48)
[2024-02-29 12:01] LABS: APPEARANCE,URINE CLEAR (CLEAR); BILIRUBIN,URINE NEGATIVE (NEGATIVE); COLOR,URINE DARK YELLOW (YELLOW); GLUCOSE,URINE NEGATIVE (NEGATIVE); KETONES,URINE NEGATIVE (NEGATIVE); LEUKOCYTE ESTERASE,URINE NEGATIVE (NEGATIVE); NITRITE,URINE NEGATIVE (NEGATIVE); OCCULT BLOOD,URINE NEGATIVE (NEGATIVE); PH,URINE 7.5 (5.0-8.0); PROTEIN,URINE TRACE mg/dL (NEGATIVE)
[2024-02-29 12:15] LABS: BACTERIA,URINE RARE /HPF (NOT SEEN); MUCUS,URINE OCCASIONAL /LPF (NOT SEEN); RBC,URINE 0-5 /HPF (NOT SEEN); WBC,URINE 0-5 /HPF (NOT SEEN)
[2024-02-29] MEDS: Albuterol/Ipratropium 3.0-0.5 MG/3 ML Neb Soln NEB PRN (15:46)
[2024-02-29] MEDS ORDERED: Acetaminophen 325 MG Tab PO PRN (15:50)
[2024-02-29] MEDS ORDERED: Melatonin 3 MG Tab PO PRN (15:50)
[2024-02-29] MEDS ORDERED: Ondansetron 4 MG Tab.DIS PO PRN (15:50)
[2024-02-29] MEDS ORDERED: Bisacodyl 10 MG Supp RECTAL PRN (16:12)
[2024-02-29] MEDS ORDERED: Magnesium Hydroxide 400 MG/5 ML Susp 30 ML Cup GTUBE PRN (16:12)
[2024-02-29] MEDS ORDERED: Simethicone Drops 40 MG/0.6 ML 30 ML Bottle GTUBE PRN (16:12)
[2024-02-29] MEDS ORDERED: [UNRECOGNIZED DRUG - OTHER] GTUBE SCH (16:15)
[2024-02-29] MEDS ORDERED: WATER GTUBE SCH (16:15)
[2024-02-29] MEDS: Gabapentin 300 MG Cap GTUBE SCH (17:15)
[2024-02-29] MEDS: Baclofen 10 MG Tab GTUBE SCH (17:44)
[2024-02-29] MEDS: Metoclopramide 5 MG Tab GTUBE SCH (17:44)
[2024-02-29] MEDS: Acetaminophen Susp 160 MG/5 ML 120 ML Bottle GTUBE SCH (19:19)
[2024-02-29] MEDS: Lactobacillus Rhamnosus GG (Probiotic) Cap GTUBE SCH (20:31)
[2024-02-29] MEDS: Acetaminophen Soln 160 MG/5 ML UD Cup GTUBE SCH (20:31)
[2024-02-29] MEDS: levETIRAcetam Soln 500 MG/5 ML Cup GTUBE SCH (20:31)
[2024-02-29] MEDS: Budesonide 0.5 MG/2 ML Neb Susp NEB SCH (20:31)
[2024-02-29] MEDS: Menthol/Zinc Oxide Ointment 3.5 GM Tube TOP SCH (20:32)
[2024-02-29] MEDS: Sodium Chloride 0.9% 1,000 ML IV SCH (20:32)
[2024-02-29] MEDS: Polyethylene Glycol 3350 Powder 17 GM Packet GTUBE SCH (20:35)
[2024-02-29] MEDS ORDERED: SODIUM BICARBONATE GTUBE SCH (21:00)
[2024-02-29] MEDS ORDERED: OMEPRAZOLE GTUBE SCH (21:00)
[2024-02-29] MEDS ORDERED: [UNRECOGNIZED DRUG - OTHER] GTUBE SCH (21:00)
[2024-03-01 06:40] LABS: BASOPHILS PERCENT AUTO 0.3 % (0.2-1.2); HEMATOCRIT 32.1 % (40.0-52.0); HEMOGLOBIN 10.9 g/dL (14.0-18.0); IMMATURE GRAN ABSOLUTE AUTO 0.02 x10^3/uL (0.00-0.07); LYMPHOCYTES ABSOLUTE AUTO 1.1 x10^3/uL (1.0-4.8); LYMPHOCYTES PERCENT AUTO 14.3 % (25.0-50.0); MEAN CORPUSCULAR HEMOGLOBIN 32.2 pg (26.0-32.0); MEAN CORPUSCULAR VOLUME 94.7 fL (78.0-93.0); MONOCYTES ABSOLUTE AUTO 0.6 x10^3/uL (0.0-0.8); MONOCYTES PERCENT AUTO 7.3 % (2.0-11.0); NEUTROPHILS ABSOLUTE AUTO 6.1 x10^3/uL (1.8-7.7); NEUTROPHILS PERCENT AUTO 77.8 % (50.0-80.0); PLATELET COUNT,PLT 132 x10^3/uL (130-400); RED BLOOD CELL COUNT 3.39 x10^6/uL (4.5-6.0); WHITE BLOOD CELL COUNT,WBC 7.8 x10^3/uL (4.0-10.0)
[2024-03-01 06:58] LABS: ANION GAP 9.4 mmol/L (5-15); CALCIUM 8.1 mg/dL (8.5-10.1); CREATININE 0.5 mg/dL (0.70-1.30); EST CRCL DRUG DOSING (CG) 98.36 mL/min; POTASSIUM,K 3.4 mmol/L (3.5-5.1)
[2024-03-01] MEDS: Multivit-Minerals/Ferrous Gluc 9 MG/15 ML 15 ml Cup GTUBE SCH (09:30)
[2024-03-01] MEDS: Escitalopram 10 MG Tab GTUBE SCH (09:36)
[2024-03-01] MEDS: Enoxaparin 40 MG/0.4 ML Syringe SUBCUT SCH (09:37)
[2024-03-01] MEDS: Lactulose Soln 10 GM/15 ML 15 ML UD Cup PO SCH (09:37)
[2024-03-01] MEDS: Pantoprazole 40 MG Vial IVPUSH SCH (09:40)
[2024-03-01] MEDS: Simethicone Drops 40 MG/0.6 ML 30 ML Bottle PO SCH (10:12)
[2024-03-01] MEDS: Metoclopramide 10 MG/2 ML SDV IVPUSH SCH (10:13)
[2024-03-01] MEDS: Sodium Chloride 0.9% 1,000 ML IV SCH (11:58)
[2024-03-01] MEDS: NS + KCl 20mEq/L 1,000 ML IV SCH (15:45)
[2024-03-02 07:08] LABS: BASOPHILS PERCENT AUTO 0.2 % (0.2-1.2); EOSINOPHILS PERCENT AUTO 0.2 % (0.0-4.0); HEMATOCRIT 33.9 % (40.0-52.0); HEMOGLOBIN 11.1 g/dL (14.0-18.0); IMMATURE GRAN ABSOLUTE AUTO 0.02 x10^3/uL (0.00-0.07); LYMPHOCYTES ABSOLUTE AUTO 1.5 x10^3/uL (1.0-4.8); MEAN CORPUSCULAR HEMOGLOBIN 31.7 pg (26.0-32.0); MEAN CORPUSCULAR HGB CONC 32.7 g/dL (32.0-36.0); MEAN CORPUSCULAR VOLUME 96.9 fL (78.0-93.0); MONOCYTES ABSOLUTE AUTO 0.4 x10^3/uL (0.0-0.8); MONOCYTES PERCENT AUTO 7.5 % (2.0-11.0); NEUTROPHILS ABSOLUTE AUTO 3.4 x10^3/uL (1.8-7.7); NEUTROPHILS PERCENT AUTO 63.7 % (50.0-80.0); PLATELET COUNT,PLT 130 x10^3/uL (130-400); WHITE BLOOD CELL COUNT,WBC 5.3 x10^3/uL (4.0-10.0)
[2024-03-02 07:28] LABS: A/G RATIO 0.73; ALBUMIN 2.7 g/dL (3.4-5.0); ANION GAP 10.7 mmol/L (5-15); BILIRUBIN TOTAL 0.6 mg/dL (0.2-1.0); CALCIUM 8.3 mg/dL (8.5-10.1); CREATININE 0.5 mg/dL (0.70-1.30); EST CRCL DRUG DOSING (CG) 101.02 mL/min; POTASSIUM,K 3.7 mmol/L (3.5-5.1); PROTEIN TOTAL,TP 6.4 g/dL (6.4-8.2)
[2024-03-02] MEDS: Arformoterol 15 MCG/2 ML Neb Soln NEB SCH (08:44)
[2024-03-02] MEDS: Miconazole 2% Top Powder 45 GM Container TOP SCH (09:12)
[2024-03-02] MEDS: guaiFENesin 100 MG/5 ML Soln 10 ML UD Cup GTUBE PRN (09:22)
[2024-03-02] MEDS: Acetaminophen Soln 160 MG/5 ML UD Cup PO PRN (10:03)
[2024-03-02] MEDS: Iopamidol 612 MG/ML 30 ML SDV GTUBE ONE (15:07)
[2024-03-02] MEDS: Triamcinolone Acetonide 0.1% Crm 15 GM Tube TOP PRN (18:35)
[2024-03-03] MEDS: Furosemide 20 MG/2 ML VIAL IV ONE (06:37)
[2024-03-03 07:03] LABS: BASOPHILS PERCENT AUTO 0.3 % (0.2-1.2); EOSINOPHILS PERCENT AUTO 0.3 % (0.0-4.0); HEMOGLOBIN 10.3 g/dL (14.0-18.0); IMMATURE GRAN ABSOLUTE AUTO 0.03 x10^3/uL (0.00-0.07); LYMPHOCYTES ABSOLUTE AUTO 0.7 x10^3/uL (1.0-4.8); LYMPHOCYTES PERCENT AUTO 19.6 % (25.0-50.0); MEAN CORPUSCULAR HGB CONC 33.2 g/dL (32.0-36.0); MEAN CORPUSCULAR VOLUME 96.3 fL (78.0-93.0); MONOCYTES ABSOLUTE AUTO 0.6 x10^3/uL (0.0-0.8); MONOCYTES PERCENT AUTO 14.7 % (2.0-11.0); NEUTROPHILS ABSOLUTE AUTO 2.4 x10^3/uL (1.8-7.7); NEUTROPHILS PERCENT AUTO 64.3 % (50.0-80.0); PLATELET COUNT,PLT 128 x10^3/uL (130-400); RED BLOOD CELL COUNT 3.22 x10^6/uL (4.5-6.0); WHITE BLOOD CELL COUNT,WBC 3.7 x10^3/uL (4.0-10.0)
[2024-03-03 07:15] LABS: CALCIUM 8.1 mg/dL (8.5-10.1); CREATININE 0.5 mg/dL (0.70-1.30); EST CRCL DRUG DOSING (CG) 103.67 mL/min; POTASSIUM,K 3.3 mmol/L (3.5-5.1)
[2024-03-03 07:16] LABS: ANION GAP 11.3 mmol/L (5-15)
[2024-03-03] MEDS: Metoclopramide 5 MG Tab GTUBE SCH (11:10)
[2024-03-03] MEDS: Potassium Bicarbonate/Cit Ac 10 MEQ Effervescent Tab GTUBE SCH (11:10)
[2024-03-03 11:47] VITALS: BP 117/70; PULSE 72
== END 2024-03-03 11:10 | DRG 871 ==
LOC: VM.ED 10:22 → VM.MS 11:49
PROVIDERS: ADMIT Physician Assistant; ATTEND Internal Medicine
PROC: 3E03329 Introduction of Other Anti-infective into Peripheral Vein, Percutaneous Approach (ICD-10-PCS; principal; 2024-02-29)
PROC: 0T9B70Z Drainage of Bladder with Drainage Device, Via Natural or Artificial Opening (ICD-10-PCS; 2024-02-29)
DX: A41.9 Sepsis, unspecified organism (principal); G80.0 Spastic quadriplegic cerebral palsy; J69.0 Pneumonitis due to inhalation of food and vomit; J96.01 Acute respiratory failure with hypoxia; J18.9 Pneumonia, unspecified organism; K56.7 Ileus, unspecified; Z66 Do not resuscitate; G40.909 Epilepsy, unspecified, not intractable, without status epilepticus; E87.6 Hypokalemia; D64.9 Anemia, unspecified; F71 Moderate intellectual disabilities; K31.84 Gastroparesis; K59.09 Other constipation; I48.91 Unspecified atrial fibrillation; M81.0 Age-related osteoporosis without current pathological fracture; R33.9 Retention of urine, unspecified; F32.A Depression, unspecified; Z88.8 Allergy status to other drugs, medicaments and biological substances; Z93.1 Gastrostomy status; Z79.899 Other long term (current) drug therapy; Z86.010 Personal history of colon polyps; Z98.890 Other specified postprocedural states; Z87.820 Personal history of traumatic brain injury; Z79.51 Long term (current) use of inhaled steroids
CPT/HCPCS: 0241U; 36415; 51702; 51798; 71045; 74018; 74176; 80048; 80053; 81001; 83605; 83735; 85025; 87040; 87070; 87205; 94640; 94760; 96365; 99285; 99285-25; A4320; A9270-GY; C1758; C9113; J1650; J1940; J2543; J2765; J3480; J3490; J7030; J7620-GY; Q9967

== ENCOUNTER 2024-06-17 10:39 | Inpatient (IN) | payer MEDICARE, MEDICAID ==
[2024-06-17] MEDS ORDERED: Sodium Chloride 0.9% 10 ML Syringe FLUSH PRN (10:58)
[2024-06-17 11:10] LABS: HEMATOCRIT 37.6 % (40.0-52.0); HEMOGLOBIN 12.8 g/dL (14.0-18.0); MEAN CORPUSCULAR HEMOGLOBIN 32.2 pg (26.0-32.0); MEAN CORPUSCULAR VOLUME 94.5 fL (78.0-93.0); PLATELET COUNT,PLT 195 x10^3/uL (130-400); RED BLOOD CELL COUNT 3.98 x10^6/uL (4.5-6.0)
[2024-06-17 11:12] LABS: WHITE BLOOD CELL COUNT,WBC 20.1 x10^3/uL (4.0-10.0)
[2024-06-17 11:18] LABS: BAND PERCENT MAN 8 % (0-6); LYMPHOCYTES ABSOLUTE MAN 0.6 x10^3/uL (1.0-4.8); LYMPHOCYTES PERCENT MAN 3 % (25-50); MONOCYTES PERCENT MAN 5 % (2-11); NEUTROPHILS ABSOLUTE MAN 18.5 x10^3/uL (1.8-7.7); PLATELET COUNT ESTIMATE ADEQUATE; SEG NEUTROPHILS PERCENT MAN 84 % (50-80)
[2024-06-17 11:33] LABS: A/G RATIO 0.86; ALBUMIN 3.2 g/dL (3.4-5.0); BILIRUBIN TOTAL 0.9 mg/dL (0.2-1.0); CALCIUM 8.8 mg/dL (8.5-10.1); CREATININE 0.8 mg/dL (0.70-1.30); EST CRCL DRUG DOSING (CG) 62.12 mL/min; PROTEIN TOTAL,TP 6.9 g/dL (6.4-8.2)
[2024-06-17] MEDS: Sodium Chloride 0.9% 500 ML IV ONE ×2 (11:45→16:05)
[2024-06-17 12:00] LABS: APPEARANCE,URINE CLEAR (CLEAR); BILIRUBIN,URINE SMALL (NEGATIVE); COLOR,URINE AMBER (YELLOW); GLUCOSE,URINE NEGATIVE (NEGATIVE); KETONES,URINE NEGATIVE (NEGATIVE); LEUKOCYTE ESTERASE,URINE NEGATIVE (NEGATIVE); NITRITE,URINE NEGATIVE (NEGATIVE); OCCULT BLOOD,URINE NEGATIVE (NEGATIVE); PROTEIN,URINE NEGATIVE (NEGATIVE)
[2024-06-17 12:02] LABS: CORONAVIRUS COVID-19 NAA NEGATIVE (NEGATIVE); INFLUENZA A NAA NEGATIVE (NEGATIVE); INFLUENZA B NAA NEGATIVE (NEGATIVE); RESPIRATORY SYNCYTIAL VIR NAA NEGATIVE (NEGATIVE)
[2024-06-17] MEDS: Piperacillin/Tazobactam 4.5 GM in Sodium Chloride 0.9% 100 ML IV ONE (12:05)
[2024-06-17] MEDS ORDERED: Albuterol/Ipratropium 3.0-0.5 MG/3 ML Neb Soln NEB PRN (12:49)
[2024-06-17] MEDS ORDERED: Triamcinolone Acetonide 0.1% Crm 15 GM Tube TOP PRN (13:03)
[2024-06-17] MEDS ORDERED: Simethicone Drops 40 MG/0.6 ML 30 ML Bottle GTUBE PRN (13:03)
[2024-06-17] MEDS ORDERED: WATER GTUBE SCH (13:15)
[2024-06-17] MEDS ORDERED: [UNRECOGNIZED DRUG - OTHER] GTUBE SCH (13:15)
[2024-06-17] MEDS ORDERED: Acetaminophen 325 MG Tab GTUBE PRN ×2 (13:19→16:20)
[2024-06-17] MEDS ORDERED: Lactulose Soln 10 GM/15 ML 30 ML UD Cup PO PRN (15:33)
[2024-06-17] MEDS: Albuterol/Ipratropium 3.0-0.5 MG/3 ML Neb Soln NEB SCH ×2 (15:56→16:24)
[2024-06-17] MEDS ORDERED: Piperacillin/Tazobactam 4.5 GM in Sodium Chloride 0.9% 100 ML IV SCH (16:00)
[2024-06-17] MEDS: Piperacillin/Tazobactam 4.5 GM Vial ONE (16:22)
[2024-06-17] MEDS: Piperacillin/Tazobactam 4.5 GM in Sodium Chloride 0.9% 100 ML IV SCH (16:28)
[2024-06-17] MEDS: Baclofen 10 MG Tab GTUBE SCH (16:29)
[2024-06-17] MEDS: Metoclopramide 5 MG Tab GTUBE SCH (18:34)
[2024-06-17] MEDS: Lactobacillus Rhamnosus GG (Probiotic) Cap GTUBE SCH (20:14)
[2024-06-17] MEDS: Menthol/Zinc Oxide Ointment 3.5 GM Tube TOP SCH (20:15)
[2024-06-17] MEDS: Budesonide 0.5 MG/2 ML Neb Susp NEB SCH (20:15)
[2024-06-17] MEDS: Enoxaparin 30 MG/0.3 ML Syringe SUBCUT SCH (20:15)
[2024-06-17] MEDS: levETIRAcetam Soln 500 MG/5 ML Cup GTUBE SCH (20:15)
[2024-06-17] MEDS: Acetaminophen Soln 160 MG/5 ML UD Cup GTUBE SCH (20:16)
[2024-06-17] MEDS: Gabapentin 300 MG Cap GTUBE SCH (20:16)
[2024-06-18 07:48] LABS: BASOPHILS PERCENT AUTO 0.2 % (0.2-1.2); EOSINOPHILS PERCENT AUTO 0.2 % (0.0-4.0); HEMATOCRIT 34.6 % (40.0-52.0); HEMOGLOBIN 11.5 g/dL (14.0-18.0); IMMATURE GRAN ABSOLUTE AUTO 0.01 x10^3/uL (0.00-0.07); LYMPHOCYTES ABSOLUTE AUTO 1.3 x10^3/uL (1.0-4.8); LYMPHOCYTES PERCENT AUTO 11.3 % (25.0-50.0); MEAN CORPUSCULAR HEMOGLOBIN 31.9 pg (26.0-32.0); MEAN CORPUSCULAR HGB CONC 33.2 g/dL (32.0-36.0); MEAN CORPUSCULAR VOLUME 96.1 fL (78.0-93.0); MONOCYTES ABSOLUTE AUTO 0.7 x10^3/uL (0.0-0.8); MONOCYTES PERCENT AUTO 6.1 % (2.0-11.0); NEUTROPHILS ABSOLUTE AUTO 9.2 x10^3/uL (1.8-7.7); NEUTROPHILS PERCENT AUTO 82.1 % (50.0-80.0); PLATELET COUNT,PLT 146 x10^3/uL (130-400); WHITE BLOOD CELL COUNT,WBC 11.2 x10^3/uL (4.0-10.0)
[2024-06-18 08:01] LABS: A/G RATIO 0.68; ALBUMIN 2.6 g/dL (3.4-5.0); ANION GAP 7.2 mmol/L (5-15); BILIRUBIN TOTAL 0.7 mg/dL (0.2-1.0); CALCIUM 8.5 mg/dL (8.5-10.1); CREATININE 0.7 mg/dL (0.70-1.30); EST CRCL DRUG DOSING (CG) 71.42 mL/min; POTASSIUM,K 4.2 mmol/L (3.5-5.1); PROTEIN TOTAL,TP 6.4 g/dL (6.4-8.2)
[2024-06-18] MEDS: Escitalopram 10 MG Tab GTUBE SCH (08:34)
[2024-06-18] MEDS: Polyethylene Glycol 3350 Powder 17 GM Packet GTUBE SCH (08:35)
[2024-06-18] MEDS: methylPREDNISolone Sodium Succinate 40 MG/1 ML SDV IVPUSH ONE (10:48)
[2024-06-19 08:19] LABS: BASOPHILS PERCENT AUTO 0.2 % (0.2-1.2); EOSINOPHILS PERCENT AUTO 0.2 % (0.0-4.0); HEMATOCRIT 32.7 % (40.0-52.0); IMMATURE GRAN ABSOLUTE AUTO 0.02 x10^3/uL (0.00-0.07); LYMPHOCYTES ABSOLUTE AUTO 1.2 x10^3/uL (1.0-4.8); LYMPHOCYTES PERCENT AUTO 20.2 % (25.0-50.0); MEAN CORPUSCULAR HEMOGLOBIN 32.1 pg (26.0-32.0); MEAN CORPUSCULAR HGB CONC 33.6 g/dL (32.0-36.0); MEAN CORPUSCULAR VOLUME 95.3 fL (78.0-93.0); MONOCYTES ABSOLUTE AUTO 0.4 x10^3/uL (0.0-0.8); MONOCYTES PERCENT AUTO 7.6 % (2.0-11.0); NEUTROPHILS ABSOLUTE AUTO 4.1 x10^3/uL (1.8-7.7); NEUTROPHILS PERCENT AUTO 71.4 % (50.0-80.0); PLATELET COUNT,PLT 146 x10^3/uL (130-400); RED BLOOD CELL COUNT 3.43 x10^6/uL (4.5-6.0); WHITE BLOOD CELL COUNT,WBC 5.7 x10^3/uL (4.0-10.0)
[2024-06-19 08:42] LABS: A/G RATIO 0.65; ALBUMIN 2.4 g/dL (3.4-5.0); ANION GAP 7.6 mmol/L (5-15); BILIRUBIN TOTAL 0.4 mg/dL (0.2-1.0); CALCIUM 8.4 mg/dL (8.5-10.1); CREATININE 0.5 mg/dL (0.70-1.30); EST CRCL DRUG DOSING (CG) 100.33 mL/min; POTASSIUM,K 3.6 mmol/L (3.5-5.1); PROTEIN TOTAL,TP 6.1 g/dL (6.4-8.2)
[2024-06-20 07:12] LABS: BASOPHILS PERCENT AUTO 0.8 % (0.2-1.2); EOSINOPHILS PERCENT AUTO 0.5 % (0.0-4.0); HEMATOCRIT 36.6 % (40.0-52.0); HEMOGLOBIN 12.2 g/dL (14.0-18.0); IMMATURE GRAN ABSOLUTE AUTO 0.01 x10^3/uL (0.00-0.07); LYMPHOCYTES ABSOLUTE AUTO 1.3 x10^3/uL (1.0-4.8); LYMPHOCYTES PERCENT AUTO 34.9 % (25.0-50.0); MEAN CORPUSCULAR HEMOGLOBIN 32.2 pg (26.0-32.0); MEAN CORPUSCULAR HGB CONC 33.3 g/dL (32.0-36.0); MEAN CORPUSCULAR VOLUME 96.6 fL (78.0-93.0); MONOCYTES ABSOLUTE AUTO 0.3 x10^3/uL (0.0-0.8); MONOCYTES PERCENT AUTO 8.9 % (2.0-11.0); NEUTROPHILS PERCENT AUTO 54.6 % (50.0-80.0); PLATELET COUNT,PLT 168 x10^3/uL (130-400); RED BLOOD CELL COUNT 3.79 x10^6/uL (4.5-6.0); WHITE BLOOD CELL COUNT,WBC 3.7 x10^3/uL (4.0-10.0)
[2024-06-20 07:14] LABS: A/G RATIO 0.69; ALBUMIN 2.7 g/dL (3.4-5.0); BILIRUBIN TOTAL 0.3 mg/dL (0.2-1.0); CALCIUM 8.5 mg/dL (8.5-10.1); CREATININE 0.5 mg/dL (0.70-1.30); EST CRCL DRUG DOSING (CG) 102.21 mL/min; PROTEIN TOTAL,TP 6.6 g/dL (6.4-8.2)
[2024-06-20 10:17] VITALS: BP 92/58; PULSE 71
== END 2024-06-20 12:35 | DRG 177 ==
LOC: VM.ED 10:39 → VM.MS 12:41
PROVIDERS: ADMIT Nurse Practitioner Family; ATTEND Internal Medicine
DX: J69.0 Pneumonitis due to inhalation of food and vomit (principal); G80.0 Spastic quadriplegic cerebral palsy; Z79.1 Long term (current) use of non-steroidal anti-inflammatories (NSAID); J96.01 Acute respiratory failure with hypoxia; Z88.6 Allergy status to analgesic agent; E87.20 Acidosis, unspecified; J44.0 Chronic obstructive pulmonary disease with (acute) lower respiratory infection; J44.1 Chronic obstructive pulmonary disease with (acute) exacerbation; I48.91 Unspecified atrial fibrillation; K59.09 Other constipation; M81.0 Age-related osteoporosis without current pathological fracture; D64.9 Anemia, unspecified; K31.84 Gastroparesis; F32.9 Major depressive disorder, single episode, unspecified; G40.909 Epilepsy, unspecified, not intractable, without status epilepticus; D72.829 Elevated white blood cell count, unspecified; Z93.1 Gastrostomy status; Z86.16 Personal history of COVID-19; Z79.899 Other long term (current) drug therapy; Z86.010 Personal history of colon polyps
CPT/HCPCS: 0241U; 36415; 71045; 80053; 81003; 83605; 83880; 85025; 87040; 87070; 94640; 94760; 96365; 99223; 99232; 99233; 99284; 99285; A9270-GY; J1650; J2543; J2919; J3490; J7030; J7620-GY

== ENCOUNTER 2024-08-26 04:30 | Inpatient (IN) | payer MEDICARE, MEDICAID ==
[2024-08-26] MEDS ORDERED: Sodium Chloride 0.9% 10 ML Syringe FLUSH PRN (04:55)
[2024-08-26 05:10] LABS: APPEARANCE,URINE CLEAR (CLEAR); BILIRUBIN,URINE NEGATIVE (NEGATIVE); COLOR,URINE YELLOW (YELLOW); GLUCOSE,URINE NEGATIVE (NEGATIVE); KETONES,URINE NEGATIVE (NEGATIVE); LEUKOCYTE ESTERASE,URINE NEGATIVE (NEGATIVE); NITRITE,URINE NEGATIVE (NEGATIVE); OCCULT BLOOD,URINE TRACE-INTACT (NEGATIVE); PH,URINE 8.5 (5.0-8.0); PROTEIN,URINE TRACE mg/dL (NEGATIVE)
[2024-08-26 05:17] LABS: HEMATOCRIT 40.2 % (40.0-52.0); HEMOGLOBIN 13.8 g/dL (14.0-18.0); MEAN CORPUSCULAR HEMOGLOBIN 32.4 pg (26.0-32.0); MEAN CORPUSCULAR HGB CONC 34.3 g/dL (32.0-36.0); MEAN CORPUSCULAR VOLUME 94.4 fL (78.0-93.0); PLATELET COUNT,PLT 143 x10^3/uL (130-400); RED BLOOD CELL COUNT 4.26 x10^6/uL (4.5-6.0)
[2024-08-26 05:18] LABS: WHITE BLOOD CELL COUNT,WBC 25.3 x10^3/uL (4.0-10.0)
[2024-08-26 05:19] LABS: BACTERIA,URINE RARE /HPF (NOT SEEN); MUCUS,URINE OCCASIONAL /LPF (NOT SEEN); SQUAMOUS EPITHELIAL CELLS,UR NOT SEEN /HPF (NOT SEEN); WBC,URINE 0-5 /HPF (NOT SEEN)
[2024-08-26 05:24] LABS: BAND PERCENT MAN 6 % (0-6); LYMPHOCYTES PERCENT MAN 4 % (25-50); MONOCYTES PERCENT MAN 4 % (2-11); NEUTROPHILS ABSOLUTE MAN 23.3 x10^3/uL (1.8-7.7); PLATELET COUNT ESTIMATE ADEQUATE; SEG NEUTROPHILS PERCENT MAN 86 % (50-80)
[2024-08-26 05:25] LABS: ALANINE AMINOTRANSFERASE,ALT 37 U/L (16-63); ALBUMIN 2.9 g/dL (3.4-5.0); ALKALINE PHOSPHATASE 165 U/L (46-116); ANION GAP 11.3 mmol/L (5-15); ASPARTATE AMNIOTRANSFERASE,AST 34 U/L (15-37); BILIRUBIN TOTAL 0.9 mg/dL (0.2-1.0); BLOOD UREA NITROGEN,BUN 15 mg/dL (7-18); CALCIUM 8.8 mg/dL (8.5-10.1); CARBON DIOXIDE,CO2 32 mmol/L (21-32); CHLORIDE,CL 95 mmol/L (98-107); CREATININE 0.6 mg/dL (0.70-1.30); ESTIMATED GFR 103 mL/min (>=60); GLUCOSE RANDOM 116 mg/dL (70-99); POTASSIUM,K 4.3 mmol/L (3.5-5.1); PROTEIN TOTAL,TP 7.7 g/dL (6.4-8.2); SODIUM,NA 134 mmol/L (136-145)
[2024-08-26] MEDS: cefTRIAXone 1 GM Vial IVPUSH ONE (05:25)
[2024-08-26] MEDS: Sodium Chloride 0.9% 500 ML IV ONE (05:27)
[2024-08-26 05:28] LABS: LACTIC ACID 1.1 mmol/L (0.4-2.0)
[2024-08-26] MEDS: Sodium Chloride 0.9% 1,000 ML IV SCH (07:41)
[2024-08-26] MEDS ORDERED: Simethicone Drops 40 MG/0.6 ML 30 ML Bottle GTUBE PRN (09:52)
[2024-08-26] MEDS ORDERED: [UNRECOGNIZED DRUG - OTHER] GTUBE SCH (10:00)
[2024-08-26] MEDS ORDERED: WATER GTUBE SCH (10:00)
[2024-08-26] MEDS ORDERED: Lactulose Soln 10 GM/15 ML 30 ML UD Cup GTUBE PRN (10:15)
[2024-08-26] MEDS: Albuterol/Ipratropium 3.0-0.5 MG/3 ML Neb Soln NEB SCH (11:26)
[2024-08-26] MEDS: Metoclopramide 5 MG Tab GTUBE SCH (11:26)
[2024-08-26] MEDS: Gabapentin 300 MG Cap GTUBE SCH (12:31)
[2024-08-26] MEDS: Baclofen 10 MG Tab GTUBE SCH (12:31)
[2024-08-26] MEDS ORDERED: Non-Formulary Medication 1 Each (Formoterol Fumarate [Formoterol Fumarate] 20 MCG/2 ML Via IH SCH (21:00)
[2024-08-26] MEDS: Enoxaparin 40 MG/0.4 ML Syringe SUBCUT SCH (21:34)
[2024-08-26] MEDS: Arformoterol 15 MCG/2 ML Neb Soln NEB SCH (21:34)
[2024-08-26] MEDS: Triamcinolone Acetonide 0.1% Crm 15 GM Tube TOP PRN (21:35)
[2024-08-26] MEDS: levETIRAcetam Soln 500 MG/5 ML Cup GTUBE SCH (21:35)
[2024-08-26] MEDS: Lactobacillus Rhamnosus GG (Probiotic) Cap GTUBE SCH (21:35)
[2024-08-26] MEDS: Budesonide 0.5 MG/2 ML Neb Susp NEB SCH (21:35)
[2024-08-26] MEDS: Vitamins A and D Oint 113 GM Tube TOP PRN (21:36)
[2024-08-27] MEDS: cefTRIAXone 1 GM Vial IVPUSH SCH (05:52)
[2024-08-27 08:04] LABS: BASOPHILS PERCENT AUTO 0.1 % (0.2-1.2); EOSINOPHILS PERCENT AUTO 0.4 % (0.0-4.0); HEMATOCRIT 28.5 % (40.0-52.0); HEMOGLOBIN 9.7 g/dL (14.0-18.0); IMMATURE GRAN ABSOLUTE AUTO 0.02 x10^3/uL (0.00-0.07); LYMPHOCYTES ABSOLUTE AUTO 1.1 x10^3/uL (1.0-4.8); LYMPHOCYTES PERCENT AUTO 12.6 % (25.0-50.0); MEAN CORPUSCULAR HEMOGLOBIN 32.3 pg (26.0-32.0); MONOCYTES ABSOLUTE AUTO 0.7 x10^3/uL (0.0-0.8); MONOCYTES PERCENT AUTO 8.7 % (2.0-11.0); NEUTROPHILS ABSOLUTE AUTO 6.7 x10^3/uL (1.8-7.7); PLATELET COUNT,PLT 145 x10^3/uL (130-400); WHITE BLOOD CELL COUNT,WBC 8.5 x10^3/uL (4.0-10.0)
[2024-08-27 08:20] LABS: BLOOD UREA NITROGEN,BUN 12 mg/dL (7-18); CALCIUM 7.7 mg/dL (8.5-10.1); CARBON DIOXIDE,CO2 30 mmol/L (21-32); CHLORIDE,CL 101 mmol/L (98-107); CREATININE 0.4 mg/dL (0.70-1.30); GLUCOSE RANDOM 145 mg/dL (70-99); POTASSIUM,K 3.6 mmol/L (3.5-5.1); SODIUM,NA 134 mmol/L (136-145)
[2024-08-27 08:23] LABS: ANION GAP 6.6 mmol/L (5-15); ESTIMATED GFR 116 mL/min (>=60)
[2024-08-27] MEDS: Polyethylene Glycol 3350 Powder 17 GM Packet GTUBE SCH (09:33)
[2024-08-27] MEDS: Albuterol/Ipratropium 3.0-0.5 MG/3 ML Neb Soln NEB PRN (09:54)
[2024-08-27 15:52] LABS: BASOPHILS PERCENT AUTO 0.3 % (0.2-1.2); EOSINOPHILS PERCENT AUTO 0.5 % (0.0-4.0); HEMATOCRIT 31.6 % (40.0-52.0); HEMOGLOBIN 10.7 g/dL (14.0-18.0); IMMATURE GRAN ABSOLUTE AUTO 0.02 x10^3/uL (0.00-0.07); LYMPHOCYTES ABSOLUTE AUTO 1.1 x10^3/uL (1.0-4.8); LYMPHOCYTES PERCENT AUTO 14.8 % (25.0-50.0); MEAN CORPUSCULAR HGB CONC 33.9 g/dL (32.0-36.0); MEAN CORPUSCULAR VOLUME 94.6 fL (78.0-93.0); MONOCYTES ABSOLUTE AUTO 0.8 x10^3/uL (0.0-0.8); MONOCYTES PERCENT AUTO 10.6 % (2.0-11.0); NEUTROPHILS ABSOLUTE AUTO 5.5 x10^3/uL (1.8-7.7); NEUTROPHILS PERCENT AUTO 73.5 % (50.0-80.0); PLATELET COUNT,PLT 166 x10^3/uL (130-400); RED BLOOD CELL COUNT 3.34 x10^6/uL (4.5-6.0); WHITE BLOOD CELL COUNT,WBC 7.4 x10^3/uL (4.0-10.0)
[2024-08-28 07:02] LABS: BASOPHILS PERCENT AUTO 0.4 % (0.2-1.2); EOSINOPHILS ABSOLUTE AUTO 0.1 x10^3/uL (0.0-0.5); EOSINOPHILS PERCENT AUTO 2.5 % (0.0-4.0); HEMATOCRIT 29.5 % (40.0-52.0); IMMATURE GRAN ABSOLUTE AUTO 0.02 x10^3/uL (0.00-0.07); LYMPHOCYTES ABSOLUTE AUTO 1.1 x10^3/uL (1.0-4.8); LYMPHOCYTES PERCENT AUTO 22.6 % (25.0-50.0); MEAN CORPUSCULAR HEMOGLOBIN 32.1 pg (26.0-32.0); MEAN CORPUSCULAR HGB CONC 33.9 g/dL (32.0-36.0); MEAN CORPUSCULAR VOLUME 94.6 fL (78.0-93.0); MONOCYTES ABSOLUTE AUTO 0.5 x10^3/uL (0.0-0.8); MONOCYTES PERCENT AUTO 9.7 % (2.0-11.0); NEUTROPHILS ABSOLUTE AUTO 3.1 x10^3/uL (1.8-7.7); NEUTROPHILS PERCENT AUTO 64.4 % (50.0-80.0); PLATELET COUNT,PLT 153 x10^3/uL (130-400); RED BLOOD CELL COUNT 3.12 x10^6/uL (4.5-6.0); WHITE BLOOD CELL COUNT,WBC 4.7 x10^3/uL (4.0-10.0)
[2024-08-28 07:09] LABS: ANION GAP 7.7 mmol/L (5-15); BLOOD UREA NITROGEN,BUN 8 mg/dL (7-18); CALCIUM 8.3 mg/dL (8.5-10.1); CARBON DIOXIDE,CO2 33 mmol/L (21-32); CHLORIDE,CL 102 mmol/L (98-107); CREATININE 0.5 mg/dL (0.70-1.30); GLUCOSE RANDOM 142 mg/dL (70-99); POTASSIUM,K 3.7 mmol/L (3.5-5.1); SODIUM,NA 139 mmol/L (136-145)
[2024-08-28 07:10] LABS: ESTIMATED GFR 108 mL/min (>=60)
[2024-08-29 11:00] VITALS: BP 113/70; PULSE 74
== END 2024-08-29 11:20 | DRG 602 ==
LOC: VM.ED 04:30 → VM.MS 05:44
PROVIDERS: ADMIT Internal Medicine; ATTEND Internal Medicine
DX: R50.9 Fever, unspecified (principal); L03.115 Cellulitis of right lower limb; G80.0 Spastic quadriplegic cerebral palsy; Z88.6 Allergy status to analgesic agent; J96.01 Acute respiratory failure with hypoxia; R47.01 Aphasia; L03.314 Cellulitis of groin; R78.81 Bacteremia; Z66 Do not resuscitate; M81.0 Age-related osteoporosis without current pathological fracture; K59.09 Other constipation; I48.91 Unspecified atrial fibrillation; G40.909 Epilepsy, unspecified, not intractable, without status epilepticus; K31.84 Gastroparesis; F32.A Depression, unspecified; Z93.1 Gastrostomy status; Z88.8 Allergy status to other drugs, medicaments and biological substances; Z98.49 Cataract extraction status, unspecified eye; Z79.899 Other long term (current) drug therapy; Z86.0100 Personal history of colon polyps, unspecified
CPT/HCPCS: 36415; 51702; 51798; 71045; 80048; 80053; 81001; 83605; 85025; 87040; 87070; 87077; 87147; 87184; 87186; 94640; 94760; 96361; 96374; 99223; 99223-GT; 99284; 99284-25; A9270-GY; J0696; J1650; J3490; J7030; J7620-GY; Q3014

== ENCOUNTER 2025-09-08 13:10 | Inpatient (IN) | payer MEDICARE, MEDICAID ==
[2025-09-08 13:39] LABS: BASOPHILS ABSOLUTE AUTO 0.0 x10^3/uL (0.0-0.2); BASOPHILS PERCENT AUTO 0.2 % (0.2-1.2); EOSINOPHILS ABSOLUTE AUTO 0.1 x10^3/uL (0.0-0.5); EOSINOPHILS PERCENT AUTO 0.6 % (0.0-4.0); IMMATURE GRAN ABSOLUTE AUTO 0.03 x10^3/uL (0.00-0.07); IMMATURE GRAN PERCENT AUTO 0.20 % (0.00-0.43); LYMPHOCYTES ABSOLUTE AUTO 1.4 x10^3/uL (1.0-4.8); LYMPHOCYTES PERCENT AUTO 10.1 % (25.0-50.0); MONOCYTES ABSOLUTE AUTO 1.3 x10^3/uL (0.0-0.8); MONOCYTES PERCENT AUTO 9.1 % (2.0-11.0); NEUTROPHILS ABSOLUTE AUTO 11.2 x10^3/uL (1.8-7.7); NEUTROPHILS PERCENT AUTO 79.8 % (50.0-80.0); PLATELET COUNT,PLT 277 x10^3/uL (130-400); RED BLOOD CELL COUNT 4.66 x10^6/uL (4.5-6.0); WHITE BLOOD CELL COUNT,WBC 14.0 x10^3/uL (4.0-10.0)
[2025-09-08 14:02] LABS: A/G RATIO 0.79; ALANINE AMINOTRANSFERASE,ALT 42 U/L (16-63); ASPARTATE AMNIOTRANSFERASE,AST 27 U/L (15-37); BILIRUBIN TOTAL 0.6 mg/dL (0.2-1.0); BLOOD UREA NITROGEN,BUN 15 mg/dL (7-18); CARBON DIOXIDE,CO2 31 mmol/L (21-32); CHLORIDE,CL 96 mmol/L (98-107); CREATININE 0.4 mg/dL (0.70-1.30); ESTIMATED GFR 115 mL/min (>=60); GLUCOSE RANDOM 102 mg/dL (70-99); POTASSIUM,K 4.4 mmol/L (3.5-5.1); PROTEIN TOTAL,TP 7.7 g/dL (6.4-8.2); SODIUM,NA 136 mmol/L (136-145)
[2025-09-08] MEDS ORDERED: Ondansetron 4 MG/2 ML SDV IV PRN (17:49)
[2025-09-08] MEDS ORDERED: Naloxone 0.4 MG/ML SDV IVPUSH PRN (17:49)
[2025-09-08] MEDS ORDERED: Ondansetron 4 MG Tab.DIS PO PRN (17:49)
[2025-09-08 20:19] LABS: LACTIC ACID 0.8 mmol/L (0.4-2.0)
[2025-09-08] MEDS: levETIRAcetam Soln 500 MG/5 ML Cup GTUBE SCH (20:54)
[2025-09-08] MEDS: Budesonide 0.5 MG/2 ML Neb Susp NEB SCH (20:59)
[2025-09-08] MEDS ORDERED: Non-Formulary Medication 1 Each (Formoterol Fumarate [Formoterol Fumarate] 20 MCG/2 ML Via IH SCH (21:00)
[2025-09-08] MEDS: Arformoterol 15 MCG/2 ML Neb Soln INH SCH (21:05)
[2025-09-09 08:47] LABS: BASOPHILS ABSOLUTE AUTO 0.0 x10^3/uL (0.0-0.2); BASOPHILS PERCENT AUTO 0.3 % (0.2-1.2); EOSINOPHILS ABSOLUTE AUTO 0.0 x10^3/uL (0.0-0.5); EOSINOPHILS PERCENT AUTO 0.1 % (0.0-4.0); IMMATURE GRAN ABSOLUTE AUTO 0.02 x10^3/uL (0.00-0.07); IMMATURE GRAN PERCENT AUTO 0.20 % (0.00-0.43); LYMPHOCYTES ABSOLUTE AUTO 1.1 x10^3/uL (1.0-4.8); LYMPHOCYTES PERCENT AUTO 10.6 % (25.0-50.0); MONOCYTES ABSOLUTE AUTO 1.0 x10^3/uL (0.0-0.8); MONOCYTES PERCENT AUTO 9.7 % (2.0-11.0); NEUTROPHILS ABSOLUTE AUTO 8.4 x10^3/uL (1.8-7.7); NEUTROPHILS PERCENT AUTO 79.1 % (50.0-80.0); PLATELET COUNT,PLT 280 x10^3/uL (130-400); RED BLOOD CELL COUNT 3.78 x10^6/uL (4.5-6.0); WHITE BLOOD CELL COUNT,WBC 10.6 x10^3/uL (4.0-10.0)
[2025-09-09 09:01] LABS: BLOOD UREA NITROGEN,BUN 35.0 mg/dL (7-18); CARBON DIOXIDE,CO2 29.0 mmol/L (21-32); CHLORIDE,CL 102.0 mmol/L (98-107); CREATININE 0.3 mg/dL (0.70-1.30); EST CRCL DRUG DOSING (CG) 150.75 mL/min; GLUCOSE RANDOM 108.0 mg/dL (70-99); POTASSIUM,K 4.0 mmol/L (3.5-5.1); SODIUM,NA 140.0 mmol/L (136-145)
[2025-09-09 09:05] LABS: ESTIMATED GFR 126.0 mL/min (>=60)
[2025-09-09 09:09] LABS: LACTIC ACID 1.0 mmol/L (0.4-2.0)
[2025-09-09] MEDS: Iopamidol 612 MG/ML 30 ML SDV PO ONE (12:15)
[2025-09-09 15:25] LABS: BLOOD UREA NITROGEN,BUN 40.0 mg/dL (7-18); CARBON DIOXIDE,CO2 29.0 mmol/L (21-32); CHLORIDE,CL 101.0 mmol/L (98-107); CREATININE 0.4 mg/dL (0.70-1.30); EST CRCL DRUG DOSING (CG) 113.06 mL/min; GLUCOSE RANDOM 104.0 mg/dL (70-99); POTASSIUM,K 3.6 mmol/L (3.5-5.1); SODIUM,NA 139.0 mmol/L (136-145)
[2025-09-09 15:26] LABS: ESTIMATED GFR 115.0 mL/min (>=60)
[2025-09-09 15:34] LABS: LACTIC ACID 1.1 mmol/L (0.4-2.0)
[2025-09-09] MEDS: Iopamidol 755 Mg/ML 100 ML Bottle IVPUSH ONE (17:44)
[2025-09-10 06:50] LABS: BASOPHILS ABSOLUTE AUTO 0.0 x10^3/uL (0.0-0.2); BASOPHILS PERCENT AUTO 0.3 % (0.2-1.2); EOSINOPHILS ABSOLUTE AUTO 0.0 x10^3/uL (0.0-0.5); EOSINOPHILS PERCENT AUTO 0.0 % (0.0-4.0); IMMATURE GRAN ABSOLUTE AUTO 0.01 x10^3/uL (0.00-0.07); IMMATURE GRAN PERCENT AUTO 0.10 % (0.00-0.43); LYMPHOCYTES ABSOLUTE AUTO 2.1 x10^3/uL (1.0-4.8); LYMPHOCYTES PERCENT AUTO 29.7 % (25.0-50.0); MONOCYTES ABSOLUTE AUTO 0.6 x10^3/uL (0.0-0.8); MONOCYTES PERCENT AUTO 8.3 % (2.0-11.0); NEUTROPHILS ABSOLUTE AUTO 4.4 x10^3/uL (1.8-7.7); NEUTROPHILS PERCENT AUTO 61.6 % (50.0-80.0); PLATELET COUNT,PLT 290 x10^3/uL (130-400); RED BLOOD CELL COUNT 2.74 x10^6/uL (4.5-6.0); WHITE BLOOD CELL COUNT,WBC 7.1 x10^3/uL (4.0-10.0)
[2025-09-10 07:02] LABS: BLOOD UREA NITROGEN,BUN 42.0 mg/dL (7-18); CARBON DIOXIDE,CO2 28.0 mmol/L (21-32); CHLORIDE,CL 110.0 mmol/L (98-107); CREATININE 0.3 mg/dL (0.70-1.30); EST CRCL DRUG DOSING (CG) 151.99 mL/min; ESTIMATED GFR 126.0 mL/min (>=60); GLUCOSE RANDOM 126.0 mg/dL (70-99); POTASSIUM,K 3.3 mmol/L (3.5-5.1); SODIUM,NA 145.0 mmol/L (136-145)
[2025-09-10 07:12] LABS: LACTIC ACID 1.1 mmol/L (0.4-2.0)
[2025-09-10 10:06] VITALS: BP 93/54
[2025-09-10] MEDS: NS with KCl 40mEq 1,000 ML IV SCH (10:18)
[2025-09-10 15:22] VITALS: PULSE 92
[2025-09-10] MEDS ORDERED: Sucralfate Suspension 1 GM/10 ML Cup GTUBE SCH (16:30)
[2025-09-10] MEDS ORDERED: Arformoterol 15 MCG/2 ML Neb Soln INH SCH (21:00)
== END 2025-09-10 15:20 | disposition short-term general hospital (02) | DRG 391 ==
LOC: VM.ED 13:10 → VM.MS 16:04
PROVIDERS: ADMIT Internal Medicine; ATTEND Internal Medicine
PROC: 0D9670Z Drainage of Stomach with Drainage Device, Via Natural or Artificial Opening (ICD-10-PCS; principal; 2025-09-08)
PROC: 3E03329 Introduction of Other Anti-infective into Peripheral Vein, Percutaneous Approach (ICD-10-PCS; 2025-09-09)
PROC: 0T9B70Z Drainage of Bladder with Drainage Device, Via Natural or Artificial Opening (ICD-10-PCS; 2025-09-09)
DX: K59.81 Ogilvie syndrome (principal); G82.50 Quadriplegia, unspecified; J18.9 Pneumonia, unspecified organism; D62 Acute posthemorrhagic anemia; Z66 Do not resuscitate; H26.9 Unspecified cataract; J44.9 Chronic obstructive pulmonary disease, unspecified; I48.91 Unspecified atrial fibrillation; K59.09 Other constipation; K21.9 Gastro-esophageal reflux disease without esophagitis; M81.0 Age-related osteoporosis without current pathological fracture; F32.A Depression, unspecified; K31.84 Gastroparesis; G40.909 Epilepsy, unspecified, not intractable, without status epilepticus; D72.829 Elevated white blood cell count, unspecified; I95.9 Hypotension, unspecified; E87.6 Hypokalemia; E83.51 Hypocalcemia; Z87.820 Personal history of traumatic brain injury; Z88.6 Allergy status to analgesic agent; Z79.899 Other long term (current) drug therapy; Z79.51 Long term (current) use of inhaled steroids; Z79.1 Long term (current) use of non-steroidal anti-inflammatories (NSAID); Z93.1 Gastrostomy status; Z98.890 Other specified postprocedural states
CPT/HCPCS: 36415; 36430; 71045; 71250; 74018; 74019; 74176; 80048; 80053; 82947; 83605; 83735; 85014; 85018; 85025; 86140; 86850; 86900; 86901; 86920; 86922; 87070; 94640; 94760; 99284; 99285; A4315; A9270-GY; J0456; J0696; J1650; J2470; J3480; J3490; J7030; J7050; P9016; Q9967